=== PATIENT | male | born 1970 | race Caucasian/White ===

== ENCOUNTER 2017-07-14 21:17 | Emergency (ER) | payer MEDICAID, OTHER ==
[~2017-07-14] VITALS: Ht 180.3 cm; Wt 81.6 kg
[~2017-07-14 21:17] MED LIST: HYDR-3326 PO; ONDA4TAB5 PO
--- NOTE | 2017-07-14 22:02 | NUR ---
Dr. Rangel at bedside for MSE.
--- NOTE | 2017-07-14 22:10 | NUR ---
Soaked patient's feet in normal saline, betadine, and peroxide.
[2017-07-14] MEDS ORDERED: IBUPROFEN 800 MG TABLET ONE (22:27)
[2017-07-14] MEDS: IBUPROFEN 800 MG TABLET PO ONE (22:28)
[2017-07-14] MEDS ORDERED: diphenhydrAMINE 50 MG CAPSULE ONE (22:32)
[2017-07-14] MEDS: diphenhydrAMINE 50 MG CAPSULE PO ONE (22:33)
--- NOTE | 2017-07-14 22:56 | NUR ---
Patient given written and verbal discharge instructions. Patient verbalizes understanding of instructions. Patient is ambulatory with steady gait. Refuses offer of [facility] placement. Patient given list of available shelters in surrounding area. VSS, no acute signs of distress.
[2017-07-14 22:57] VITALS: BP 123/108
== END 2017-07-14 22:57 | disposition home or self-care (01) ==
LOC: ER 21:20
DX: S90.822A Blister (nonthermal), left foot, initial encounter (principal); S90.821A Blister (nonthermal), right foot, initial encounter; J45.909 Unspecified asthma, uncomplicated; F17.210 Nicotine dependence, cigarettes, uncomplicated; Z88.2 Allergy status to sulfonamides; Z88.1 Allergy status to other antibiotic agents; Z88.8 Allergy status to other drugs, medicaments and biological substances; Z79.891 Long term (current) use of opiate analgesic; Z79.899 Other long term (current) drug therapy; X58.XXXA Exposure to other specified factors, initial encounter; Y93.89 Activity, other specified; Y92.89 Other specified places as the place of occurrence of the external cause; Y99.8 Other external cause status
CPT/HCPCS: A4217; A4663; Q0163

== ENCOUNTER 2017-08-14 05:36 | Emergency (ER) | payer MEDICAID ==
[~2017-08-14] VITALS: Ht 180.3 cm; Wt 81.6 kg
[2017-08-14] MEDS ORDERED: PENICILLIN (06:07)
--- NOTE | 2017-08-14 06:13 | NUR ---
Patient ambulated to ER with steady gait, c/o of wounds and pain on knuckles of bilat upper ext, reports to have run into a [facility] a week ago.
--- NOTE | 2017-08-14 06:34 | NUR ---
Dr. Mcgraw at bedside for MSE.
--- NOTE | 2017-08-14 06:47 | NUR ---
Patient given written and verbal discharge instructions. Patient verbalizes understanding of instructions. Patient is ambulatory with steady gait. Refuses offer of residential placement. Patient given list of available shelters in surrounding area. VSS, no acute signs of distress, all belongings taken.
[2017-08-14 06:49] VITALS: BP 169/101
== END 2017-08-14 06:49 | disposition home or self-care (01) ==
LOC: ER 05:39
DX: B95.5 Unspecified streptococcus as the cause of diseases classified elsewhere (principal); J45.909 Unspecified asthma, uncomplicated; Z88.2 Allergy status to sulfonamides; Z88.1 Allergy status to other antibiotic agents; Z88.8 Allergy status to other drugs, medicaments and biological substances; F17.210 Nicotine dependence, cigarettes, uncomplicated; Z79.2 Long term (current) use of antibiotics; Z79.891 Long term (current) use of opiate analgesic; Z79.899 Other long term (current) drug therapy
CPT/HCPCS: A4663

== ENCOUNTER 2017-08-17 00:49 | Emergency (ER) | payer MEDICAID ==
[~2017-08-17] VITALS: Ht 180.3 cm; Wt 79.2 kg
[~2017-08-17 00:49] MED LIST changes: +PENICILLIN
--- NOTE | 2017-08-17 03:30 | NUR ---
Patient discharged to home in stable conditon. Written and verbal after care instructions given. Patient verbalizes understanding of instructions. Pt left ER and walks in steady gait.
[2017-08-17 03:32] VITALS: BP 151/88
== END 2017-08-17 03:33 | disposition home or self-care (01) ==
LOC: ER 00:52
DX: L30.9 Dermatitis, unspecified (principal); G89.29 Other chronic pain; J45.909 Unspecified asthma, uncomplicated; F17.210 Nicotine dependence, cigarettes, uncomplicated; Z88.2 Allergy status to sulfonamides; Z88.8 Allergy status to other drugs, medicaments and biological substances; Z79.891 Long term (current) use of opiate analgesic; Z79.2 Long term (current) use of antibiotics; Z79.899 Other long term (current) drug therapy
CPT/HCPCS: 99283; A4663

== ENCOUNTER 2017-08-21 02:54 | Emergency (ER) | payer MEDICAID ==
[~2017-08-21] VITALS: Ht 180.3 cm; Wt 79.8 kg
--- NOTE | 2017-08-21 03:20 | NUR ---
DR LEONIE CHAPMAN MD AT BEDSIDE FOR MSE.
--- NOTE | 2017-08-21 03:22 | NUR ---
PT C/O SKIN RASH ON BOTH HANDS, AND REQUESTS CREAM TO HELP WITH THE ITCHING. NO OTHER COMPLAINTS AT THIS TIME.
--- NOTE | 2017-08-21 03:29 | NUR ---
Patient discharged to home in stable conditon. Written and verbal after care instructions given. Patient verbalizes understanding of instructions. Pt provided snack, and ambulated from ER w/ steady gait. No distress noted.
[2017-08-21 03:30] VITALS: BP 148/87
== END 2017-08-21 03:31 | disposition home or self-care (01) ==
LOC: ER 02:59
DX: L30.9 Dermatitis, unspecified (principal); J45.909 Unspecified asthma, uncomplicated; F17.210 Nicotine dependence, cigarettes, uncomplicated; Z88.2 Allergy status to sulfonamides; Z88.1 Allergy status to other antibiotic agents; Z88.8 Allergy status to other drugs, medicaments and biological substances; Z79.2 Long term (current) use of antibiotics; Z79.891 Long term (current) use of opiate analgesic; Z79.899 Other long term (current) drug therapy
CPT/HCPCS: A4663

== ENCOUNTER 2017-08-23 01:00 | Emergency (ER) | payer MEDICAID ==
[~2017-08-23] VITALS: Ht 180.3 cm; Wt 79.8 kg
--- NOTE | 2017-08-23 01:40 | NUR ---
PT IN BED. MD HAMILTON AT BEDSIDE CONDUCTING MED EVAL.
[2017-08-23] MEDS ORDERED: NAPROXEN 500 MG TABLET ONE (01:55)
[2017-08-23] MEDS ORDERED: CODEINE/BUTA/APAP/CAFF 1 CAP CAPSULE ONE (01:56)
[2017-08-23] MEDS ORDERED: BUTALB/ACETAMINOPHEN/CAFFEINE TABLET PO PRN (02:00)
[2017-08-23] MEDS ORDERED: NAPROXEN 500 MG TABLET PO ONE (02:00)
--- NOTE | 2017-08-23 02:00 | NUR ---
Patient discharged to home in stable conditon. Written and verbal after care instructions given. Patient verbalizes understanding of instructions. Patient reported reduced headache upon discharge from ED. Patient able to ambulate unassisted with a steady gait. Patient left with all personal belongings.
[2017-08-23 02:07] VITALS: BP 148/98
== END 2017-08-23 02:00 | disposition home or self-care (01) ==
LOC: ER 01:05
DX: R51 Headache (principal); G89.29 Other chronic pain; L30.9 Dermatitis, unspecified; F15.10 Other stimulant abuse, uncomplicated; J45.909 Unspecified asthma, uncomplicated; F17.210 Nicotine dependence, cigarettes, uncomplicated; Z88.2 Allergy status to sulfonamides; Z88.1 Allergy status to other antibiotic agents; Z88.8 Allergy status to other drugs, medicaments and biological substances; Z79.891 Long term (current) use of opiate analgesic; Z79.899 Other long term (current) drug therapy; Z76.5 Malingerer [conscious simulation]; Z71.6 Tobacco abuse counseling
CPT/HCPCS: A4663

== ENCOUNTER 2017-08-28 17:08 | Emergency (ER) | payer MEDICAID ==
[~2017-08-28] VITALS: Ht 180.3 cm; Wt 81.6 kg
--- NOTE | 2017-08-28 18:25 | NUR ---
Patient discharged to home in stable conditon. Written and verbal after care instructions given. Patient verbalizes understanding of instructions.
== END 2017-08-28 18:31 | disposition home or self-care (01) ==
LOC: ER 17:08
DX: F41.9 Anxiety disorder, unspecified (principal); G89.29 Other chronic pain; L30.9 Dermatitis, unspecified; L98.499 Non-pressure chronic ulcer of skin of other sites with unspecified severity; J45.909 Unspecified asthma, uncomplicated; F12.10 Cannabis abuse, uncomplicated; Z71.6 Tobacco abuse counseling; Z88.2 Allergy status to sulfonamides; Z88.1 Allergy status to other antibiotic agents; Z88.8 Allergy status to other drugs, medicaments and biological substances; Z79.2 Long term (current) use of antibiotics; Z79.891 Long term (current) use of opiate analgesic; Z79.899 Other long term (current) drug therapy
CPT/HCPCS: A4663

== ENCOUNTER 2017-09-01 03:42 | Emergency (ER) | payer MEDICAID ==
[~2017-09-01] VITALS: Ht 180.3 cm; Wt 81.6 kg
[2017-09-01] MEDS: LIDOCAINE HCL 1% 20 ML VIAL IJ ONE (04:16)
[2017-09-01] MEDS ORDERED: NEOMY/BACITRA/POLYMYXIN B OINT UD PACKET TP ONE (04:18)
[2017-09-01] MEDS: NEOMY/BACITRA/POLYMYXIN B OINT UD PACKET TP ONE (04:30)
--- NOTE | 2017-09-01 04:30 | NUR ---
Patient discharged to home in stable conditon. Written and verbal after care instructions given. Patient verbalizes understanding of instructions. Patient able to ambulate unassisted with steady gait. Patient left with all personal belongings.
[2017-09-01 04:32] VITALS: BP 155/97
== END 2017-09-01 04:30 | disposition home or self-care (01) ==
LOC: ER 03:47
DX: S90.851A Superficial foreign body, right foot, initial encounter (principal); L98.499 Non-pressure chronic ulcer of skin of other sites with unspecified severity; J45.909 Unspecified asthma, uncomplicated; F17.210 Nicotine dependence, cigarettes, uncomplicated; F12.10 Cannabis abuse, uncomplicated; Z88.2 Allergy status to sulfonamides; Z88.1 Allergy status to other antibiotic agents; Z88.8 Allergy status to other drugs, medicaments and biological substances; Z79.891 Long term (current) use of opiate analgesic; Z79.2 Long term (current) use of antibiotics; Z79.899 Other long term (current) drug therapy; X58.XXXA Exposure to other specified factors, initial encounter; Y93.89 Activity, other specified; Y92.89 Other specified places as the place of occurrence of the external cause; Y99.8 Other external cause status
CPT/HCPCS: A4663; J3490

== ENCOUNTER 2017-09-14 01:26 | Emergency (ER) | payer MEDICAID ==
[~2017-09-14] VITALS: Ht 172.7 cm; Wt 77.1 kg
--- NOTE | 2017-09-14 02:20 | NUR ---
Patient discharged to home in stable conditon. Written and verbal after care instructions given. Patient verbalizes understanding of instructions. Patient ambulated out of ER in steady gait. All belongings with pt. VSS. No acute distress noted.
[2017-09-14 02:22] VITALS: BP 149/91
== END 2017-09-14 02:22 | disposition home or self-care (01) ==
LOC: ER 01:26
DX: B07.0 Plantar wart (principal); G43.909 Migraine, unspecified, not intractable, without status migrainosus; J45.909 Unspecified asthma, uncomplicated; F17.200 Nicotine dependence, unspecified, uncomplicated; Z88.1 Allergy status to other antibiotic agents
CPT/HCPCS: 99283; A4663

== ENCOUNTER 2017-10-13 05:01 | Emergency (ER) | payer MEDICAID ==
[~2017-10-13] VITALS: Ht 180.3 cm; Wt 69.9 kg
--- NOTE | 2017-10-13 07:09 | NUR ---
Patient discharged to home in stable conditon. Written and verbal after care instructions given. Patient verbalizes understanding of instructions.
[2017-10-13 07:10] VITALS: BP 158/89
== END 2017-10-13 07:11 | disposition home or self-care (01) ==
LOC: ER 05:05
DX: R10.13 Epigastric pain (principal); J45.909 Unspecified asthma, uncomplicated; F12.10 Cannabis abuse, uncomplicated; Z88.2 Allergy status to sulfonamides; Z88.1 Allergy status to other antibiotic agents; Z88.8 Allergy status to other drugs, medicaments and biological substances
CPT/HCPCS: 93005; 99283; A4663

== ENCOUNTER 2017-11-06 00:25 | Emergency (ER) | payer MEDICAID ==
[~2017-11-06] VITALS: Ht 180.3 cm; Wt 65.3 kg
--- NOTE | 2017-11-06 00:55 | NUR ---
Patient discharged to home in stable conditon. Written and verbal after care instructions given. Patient verbalizes understanding of instructions. Patient able to ambulate unassisted with a steady gait. Patient left with all personal belongings.
[2017-11-06 01:02] VITALS: BP 148/98
== END 2017-11-06 00:55 | disposition home or self-care (01) ==
LOC: ER 00:28
DX: K29.70 Gastritis, unspecified, without bleeding (principal); H52.4 Presbyopia; J45.909 Unspecified asthma, uncomplicated; F12.10 Cannabis abuse, uncomplicated; F17.210 Nicotine dependence, cigarettes, uncomplicated; Z88.2 Allergy status to sulfonamides; Z88.1 Allergy status to other antibiotic agents; Z88.8 Allergy status to other drugs, medicaments and biological substances
CPT/HCPCS: A4663

== ENCOUNTER 2017-12-10 15:30 | Emergency (ER) | payer MEDICAID ==
[~2017-12-10] VITALS: Ht 180.3 cm; Wt 65.3 kg
--- NOTE | 2017-12-10 16:19 | NUR ---
pt is in room #2b. dr pablo evaluated the pt.
--- NOTE | 2017-12-10 16:25 | NUR ---
PT WAS D/C TO HOME. D/C INSTRUCTIONS GIVEN TO THE PT.
[2017-12-10 16:27] VITALS: BP 139/84
== END 2017-12-10 17:05 | disposition home or self-care (01) ==
LOC: ER 15:42
DX: K29.70 Gastritis, unspecified, without bleeding (principal); Z76.0 Encounter for issue of repeat prescription; J45.909 Unspecified asthma, uncomplicated; F17.210 Nicotine dependence, cigarettes, uncomplicated; F12.10 Cannabis abuse, uncomplicated; Z88.2 Allergy status to sulfonamides; Z88.8 Allergy status to other drugs, medicaments and biological substances
CPT/HCPCS: 99283; A4663

== ENCOUNTER 2018-01-09 21:03 | Emergency (ER) | payer MEDICAID ==
[~2018-01-09] VITALS: Ht 180.3 cm; Wt 65.3 kg
--- NOTE | 2018-01-09 21:22 | NUR ---
Dr. Lyons at bedside for MSE.
[2018-01-09] MEDS ORDERED: diphenhydrAMINE 25 MG CAP PO ONE ×2 (21:29→21:30)
[2018-01-09] MEDS ORDERED: LORAZEPAM 1 MG TABLET ONE (21:29)
[2018-01-09] MEDS ORDERED: HYDROCODONE/APAP 10-325 MG TABLET PO ONE (21:30)
[2018-01-09] MEDS ORDERED: LORAZEPAM 0.5 MG TABLET PO ONE (21:30)
[2018-01-09] MEDS ORDERED: HYDROCODONE/APAP 10-325 MG TABLET ONE (21:30)
--- NOTE | 2018-01-09 21:35 | NUR ---
Patient discharged to home in stable conditon. Written and verbal after care instructions given. Patient verbalizes understanding of instructions. Patient ambulated out of ER with steady gait, no acute signs of distress, VSS, all belongings taken.
[2018-01-09 21:37] VITALS: BP 149/94
== END 2018-01-09 21:38 | disposition home or self-care (01) ==
LOC: ER 21:05
DX: G89.29 Other chronic pain (principal); R51 Headache; Z76.5 Malingerer [conscious simulation]; Z71.6 Tobacco abuse counseling; J45.909 Unspecified asthma, uncomplicated; F17.210 Nicotine dependence, cigarettes, uncomplicated; F12.10 Cannabis abuse, uncomplicated; Z88.2 Allergy status to sulfonamides; Z88.1 Allergy status to other antibiotic agents; Z88.8 Allergy status to other drugs, medicaments and biological substances
CPT/HCPCS: A4663; Q0163

== ENCOUNTER 2018-01-18 03:57 | Emergency (ER) | payer MEDICAID ==
[~2018-01-18] VITALS: Ht 180.3 cm; Wt 66.7 kg
[2018-01-18 05:21] LABS: *BILIRUBIN,URIN NEGATIVE (NEGATIVE); *BLOOD, URINE NEGATIVE (NEGATIVE); *CLARITY,URINE CLEAR (CLEAR); *COLOR,URINE YELLOW (YELLOW); *KETONES,URINE NEGATIVE (NEGATIVE); *PROTEIN,URINE NEGATIVE (NEGATIVE); *UROBILINOGEN,URINE 0.2 E.U./dl (NORMAL); LEUKOCYTE ESTERASE ,URINE NEGATIVE (NEGATIVE); NITRITE, URINE NEGATIVE (NEGATIVE); PH,URINE 5.5 (5.0-8.0); UGLUCOSE NEGATIVE (NEGATIVE)
[2018-01-18 05:28] LABS: BACTERIA,URINE NONE SEEN /HPF (NONE SEEN); RBC,URINE 0-3 /HPF (0-3); SQUAMOUS EPITHELIAL CELL,UR FEW /HPF (NONE SEEN); WBC,URINE 0-3 /HPF (0-3)
--- NOTE | 2018-01-18 06:04 | NUR ---
Patient discharged to home in stable conditon. Written and verbal after care instructions given. Patient verbalizes understanding of instructions.
[2018-01-18 06:20] VITALS: BP 148/94
== END 2018-01-18 06:21 | disposition home or self-care (01) ==
LOC: ER 04:01
DX: J02.8 Acute pharyngitis due to other specified organisms (principal); B97.89 Other viral agents as the cause of diseases classified elsewhere; J45.909 Unspecified asthma, uncomplicated; F17.210 Nicotine dependence, cigarettes, uncomplicated; F12.10 Cannabis abuse, uncomplicated; Z88.2 Allergy status to sulfonamides; Z88.1 Allergy status to other antibiotic agents; Z88.8 Allergy status to other drugs, medicaments and biological substances
CPT/HCPCS: 36415; 86403; 87070; A4663

== ENCOUNTER 2018-01-25 21:12 | Emergency (ER) | payer MEDICAID ==
[~2018-01-25] VITALS: Ht 180.3 cm; Wt 65.8 kg
--- NOTE | 2018-01-25 22:08 | NUR ---
Patient discharged to home in stable conditon. Written and verbal after care instructions given. Patient verbalizes understanding of instructions.
[2018-01-25 22:09] VITALS: BP 144/91
== END 2018-01-25 22:19 | disposition home or self-care (01) ==
LOC: ER 21:14
DX: M25.532 Pain in left wrist (principal); J45.909 Unspecified asthma, uncomplicated; F12.10 Cannabis abuse, uncomplicated; F17.210 Nicotine dependence, cigarettes, uncomplicated; Z88.2 Allergy status to sulfonamides; Z88.8 Allergy status to other drugs, medicaments and biological substances; Z88.1 Allergy status to other antibiotic agents
CPT/HCPCS: 73110; A4663

== ENCOUNTER 2018-01-31 22:03 | Inpatient (IN) | payer MEDICAID ==
[~2018-01-31] VITALS: Ht 180.3 cm; Wt 65.8 kg
[2018-01-31] MEDS ORDERED: IBUPROFEN 800 MG TABLET PO ONE (22:30)
[2018-01-31] MEDS ORDERED: HYDROCODONE/APAP 5-325MG TABLET PO ONE (22:30)
[2018-01-31] MEDS ORDERED: HYDROCODONE/APAP 5-325MG TABLET ONE (22:40)
[2018-01-31] MEDS ORDERED: IBUPROFEN 800 MG TABLET ONE (22:40)
[2018-01-31] MEDS ORDERED: CEFTRIAXONE 1 G VIAL ONE (23:45)
[2018-01-31] MEDS ORDERED: LEVOFLOXACIN 750 MG TABLET PO ONE (23:45)
[2018-01-31] MEDS ORDERED: LIDOCAINE HCL 1% 20 ML VIAL ONE (23:45)
[2018-01-31] MEDS ORDERED: LEVOFLOXACIN 750 MG TABLET ONE (23:45)
[2018-01-31] MEDS ORDERED: PSEUDOEPHEDRINE HCL 30 MG TABLET PO ONE (23:45)
[2018-01-31] MEDS ORDERED: CEFTRIAXONE 1 G VIAL IM ONE (23:45)
[2018-01-31] MEDS ORDERED: PSEUDOEPHEDRINE HCL 30 MG TABLET ONE (23:46)
[2018-02-01 00:08] LABS: BASOPHILS # (AUTO) 0.1 K/uL (0.0-8.0); BASOPHILS % (AUTO) 0.3 % (0.0-2.0); EOSINOPHILS # (AUTO) 0.1 K/uL (0.0-0.7); EOSINOPHILS % (AUTO) 0.5 % (0.0-7.0); HEMATOCRIT 35.4 % (36.7-47.1); LYMPHOCYTES # (AUTO) 1.6 K/uL (20.0-40.0); MEAN CORPUSCULAR HEMOGLOBIN 29.3 uug (23.8-33.4); MEAN CORPUSCULAR HGB CONC 34 g/dL (32.5-36.3); MEAN CORPUSCULAR VOLUME 86.7 fL (73.0-96.2); MONOCYTES # (AUTO) 1.6 K/uL (2.0-10.0); NEUTROPHILS # (AUTO) 14.3 K/uL (1.8-8.9); NEUTROPHILS % (AUTO) 81.2 % (38.5-71.5); PLATELET COUNT (AUTO) 408 K/uL (152-348); RED BLOOD CELL COUNT(AUTO) 4.08 MIL/uL (4.06-5.63); WHITE BLOOD COUNT (AUTO) 17.6 K/uL (3.6-10.2)
[2018-02-01 00:19] LABS: POTASSIUM 3.3 mmol/L (3.5-5.1)
[2018-02-01 00:24] LABS: BILIRUBIN,TOTAL 0.4 mg/dL (0.2-1.0); TOTAL PROTEIN, SERUM 7.3 g/dL (6.4-8.2)
[2018-02-01 01:45] VITALS: BP 136/90
[2018-02-01] MEDS ORDERED: ACETAMINOPHEN 325 MG TABLET PO PRN (01:45)
[2018-02-01] MEDS ORDERED: Z GUARD REMEDY PASTE 57 GM TUBE TOP PRN (01:45)
[2018-02-01] MEDS ORDERED: ONDANSETRON 4 MG/2 ML VIAL IV PRN (01:45)
[2018-02-01] MEDS ORDERED: ZOLPIDEM 5 MG TABLET PO PRN (01:45)
[2018-02-01] MEDS ORDERED: HYDROCODONE/APAP 5-325MG TABLET PO PRN (01:45)
[2018-02-01] MEDS ORDERED: MAGNESIUM HYDROXIDE 30 ML LIQUID UDC PO PRN (01:45)
[2018-02-01] MEDS: MORPHINE SULFATE 4 MG/1 ML DISP.SYRIN IV PRN ×4 (02:30→21:24)
[2018-02-01 04:34] VITALS: BP 150/89
[2018-02-01 07:45] VITALS: BP 136/92
[2018-02-01] MEDS ORDERED: LORAZEPAM 1 MG TABLET PO ONE (09:00)
[2018-02-01] MEDS: NICOTINE 21 MG/24HR PATCH TD SCH (09:29)
[2018-02-01] MEDS: LEVOFLOXACIN 750 MG TABLET PO SCH (11:28)
[2018-02-01 11:40] VITALS: BP 150/92
[2018-02-01] MEDS ORDERED: POTASSIUM CHLORIDE 20 MEQ TAB.PRT.SR PO ONE (15:30)
[2018-02-01 16:11] VITALS: BP 142/90
[2018-02-01] MEDS: KETOROLAC TROMETHAMINE 15 MG INJ IVP PRN (16:27)
[2018-02-01 20:14] VITALS: BP 171/98
[2018-02-01] MEDS: LORAZEPAM 2 MG/1 ML VIAL IV PRN (21:23)
[2018-02-02 04:00] VITALS: BP 174/95
[2018-02-02 05:30] VITALS: BP 147/93
[2018-02-02] MEDS: KETOROLAC TROMETHAMINE 15 MG INJ IVP PRN (06:04)
[2018-02-02] MEDS: LORAZEPAM 2 MG/1 ML VIAL IV PRN (06:12)
[2018-02-02 06:28] LABS: BASOPHILS % (AUTO) 0.3 % (0.0-2.0); EOSINOPHILS # (AUTO) 0.3 K/uL (0.0-0.7); EOSINOPHILS % (AUTO) 2.4 % (0.0-7.0); HEMATOCRIT 33.6 % (36.7-47.1); HEMOGLOBIN 11.5 g/dL (12.5-16.3); LYMPHOCYTES # (AUTO) 1.7 K/uL (20.0-40.0); LYMPHOCYTES % (AUTO) 12.3 % (20.5-51.5); MEAN CORPUSCULAR HEMOGLOBIN 29.4 uug (23.8-33.4); MEAN CORPUSCULAR HGB CONC 34 g/dL (32.5-36.3); MEAN CORPUSCULAR VOLUME 86.1 fL (73.0-96.2); MONOCYTES # (AUTO) 1.2 K/uL (2.0-10.0); NEUTROPHILS # (AUTO) 10.6 K/uL (1.8-8.9); PLATELET COUNT (AUTO) 441 K/uL (152-348); WHITE BLOOD COUNT (AUTO) 13.9 K/uL (3.6-10.2)
[2018-02-02 06:43] LABS: CREATININE 0.7 mg/dL (0.6-1.3); MAGNESIUM 1.6 mg/dL (1.8-2.4); PHOSPHOROUS 2.8 mg/dL (2.5-4.9); POTASSIUM 3.4 mmol/L (3.5-5.1)
[2018-02-02] MEDS: NICOTINE 21 MG/24HR PATCH TD SCH (09:48)
[2018-02-02] MEDS: LEVOFLOXACIN 750 MG TABLET PO SCH (11:07)
[2018-02-02] MEDS: MORPHINE SULFATE 4 MG/1 ML DISP.SYRIN IV PRN ×2 (11:08→15:09)
[2018-02-02 11:22] VITALS: BP 146/91
[2018-02-02] MEDS ORDERED: MAGNESIUM OXIDE 400 MG TABLET PO ONE (14:15)
[2018-02-02] MEDS ORDERED: POTASSIUM CHLORIDE 20 MEQ TAB.PRT.SR PO ONE (14:15)
[2018-02-02 15:18] VITALS: BP 160/93
[2018-02-02 15:30] VITALS: BP 130/80
== END 2018-02-02 15:40 | disposition left against medical advice (07) | DRG 135 ==
LOC: EDBD → ER 22:07 → TELE 02-01 00:30 → MERGE 02-01 00:30 → MED 02-01 16:53
PROVIDERS: ADMIT Internal Medicine; ATTEND Nurse Practitioner Acute Care
DX: S27.321A Contusion of lung, unilateral, initial encounter (principal); J18.9 Pneumonia, unspecified organism; E83.42 Hypomagnesemia; F15.10 Other stimulant abuse, uncomplicated; Y09 Assault by unspecified means; Y92.89 Other specified places as the place of occurrence of the external cause; E87.6 Hypokalemia; J45.909 Unspecified asthma, uncomplicated; D72.829 Elevated white blood cell count, unspecified; F17.210 Nicotine dependence, cigarettes, uncomplicated; D64.9 Anemia, unspecified
CPT/HCPCS: 36415; 70030-TC; 71045; 71101; 71250; 83735; 84100; 85025; 85730; 87040; 93005; 93307; A4663; J0696; J1885; J2060; J2270; J3490

== ENCOUNTER 2018-02-05 00:13 | Emergency (ER) | payer MEDICAID ==
[~2018-02-05] VITALS: Ht 180.3 cm; Wt 77.1 kg
--- NOTE | 2018-02-05 00:50 | NUR ---
Pt ambulating around room, rumaging through the cabinets and nutrition shelf and eating snacks. Pt awake, alert, oriented x3. No sob noted. no s/sx of distress noted. Resp even and unlabored. Will cont to monitor. Addendum: 02/05/18 at 0051 by RENETTA Blanchable redness to buttocks noted.
[2018-02-05] MEDS ORDERED: LEVOFLOXACIN 750 MG TABLET PO ONE (01:00)
[2018-02-05] MEDS ORDERED: LEVOFLOXACIN 750 MG TABLET ONE (01:02)
--- NOTE | 2018-02-05 01:16 | NUR ---
Patient discharged to home in stable conditon. Written and verbal after care instructions given. Patient verbalizes understanding of instructions. Resouces, prescription discussed and provided to patient.
--- NOTE | 2018-02-05 01:21 | NUR ---
Pt stated that he is currently staying with a friend at this time.
== END 2018-02-05 01:22 | disposition home or self-care (01) ==
LOC: ER 00:16
DX: J18.9 Pneumonia, unspecified organism (principal); R91.1 Solitary pulmonary nodule; J45.909 Unspecified asthma, uncomplicated; Z88.2 Allergy status to sulfonamides; Z88.1 Allergy status to other antibiotic agents; Z88.8 Allergy status to other drugs, medicaments and biological substances
CPT/HCPCS: 99283; A4663

== ENCOUNTER 2018-02-15 01:20 | Emergency (ER) | payer MEDICAID ==
[~2018-02-15] VITALS: Ht 180.3 cm; Wt 66.7 kg
[2018-02-15] MEDS ORDERED: LEVOFLOXACIN 750 MG TABLET PO ONE (02:15)
[2018-02-15] MEDS ORDERED: diphenhydrAMINE 25 MG CAP PO ONE ×2 (02:15→02:22)
[2018-02-15] MEDS ORDERED: LEVOFLOXACIN 750 MG TABLET ONE (02:23)
--- NOTE | 2018-02-15 02:59 | NUR ---
Patient discharged to home in stable conditon. Written and verbal after care instructions given. Patient verbalizes understanding of instructions. PATIENT LEFT WITH STABLE GAIT.
[2018-02-15 03:05] VITALS: BP 151/87
== END 2018-02-15 03:06 | disposition home or self-care (01) ==
LOC: ER 01:22
DX: J18.9 Pneumonia, unspecified organism (principal); R09.81 Nasal congestion; R51 Headache; I10 Essential (primary) hypertension; Z76.5 Malingerer [conscious simulation]; F17.210 Nicotine dependence, cigarettes, uncomplicated; F12.10 Cannabis abuse, uncomplicated; Z88.2 Allergy status to sulfonamides; Z88.1 Allergy status to other antibiotic agents; Z88.8 Allergy status to other drugs, medicaments and biological substances
CPT/HCPCS: 99283; Q0163; A4663

== ENCOUNTER 2018-02-24 03:50 | Emergency (ER) | payer MEDICAID ==
[~2018-02-24] VITALS: Ht 180.3 cm; Wt 68.0 kg
[2018-02-24] MEDS ORDERED: diphenhydrAMINE 25 MG CAP PO ONE ×2 (04:29→04:30)
[2018-02-24] MEDS ORDERED: IBUPROFEN 600 MG TABLET ONE (04:29)
[2018-02-24] MEDS ORDERED: IBUPROFEN 600 MG TABLET PO ONE (04:30)
--- NOTE | 2018-02-24 04:55 | NUR ---
Gave pt RX and d/c instructions, pt verbalized understanding.
== END 2018-02-24 05:10 | disposition home or self-care (01) ==
LOC: ER 03:54
DX: G89.29 Other chronic pain (principal); R51 Headache; F15.10 Other stimulant abuse, uncomplicated; F17.200 Nicotine dependence, unspecified, uncomplicated; Z76.5 Malingerer [conscious simulation]; Z59.0 Homelessness; Z88.2 Allergy status to sulfonamides; Z88.1 Allergy status to other antibiotic agents; Z88.8 Allergy status to other drugs, medicaments and biological substances
CPT/HCPCS: 99283; Q0163; A4663

== ENCOUNTER 2018-03-13 19:03 | Emergency (ER) | payer MEDICAID ==
[~2018-03-13] VITALS: Ht 180.3 cm; Wt 68.0 kg
[2018-03-13] MEDS ORDERED: HYDROCODONE/APAP 10-325 MG TABLET PO ONE (19:30)
[2018-03-13] MEDS ORDERED: ONDANSETRON ODT 4 MG TAB.RAPDIS SL ONE (19:30)
[2018-03-13] MEDS ORDERED: DIPHENOXYLATE HCL/ATROP SULF TABLET PO ONE (19:30)
[2018-03-13] MEDS ORDERED: PSEUDOEPHEDRINE HCL 30 MG TABLET PO ONE (19:30)
[2018-03-13] MEDS ORDERED: HYDROCODONE/APAP 10-325 MG TABLET ONE (19:40)
[2018-03-13] MEDS ORDERED: ONDANSETRON ODT 4 MG TAB.RAPDIS ONE (19:41)
[2018-03-13] MEDS ORDERED: DIPHENOXYLATE HCL/ATROP SULF TABLET ONE (19:43)
[2018-03-13] MEDS ORDERED: PSEUDOEPHEDRINE HCL 30 MG TABLET ONE (19:43)
--- NOTE | 2018-03-13 20:15 | NUR ---
Dr Lyons has spoke with patient will be DC.
--- NOTE | 2018-03-13 20:22 | NUR ---
Patient discharged to home in stable conditon. Written and verbal after care instructions given. Patient verbalizes understanding of instructions.
[2018-03-13 20:23] VITALS: BP 138/77
== END 2018-03-13 20:29 | disposition home or self-care (01) ==
LOC: ER 19:06
DX: R19.7 Diarrhea, unspecified (principal); R51 Headache; G89.4 Chronic pain syndrome; Z71.6 Tobacco abuse counseling; J45.909 Unspecified asthma, uncomplicated; F17.290 Nicotine dependence, other tobacco product, uncomplicated; Z88.2 Allergy status to sulfonamides; Z88.1 Allergy status to other antibiotic agents; Z88.8 Allergy status to other drugs, medicaments and biological substances; Z59.0 Homelessness
CPT/HCPCS: A4663; Q0162

== ENCOUNTER 2018-03-19 18:08 | Emergency (ER) | payer MEDICAID ==
[~2018-03-19] VITALS: Ht 180.3 cm; Wt 63.5 kg
[2018-03-19] MEDS ORDERED: DIPH25CA83 PO (18:28)
--- NOTE | 2018-03-19 18:52 | NUR ---
PATIENT IS A/A/O X3 IN NO DISTRESS.
--- NOTE | 2018-03-19 19:25 | NUR ---
Patient discharged to home in stable conditon. Written and verbal after care instructions given. Patient verbalizes understanding of instructions.
== END 2018-03-19 19:28 | disposition home or self-care (01) ==
LOC: ER 18:10
DX: S09.90XA Unspecified injury of head, initial encounter (principal); H53.8 Other visual disturbances; J06.9 Acute upper respiratory infection, unspecified; Z71.6 Tobacco abuse counseling; F17.290 Nicotine dependence, other tobacco product, uncomplicated; J45.909 Unspecified asthma, uncomplicated; Z59.0 Homelessness; Z88.2 Allergy status to sulfonamides; Z88.1 Allergy status to other antibiotic agents; Z88.8 Allergy status to other drugs, medicaments and biological substances; W01.198A Fall on same level from slipping, tripping and stumbling with subsequent striking against other object, initial encounter; Y93.89 Activity, other specified; Y92.89 Other specified places as the place of occurrence of the external cause; Y99.8 Other external cause status
CPT/HCPCS: A4663

== ENCOUNTER 2018-03-20 21:49 | Emergency (ER) | payer MEDICAID ==
[~2018-03-20] VITALS: Ht 180.3 cm; Wt 63.5 kg
[~2018-03-20 21:49] MED LIST changes: +DIPH25CA83 PO; -HYDR-3326 PO; -ONDA4TAB5 PO; -PENICILLIN
--- NOTE | 2018-03-20 22:10 | NUR ---
Patient given written and verbal discharge instructions. Patient verbalizes understanding of instructions. Patient is ambulatory with steady gait. Refuses offer of [facility] placement. Patient given list of available shelters in surrounding area.
--- NOTE | 2018-03-20 22:10 | NUR ---
Coleman zepeda in EDM - 03/20/18 at 2210 by ALESHIA Patient discharged to home in stable conditon. Written and verbal after care instructions given. Patient verbalizes understanding of instructions.
== END 2018-03-20 22:11 | disposition home or self-care (01) ==
LOC: ER 21:51
DX: Z00.00 Encounter for general adult medical examination without abnormal findings (principal); J45.909 Unspecified asthma, uncomplicated; F17.200 Nicotine dependence, unspecified, uncomplicated; Z59.0 Homelessness; Z88.2 Allergy status to sulfonamides; Z88.1 Allergy status to other antibiotic agents; Z88.8 Allergy status to other drugs, medicaments and biological substances
CPT/HCPCS: A4663

== ENCOUNTER 2018-04-20 00:57 | Emergency (ER) | END 2018-04-20 02:04 | disposition home or self-care (01) | DX: G89.29 Other chronic pain (principal); R51 Headache; I10 Essential (primary) hypertension; F15.10 Other stimulant abuse, uncomplicated; J45.909 Unspecified asthma, uncomplicated; F17.210 Nicotine dependence, cigarettes, uncomplicated; Z76.5 Malingerer [conscious simulation]; Z88.1 Allergy status to other antibiotic agents; Z59.0 Homelessness; Z91.14 Patient's other noncompliance with medication regimen; Z88.2 Allergy status to sulfonamides; Z79.899 Other long term (current) drug therapy ==

== ENCOUNTER 2018-04-25 22:20 | Emergency (ER) | payer MEDICAID ==
--- NOTE | 2018-04-25 22:38 | NUR ---
Pt was called in waiting room, not seen.
--- NOTE | 2018-04-25 22:49 | NUR ---
Pt called again in waiting room, not seen.
== END 2018-04-25 22:54 | disposition left against medical advice (07) ==
LOC: ER 22:24
DX: Z53.21 Procedure and treatment not carried out due to patient leaving prior to being seen by health care provider (principal)

== ENCOUNTER 2018-05-07 15:28 | Emergency (ER) | payer MEDICAID ==
[~2018-05-07] VITALS: Ht 180.3 cm; Wt 68.0 kg
[2018-05-07] MEDS ORDERED: KETOROLAC TROMETHAMINE 30 MG INJ IM ONE (15:45)
[2018-05-07] MEDS ORDERED: KETOROLAC TROMETHAMINE 30 MG INJ ONE (16:09)
--- NOTE | 2018-05-07 16:29 | NUR ---
Received patient for discharge- Patient is AOx4. Patient denies being homeless. Patient discharged to home in stable conditon & brisk steady gait. Written and verbal after care instructions given to patient. Patient verbalizes understanding of instructions.
== END 2018-05-07 16:29 | disposition home or self-care (01) ==
LOC: ER 15:30
DX: R51 Headache (principal); J45.909 Unspecified asthma, uncomplicated; F17.290 Nicotine dependence, other tobacco product, uncomplicated; Z88.8 Allergy status to other drugs, medicaments and biological substances; Z88.2 Allergy status to sulfonamides; Z88.1 Allergy status to other antibiotic agents; Z79.899 Other long term (current) drug therapy
CPT/HCPCS: 96372; 99283; 99406; J1885; A4663

== ENCOUNTER 2018-05-22 03:38 | Emergency (ER) | payer MEDICAID ==
[~2018-05-22] VITALS: Ht 180.3 cm; Wt 68.0 kg
--- NOTE | 2018-05-22 03:50 | NUR ---
Dr. Lyons at bedside for MSE
[2018-05-22] MEDS ORDERED: LORAZEPAM 0.5 MG TABLET PO ONE (04:00)
[2018-05-22] MEDS ORDERED: OXYCODONE/APAP 5-325 MG TABLET PO ONE (04:00)
[2018-05-22] MEDS ORDERED: LORAZEPAM 0.5 MG TABLET ONE (04:04)
[2018-05-22] MEDS ORDERED: OXYCODONE/APAP 5-325 MG TABLET ONE (04:05)
--- NOTE | 2018-05-22 04:05 | NUR ---
Pt c/o neck pain radiating to his head and giving him migraines since 1200. PS 08/03.
[2018-05-22] MEDS ORDERED: PROCHLORPERAZINE EDISYLATE 10 MG/2 ML VIAL ONE (04:07)
--- NOTE | 2018-05-22 04:16 | NUR ---
Patient discharged to home in stable conditon. Written and verbal after care instructions given. Patient verbalizes understanding of instructions. Pt ambulated out of dept with steady gait.
[2018-05-22 04:17] VITALS: BP 158/85
== END 2018-05-22 04:19 | disposition home or self-care (01) ==
LOC: ER 03:41
DX: R51 Headache (principal); F41.9 Anxiety disorder, unspecified; Z76.0 Encounter for issue of repeat prescription; I10 Essential (primary) hypertension; Z71.6 Tobacco abuse counseling; J45.909 Unspecified asthma, uncomplicated; F17.290 Nicotine dependence, other tobacco product, uncomplicated; Z88.2 Allergy status to sulfonamides; Z88.1 Allergy status to other antibiotic agents; Z88.8 Allergy status to other drugs, medicaments and biological substances; Z59.0 Homelessness; Z79.899 Other long term (current) drug therapy
CPT/HCPCS: A4663; J0780

== ENCOUNTER 2018-05-25 00:35 | Emergency (ER) | payer MEDICAID ==
[~2018-05-25] VITALS: Ht 180.3 cm; Wt 68.0 kg
--- NOTE | 2018-05-25 00:50 | NUR ---
PATIENT WALKED INTO ER A/OX3 WITH STEADY GAIT C/O MIGRAINE PEPE X12HRS. PATIENT DENIES N/V. WAS SEEN HERE 3 DAYS AGO FOR SIMILAR COMPLAINT.
[2018-05-25] MEDS ORDERED: diphenhydrAMINE 50 MG CAPSULE ONE (01:07)
[2018-05-25] MEDS ORDERED: OXYCODONE/APAP 5-325 MG TABLET ONE (01:07)
[2018-05-25] MEDS ORDERED: diphenhydrAMINE 50 MG CAPSULE PO ONE (01:15)
[2018-05-25] MEDS ORDERED: OXYCODONE/APAP 5-325 MG TABLET PO ONE (01:15)
--- NOTE | 2018-05-25 01:20 | NUR ---
Patient given written and verbal discharge instructions. Patient verbalizes understanding of instructions. Patient is ambulatory with steady gait. Refuses offer of [facility] placement. Patient given list of available shelters in surrounding area.
[2018-05-25 01:21] VITALS: BP 158/88
== END 2018-05-25 01:24 | disposition home or self-care (01) ==
LOC: ER 00:36
DX: G43.909 Migraine, unspecified, not intractable, without status migrainosus (principal); I10 Essential (primary) hypertension; J45.909 Unspecified asthma, uncomplicated; F17.200 Nicotine dependence, unspecified, uncomplicated; Z88.2 Allergy status to sulfonamides; Z88.8 Allergy status to other drugs, medicaments and biological substances; Z79.899 Other long term (current) drug therapy
CPT/HCPCS: 99283; Q0163; A4663

== ENCOUNTER 2018-06-01 02:05 | Emergency (ER) | payer MEDICAID ==
[~2018-06-01] VITALS: Ht 175.3 cm; Wt 68.0 kg
--- NOTE | 2018-06-01 02:59 | NUR ---
Pt ambulated in ER for the c/o right middle finger swelling and requestion for rx of clonidine and allergy medication. Safe environment implemented.
--- NOTE | 2018-06-01 03:32 | NUR ---
Dr. Rangel at bedside for MSE
--- NOTE | 2018-06-01 03:48 | NUR ---
Patient discharged to home in stable conditon. Written and verbal after care instructions given. Patient verbalizes understanding of instructions. Patient ambulated out of dept with steady gait.
[2018-06-01 03:50] VITALS: BP 160/95
== END 2018-06-01 03:51 | disposition home or self-care (01) ==
LOC: ER 02:07
DX: F41.9 Anxiety disorder, unspecified (principal); R09.81 Nasal congestion; I10 Essential (primary) hypertension; Z76.0 Encounter for issue of repeat prescription; J45.909 Unspecified asthma, uncomplicated; F17.200 Nicotine dependence, unspecified, uncomplicated; Z79.899 Other long term (current) drug therapy; Z88.2 Allergy status to sulfonamides; Z88.1 Allergy status to other antibiotic agents; Z88.8 Allergy status to other drugs, medicaments and biological substances
CPT/HCPCS: A4663

== ENCOUNTER 2018-06-07 02:41 | Emergency (ER) | payer MEDICAID ==
[~2018-06-07] VITALS: Ht 180.3 cm; Wt 68.0 kg
--- NOTE | 2018-06-07 03:13 | NUR ---
Patient given written and verbal discharge instructions. Patient verbalizes understanding of instructions. Patient is ambulatory with steady gait. Refuses offer of longterm placement. Patient given list of available shelters in surrounding area. Pt given food.
[2018-06-07 03:15] VITALS: BP 158/94
== END 2018-06-07 03:16 | disposition home or self-care (01) ==
LOC: ER 02:51
DX: R51 Headache (principal); I10 Essential (primary) hypertension; J45.909 Unspecified asthma, uncomplicated; F17.200 Nicotine dependence, unspecified, uncomplicated; Z88.2 Allergy status to sulfonamides; Z88.1 Allergy status to other antibiotic agents; Z88.8 Allergy status to other drugs, medicaments and biological substances; Z79.899 Other long term (current) drug therapy
CPT/HCPCS: A4663

== ENCOUNTER 2018-06-11 18:58 | Emergency (ER) | payer MEDICAID ==
[~2018-06-11] VITALS: Ht 172.7 cm; Wt 68.0 kg
--- NOTE | 2018-06-11 19:12 | NUR ---
HAND OFF REPORT GIVEN TO BEBETO URENA
[2018-06-11] MEDS ORDERED: KETOROLAC TROMETHAMINE 30 MG INJ ONE (19:36)
[2018-06-11] MEDS ORDERED: KETOROLAC TROMETHAMINE 30 MG INJ IM ONE (19:45)
--- NOTE | 2018-06-11 19:47 | NUR ---
Patient discharged to home in stable conditon. Written and verbal after care instructions given. Patient verbalizes understanding of instructions. Pt able to ambulate out of department with steady gait.
[2018-06-11 19:49] VITALS: BP 125/70
== END 2018-06-11 19:50 | disposition home or self-care (01) ==
LOC: ER 19:00
DX: S90.821A Blister (nonthermal), right foot, initial encounter (principal); S20.212A Contusion of left front wall of thorax, initial encounter; I10 Essential (primary) hypertension; J45.909 Unspecified asthma, uncomplicated; F17.290 Nicotine dependence, other tobacco product, uncomplicated; Z88.8 Allergy status to other drugs, medicaments and biological substances; Z79.899 Other long term (current) drug therapy; W01.0XXA Fall on same level from slipping, tripping and stumbling without subsequent striking against object, initial encounter; Y93.89 Activity, other specified; Y92.89 Other specified places as the place of occurrence of the external cause; Y99.8 Other external cause status
CPT/HCPCS: 71101; 96372; 99283; 99406; J1885; A4663

== ENCOUNTER 2018-06-20 19:37 | Emergency (ER) | payer MEDICAID ==
[~2018-06-20] VITALS: Ht 180.3 cm; Wt 68.0 kg
--- NOTE | 2018-06-20 20:11 | NUR ---
Patient given written and verbal discharge instructions. Patient verbalizes understanding of instructions. Patient is ambulatory with steady gait. Refuses offer of senior care placement. Patient given list of available shelters in surrounding area. Pt provided turkey sandwich.
[2018-06-20 20:12] VITALS: BP 139/84
== END 2018-06-20 20:14 | disposition home or self-care (01) ==
LOC: ER 19:37
DX: S20.211A Contusion of right front wall of thorax, initial encounter (principal); I10 Essential (primary) hypertension; J45.909 Unspecified asthma, uncomplicated; F17.200 Nicotine dependence, unspecified, uncomplicated; Z79.899 Other long term (current) drug therapy; Z88.2 Allergy status to sulfonamides; Z88.8 Allergy status to other drugs, medicaments and biological substances; W22.8XXA Striking against or struck by other objects, initial encounter; Y93.89 Activity, other specified; Y92.89 Other specified places as the place of occurrence of the external cause; Y99.8 Other external cause status
CPT/HCPCS: A4663

== ENCOUNTER 2018-06-25 19:39 | Emergency (ER) | payer MEDICAID ==
[~2018-06-25] VITALS: Ht 180.3 cm; Wt 70.3 kg
--- NOTE | 2018-06-25 20:00 | NUR ---
Dr. Mcgraw at bedside for MSE.
[2018-06-25] MEDS ORDERED: OXYCODONE/APAP 5-325 MG TABLET ONE (20:09)
[2018-06-25] MEDS ORDERED: OXYCODONE/APAP 5-325 MG TABLET PO ONE (20:15)
--- NOTE | 2018-06-25 20:15 | NUR ---
Patient given written and verbal discharge instructions. Patient verbalizes understanding of instructions. Patient is ambulatory with steady gait. Refuses offer of detention placement, refused list of available shelters, states he already has one. Patient provided with cranberry juice per request, states doesn't need anything else, pt will be arranging his own transportation.
== END 2018-06-25 20:21 | disposition home or self-care (01) ==
LOC: ER 19:42
DX: G43.909 Migraine, unspecified, not intractable, without status migrainosus (principal); M79.644 Pain in right finger(s); I10 Essential (primary) hypertension; J45.909 Unspecified asthma, uncomplicated; F17.200 Nicotine dependence, unspecified, uncomplicated; Z88.2 Allergy status to sulfonamides; Z88.1 Allergy status to other antibiotic agents; Z88.8 Allergy status to other drugs, medicaments and biological substances; Z79.899 Other long term (current) drug therapy
CPT/HCPCS: A4663

== ENCOUNTER 2018-07-02 00:54 | Emergency (ER) | payer MEDICAID ==
[~2018-07-02] VITALS: Ht 180.3 cm; Wt 70.3 kg
[2018-07-02] MEDS ORDERED: CLON0.1T14 PO (01:26)
[2018-07-02] MEDS ORDERED: ALBU8HFA4 IH (01:26)
[2018-07-02] MEDS ORDERED: CLONIDINE HCL 0.1 MG TABLET ONE (02:29)
[2018-07-02] MEDS ORDERED: CLONIDINE HCL 0.1 MG TABLET PO ONE (02:30)
[2018-07-02] MEDS ORDERED: LORAZEPAM 0.5 MG TABLET ONE (02:30)
[2018-07-02] MEDS ORDERED: LORAZEPAM 0.5 MG TABLET PO ONE (02:30)
--- NOTE | 2018-07-02 02:33 | NUR ---
Patient given written and verbal discharge instructions. Patient verbalizes understanding of instructions. Patient is ambulatory with stable gait. Refuses offer of detention placement. Patient given list of available shelters in surrounding area.
== END 2018-07-02 02:35 | disposition home or self-care (01) ==
LOC: MERGE 00:54 → ER 00:54
DX: F41.9 Anxiety disorder, unspecified (principal); G89.29 Other chronic pain; I10 Essential (primary) hypertension; J45.909 Unspecified asthma, uncomplicated; F17.290 Nicotine dependence, other tobacco product, uncomplicated; Z76.0 Encounter for issue of repeat prescription; Z71.6 Tobacco abuse counseling; Z88.2 Allergy status to sulfonamides; Z88.1 Allergy status to other antibiotic agents; Z79.899 Other long term (current) drug therapy
CPT/HCPCS: A4663

== ENCOUNTER 2018-07-08 00:29 | Emergency (ER) | payer MEDICAID ==
[~2018-07-08] VITALS: Ht 180.3 cm; Wt 72.6 kg
[~2018-07-08 00:29] MED LIST changes: +ALBU8HFA4 IH; +CLON0.1T14 PO
[2018-07-08] MEDS ORDERED: IBUP-1955 PO (00:51)
[2018-07-08] MEDS ORDERED: OXYC-133 PO (00:51)
--- NOTE | 2018-07-08 00:52 | NUR ---
Pt ambulates to ER wtih c/o left rib pain x 2 weeks & migraine headache today. No chest pain/sob. No GI/ distress. No N/V/D. No cough/fever/chills. Speech clear. Able to speak in complete sentences. Responsive to verbal + tactile stimuli.
[2018-07-08] MEDS ORDERED: OXYCODONE/APAP 5-325 MG TABLET PO ONE (02:30)
[2018-07-08] MEDS ORDERED: OXYCODONE/APAP 5-325 MG TABLET ONE (02:35)
--- NOTE | 2018-07-08 02:39 | NUR ---
Patient given written and verbal discharge instructions. Patient verbalizes understanding of instructions. Patient is ambulatory with steady gait. Refuses offer of [facility] placement. Patient given list of available shelters in surrounding area.
[2018-07-08 02:44] VITALS: BP 156/92
== END 2018-07-08 02:46 | disposition home or self-care (01) ==
LOC: ER 00:32
DX: S22.42XA Multiple fractures of ribs, left side, initial encounter for closed fracture (principal); I10 Essential (primary) hypertension; J45.909 Unspecified asthma, uncomplicated; F17.210 Nicotine dependence, cigarettes, uncomplicated; Z88.2 Allergy status to sulfonamides; Z88.8 Allergy status to other drugs, medicaments and biological substances; Z79.1 Long term (current) use of non-steroidal anti-inflammatories (NSAID); Z79.899 Other long term (current) drug therapy; X58.XXXA Exposure to other specified factors, initial encounter; Y93.89 Activity, other specified; Y92.89 Other specified places as the place of occurrence of the external cause; Y99.8 Other external cause status
CPT/HCPCS: 71101; A4663

== ENCOUNTER 2018-07-11 03:33 | Emergency (ER) | payer MEDICAID ==
[~2018-07-11] VITALS: Ht 180.3 cm; Wt 72.6 kg
[~2018-07-11 03:33] MED LIST changes: +IBUP-1955 PO; +OXYC-133 PO
--- NOTE | 2018-07-11 03:51 | NUR ---
Pt. ambulated into ED w/ c/o R knee pain 10/03 x1 day- states he was "climbing a wall and landed on it approx. 3pm yesterday",
[2018-07-11] MEDS ORDERED: IBUPROFEN 800 MG TABLET PO ONE (04:15)
[2018-07-11] MEDS ORDERED: NEOMY/BACITRA/POLYMYXIN B OINT UD PACKET TP ONE ×2 (04:15→04:44)
[2018-07-11] MEDS ORDERED: IBUPROFEN 800 MG TABLET ONE ×2 (04:44→04:46)
--- NOTE | 2018-07-11 06:10 | NUR ---
Patient given written and verbal discharge instructions. Patient verbalizes understanding of instructions. Patient is ambulatory with steady gait. Refuses offer of long term placement. Patient given list of available shelters in surrounding area. Pt. d/c w/ prescription per MD order, d/c papers signed, all belongings w/ pt., ID band removed, ambulated off unit w/ steady gait, homeless packet given and signed - placed in chart, NAD,
== END 2018-07-11 06:19 | disposition home or self-care (01) ==
LOC: ER 03:35
DX: S80.01XA Contusion of right knee, initial encounter (principal); J45.909 Unspecified asthma, uncomplicated; F17.210 Nicotine dependence, cigarettes, uncomplicated; Z59.0 Homelessness; Z88.2 Allergy status to sulfonamides; Z88.1 Allergy status to other antibiotic agents; Z88.8 Allergy status to other drugs, medicaments and biological substances; Z79.1 Long term (current) use of non-steroidal anti-inflammatories (NSAID); Z79.891 Long term (current) use of opiate analgesic; Z79.899 Other long term (current) drug therapy; W18.39XA Other fall on same level, initial encounter; Y93.89 Activity, other specified; Y92.89 Other specified places as the place of occurrence of the external cause; Y99.8 Other external cause status
CPT/HCPCS: A4663

== ENCOUNTER 2018-07-11 23:09 | Emergency (ER) | payer MEDICAID ==
--- NOTE | 2018-07-11 23:15 | NUR ---
Patient left without being seen by ER physician or being triaged.
== END 2018-07-11 23:16 | disposition left against medical advice (07) ==
LOC: ER 23:11
DX: Z53.21 Procedure and treatment not carried out due to patient leaving prior to being seen by health care provider (principal)

== ENCOUNTER 2018-07-13 17:28 | Emergency (ER) | payer MEDICAID ==
[~2018-07-13] VITALS: Ht 180.3 cm; Wt 72.6 kg
[2018-07-13] MEDS: KETOROLAC TROMETHAMINE 30 MG INJ IM ONE (17:55)
[2018-07-13] MEDS ORDERED: KETOROLAC TROMETHAMINE 30 MG INJ ONE (17:57)
--- NOTE | 2018-07-13 17:59 | NUR ---
PATIENT WAS SEEN BY MD. HE IS A/A/O X3 IN NO DISTRESS. MEDICATION GIVEN ORDERED.
--- NOTE | 2018-07-13 18:03 | NUR ---
DC, RX AND FOLLOW UP INSTRUCTIONS GIVEN AND EXPLAINED TO PATIENT WHO STATES HE UNDERSTANDS ALL INSTRUCTIONS.
== END 2018-07-13 18:05 | disposition home or self-care (01) ==
LOC: ER 17:28
DX: S80.01XA Contusion of right knee, initial encounter (principal); R51 Headache; R11.0 Nausea; J45.909 Unspecified asthma, uncomplicated; F17.210 Nicotine dependence, cigarettes, uncomplicated; Z59.0 Homelessness; Z88.2 Allergy status to sulfonamides; Z88.8 Allergy status to other drugs, medicaments and biological substances; Z79.899 Other long term (current) drug therapy; Z79.1 Long term (current) use of non-steroidal anti-inflammatories (NSAID); W18.30XA Fall on same level, unspecified, initial encounter; Y93.89 Activity, other specified; Y92.89 Other specified places as the place of occurrence of the external cause; Y99.8 Other external cause status
CPT/HCPCS: 96372; 99283; 99406; J1885; A4663

== ENCOUNTER 2018-07-22 02:02 | Emergency (ER) | payer MEDICAID ==
[~2018-07-22] VITALS: Ht 180.3 cm; Wt 72.6 kg
--- NOTE | 2018-07-22 02:50 | NUR ---
Dr. Rangel at bedside for MSE.
[2018-07-22] MEDS ORDERED: predniSONE 50 MG TABLET ONE (03:00)
[2018-07-22] MEDS ORDERED: predniSONE 50 MG TABLET PO ONE (03:00)
[2018-07-22] MEDS ORDERED: OXYCODONE/APAP 5-325 MG TABLET PO ONE (03:00)
[2018-07-22] MEDS ORDERED: OXYCODONE/APAP 5-325 MG TABLET ONE (03:01)
--- NOTE | 2018-07-22 03:09 | NUR ---
Patient given written and verbal discharge instructions. Patient verbalizes understanding of instructions. Patient is ambulatory with steady gait. Refuses offer of penitentiary placement. Patient given list of available shelters in surrounding area. Pt states will be providing his own transportation. Pt provided with a hospital sandwich and juice, and socks per request. VSS, no acute signs of distress, all belongings taken.
== END 2018-07-22 03:14 | disposition home or self-care (01) ==
LOC: ER 02:04
DX: J20.9 Acute bronchitis, unspecified (principal); J45.909 Unspecified asthma, uncomplicated; F17.210 Nicotine dependence, cigarettes, uncomplicated; Z88.2 Allergy status to sulfonamides; Z88.8 Allergy status to other drugs, medicaments and biological substances; Z79.1 Long term (current) use of non-steroidal anti-inflammatories (NSAID); Z79.899 Other long term (current) drug therapy
CPT/HCPCS: 99283; J7512; A4663

== ENCOUNTER 2018-07-26 21:27 | Emergency (ER) | payer MEDICAID ==
[~2018-07-26] VITALS: Ht 180.3 cm; Wt 72.6 kg
--- NOTE | 2018-07-26 22:02 | NUR ---
Patient ambulated with stable gait. AAOx4. Speech is clear, speaks in complete sentences. No neuro deficits. Patient came in c/o "breaking 3 ribs" s/p slipping by the pool x3 weeks. Respiratory even and unlabored, no sob, no cough. No cardiovascular distress noted, all pulses palpable. No GI/ distress. Patient in bed at lowest position, side rails upx2, call light within reach. Fall precautions implemented per protocol.
[2018-07-26] MEDS ORDERED: HYDROCODONE/APAP 5-325MG TABLET ONE (22:21)
--- NOTE | 2018-07-26 22:27 | NUR ---
Patient given written and verbal discharge instructions. Patient verbalizes understanding of instructions. Patient is ambulatory with stable gait. Refuses offer of assisted placement. Patient given list of available shelters in surrounding area.
[2018-07-26 22:29] VITALS: BP 150/93
[2018-07-26] MEDS ORDERED: HYDROCODONE/APAP 5-325MG TABLET PO ONE (22:30)
== END 2018-07-26 22:30 | disposition home or self-care (01) ==
LOC: ER 21:27
DX: G89.29 Other chronic pain (principal); R07.81 Pleurodynia; J45.909 Unspecified asthma, uncomplicated; F17.210 Nicotine dependence, cigarettes, uncomplicated; Z88.2 Allergy status to sulfonamides; Z88.8 Allergy status to other drugs, medicaments and biological substances; Z79.1 Long term (current) use of non-steroidal anti-inflammatories (NSAID); Z79.899 Other long term (current) drug therapy
CPT/HCPCS: A4663

== ENCOUNTER 2018-07-29 00:59 | Emergency (ER) | payer MEDICAID ==
[~2018-07-29] VITALS: Ht 180.3 cm; Wt 72.6 kg
--- NOTE | 2018-07-29 01:12 | NUR ---
Patient ambulated with stable gait. AAOX4. Patient came in for c/o migraines and left rib pain. Pain 8/10. Respiratory even and unlabored. No GI/ distress.
[2018-07-29] MEDS ORDERED: LORAZEPAM 0.5 MG TABLET PO ONE (01:15)
[2018-07-29] MEDS ORDERED: OXYCODONE/APAP 5-325 MG TABLET PO ONE (01:15)
[2018-07-29] MEDS ORDERED: LORAZEPAM 1 MG TABLET ONE (01:20)
[2018-07-29] MEDS ORDERED: OXYCODONE/APAP 5-325 MG TABLET ONE (01:21)
[2018-07-29] MEDS ORDERED: diphenhydrAMINE 50 MG CAPSULE ONE (01:56)
[2018-07-29] MEDS ORDERED: diphenhydrAMINE 50 MG CAPSULE PO ONE (02:00)
--- NOTE | 2018-07-29 02:06 | NUR ---
Patient discharged to home in stable conditon. Written and verbal after care instructions given. Patient verbalizes understanding of instructions. Patient ambulated with stable gait. Denies any homelessness.
[2018-07-29 02:16] VITALS: BP 135/72
== END 2018-07-29 02:16 | disposition home or self-care (01) ==
LOC: ER 01:00
DX: S22.42XA Multiple fractures of ribs, left side, initial encounter for closed fracture (principal); J45.909 Unspecified asthma, uncomplicated; F17.210 Nicotine dependence, cigarettes, uncomplicated; Z88.2 Allergy status to sulfonamides; Z88.8 Allergy status to other drugs, medicaments and biological substances; Z79.1 Long term (current) use of non-steroidal anti-inflammatories (NSAID); Z79.899 Other long term (current) drug therapy; X58.XXXA Exposure to other specified factors, initial encounter; Y93.89 Activity, other specified; Y92.89 Other specified places as the place of occurrence of the external cause; Y99.8 Other external cause status
CPT/HCPCS: 71101; 99284; Q0163; A4663

== ENCOUNTER 2018-08-09 23:44 | Emergency (ER) | payer MEDICAID ==
[~2018-08-09] VITALS: Ht 172.7 cm; Wt 66.7 kg
--- NOTE | 2018-08-10 01:53 | NUR ---
Patient discharged to home in stable conditon. Written and verbal after care instructions given. Patient verbalizes understanding of instructions. Denies any homelessness. Patient ambulated with stable gait.
[2018-08-10 01:56] VITALS: BP 130/70
== END 2018-08-10 01:56 | disposition home or self-care (01) ==
LOC: ER 23:49
DX: S20.219A Contusion of unspecified front wall of thorax, initial encounter (principal); R09.81 Nasal congestion; J45.909 Unspecified asthma, uncomplicated; F17.200 Nicotine dependence, unspecified, uncomplicated; Z88.8 Allergy status to other drugs, medicaments and biological substances; Z88.2 Allergy status to sulfonamides; Z79.1 Long term (current) use of non-steroidal anti-inflammatories (NSAID); Z79.899 Other long term (current) drug therapy; X58.XXXA Exposure to other specified factors, initial encounter; Y93.89 Activity, other specified; Y92.89 Other specified places as the place of occurrence of the external cause; Y99.8 Other external cause status

== ENCOUNTER → 2018-08-30 | Emergency (ER) | payer MEDICAID ==
[~2018-08-30] VITALS: Ht 172.7 cm; Wt 81.6 kg
[~2018-08-30] MED LIST changes: +ACETAMINOPHEN 325 MG TABLET ONE
--- NOTE | 2018-08-30 07:00 | NUR ---
Dr. Medrano at bedside for MSE.
--- NOTE | 2018-08-30 07:06 | NUR ---
Coleman zepeda in ED - 08/30/18 at 0707 by MARIUM Patient discharged to home in stable conditon. Written and verbal after care instructions given. Patient verbalizes understanding of instructions.
--- NOTE | 2018-08-30 07:07 | NUR ---
Patient given written and verbal discharge instructions. Patient verbalizes understanding of instructions. Patient is ambulatory with steady gait. Refuses offer of care home placement. Patient given list of available shelters in surrounding area. Pt provided sandwich and juice, and socks per patient request. Patient out of ER with steady gait, no acute signs of distress, VSS, all belongings taken.
[2018-08-30 07:08] VITALS: BP 152/75
== END | disposition home or self-care (01) ==
LOC: ER 06:43
DX: T16.1XXA Foreign body in right ear, initial encounter (principal); J45.909 Unspecified asthma, uncomplicated; F17.210 Nicotine dependence, cigarettes, uncomplicated; Z88.8 Allergy status to other drugs, medicaments and biological substances; Z88.2 Allergy status to sulfonamides; Z79.1 Long term (current) use of non-steroidal anti-inflammatories (NSAID); Z79.899 Other long term (current) drug therapy; X58.XXXA Exposure to other specified factors, initial encounter; Y93.89 Activity, other specified; Y92.89 Other specified places as the place of occurrence of the external cause; Y99.8 Other external cause status
CPT/HCPCS: A4663

== ENCOUNTER 2018-09-02 01:12 | Emergency (ER) | payer MEDICAID ==
[~2018-09-02] VITALS: Ht 180.3 cm; Wt 63.5 kg
[~2018-09-02 01:12] MED LIST changes: -ACETAMINOPHEN 325 MG TABLET ONE
--- NOTE | 2018-09-02 01:20 | NUR ---
Pt. ambulated into ED w/ c/o R foot 1st toe injury, pt. is disheveled and mumbles frequently is difficult to understand, RR even and unlabored, pt. ambulated around room w/ steady gait,
[2018-09-02] MEDS ORDERED: ACETAMINOPHEN 325 MG TABLET PO ONE (01:30)
--- NOTE | 2018-09-02 01:34 | NUR ---
Rad. tech. at bedside for foot xray,
[2018-09-02] MEDS ORDERED: LORAZEPAM 0.5 MG TABLET PO ONE (01:45)
[2018-09-02] MEDS ORDERED: LORAZEPAM 1 MG TABLET ONE (01:47)
--- NOTE | 2018-09-02 01:55 | NUR ---
Patient discharged to home in stable conditon. Written and verbal after care instructions given. Patient verbalizes understanding of instructions. Pt. d/c per MD order, d/c papers signed, homeless packet signed and given, pt. refuses assistance w/ alf at this time, sandwich given, all belongings w/ pt., ambulated off unit w/ steady gait, ID band removed, NAD
== END 2018-09-02 01:58 | disposition home or self-care (01) ==
LOC: ER 01:18
DX: S90.111A Contusion of right great toe without damage to nail, initial encounter (principal); F41.9 Anxiety disorder, unspecified; J45.909 Unspecified asthma, uncomplicated; F17.210 Nicotine dependence, cigarettes, uncomplicated; Z88.2 Allergy status to sulfonamides; Z88.8 Allergy status to other drugs, medicaments and biological substances; Z79.1 Long term (current) use of non-steroidal anti-inflammatories (NSAID); Z79.899 Other long term (current) drug therapy; W22.8XXA Striking against or struck by other objects, initial encounter; Y93.89 Activity, other specified; Y92.89 Other specified places as the place of occurrence of the external cause; Y99.8 Other external cause status
CPT/HCPCS: 73630; A4663

== ENCOUNTER 2018-09-09 01:19 | Emergency (ER) | payer MEDICAID ==
[~2018-09-09] VITALS: Ht 180.3 cm; Wt 70.3 kg
--- NOTE | 2018-09-09 01:25 | NUR ---
Pt here for c/o chronic rib pain and states he is out of his Rx. Waiting to see .
--- NOTE | 2018-09-09 01:40 | NUR ---
Pt D/c'd at this time w/ Rx
[2018-09-09 02:03] VITALS: BP 164/88
== END 2018-09-09 01:45 | disposition home or self-care (01) ==
LOC: ER 01:23
DX: J45.909 Unspecified asthma, uncomplicated (principal); F17.210 Nicotine dependence, cigarettes, uncomplicated; Z76.0 Encounter for issue of repeat prescription; Z88.2 Allergy status to sulfonamides; Z88.8 Allergy status to other drugs, medicaments and biological substances; Z79.1 Long term (current) use of non-steroidal anti-inflammatories (NSAID); Z79.899 Other long term (current) drug therapy
CPT/HCPCS: A4663

== ENCOUNTER 2018-09-11 21:10 | Emergency (ER) | payer MEDICAID ==
[~2018-09-11] VITALS: Ht 180.3 cm; Wt 66.7 kg
[2018-09-11] MEDS ORDERED: OXYCODONE/APAP 5-325 MG TABLET ONE (21:44)
[2018-09-11] MEDS ORDERED: OXYCODONE/APAP 5-325 MG TABLET PO ONE (21:45)
[2018-09-11 21:50] VITALS: BP 142/86
== END 2018-09-11 21:55 | disposition home or self-care (01) ==
LOC: ER 21:12
DX: R07.81 Pleurodynia (principal); J45.909 Unspecified asthma, uncomplicated; F17.210 Nicotine dependence, cigarettes, uncomplicated; Z88.2 Allergy status to sulfonamides; Z88.8 Allergy status to other drugs, medicaments and biological substances; Z79.1 Long term (current) use of non-steroidal anti-inflammatories (NSAID); Z79.899 Other long term (current) drug therapy
CPT/HCPCS: A4663

== ENCOUNTER 2018-09-13 21:30 | Emergency (ER) | payer MEDICAID ==
[~2018-09-13] VITALS: Ht 180.3 cm; Wt 66.7 kg
[2018-09-13] MEDS ORDERED: HYDROCODONE/APAP 10-325 MG TABLET PO ONE (22:15)
[2018-09-13] MEDS ORDERED: LORAZEPAM 0.5 MG TABLET PO ONE (22:15)
[2018-09-13] MEDS ORDERED: LORAZEPAM 1 MG TABLET ONE (22:21)
[2018-09-13] MEDS ORDERED: HYDROCODONE/APAP 10-325 MG TABLET ONE (22:21)
--- NOTE | 2018-09-13 22:29 | NUR ---
Patient discharged to home in stable conditon. Written and verbal after care instructions given. Patient verbalizes understanding of instructions.
[2018-09-13 22:30] VITALS: BP 135/87
== END 2018-09-13 22:30 | disposition home or self-care (01) ==
LOC: ER 21:30
DX: G89.4 Chronic pain syndrome (principal); M79.671 Pain in right foot; M79.672 Pain in left foot; B35.3 Tinea pedis; F17.210 Nicotine dependence, cigarettes, uncomplicated; J45.909 Unspecified asthma, uncomplicated; Z71.6 Tobacco abuse counseling; Z76.5 Malingerer [conscious simulation]; Z59.0 Homelessness; Z88.2 Allergy status to sulfonamides; Z88.8 Allergy status to other drugs, medicaments and biological substances; Z79.1 Long term (current) use of non-steroidal anti-inflammatories (NSAID); Z79.899 Other long term (current) drug therapy
CPT/HCPCS: A4663

== ENCOUNTER 2018-09-17 04:10 | Emergency (ER) | payer MEDICAID ==
[~2018-09-17] VITALS: Ht 180.3 cm; Wt 66.2 kg
[2018-09-17] MEDS ORDERED: diphenhydrAMINE 25 MG CAP PO ONE ×2 (04:45→04:46)
[2018-09-17] MEDS ORDERED: IBUPROFEN 600 MG TABLET PO ONE (04:45)
[2018-09-17] MEDS ORDERED: IBUPROFEN 600 MG TABLET ONE (04:46)
--- NOTE | 2018-09-17 04:58 | NUR ---
Patient discharged to home in stable conditon. Written and verbal after care instructions given. Patient verbalizes understanding of instructions. WALKED OUT OF ER WITH NO DISTRESS NOTED
[2018-09-17 04:59] VITALS: BP 145/90
== END 2018-09-17 04:59 | disposition home or self-care (01) ==
LOC: ER 04:27
DX: G89.4 Chronic pain syndrome (principal); M79.673 Pain in unspecified foot; J45.909 Unspecified asthma, uncomplicated; F17.210 Nicotine dependence, cigarettes, uncomplicated; G43.909 Migraine, unspecified, not intractable, without status migrainosus; Z76.0 Encounter for issue of repeat prescription; Z71.6 Tobacco abuse counseling; Z76.5 Malingerer [conscious simulation]; Z88.2 Allergy status to sulfonamides; Z88.8 Allergy status to other drugs, medicaments and biological substances; Z79.1 Long term (current) use of non-steroidal anti-inflammatories (NSAID); Z79.899 Other long term (current) drug therapy
CPT/HCPCS: 99283; 99406; Q0163; A4663

== ENCOUNTER 2018-09-22 04:33 | Emergency (ER) | payer MEDICAID ==
[~2018-09-22] VITALS: Ht 180.3 cm; Wt 73.5 kg
--- NOTE | 2018-09-22 05:10 | NUR ---
provided meal for patient
[2018-09-22] MEDS ORDERED: LORAZEPAM 1 MG TABLET ONE (05:11)
[2018-09-22] MEDS ORDERED: LORAZEPAM 0.5 MG TABLET PO ONE (05:15)
[2018-09-22 05:18] VITALS: BP 165/99
--- NOTE | 2018-09-22 05:18 | NUR ---
Patient discharged to home in stable conditon. Written and verbal after care instructions given. Patient verbalizes understanding of instructions.
== END 2018-09-22 05:19 | disposition home or self-care (01) ==
LOC: ER 04:38
DX: J45.909 Unspecified asthma, uncomplicated (principal); F17.210 Nicotine dependence, cigarettes, uncomplicated; Z88.2 Allergy status to sulfonamides; Z88.8 Allergy status to other drugs, medicaments and biological substances; Z79.1 Long term (current) use of non-steroidal anti-inflammatories (NSAID); Z79.891 Long term (current) use of opiate analgesic; Z79.899 Other long term (current) drug therapy
CPT/HCPCS: A4663

== ENCOUNTER 2018-10-02 05:50 | Emergency (ER) | payer MEDICAID ==
[~2018-10-02] VITALS: Ht 180.3 cm; Wt 70.8 kg
[2018-10-02] MEDS ORDERED: NAPROXEN 500 MG TABLET ONE (06:15)
[2018-10-02] MEDS ORDERED: NAPROXEN 500 MG TABLET PO ONE (06:15)
--- NOTE | 2018-10-02 06:15 | NUR ---
Patient ambulated with stable gait. Speech clear, speaks complete sentences. No neuro deficits. Patient came for c/o flu-like symptoms. No cardiovascular distress noted. No GI/ distress.
--- NOTE | 2018-10-02 06:23 | NUR ---
Patient discharged to home in stable conditon. Written and verbal after care instructions given. Patient verbalizes understanding of instructions. Denies homelessness. Patient ambulated with stable gait.
[2018-10-02 06:26] VITALS: BP 140/80
== END 2018-10-02 06:28 | disposition home or self-care (01) ==
LOC: ER 05:52
DX: S61.202A Unspecified open wound of right middle finger without damage to nail, initial encounter (principal); J06.9 Acute upper respiratory infection, unspecified; J45.909 Unspecified asthma, uncomplicated; F17.210 Nicotine dependence, cigarettes, uncomplicated; Z88.2 Allergy status to sulfonamides; Z79.899 Other long term (current) drug therapy; Z79.1 Long term (current) use of non-steroidal anti-inflammatories (NSAID); X58.XXXA Exposure to other specified factors, initial encounter; Y93.89 Activity, other specified; Y92.89 Other specified places as the place of occurrence of the external cause; Y99.8 Other external cause status
CPT/HCPCS: A4663

== ENCOUNTER 2018-10-04 02:15 | Emergency (ER) | payer MEDICAID ==
[~2018-10-04] VITALS: Ht 180.3 cm; Wt 70.8 kg
--- NOTE | 2018-10-04 02:32 | NUR ---
Patient arrived at the ER with chief complaint of back pain. Patient AAOx4. Very anxious/agitated. Screaming and yelling. NAD. No cardiovascular concern. No /Gi concern.
--- NOTE | 2018-10-04 02:44 | NUR ---
ADELA SANTANA at bedside for MSE.
[2018-10-04] MEDS ORDERED: LORAZEPAM 0.5 MG TABLET PO ONE (02:45)
[2018-10-04] MEDS ORDERED: KETOROLAC TROMETHAMINE 30 MG INJ IM ONE (02:45)
[2018-10-04] MEDS ORDERED: KETOROLAC TROMETHAMINE 30 MG INJ ONE (02:51)
[2018-10-04] MEDS ORDERED: LORAZEPAM 1 MG TABLET ONE (02:52)
--- NOTE | 2018-10-04 02:53 | NUR ---
Patient discharged to home in stable conditon. Written and verbal after care instructions given. Patient verbalizes understanding of instructions. Patient ambulated out of the ER with steady gait. All belongings with patient.
[2018-10-04 03:02] VITALS: BP 160/80
== END 2018-10-04 03:03 | disposition home or self-care (01) ==
LOC: ER 02:19
DX: F41.9 Anxiety disorder, unspecified (principal); G89.4 Chronic pain syndrome; G43.909 Migraine, unspecified, not intractable, without status migrainosus; I10 Essential (primary) hypertension; J45.909 Unspecified asthma, uncomplicated; F17.210 Nicotine dependence, cigarettes, uncomplicated; F11.10 Opioid abuse, uncomplicated; Z59.0 Homelessness; Z88.2 Allergy status to sulfonamides; Z88.8 Allergy status to other drugs, medicaments and biological substances; Z79.1 Long term (current) use of non-steroidal anti-inflammatories (NSAID); Z79.899 Other long term (current) drug therapy
CPT/HCPCS: 96372; 99284; J1885; A4663

== ENCOUNTER 2018-10-09 06:27 | Emergency (ER) | payer MEDICAID | END 2018-10-09 07:06 | disposition left against medical advice (07) | LOC: ER 06:34 | DX: Z53.21 Procedure and treatment not carried out due to patient leaving prior to being seen by health care provider (principal) ==

== ENCOUNTER 2018-10-10 01:18 | Emergency (ER) | payer MEDICAID ==
[~2018-10-10] VITALS: Ht 180.3 cm; Wt 77.1 kg
[2018-10-10] MEDS ORDERED: diphenhydrAMINE 50 MG CAPSULE PO ONE (01:45)
[2018-10-10] MEDS ORDERED: HYDROCODONE/APAP 10-325 MG TABLET PO ONE (01:45)
[2018-10-10] MEDS ORDERED: LORAZEPAM 0.5 MG TABLET PO ONE (01:45)
[2018-10-10] MEDS ORDERED: HYDROCODONE/APAP 10-325 MG TABLET ONE (01:50)
[2018-10-10] MEDS ORDERED: LORAZEPAM 1 MG TABLET ONE (01:51)
[2018-10-10] MEDS ORDERED: diphenhydrAMINE 50 MG CAPSULE ONE (01:51)
--- NOTE | 2018-10-10 02:00 | NUR ---
Patient given written and verbal discharge instructions. Patient verbalizes understanding of instructions. Patient is ambulatory with steady gait. Refuses offer of [facility] placement. Patient given list of available shelters in surrounding area.
[2018-10-10 02:03] VITALS: BP 144/77
== END 2018-10-10 02:05 | disposition home or self-care (01) ==
LOC: ER 01:19
DX: G89.4 Chronic pain syndrome (principal); G43.909 Migraine, unspecified, not intractable, without status migrainosus; J45.909 Unspecified asthma, uncomplicated; M79.644 Pain in right finger(s); F17.210 Nicotine dependence, cigarettes, uncomplicated; Z76.0 Encounter for issue of repeat prescription; Z59.0 Homelessness; Z71.6 Tobacco abuse counseling; Z88.2 Allergy status to sulfonamides; Z88.8 Allergy status to other drugs, medicaments and biological substances; Z79.1 Long term (current) use of non-steroidal anti-inflammatories (NSAID); Z79.899 Other long term (current) drug therapy
CPT/HCPCS: 99284; 99406; Q0163; A4663

== ENCOUNTER 2018-10-18 03:33 | Emergency (ER) | payer SELFPAY ==
--- NOTE | 2018-10-18 03:58 | NUR ---
Patient states " I don't want to be seen anymore. I okay." Patient left without being seen by ERMD or triaged.
== END 2018-10-18 04:00 | disposition left against medical advice (07) ==
LOC: ER 03:38
DX: Z53.21 Procedure and treatment not carried out due to patient leaving prior to being seen by health care provider (principal)

== ENCOUNTER 2018-10-19 02:09 | Emergency (ER) | payer MEDICAID ==
[~2018-10-19] VITALS: Ht 180.3 cm; Wt 70.8 kg
--- NOTE | 2018-10-19 02:33 | NUR ---
Patient discharged to home in stable conditon. Written and verbal after care instructions given. Patient verbalizes understanding of instructions. Ambulated from Er with stable gait. All belongings with patient. VSS
[2018-10-19] MEDS ORDERED: IBUPROFEN 400 MG TABLET ONE (02:34)
[2018-10-19 02:35] VITALS: BP 141/78
[2018-10-19] MEDS ORDERED: IBUPROFEN 400 MG TABLET PO ONE (02:45)
== END 2018-10-19 02:43 | disposition home or self-care (01) ==
LOC: ER 02:13
DX: G89.4 Chronic pain syndrome (principal); M79.644 Pain in right finger(s); G43.909 Migraine, unspecified, not intractable, without status migrainosus; J45.909 Unspecified asthma, uncomplicated; F17.210 Nicotine dependence, cigarettes, uncomplicated; F14.10 Cocaine abuse, uncomplicated; F15.10 Other stimulant abuse, uncomplicated; Z79.1 Long term (current) use of non-steroidal anti-inflammatories (NSAID); Z76.0 Encounter for issue of repeat prescription; Z71.6 Tobacco abuse counseling; Z79.899 Other long term (current) drug therapy; Z88.2 Allergy status to sulfonamides; Z88.8 Allergy status to other drugs, medicaments and biological substances
CPT/HCPCS: A4663

== ENCOUNTER 2018-10-24 02:45 | Emergency (ER) | payer MEDICAID ==
[~2018-10-24] VITALS: Ht 180.3 cm; Wt 70.8 kg
--- NOTE | 2018-10-24 03:37 | NUR ---
at bedside for MSE
[2018-10-24] MEDS ORDERED: LORAZEPAM 0.5 MG TABLET PO ONE (03:45)
[2018-10-24] MEDS ORDERED: HYDROCODONE/APAP 5-325MG TABLET PO ONE (03:45)
--- NOTE | 2018-10-24 03:49 | NUR ---
Patient discharged to home in stable conditon. Written and verbal after care instructions given. Patient verbalizes understanding of instructions. Pt. d/c w/ prescription per MD order, d/c papers signed, all belongings w/ pt., ID band removed, ambulated off unit w/ steady gait, NAD
[2018-10-24] MEDS ORDERED: LORAZEPAM 0.5 MG TABLET ONE (03:50)
[2018-10-24] MEDS ORDERED: HYDROCODONE/APAP 5-325MG TABLET ONE (03:50)
== END 2018-10-24 03:54 | disposition home or self-care (01) ==
LOC: ER 02:47
DX: G89.29 Other chronic pain (principal); R51 Headache; J45.909 Unspecified asthma, uncomplicated; F14.10 Cocaine abuse, uncomplicated; F15.10 Other stimulant abuse, uncomplicated; F17.210 Nicotine dependence, cigarettes, uncomplicated; Z88.2 Allergy status to sulfonamides; Z88.8 Allergy status to other drugs, medicaments and biological substances
CPT/HCPCS: A4663

== ENCOUNTER 2018-11-01 04:47 | Emergency (ER) | payer MEDICAID ==
[~2018-11-01] VITALS: Ht 180.3 cm; Wt 72.6 kg
--- NOTE | 2018-11-01 05:30 | NUR ---
Pt. ambulated into ED w/ c/o migraine headache, x1 hr. 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
--- NOTE | 2018-11-01 06:33 | NUR ---
Patient given written and verbal discharge instructions. Patient verbalizes understanding of instructions. Patient is ambulatory with steady gait. Refuses offer of assisted placement. Patient given list of available shelters in surrounding area. Pt. d/c w/ prescription per MD order, d/c papers signed, homeless resource packet signed and given, ID band removed, all belongings w/ pt., ambulated off unit w/ steady gait, NAD
== END 2018-11-01 06:36 | disposition home or self-care (01) ==
LOC: ER 04:47
DX: F32.9 Major depressive disorder, single episode, unspecified (principal); F41.9 Anxiety disorder, unspecified; J45.909 Unspecified asthma, uncomplicated; F17.210 Nicotine dependence, cigarettes, uncomplicated; F14.10 Cocaine abuse, uncomplicated; F15.10 Other stimulant abuse, uncomplicated; Z76.0 Encounter for issue of repeat prescription; Z88.2 Allergy status to sulfonamides; Z88.8 Allergy status to other drugs, medicaments and biological substances; Z79.1 Long term (current) use of non-steroidal anti-inflammatories (NSAID); Z79.899 Other long term (current) drug therapy
CPT/HCPCS: A4663

== ENCOUNTER 2018-11-05 01:21 | Emergency (ER) | payer MEDICAID ==
[~2018-11-05] VITALS: Ht 180.3 cm; Wt 63.5 kg
--- NOTE | 2018-11-05 01:41 | NUR ---
Dr. Lyons at bedside for MSE.
[2018-11-05] MEDS ORDERED: diphenhydrAMINE 25 MG CAP PO ONE ×2 (01:45→01:48)
[2018-11-05] MEDS ORDERED: ALBUTEROL SULFATE 2.5 MG/3 ML NEBU NEB ONE (01:45)
[2018-11-05] MEDS ORDERED: HYDROCODONE/APAP 10-325 MG TABLET PO ONE (01:45)
[2018-11-05] MEDS ORDERED: HYDROCODONE/APAP 10-325 MG TABLET ONE (01:48)
[2018-11-05] MEDS ORDERED: ALBUTEROL SULFATE 2.5 MG/3 ML NEBU ONE (01:49)
--- NOTE | 2018-11-05 02:09 | NUR ---
Patient given written and verbal discharge instructions. Patient verbalizes understanding of instructions. Patient is ambulatory with steady gait. Refuses offer of [facility] placement. Patient given list of available shelters in surrounding area. Pt provided with a food and juice per pt request, refused all other services, pt states will arrange own transportation. VSS, no acute signs of distress, all belongings taken.
== END 2018-11-05 02:14 | disposition home or self-care (01) ==
LOC: ER 01:21
DX: G89.4 Chronic pain syndrome (principal); R51 Headache; J44.9 Chronic obstructive pulmonary disease, unspecified; F17.210 Nicotine dependence, cigarettes, uncomplicated; F15.10 Other stimulant abuse, uncomplicated; F14.10 Cocaine abuse, uncomplicated; Z79.1 Long term (current) use of non-steroidal anti-inflammatories (NSAID); Z71.6 Tobacco abuse counseling; Z88.2 Allergy status to sulfonamides; Z88.8 Allergy status to other drugs, medicaments and biological substances; Z79.899 Other long term (current) drug therapy
CPT/HCPCS: 94640; 99283; 99406; Q0163; A4663

== ENCOUNTER 2018-11-09 21:28 | Inpatient (IN) | payer MEDICAID ==
[~2018-11-09] VITALS: Ht 180.3 cm; Wt 61.8 kg
[2018-11-09 22:12] LABS: BASOPHILS # (AUTO) 0.1 K/uL (0.0-8.0); BASOPHILS % (AUTO) 0.3 % (0.0-2.0); HEMATOCRIT 32.9 % (36.7-47.1); HEMOGLOBIN 10.6 g/dL (12.5-16.3); LYMPHOCYTES # (AUTO) 0.7 K/uL (20.0-40.0); LYMPHOCYTES % (AUTO) 3.3 % (20.5-51.5); MEAN CORPUSCULAR HEMOGLOBIN 24.5 uug (23.8-33.4); MEAN CORPUSCULAR HGB CONC 32 g/dL (32.5-36.3); MEAN CORPUSCULAR VOLUME 75.6 fL (73.0-96.2); MONOCYTES # (AUTO) 1.9 K/uL (2.0-10.0); MONOCYTES % (AUTO) 8.7 % (0.0-11.0); NEUTROPHILS # (AUTO) 18.7 K/uL (1.8-8.9); NEUTROPHILS % (AUTO) 87.7 % (38.5-71.5); PLATELET COUNT (AUTO) 285 K/uL (152-348); RED BLOOD CELL COUNT(AUTO) 4.35 MIL/uL (4.06-5.63); WHITE BLOOD COUNT (AUTO) 21.3 K/uL (3.6-10.2)
[2018-11-09 22:20] LABS: CREATININE 1.6 mg/dL (0.6-1.3)
[2018-11-09 22:28] LABS: BAND % (MANUAL) 8 % (0-10); LYMPHOCYTES % (MANUAL) 4 % (20-40); MONOCYTES % (MANUAL) 7 % (2-10); NEUTROPHILS % (MANUAL) 81 % (42-75)
[2018-11-09 22:31] LABS: BILIRUBIN,DIRECT 0.2 mg/dL (0.0-0.2); BILIRUBIN,TOTAL 0.8 mg/dL (0.2-1.0); TOTAL PROTEIN, SERUM 7.6 g/dL (6.4-8.2)
[2018-11-09 23:12] LABS: *BILIRUBIN,URIN NEGATIVE (NEGATIVE); *BLOOD, URINE 1+ (NEGATIVE); *CLARITY,URINE CLEAR (CLEAR); *COLOR,URINE YELLOW (YELLOW); *KETONES,URINE TRACE (NEGATIVE); *UROBILINOGEN,URINE 0.2 E.U./dl (NORMAL); LEUKOCYTE ESTERASE ,URINE NEGATIVE (NEGATIVE); NITRITE, URINE NEGATIVE (NEGATIVE); PH,URINE 5.5 (5.0-8.0); UGLUCOSE NEGATIVE (NEGATIVE)
[2018-11-09 23:20] LABS: BACTERIA,URINE NONE SEEN /HPF (NONE SEEN); SQUAMOUS EPITHELIAL CELL,UR FEW /HPF (NONE SEEN); WBC,URINE 0-3 /HPF (0-3)
[2018-11-09] MEDS ORDERED: MEROPENEM 1 G in IV NORMAL SALINE 100 ML IV ONE (23:45)
[2018-11-09] MEDS ORDERED: VANCOMYCIN IV 200 ML IV ONE (23:45)
[2018-11-10] MEDS ORDERED: MEROPENEM 1 G VIAL IV ONE (00:02)
--- NOTE | 2018-11-10 00:25 | NUR ---
Pt in radiology dept for CT scan.
[2018-11-10] MEDS ORDERED: VANCOMYCIN IV 200 ML ONE (00:52)
[2018-11-10] MEDS ORDERED: KETOROLAC TROMETHAMINE 30 MG INJ IVP ONE (01:00)
[2018-11-10] MEDS ORDERED: LORAZEPAM 2 MG/1 ML VIAL IV ONE ×2 (01:00→01:45)
[2018-11-10] MEDS ORDERED: KETOROLAC TROMETHAMINE 30 MG INJ ONE (01:03)
[2018-11-10] MEDS ORDERED: LORAZEPAM 2 MG/1 ML VIAL ONE ×2 (01:04→01:23)
--- NOTE | 2018-11-10 01:24 | NUR ---
Received call from Radiology, Dr Means, regarding results of CT abdomen. Notified Dr. Peña.
--- NOTE | 2018-11-10 01:42 | NUR ---
Pt down to radiology dept for CT cervical spine.
[2018-11-10 01:45] LABS: CSF PROTEIN 37 mg/dL (15-45)
[2018-11-10] MEDS ORDERED: IV NORMAL SALINE 1000 ML BAG IV ONE (01:45)
[2018-11-10 02:00] LABS: CSF GLUCOSE 76 mg/dL (40-70)
--- NOTE | 2018-11-10 02:31 | NUR ---
Pt resting in bed with eyes closed. Respirations even + unlabored. Pending results.
--- NOTE | 2018-11-10 02:51 | NUR ---
Paged [facility] for panel call. Pending call back from Dr. Bang.
--- NOTE | 2018-11-10 02:53 | NUR ---
Dr. Peña speaking to Dr. Bang via telephone.
--- NOTE | 2018-11-10 03:02 | NUR ---
Pt. admitted to Med/Surg , under care of Dr. Bang. Diagnosis: Pneumonia/Altered Mental Status. Belongs List completed
--- NOTE | 2018-11-10 03:20 | NUR ---
Received patient from ER, asleep, easily arousable. Not in distress at this time. Transferred to bed safely. Body check done. IVF started, IV site on right forearm gauge #20 intact and patent. Kept bed locked in low position, bed alarm on w/ side rails up x 2. Call light in reach. Will continue to monitor
[2018-11-10] MEDS ORDERED: ACETAMINOPHEN 325 MG TABLET PO PRN (03:30)
[2018-11-10] MEDS ORDERED: CEFTRIAXONE 1 G in IV DEXTROSE 5% 50 ML IV SCH (03:30)
[2018-11-10] MEDS ORDERED: ZOLPIDEM 5 MG TABLET PO PRN (03:30)
[2018-11-10] MEDS ORDERED: MAGNESIUM HYDROXIDE 30 ML LIQUID UDC PO PRN (03:30)
[2018-11-10] MEDS ORDERED: ALBUTEROL SULFATE 8 GM HFA.AER.AD IH PRN (03:30)
[2018-11-10] MEDS ORDERED: AZITHROMYCIN IV 500 MG in IV DEXTROSE 5% 250 ML IV SCH (03:30)
[2018-11-10] MEDS ORDERED: IBUPROFEN 600 MG TABLET PO SCH (03:30)
[2018-11-10] MEDS ORDERED: Z GUARD REMEDY PASTE 57 GM TUBE TOP PRN (03:30)
[2018-11-10] MEDS ORDERED: Medication Not On Formulary EA (Diphenhydramine Hcl (Benadryl) 25 MG) PO SCH (03:30)
[2018-11-10] MEDS ORDERED: ONDANSETRON 4 MG/2 ML VIAL IV PRN (03:30)
[2018-11-10] MEDS: IV NS 1000 ML 1,000 ML IV PRN ×2 (03:54→18:07)
[2018-11-10] MEDS ORDERED: ALBUTEROL SULFATE 2.5 MG/ 0.5 ML NEBU NEB PRN ×2 (04:15→07:15)
[2018-11-10 04:17] VITALS: BP 132/87
[2018-11-10] MEDS ORDERED: AZITHROMYCIN 500 MG VIAL IV ONE (04:31)
[2018-11-10] MEDS ORDERED: LEVOFLOXACIN 500 MG/D5W 100 ML ONE (04:31)
[2018-11-10] MEDS: LEVOFLOXACIN 500 MG/D5W 500 MG in PREMIXED 1 EACH IV SCH (04:34)
--- NOTE | 2018-11-10 06:16 | NUR ---
Patient still noted sleeping but easily arousable. IV ATB Levaquin 500mg infused.
[2018-11-10] MEDS ORDERED: IBUPROFEN 600 MG TABLET PO PRN (06:45)
--- NOTE | 2018-11-10 07:15 | NUR ---
Received patient in bed sleeping, no apparent distress noted. Addendum: 11/10/18 at 0805 by DAVON LAURA RN Bed in low position side rails up x 2. Bed alarm on and call light in reach
[2018-11-10 08:57] LABS: BASOPHILS # (AUTO) 0.1 K/uL (0.0-8.0); BASOPHILS % (AUTO) 0.4 % (0.0-2.0); EOSINOPHILS # (AUTO) 0.1 K/uL (0.0-0.7); EOSINOPHILS % (AUTO) 0.3 % (0.0-7.0); HEMATOCRIT 34.2 % (36.7-47.1); HEMOGLOBIN 10.9 g/dL (12.5-16.3); LYMPHOCYTES # (AUTO) 1.1 K/uL (20.0-40.0); LYMPHOCYTES % (AUTO) 6.2 % (20.5-51.5); MEAN CORPUSCULAR HEMOGLOBIN 24.4 uug (23.8-33.4); MEAN CORPUSCULAR HGB CONC 32 g/dL (32.5-36.3); MEAN CORPUSCULAR VOLUME 76.4 fL (73.0-96.2); MONOCYTES # (AUTO) 1.6 K/uL (2.0-10.0); MONOCYTES % (AUTO) 9.1 % (0.0-11.0); NEUTROPHILS # (AUTO) 14.5 K/uL (1.8-8.9); PLATELET COUNT (AUTO) 249 K/uL (152-348); RED BLOOD CELL COUNT(AUTO) 4.48 MIL/uL (4.06-5.63); WHITE BLOOD COUNT (AUTO) 17.3 K/uL (3.6-10.2)
[2018-11-10] MEDS: CLONIDINE HCL 0.1 MG TABLET PO SCH ×3 (09:00→20:28)
[2018-11-10 09:05] LABS: PHOSPHOROUS 2.3 mg/dL (2.5-4.9)
[2018-11-10 09:21] VITALS: BP 129/92
[2018-11-10 09:39] LABS: CARBON DIOXIDE 24 mmol/L (21-32); CHLORIDE 103 mmol/L (98-107); CREATININE 1.1 mg/dL (0.6-1.3); GLUCOSE 91 mg/dL (74-106); POTASSIUM 3.5 mmol/L (3.5-5.1); UREA NITROGEN, BLOOD 26 mg/dL (7-18)
[2018-11-10 11:04] VITALS: BP 136/86
[2018-11-10 15:07] VITALS: BP 137/82
[2018-11-10] MEDS ORDERED: NEUTRA PHOS PACKET PO ONE (15:15)
[2018-11-10] MEDS: OXYCODONE/APAP 5-325 MG TABLET PO PRN (15:40)
[2018-11-10] MEDS: ALBUTEROL SULFATE 2.5 MG/3 ML NEBU NEB SCH ×2 (15:59→19:42)
[2018-11-10] MEDS ORDERED: diphenhydrAMINE 50 MG CAPSULE PO PRN (17:00)
--- NOTE | 2018-11-10 18:42 | NUR ---
Patient has been cooperative with care throughout the day. Patient has a good appetite and requests double portions of food. Patient has occasional outbursts where he screams for coke or other requests. Currently patient in bed, no distress noted at this time, bed in low position side rails up x2. call light in reach.
[2018-11-10 20:00] VITALS: BP 145/85
[2018-11-10] MEDS ORDERED: LORAZEPAM 2 MG/1 ML VIAL IV PRN (21:00)
[2018-11-11] MEDS: OXYCODONE/APAP 5-325 MG TABLET PO PRN ×2 (01:37→08:59)
[2018-11-11] MEDS: ALBUTEROL SULFATE 2.5 MG/3 ML NEBU NEB SCH ×2 (01:38→07:18)
[2018-11-11 04:00] VITALS: BP 136/75
[2018-11-11] MEDS: LEVOFLOXACIN 500 MG/D5W 500 MG in PREMIXED 1 EACH IV SCH (04:56)
--- NOTE | 2018-11-11 06:08 | NUR ---
PATIENT AWAKE IN BED. DENIES PAIN AT THIS TIME. NO RESP. DISTRESS NOTED. ON TELE SR. IVF INFUSING WELL. CALL LIGHT IN REACH. ALL NEEDS ATTENDED. WILL CONTINUE TO MONITOR AND ASSESS.
[2018-11-11 06:41] LABS: CREATININE 0.9 mg/dL (0.6-1.3); MAGNESIUM 1.7 mg/dL (1.8-2.4); PHOSPHOROUS 2.4 mg/dL (2.5-4.9); POTASSIUM 3.5 mmol/L (3.5-5.1)
[2018-11-11 06:58] LABS: BASOPHILS % (AUTO) 0.2 % (0.0-2.0); EOSINOPHILS # (AUTO) 0.1 K/uL (0.0-0.7); MEAN CORPUSCULAR HGB CONC 33 g/dL (32.5-36.3); MONOCYTES # (AUTO) 1.1 K/uL (2.0-10.0); PLATELET COUNT (AUTO) 228 K/uL (152-348)
[2018-11-11 07:09] LABS: EOSINOPHILS % (AUTO) 0.9 % (0.0-7.0); HEMATOCRIT 32.9 % (36.7-47.1); HEMOGLOBIN 10.7 g/dL (12.5-16.3); LYMPHOCYTES # (AUTO) 1.3 K/uL (20.0-40.0); LYMPHOCYTES % (AUTO) 12.2 % (20.5-51.5); MEAN CORPUSCULAR VOLUME 76.5 fL (73.0-96.2); MONOCYTES % (AUTO) 9.8 % (0.0-11.0); NEUTROPHILS # (AUTO) 8.4 K/uL (1.8-8.9); NEUTROPHILS % (AUTO) 76.9 % (38.5-71.5)
--- NOTE | 2018-11-11 07:15 | NUR ---
received report from account general manager nurse, patient in bed asleep, no distress noted at this time, bed in low position, side rails up x2. Bed alarm on.
[2018-11-11] MEDS: CLONIDINE HCL 0.1 MG TABLET PO SCH (08:59)
[2018-11-11 11:16] VITALS: BP 123/81
--- NOTE | 2018-11-11 11:50 | NUR ---
patient was very agitated and said he needed to leave right now. belongings were accounted for and IV removed, Dr. Payton notified of patients status. Patient got dressed, ID tag removed. and patient walked out on his own after signing ama paperwork.
== END 2018-11-11 12:00 | disposition left against medical advice (07) | DRG 139 ==
LOC: ER 21:28 → MEDSURG3 11-10 03:11 → TELE3 11-10 03:53 → MEDSURG3 11-11 07:23
PROVIDERS: ADMIT Internal Medicine; ATTEND Nurse Practitioner Acute Care
PROC: 009U3ZX Drainage of Spinal Canal, Percutaneous Approach, Diagnostic (ICD-10-PCS; principal; 2018-11-10)
DX: J15.9 Unspecified bacterial pneumonia (principal); N17.0 Acute kidney failure with tubular necrosis; G93.41 Metabolic encephalopathy; S32.029A Unspecified fracture of second lumbar vertebra, initial encounter for closed fracture; E83.39 Other disorders of phosphorus metabolism; E83.51 Hypocalcemia; J44.0 Chronic obstructive pulmonary disease with (acute) lower respiratory infection; S32.039A Unspecified fracture of third lumbar vertebra, initial encounter for closed fracture; J45.909 Unspecified asthma, uncomplicated; F17.210 Nicotine dependence, cigarettes, uncomplicated; X58.XXXA Exposure to other specified factors, initial encounter; Y92.89 Other specified places as the place of occurrence of the external cause; G89.4 Chronic pain syndrome; D63.8 Anemia in other chronic diseases classified elsewhere; S00.83XA Contusion of other part of head, initial encounter; S00.33XA Contusion of nose, initial encounter; F15.90 Other stimulant use, unspecified, uncomplicated; Z80.3 Family history of malignant neoplasm of breast; Z79.899 Other long term (current) drug therapy
CPT/HCPCS: 36415; 70450; 71045; 72125; 83605; 83735; 84100; 84157; 85025; 87040; 87086; 89051; 93005; 94640; A4663; G0378; J0456; J1885; J1956; J2060; J2185; J3370; J3490; J7030

== ENCOUNTER 2018-11-12 03:44 | Emergency (ER) | payer MEDICAID ==
[~2018-11-12] VITALS: Ht 180.3 cm; Wt 63.5 kg
--- NOTE | 2018-11-12 04:15 | NUR ---
PATIENT WALKED INTO ER REQUESTING RX FOR ANTIOBITOC AND PAIN MEDS. PATIENT STATES HE WENT [facility] ON 11/11/18 FROM [facility] FLOOR AND DID NOT GET RX.
--- NOTE | 2018-11-12 04:35 | NUR ---
Patient discharged to home in stable conditon. Written and verbal after care instructions given. Patient verbalizes understanding of instructions. WALKED OUT OF ER WITH NO DISTRESS NOTED. PATIENT DENIES BEING HOMELESS STATING "I LIVE WITH A FRIEND."
== END 2018-11-12 04:38 | disposition home or self-care (01) ==
LOC: ER 03:48
DX: M54.9 Dorsalgia, unspecified (principal); J18.9 Pneumonia, unspecified organism; J45.909 Unspecified asthma, uncomplicated; F41.9 Anxiety disorder, unspecified; F32.9 Major depressive disorder, single episode, unspecified; F17.210 Nicotine dependence, cigarettes, uncomplicated; F14.10 Cocaine abuse, uncomplicated; F15.10 Other stimulant abuse, uncomplicated; Z88.2 Allergy status to sulfonamides; Z88.8 Allergy status to other drugs, medicaments and biological substances; Z79.1 Long term (current) use of non-steroidal anti-inflammatories (NSAID); Z79.899 Other long term (current) drug therapy
CPT/HCPCS: A4663

== ENCOUNTER 2018-11-14 20:22 | Emergency (ER) | payer MEDICAID ==
[~2018-11-14] VITALS: Ht 180.3 cm; Wt 68.0 kg
--- NOTE | 2018-11-14 20:57 | NUR ---
Pt is sleeping in bed with eyes closed. Easy to wake. Respirations even + unlabored. Waiting for MD for MSE. No acute distress noted
--- NOTE | 2018-11-14 21:20 | NUR ---
Dr. Rangel at bedside to evaluate patient.
--- NOTE | 2018-11-14 21:32 | NUR ---
Lab and xray at bedside.
[2018-11-14 21:46] LABS: BASOPHILS % (AUTO) 0.4 % (0.0-2.0); EOSINOPHILS # (AUTO) 0.2 K/uL (0.0-0.7); EOSINOPHILS % (AUTO) 2.6 % (0.0-7.0); HEMATOCRIT 34.5 % (36.7-47.1); HEMOGLOBIN 11.2 g/dL (12.5-16.3); LYMPHOCYTES # (AUTO) 1.6 K/uL (20.0-40.0); MEAN CORPUSCULAR HEMOGLOBIN 24.8 uug (23.8-33.4); MEAN CORPUSCULAR HGB CONC 32 g/dL (32.5-36.3); MEAN CORPUSCULAR VOLUME 76.8 fL (73.0-96.2); MONOCYTES # (AUTO) 0.7 K/uL (2.0-10.0); MONOCYTES % (AUTO) 9.4 % (0.0-11.0); NEUTROPHILS # (AUTO) 4.9 K/uL (1.8-8.9); NEUTROPHILS % (AUTO) 65.6 % (38.5-71.5); PLATELET COUNT (AUTO) 357 K/uL (152-348); WHITE BLOOD COUNT (AUTO) 7.4 K/uL (3.6-10.2)
[2018-11-14 21:56] LABS: CREATININE 1.1 mg/dL (0.6-1.3); POTASSIUM 3.1 mmol/L (3.5-5.1)
[2018-11-14 22:01] LABS: BILIRUBIN,DIRECT 0.1 mg/dL (0.0-0.2); BILIRUBIN,TOTAL 0.2 mg/dL (0.2-1.0); TOTAL PROTEIN, SERUM 6.7 g/dL (6.4-8.2)
--- NOTE | 2018-11-14 23:05 | NUR ---
Pt claims he's not homeless, lives in a motel.
== END 2018-11-14 23:07 | disposition home or self-care (01) ==
LOC: ER 20:24
DX: T67.5XXA Heat exhaustion, unspecified, initial encounter (principal); J45.909 Unspecified asthma, uncomplicated; F41.9 Anxiety disorder, unspecified; F32.9 Major depressive disorder, single episode, unspecified; F17.210 Nicotine dependence, cigarettes, uncomplicated; F15.10 Other stimulant abuse, uncomplicated; F14.10 Cocaine abuse, uncomplicated; Z76.0 Encounter for issue of repeat prescription; Z88.2 Allergy status to sulfonamides; Z88.8 Allergy status to other drugs, medicaments and biological substances; Z79.1 Long term (current) use of non-steroidal anti-inflammatories (NSAID); Z79.899 Other long term (current) drug therapy; X58.XXXA Exposure to other specified factors, initial encounter; Y93.89 Activity, other specified; Y92.89 Other specified places as the place of occurrence of the external cause; Y99.8 Other external cause status
CPT/HCPCS: 36415; 70030-TC; 71045; 83605; 85025; 85730; 87040; A4663

== ENCOUNTER 2018-11-21 22:25 | Emergency (ER) | payer MEDICAID ==
--- NOTE | 2018-11-21 23:17 | NUR ---
PATIENT LEFT WITHOUT BEING TRAIGED OR SEEN BY ERMD
== END 2018-11-21 23:19 | disposition left against medical advice (07) ==
LOC: ER 22:25
DX: Z53.21 Procedure and treatment not carried out due to patient leaving prior to being seen by health care provider (principal)

== ENCOUNTER 2018-11-23 06:36 | Emergency (ER) | payer MEDICAID ==
[~2018-11-23] VITALS: Ht 177.8 cm; Wt 72.6 kg
--- NOTE | 2018-11-23 07:16 | NUR ---
at bedside to examine patient.
[2018-11-23] MEDS ORDERED: diphenhydrAMINE 50 MG/1 ML VIAL ONE (07:29)
[2018-11-23] MEDS ORDERED: METOCLOPRAMIDE HCL 10 MG/2 ML VIAL ONE (07:29)
[2018-11-23] MEDS: METOCLOPRAMIDE HCL 10 MG/2 ML VIAL IM ONE (07:31)
[2018-11-23] MEDS: diphenhydrAMINE 50 MG/1 ML VIAL IM ONE (07:31)
--- NOTE | 2018-11-23 09:44 | NUR ---
patient denies been homeless and verbal dcd done by .
== END 2018-11-23 09:45 | disposition left against medical advice (07) ==
LOC: ER 06:40
DX: S60.861A Insect bite (nonvenomous) of right wrist, initial encounter (principal); L02.413 Cutaneous abscess of right upper limb; R51 Headache; J45.909 Unspecified asthma, uncomplicated; F41.9 Anxiety disorder, unspecified; F32.9 Major depressive disorder, single episode, unspecified; F17.210 Nicotine dependence, cigarettes, uncomplicated; F15.10 Other stimulant abuse, uncomplicated; F14.10 Cocaine abuse, uncomplicated; Z88.2 Allergy status to sulfonamides; Z88.8 Allergy status to other drugs, medicaments and biological substances; Z79.1 Long term (current) use of non-steroidal anti-inflammatories (NSAID); Z79.899 Other long term (current) drug therapy; W57.XXXA Bitten or stung by nonvenomous insect and other nonvenomous arthropods, initial encounter; Y93.89 Activity, other specified; Y92.89 Other specified places as the place of occurrence of the external cause; Y99.8 Other external cause status
CPT/HCPCS: A4663; J1200; J2765

== ENCOUNTER 2018-12-09 01:27 | Emergency (ER) | payer MEDICAID ==
[~2018-12-09] VITALS: Ht 180.3 cm; Wt 63.5 kg
[2018-12-09] MEDS ORDERED: LIDOCAINE HCL 1% 20 ML VIAL ONE (01:51)
[2018-12-09] MEDS ORDERED: LIDOCAINE HCL 1% 20 ML VIAL TP ONE (02:00)
[2018-12-09] MEDS ORDERED: TDAP DIPH,PERTUSS,TET VAC/PF 0.5 ML DISP.SYRIN IM ONE (02:00)
--- NOTE | 2018-12-09 02:06 | NUR ---
Patient refused tetanus injection, ER MD aware.
--- NOTE | 2018-12-09 02:10 | NUR ---
Patient refusing all treatment at this time, despite redirection and education. Patient yelling at staff and walked out of ER with stable gait with no s/s of acute distress. Patient refused to have vital signs taken prior to discharge.
== END 2018-12-09 02:19 | disposition home or self-care (01) ==
LOC: ER 01:30
DX: L03.113 Cellulitis of right upper limb (principal); J45.909 Unspecified asthma, uncomplicated; F41.9 Anxiety disorder, unspecified; F32.9 Major depressive disorder, single episode, unspecified; F17.210 Nicotine dependence, cigarettes, uncomplicated; F14.10 Cocaine abuse, uncomplicated; F15.10 Other stimulant abuse, uncomplicated; Z88.2 Allergy status to sulfonamides; Z88.8 Allergy status to other drugs, medicaments and biological substances; Z79.1 Long term (current) use of non-steroidal anti-inflammatories (NSAID); Z79.899 Other long term (current) drug therapy
CPT/HCPCS: 99283; J3490; A4663

== ENCOUNTER 2018-12-16 00:23 | Emergency (ER) | payer MEDICAID ==
[~2018-12-16] VITALS: Ht 180.3 cm; Wt 63.5 kg
--- NOTE | 2018-12-16 00:45 | NUR ---
Dr. donato in patient room at bedside
[2018-12-16] MEDS ORDERED: LORAZEPAM 0.5 MG TABLET PO ONE (01:00)
[2018-12-16] MEDS ORDERED: OXYCODONE/APAP 5-325 MG TABLET PO ONE (01:00)
[2018-12-16] MEDS ORDERED: LORAZEPAM 0.5 MG TABLET ONE (01:08)
[2018-12-16] MEDS ORDERED: HYDROCODONE/APAP 5-325MG TABLET ONE (01:09)
--- NOTE | 2018-12-16 01:13 | NUR ---
Patient discharged to home in stable conditon. Written and verbal after care instructions given. Patient verbalizes understanding of instructions. patient is alert and oriented x3. Patient self ambulatory with steady gait. Patient refused to stay to be reasses after medication adminsitration. patient signed homeless waiver form prior to discharge. Patient personal belongings and exit care package was taken with the patient.
== END 2018-12-16 01:15 | disposition home or self-care (01) ==
LOC: ER 00:29
DX: S60.911A Unspecified superficial injury of right wrist, initial encounter (principal); L08.9 Local infection of the skin and subcutaneous tissue, unspecified; J45.909 Unspecified asthma, uncomplicated; F32.9 Major depressive disorder, single episode, unspecified; F11.10 Opioid abuse, uncomplicated; Z88.8 Allergy status to other drugs, medicaments and biological substances; Z59.0 Homelessness; Z79.1 Long term (current) use of non-steroidal anti-inflammatories (NSAID); Z79.899 Other long term (current) drug therapy; X58.XXXA Exposure to other specified factors, initial encounter; Y93.89 Activity, other specified; Y92.89 Other specified places as the place of occurrence of the external cause; Y99.8 Other external cause status
CPT/HCPCS: A4663

== ENCOUNTER 2018-12-19 22:38 | Emergency (ER) | payer MEDICAID ==
--- NOTE | 2018-12-19 23:41 | NUR ---
PATIENT WAS CALLED SEVERAL TIMES TO BE TRAIGED BUT PATIENT WAS NOT PRESENT. PATIENT WAS NOT TRAIGED OR SEEN BY ERMD.
== END 2018-12-19 23:43 | disposition left against medical advice (07) ==
LOC: ER 22:38
DX: Z53.21 Procedure and treatment not carried out due to patient leaving prior to being seen by health care provider (principal)

== ENCOUNTER 2018-12-20 03:02 | Emergency (ER) | payer MEDICAID ==
[~2018-12-20] VITALS: Ht 180.3 cm; Wt 65.8 kg
--- NOTE | 2018-12-20 03:53 | NUR ---
Dr. Cuellar at bedside for MSE.
[2018-12-20] MEDS ORDERED: diphenhydrAMINE 25 MG CAP PO ONE ×2 (04:00→04:05)
--- NOTE | 2018-12-20 04:07 | NUR ---
Patient given written and verbal discharge instructions. Patient verbalizes understanding of instructions. Patient is ambulatory with steady gait. Refuses offer of assisted placement. Patient given list of available shelters in surrounding area. Pt provided food per pt request. Patient refused all other hospital services available and will arrange his own transportation.
== END 2018-12-20 04:15 | disposition home or self-care (01) ==
LOC: ER 03:09
DX: L03.113 Cellulitis of right upper limb (principal); J45.909 Unspecified asthma, uncomplicated; G43.909 Migraine, unspecified, not intractable, without status migrainosus; F32.9 Major depressive disorder, single episode, unspecified; F11.10 Opioid abuse, uncomplicated; Z88.2 Allergy status to sulfonamides; Z88.8 Allergy status to other drugs, medicaments and biological substances; Z59.0 Homelessness; Z79.1 Long term (current) use of non-steroidal anti-inflammatories (NSAID); Z79.899 Other long term (current) drug therapy
CPT/HCPCS: 99283; Q0163; A4663

== ENCOUNTER 2018-12-25 21:00 | Emergency (ER) | payer MEDICAID ==
[~2018-12-25] VITALS: Ht 180.3 cm; Wt 66.2 kg
--- NOTE | 2018-12-25 21:10 | NUR ---
Patient ambulated with stable gait. A/Ox4. No neuro deficits noted. Patient came for c/o left index finger pain that resulted into an abscess after a "bug bite" a few days ago. Respiratory even and unlabored, no cough or sob. Patient afebrile.
[2018-12-25] MEDS ORDERED: NEOMY/BACITRA/POLYMYXIN B OINT UD PACKET TP ONE ×2 (21:22→21:30)
[2018-12-25] MEDS ORDERED: CLINDAMYCIN HCL 150 MG CAPSULE ONE (21:26)
[2018-12-25] MEDS ORDERED: HYDROCODONE/APAP 10-325 MG TABLET ONE (21:26)
[2018-12-25] MEDS ORDERED: CLINDAMYCIN HCL 150 MG CAPSULE PO ONE (21:30)
[2018-12-25] MEDS ORDERED: HYDROCODONE/APAP 10-325 MG TABLET PO ONE (21:30)
--- NOTE | 2018-12-25 21:30 | NUR ---
Patient discharged to home in stable conditon. Written and verbal after care instructions given. Patient verbalizes understanding of instructions. Patient ambulated with stable gait. Denies any homelessness at this time.
[2018-12-25 21:31] VITALS: BP 132/80
== END 2018-12-25 21:32 | disposition home or self-care (01) ==
LOC: ER 21:00
DX: L03.012 Cellulitis of left finger (principal); J45.909 Unspecified asthma, uncomplicated; F32.9 Major depressive disorder, single episode, unspecified; F11.10 Opioid abuse, uncomplicated; Z88.2 Allergy status to sulfonamides; Z88.8 Allergy status to other drugs, medicaments and biological substances; Z79.1 Long term (current) use of non-steroidal anti-inflammatories (NSAID); Z79.899 Other long term (current) drug therapy
CPT/HCPCS: A4663

== ENCOUNTER 2018-12-28 02:00 | Emergency (ER) | payer SELFPAY ==
--- NOTE | 2018-12-28 02:22 | NUR ---
Patient left without being seen by ERMD or triaged.
== END 2018-12-28 02:23 | disposition left against medical advice (07) ==
LOC: ER 02:06
DX: Z53.21 Procedure and treatment not carried out due to patient leaving prior to being seen by health care provider (principal)

== ENCOUNTER 2019-01-01 05:10 | Emergency (ER) | payer MEDICAID ==
[~2019-01-01] VITALS: Ht 180.3 cm; Wt 61.7 kg
--- NOTE | 2019-01-01 05:50 | NUR ---
PATIENT WALKED INTO ER A/OX3 SPEAKING WITH CLEAR SPEECH,AMBULATING WITH STEADY GAIT C/O PEPE. PATIENT INTERMITTENLY SPEAKING IN A HIGH PITCH VOICE, JOKING WITH STAFF MEMBER. NO DISTRESS NOTED./
[2019-01-01] MEDS ORDERED: diphenhydrAMINE 50 MG CAPSULE PO ONE (06:00)
[2019-01-01] MEDS ORDERED: HYDROCODONE/APAP 10-325 MG TABLET PO ONE (06:00)
[2019-01-01] MEDS ORDERED: HYDROCODONE/APAP 10-325 MG TABLET ONE (06:04)
[2019-01-01] MEDS ORDERED: diphenhydrAMINE 50 MG CAPSULE ONE (06:04)
--- NOTE | 2019-01-01 06:17 | NUR ---
Patient discharged to home in stable conditon. Written and verbal after care instructions given. Patient verbalizes understanding of instructions. WALKED OUT OF ER WITH NO DISTRESS NOTED.
[2019-01-01 06:18] VITALS: BP 155/92
== END 2019-01-01 06:19 | disposition home or self-care (01) ==
LOC: ER 05:13
DX: G89.4 Chronic pain syndrome (principal); G43.909 Migraine, unspecified, not intractable, without status migrainosus; F11.10 Opioid abuse, uncomplicated; F41.9 Anxiety disorder, unspecified; F17.290 Nicotine dependence, other tobacco product, uncomplicated; Z79.1 Long term (current) use of non-steroidal anti-inflammatories (NSAID); Z71.6 Tobacco abuse counseling; Z79.899 Other long term (current) drug therapy; Z88.2 Allergy status to sulfonamides; Z88.8 Allergy status to other drugs, medicaments and biological substances
CPT/HCPCS: 99283; 99406; Q0163; A4663

== ENCOUNTER 2019-01-01 21:58 | Emergency (ER) | payer MEDICAID ==
[~2019-01-01] VITALS: Ht 180.3 cm; Wt 74.8 kg
[2019-01-01] MEDS ORDERED: diphenhydrAMINE 25 MG CAP PO ONE ×2 (22:45→22:46)
--- NOTE | 2019-01-01 22:48 | NUR ---
Patient given written and verbal discharge instructions. Patient verbalizes understanding of instructions. Patient is ambulatory with steady gait. Refuses offer of penitentiary placement. Patient given list of available shelters in surrounding area.
[2019-01-01 22:50] VITALS: BP 155/92
== END 2019-01-01 22:52 | disposition home or self-care (01) ==
LOC: ER 21:58
DX: F41.9 Anxiety disorder, unspecified (principal); J45.909 Unspecified asthma, uncomplicated; F17.200 Nicotine dependence, unspecified, uncomplicated; Z88.2 Allergy status to sulfonamides; Z88.8 Allergy status to other drugs, medicaments and biological substances; Z79.1 Long term (current) use of non-steroidal anti-inflammatories (NSAID); Z79.899 Other long term (current) drug therapy
CPT/HCPCS: 93005; 99284; Q0163; A4663

== ENCOUNTER 2019-02-09 01:54 | Emergency (ER) | payer MEDICAID ==
[~2019-02-09] VITALS: Ht 180.3 cm; Wt 67.1 kg
--- NOTE | 2019-02-09 02:10 | NUR ---
Dr. Lyons at bedside for MSE.
[2019-02-09] MEDS ORDERED: LORAZEPAM 0.5 MG TABLET PO ONE (02:15)
[2019-02-09] MEDS ORDERED: HYDROCODONE/APAP 10-325 MG TABLET PO ONE (02:15)
[2019-02-09] MEDS ORDERED: LORAZEPAM 1 MG TABLET ONE (02:22)
[2019-02-09] MEDS ORDERED: HYDROCODONE/APAP 10-325 MG TABLET ONE (02:23)
[2019-02-09] MEDS ORDERED: IBUPROFEN 400 MG TABLET ONE (02:26)
--- NOTE | 2019-02-09 02:29 | NUR ---
Patient discharged to home in stable conditon. Written and verbal after care instructions given. Patient verbalizes understanding of instructions. Patient self ambulatory with steady gait. Exit care package and personal belongings taken home with the patient at discharge. patient refused shlter resources and custodial placement. Refused all hospital services at this time. Patient refuse transporation. Patient was given a meal prior to discharge. patient in stable condition and VSS
[2019-02-09] MEDS ORDERED: IBUPROFEN 400 MG TABLET PO ONE (02:30)
[2019-02-09 02:45] VITALS: BP 145/98
== END 2019-02-09 02:35 | disposition home or self-care (01) ==
LOC: ER 01:57
DX: G89.4 Chronic pain syndrome (principal); M54.5 Low back pain; F41.9 Anxiety disorder, unspecified; F32.9 Major depressive disorder, single episode, unspecified; F17.210 Nicotine dependence, cigarettes, uncomplicated; F11.10 Opioid abuse, uncomplicated; Z76.0 Encounter for issue of repeat prescription; Z59.0 Homelessness; Z71.6 Tobacco abuse counseling; Z88.2 Allergy status to sulfonamides; Z88.8 Allergy status to other drugs, medicaments and biological substances; Z79.1 Long term (current) use of non-steroidal anti-inflammatories (NSAID); Z79.899 Other long term (current) drug therapy
CPT/HCPCS: A4663

== ENCOUNTER 2019-02-12 05:30 | Emergency (ER) | payer MEDICAID ==
[~2019-02-12] VITALS: Ht 180.3 cm; Wt 65.8 kg
--- NOTE | 2019-02-12 06:49 | NUR ---
alert responsive ambulatory with c/o pain to left foot. no noted injury present.
--- NOTE | 2019-02-12 06:55 | NUR ---
patient walking around ER instructed to stay in the assigned room so when Doctor comes to see him, verbalizes understanding.
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
[2019-02-12] MEDS ORDERED: IBUPROFEN 800 MG TABLET ONE (07:56)
[2019-02-12] MEDS ORDERED: IBUPROFEN 800 MG TABLET PO ONE (08:00)
--- NOTE | 2019-02-12 08:32 | NUR ---
Patient given written and verbal discharge instructions. Patient verbalizes understanding of instructions. Patient is ambulatory with steady gait. Refuses offer of [facility]dc placement. Patient given list of available shelters in surrounding area.pt provided with sandwich, new pair of pants and shoes.pt ststes that he has a place [facility] to go thatthe pt calls home. d/c instruction with px provided. pt says that has the means to obtain the med from [facility].
[2019-02-12 08:38] VITALS: BP 121/69
== END 2019-02-12 08:43 | disposition home or self-care (01) ==
LOC: ER 05:30
DX: L84 Corns and callosities (principal); F32.9 Major depressive disorder, single episode, unspecified; F41.9 Anxiety disorder, unspecified; J45.909 Unspecified asthma, uncomplicated; F17.200 Nicotine dependence, unspecified, uncomplicated; F15.10 Other stimulant abuse, uncomplicated; F11.10 Opioid abuse, uncomplicated; Z59.0 Homelessness; Z88.2 Allergy status to sulfonamides; Z88.8 Allergy status to other drugs, medicaments and biological substances; Z79.1 Long term (current) use of non-steroidal anti-inflammatories (NSAID); Z79.899 Other long term (current) drug therapy
CPT/HCPCS: A4663

== ENCOUNTER 2019-02-19 18:11 | Emergency (ER) | payer MEDICAID ==
[~2019-02-19] VITALS: Ht 177.8 cm; Wt 67.1 kg
--- NOTE | 2019-02-19 18:48 | NUR ---
PT IS IN ROOM #5A. PT IS AGITATED AND YELLING AT THE NURSING STATION. PT WAS ASKED TO WAIT IN HIS ROOM FOR ER MD TO EVALUATE HIM. DR ANDERSON WAS NOTIFIED. PT WENT TO HIS ROOM.
--- NOTE | 2019-02-19 19:00 | NUR ---
ASSUMED CARE OF PT FROM ROMEL LEY.
--- NOTE | 2019-02-19 19:02 | NUR ---
PATIENT ARRIVED AT THE ER WIT COMPLAIN OF SEVERE GUILLERMO FOOT PAIN/ PLANTAR AREA WITH THICK SKIN/CALLUS LIKE FORMATION. SKIN HARD AND YELLOWISH IN COLOR. Pt not in cardiopulmonary distress. Respiration even and unlabored with symmetrical rise. No /GI concern.
--- NOTE | 2019-02-19 19:05 | NUR ---
Dr. Cuellar on bedside for MSE.
[2019-02-19] MEDS ORDERED: GABAPENTIN 300 MG CAPSULE ONE (19:06)
[2019-02-19] MEDS ORDERED: diphenhydrAMINE 25 MG CAP PO ONE (19:06)
[2019-02-19] MEDS: diphenhydrAMINE 25 MG CAP PO ONE (19:10)
[2019-02-19] MEDS: GABAPENTIN 300 MG CAPSULE PO ONE (19:10)
--- NOTE | 2019-02-19 19:11 | NUR ---
PT REFUSED GABAPENTIN 300MG CAPSULE. DR ANDERSON AWARE.
[2019-02-19] MEDS ORDERED: NEOMY/BACITRA/POLYMYXIN B OINT UD PACKET TP ONE (19:17)
[2019-02-19] MEDS: NEOMY/BACITRA/POLYMYXIN B OINT UD PACKET TP ONE (19:30)
--- NOTE | 2019-02-19 19:30 | NUR ---
APPLIED TRIPLE ABX OINT TO GUILLERMO PLANTAR AREA, COVER WITH GAUZE AND WRAP WITH KERLIX.
--- NOTE | 2019-02-19 19:39 | NUR ---
Patient discharged to home in stable conditon. Written and verbal after care instructions given. Patient verbalizes understanding of instructions. Pt ambulated out of the ER with steady gait. All belongings with patient.
[2019-02-19 19:41] VITALS: BP 137/77
== END 2019-02-19 19:39 | disposition home or self-care (01) ==
LOC: ER 18:20
DX: S90.822A Blister (nonthermal), left foot, initial encounter (principal); S90.821A Blister (nonthermal), right foot, initial encounter; L84 Corns and callosities; F41.9 Anxiety disorder, unspecified; F32.9 Major depressive disorder, single episode, unspecified; J45.909 Unspecified asthma, uncomplicated; F17.200 Nicotine dependence, unspecified, uncomplicated; F15.10 Other stimulant abuse, uncomplicated; F11.10 Opioid abuse, uncomplicated; Z79.1 Long term (current) use of non-steroidal anti-inflammatories (NSAID); Z88.2 Allergy status to sulfonamides; Z88.8 Allergy status to other drugs, medicaments and biological substances; Z79.899 Other long term (current) drug therapy; X58.XXXA Exposure to other specified factors, initial encounter; Y93.89 Activity, other specified; Y92.89 Other specified places as the place of occurrence of the external cause; Y99.8 Other external cause status
CPT/HCPCS: 99283; Q0163; A4663

== ENCOUNTER 2019-02-24 21:49 | Emergency (ER) | payer MEDICAID ==
[~2019-02-24] VITALS: Ht 180.3 cm; Wt 68.9 kg
--- NOTE | 2019-02-24 21:59 | NUR ---
Patient arrive at the Er with chief complaint of left foot pain. Also complain of SOB. Patient AAOX4. No cardiovascular concern. No /GI concern.
--- NOTE | 2019-02-24 22:00 | NUR ---
Dr. Cuellar on bedside for MSE.
[2019-02-24 22:12] VITALS: BP 134/90
== END 2019-02-24 22:12 | disposition home or self-care (01) ==
LOC: ER 21:52
DX: J45.909 Unspecified asthma, uncomplicated (principal); F32.9 Major depressive disorder, single episode, unspecified; F41.9 Anxiety disorder, unspecified; F17.210 Nicotine dependence, cigarettes, uncomplicated; Z76.0 Encounter for issue of repeat prescription; Z88.2 Allergy status to sulfonamides; Z88.8 Allergy status to other drugs, medicaments and biological substances; Z79.1 Long term (current) use of non-steroidal anti-inflammatories (NSAID); Z79.899 Other long term (current) drug therapy
CPT/HCPCS: A4663

== ENCOUNTER 2019-03-06 07:25 | Emergency (ER) | payer MEDICAID ==
[~2019-03-06] VITALS: Ht 180.3 cm; Wt 68.0 kg
[2019-03-06] MEDS ORDERED: KETOROLAC TROMETHAMINE 30 MG INJ ONE (07:58)
[2019-03-06] MEDS ORDERED: KETOROLAC TROMETHAMINE 30 MG INJ IM ONE (08:00)
--- NOTE | 2019-03-06 08:08 | NUR ---
Patient given written and verbal discharge instructions. Patient verbalizes understanding of instructions. Patient is ambulatory with steady gait. Refuses offer of jail placement. Patient given list of available shelters in surrounding area.hospital sandwich provided. pt refuses clothing. pt camwe with season apropriate clean clothings.
== END 2019-03-06 08:10 | disposition home or self-care (01) ==
LOC: ER 07:27
DX: G43.909 Migraine, unspecified, not intractable, without status migrainosus (principal); J45.909 Unspecified asthma, uncomplicated; F41.9 Anxiety disorder, unspecified; F32.9 Major depressive disorder, single episode, unspecified; F17.210 Nicotine dependence, cigarettes, uncomplicated; Z88.2 Allergy status to sulfonamides; Z88.8 Allergy status to other drugs, medicaments and biological substances; Z79.1 Long term (current) use of non-steroidal anti-inflammatories (NSAID); Z79.899 Other long term (current) drug therapy
CPT/HCPCS: 96372; 99283; J1885; A4663

== ENCOUNTER 2019-03-07 07:37 | Emergency (ER) | payer MEDICAID ==
[~2019-03-07] VITALS: Ht 180.3 cm; Wt 68.9 kg
--- NOTE | 2019-03-07 08:00 | NUR ---
Patient given written and verbal discharge instructions. Patient verbalizes understanding of instructions. Patient is ambulatory with steady gait. Refuses offer of prison placement. Patient given list of available shelters in surrounding area.
== END 2019-03-07 08:06 | disposition home or self-care (01) ==
LOC: ER 07:37
DX: G89.29 Other chronic pain (principal); R51 Headache; J45.909 Unspecified asthma, uncomplicated; F32.9 Major depressive disorder, single episode, unspecified; F41.9 Anxiety disorder, unspecified; F17.210 Nicotine dependence, cigarettes, uncomplicated; Z88.2 Allergy status to sulfonamides; Z88.8 Allergy status to other drugs, medicaments and biological substances; Z76.0 Encounter for issue of repeat prescription; Z79.1 Long term (current) use of non-steroidal anti-inflammatories (NSAID); Z79.899 Other long term (current) drug therapy
CPT/HCPCS: A4663

== ENCOUNTER 2019-03-12 23:02 | Emergency (ER) | payer MEDICAID ==
--- NOTE | 2019-03-12 23:18 | NUR ---
Pt not in waiting room. Patient left without being seen by ER physician or triaged.
== END 2019-03-12 23:19 | disposition left against medical advice (07) ==
LOC: ER 23:03
DX: Z53.21 Procedure and treatment not carried out due to patient leaving prior to being seen by health care provider (principal)

== ENCOUNTER 2019-03-17 16:38 | Emergency (ER) | payer MEDICAID ==
[~2019-03-17] VITALS: Ht 180.3 cm; Wt 68.0 kg
[2019-03-17] MEDS ORDERED: diphenhydrAMINE 50 MG/1 ML VIAL ONE (16:59)
[2019-03-17] MEDS ORDERED: METOCLOPRAMIDE HCL 10 MG/2 ML VIAL ONE (16:59)
[2019-03-17] MEDS ORDERED: diphenhydrAMINE 50 MG/1 ML VIAL IM ONE (17:00)
[2019-03-17] MEDS ORDERED: METOCLOPRAMIDE HCL 10 MG/2 ML VIAL IM ONE (17:00)
--- NOTE | 2019-03-17 17:18 | NUR ---
PATIENT WAS SEEN BY MD. MEDICATION GIVEN ORDERED. DC AND FOLLOW UP INSTRUCTIONS GIVEN AND EXPLAINED TO PATIENT WHO STATES HE UNDERSTANDS ALL INSTRUCTIONS.
== END 2019-03-17 17:25 | disposition home or self-care (01) ==
LOC: ER 16:39
DX: G89.4 Chronic pain syndrome (principal); R51 Headache; J45.909 Unspecified asthma, uncomplicated; F32.9 Major depressive disorder, single episode, unspecified; F41.9 Anxiety disorder, unspecified; F17.210 Nicotine dependence, cigarettes, uncomplicated; Z88.2 Allergy status to sulfonamides; Z88.8 Allergy status to other drugs, medicaments and biological substances; Z79.1 Long term (current) use of non-steroidal anti-inflammatories (NSAID); Z79.899 Other long term (current) drug therapy
CPT/HCPCS: 96372 ×2; 99283; J1200; J2765; A4663

== ENCOUNTER 2019-03-18 19:03 | Emergency (ER) | payer MEDICAID ==
--- NOTE | 2019-03-18 20:30 | NUR ---
Patient was called several times to be triaged. Patient was not present.
== END 2019-03-18 21:28 | disposition left against medical advice (07) ==
LOC: ER 19:03
DX: Z53.21 Procedure and treatment not carried out due to patient leaving prior to being seen by health care provider (principal)

== ENCOUNTER 2019-03-19 03:17 | Emergency (ER) | payer MEDICAID ==
[~2019-03-19] VITALS: Ht 177.8 cm; Wt 68.0 kg
[2019-03-19] MEDS ORDERED: diphenhydrAMINE 50 MG/1 ML VIAL ONE (03:37)
[2019-03-19] MEDS ORDERED: METOCLOPRAMIDE HCL 10 MG/2 ML VIAL ONE (03:38)
[2019-03-19] MEDS: diphenhydrAMINE 50 MG/1 ML VIAL IM ONE (03:43)
[2019-03-19] MEDS: METOCLOPRAMIDE HCL 10 MG/2 ML VIAL IM ONE (03:44)
--- NOTE | 2019-03-19 03:54 | NUR ---
Patient discharged to home in stable conditon. Written and verbal after care instructions given. Patient verbalizes understanding of instructions. ambulatory w/ stable gait all belongings w/ pt
[2019-03-19 03:56] VITALS: BP 165/78
== END 2019-03-19 03:56 | disposition home or self-care (01) ==
LOC: ER 03:17
DX: G89.4 Chronic pain syndrome (principal); G43.909 Migraine, unspecified, not intractable, without status migrainosus; J45.909 Unspecified asthma, uncomplicated; F32.9 Major depressive disorder, single episode, unspecified; F41.9 Anxiety disorder, unspecified; F17.210 Nicotine dependence, cigarettes, uncomplicated; Z88.2 Allergy status to sulfonamides; Z88.8 Allergy status to other drugs, medicaments and biological substances; Z79.1 Long term (current) use of non-steroidal anti-inflammatories (NSAID); Z79.899 Other long term (current) drug therapy; Z71.6 Tobacco abuse counseling; Z59.0 Homelessness
CPT/HCPCS: 96372 ×2; 99283; 99406; J1200; J2765; A4663

== ENCOUNTER 2019-04-10 00:10 | Emergency (ER) | payer MEDICAID ==
[~2019-04-10] VITALS: Ht 182.9 cm; Wt 72.6 kg
--- NOTE | 2019-04-10 01:31 | NUR ---
Patient left without being seen by ER physician. Patient A&O x4. Patient ambulating with steady gait
== END 2019-04-10 01:30 | disposition left against medical advice (07) ==
LOC: ER 00:13
DX: Z53.21 Procedure and treatment not carried out due to patient leaving prior to being seen by health care provider (principal)
CPT/HCPCS: A4663

== ENCOUNTER 2019-04-10 23:59 | Emergency (ER) | payer MEDICAID ==
--- NOTE | 2019-04-11 00:20 | NUR ---
Called patient several times to be triaged,patient was not present. Patient was not seen by PRUDENCE or neena
== END 2019-04-11 00:40 | disposition left against medical advice (07) ==
LOC: ER 04-11 00:01
DX: Z53.21 Procedure and treatment not carried out due to patient leaving prior to being seen by health care provider (principal)

== ENCOUNTER 2019-05-02 01:04 | Emergency (ER) | payer MEDICAID ==
[~2019-05-02] VITALS: Ht 172.7 cm; Wt 78.0 kg
[2019-05-02] MEDS ORDERED: diphenhydrAMINE 25 MG CAP PO ONE ×2 (01:45→01:48)
[2019-05-02] MEDS ORDERED: GABAPENTIN 300 MG CAPSULE PO ONE (01:45)
[2019-05-02] MEDS ORDERED: GABAPENTIN 300 MG CAPSULE ONE (01:48)
[2019-05-02 01:52] VITALS: BP 144/80
--- NOTE | 2019-05-02 01:52 | NUR ---
Patient discharged to home in stable conditon. Written and verbal after care instructions given. Patient verbalizes understanding of instructions. Ambulated from ER with stable gait. All belongings qwith patient.
== END 2019-05-02 01:53 | disposition home or self-care (01) ==
LOC: ER 01:08
DX: G89.4 Chronic pain syndrome (principal); R51 Headache; F41.9 Anxiety disorder, unspecified; F32.9 Major depressive disorder, single episode, unspecified; F20.9 Schizophrenia, unspecified; J45.909 Unspecified asthma, uncomplicated; F17.210 Nicotine dependence, cigarettes, uncomplicated; Z88.8 Allergy status to other drugs, medicaments and biological substances; Z79.1 Long term (current) use of non-steroidal anti-inflammatories (NSAID); Z79.899 Other long term (current) drug therapy
CPT/HCPCS: 99283; Q0163; A4663

== ENCOUNTER 2019-05-06 07:51 | Emergency (ER) | payer MEDICAID ==
[~2019-05-06] VITALS: Ht 180.3 cm; Wt 72.6 kg
[2019-05-06] MEDS ORDERED: NEOMY/BACITRA/POLYMYXIN B OINT UD PACKET TP ONE ×2 (08:15)
--- NOTE | 2019-05-06 08:20 | NUR ---
Patient discharged to home in stable conditon. Written and verbal after care instructions given. Patient verbalizes understanding of instructions. walked out of ER with no distress noted.
== END 2019-05-06 08:29 | disposition home or self-care (01) ==
LOC: ER 07:51
DX: L02.423 Furuncle of right upper limb (principal); F41.9 Anxiety disorder, unspecified; F32.9 Major depressive disorder, single episode, unspecified; J45.909 Unspecified asthma, uncomplicated; Z88.2 Allergy status to sulfonamides; Z88.8 Allergy status to other drugs, medicaments and biological substances; F17.210 Nicotine dependence, cigarettes, uncomplicated; Z79.1 Long term (current) use of non-steroidal anti-inflammatories (NSAID); Z79.899 Other long term (current) drug therapy
CPT/HCPCS: A4663

== ENCOUNTER 2019-05-16 21:38 | Emergency (ER) | payer MEDICAID ==
[~2019-05-16] VITALS: Ht 177.8 cm; Wt 74.8 kg
[2019-05-16] MEDS ORDERED: ALBUTEROL SULFATE 2.5 MG/3 ML NEBU NEB ONE (23:00)
[2019-05-16] MEDS ORDERED: IPRATROPIUM BROMIDE 0.5 MG/2.5 ML NEBU NEB ONE (23:00)
[2019-05-16] MEDS ORDERED: predniSONE 20 MG TABLET PO ONE (23:00)
[2019-05-16] MEDS ORDERED: predniSONE 20 MG TABLET ONE (23:02)
[2019-05-16] MEDS ORDERED: ALBUTEROL SULFATE 2.5 MG/3 ML NEBU ONE (23:03)
[2019-05-16] MEDS ORDERED: IPRATROPIUM BROMIDE 0.5 MG/2.5 ML NEBU ONE (23:04)
--- NOTE | 2019-05-16 23:49 | NUR ---
Patient discharged to home in stable conditon. Written and verbal after care instructions given. Patient verbalizes understanding of instructions. Ambulated from ER with stable gait. All belongings with patient.
[2019-05-16 23:50] VITALS: BP 141/77
== END 2019-05-16 23:51 | disposition home or self-care (01) ==
LOC: ER 21:40
DX: J45.901 Unspecified asthma with (acute) exacerbation (principal); R91.1 Solitary pulmonary nodule; F41.9 Anxiety disorder, unspecified; F32.9 Major depressive disorder, single episode, unspecified; F17.210 Nicotine dependence, cigarettes, uncomplicated; Z88.2 Allergy status to sulfonamides; Z88.8 Allergy status to other drugs, medicaments and biological substances; Z79.1 Long term (current) use of non-steroidal anti-inflammatories (NSAID); Z79.899 Other long term (current) drug therapy
CPT/HCPCS: 71046; 94640; 99283; 99406; J7512; A4663; J3590

== ENCOUNTER 2019-05-17 04:30 | Emergency (ER) | payer MEDICAID ==
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
== END 2019-05-17 04:47 | disposition left against medical advice (07) ==
LOC: ER 04:37
DX: Z53.21 Procedure and treatment not carried out due to patient leaving prior to being seen by health care provider (principal)

== ENCOUNTER 2019-05-21 01:51 | Emergency (ER) | payer MEDICAID ==
[~2019-05-21] VITALS: Ht 180.3 cm; Wt 72.6 kg
[2019-05-21] MEDS ORDERED: HYDROMORPHONE 2 MG/1 ML DISP.SYRIN ONE (02:12)
[2019-05-21] MEDS ORDERED: diphenhydrAMINE 50 MG/1 ML VIAL ONE (02:12)
[2019-05-21] MEDS ORDERED: HYDROMORPHONE 1 MG/1 ML DISP.SYRIN IM ONE (02:15)
[2019-05-21] MEDS ORDERED: diphenhydrAMINE 50 MG/1 ML VIAL IM ONE (02:15)
[2019-05-21 02:24] VITALS: BP 162/89
--- NOTE | 2019-05-21 02:24 | NUR ---
Patient discharged to home in stable conditon. Written and verbal after care instructions given. Patient verbalizes understanding of instructions. AMBULATORY W/ STABLE GAIT ALL BELONGINGS W/ PT
== END 2019-05-21 02:25 | disposition home or self-care (01) ==
LOC: ER 01:54
DX: G43.909 Migraine, unspecified, not intractable, without status migrainosus (principal); F41.9 Anxiety disorder, unspecified; F32.9 Major depressive disorder, single episode, unspecified; J45.909 Unspecified asthma, uncomplicated; F17.210 Nicotine dependence, cigarettes, uncomplicated; Z88.5 Allergy status to narcotic agent; Z88.8 Allergy status to other drugs, medicaments and biological substances; Z79.899 Other long term (current) drug therapy; Z79.1 Long term (current) use of non-steroidal anti-inflammatories (NSAID)
CPT/HCPCS: 96372 ×2; 99283; J1170; J1200; A4663

== ENCOUNTER 2019-06-04 04:42 | Emergency (ER) | payer MEDICAID ==
[~2019-06-04] VITALS: Ht 180.3 cm; Wt 72.6 kg
[2019-06-04] MEDS ORDERED: LORAZEPAM 0.5 MG TABLET PO ONE (05:00)
[2019-06-04] MEDS ORDERED: HYDROCODONE/APAP 10-325 MG TABLET PO ONE (05:00)
--- NOTE | 2019-06-04 05:00 | NUR ---
PATIENT WAS MSE BY DR HAMILTON IN ROOM 02A.
[2019-06-04] MEDS ORDERED: HYDROCODONE/APAP 10-325 MG TABLET ONE (05:05)
[2019-06-04] MEDS ORDERED: LORAZEPAM 1 MG TABLET ONE (05:06)
[2019-06-04] MEDS ORDERED: diphenhydrAMINE 50 MG CAPSULE ONE (05:09)
[2019-06-04] MEDS ORDERED: OXYCODONE/APAP 5-325 MG TABLET ONE (05:09)
[2019-06-04] MEDS ORDERED: OXYCODONE/APAP 5-325 MG TABLET PO ONE (05:15)
[2019-06-04] MEDS ORDERED: diphenhydrAMINE 50 MG CAPSULE PO ONE (05:15)
--- NOTE | 2019-06-04 05:18 | NUR ---
Patient discharged to home in stable condition. Written and verbal after care instructions given. Patient verbalizes understanding of instructions.
[2019-06-04 05:30] VITALS: BP 146/87
== END 2019-06-04 05:31 | disposition home or self-care (01) ==
LOC: ER 04:42
DX: G89.4 Chronic pain syndrome (principal); R51 Headache; F41.9 Anxiety disorder, unspecified; F32.9 Major depressive disorder, single episode, unspecified; F10.10 Alcohol abuse, uncomplicated; F17.290 Nicotine dependence, other tobacco product, uncomplicated; Z88.2 Allergy status to sulfonamides; Z88.1 Allergy status to other antibiotic agents; Z79.899 Other long term (current) drug therapy; Z71.6 Tobacco abuse counseling; Z60.2 Problems related to living alone
CPT/HCPCS: 99283; 99406; Q0163; A4663

== ENCOUNTER 2019-06-08 04:45 | Emergency (ER) | payer MEDICAID ==
[~2019-06-08] VITALS: Ht 172.7 cm; Wt 74.8 kg
[2019-06-08] MEDS ORDERED: HYDROMORPHONE 1 MG/1 ML DISP.SYRIN IV ONE ×2 (05:00→07:45)
[2019-06-08] MEDS ORDERED: VANCOMYCIN IV 1,000 MG in IV DEXTROSE 5% 250 ML IV ONE (05:00)
[2019-06-08] MEDS ORDERED: ONDANSETRON 4 MG/2 ML VIAL IV ONE (05:00)
[2019-06-08] MEDS ORDERED: VANCOMYCIN IV 200 ML ONE (05:10)
[2019-06-08] MEDS ORDERED: HYDROMORPHONE 2 MG/1 ML DISP.SYRIN ONE ×2 (05:10→07:42)
[2019-06-08] MEDS ORDERED: ONDANSETRON 4 MG/2 ML VIAL ONE (05:10)
[2019-06-08 05:15] LABS: BASOPHILS % (AUTO) 0.3 % (0.0-2.0); EOSINOPHILS # (AUTO) 0.2 K/uL (0.0-0.7); HEMATOCRIT 37.5 % (36.7-47.1); HEMOGLOBIN 12.8 g/dL (12.5-16.3); LYMPHOCYTES # (AUTO) 1.8 K/uL (20.0-40.0); LYMPHOCYTES % (AUTO) 11.2 % (20.5-51.5); MEAN CORPUSCULAR HGB CONC 34 g/dL (32.5-36.3); MEAN CORPUSCULAR VOLUME 79.2 fL (73.0-96.2); MONOCYTES # (AUTO) 1.4 K/uL (2.0-10.0); MONOCYTES % (AUTO) 8.8 % (0.0-11.0); NEUTROPHILS # (AUTO) 12.8 K/uL (1.8-8.9); NEUTROPHILS % (AUTO) 78.7 % (38.5-71.5); PLATELET COUNT (AUTO) 370 K/uL (152-348); RED BLOOD CELL COUNT(AUTO) 4.73 MIL/uL (4.06-5.63); WHITE BLOOD COUNT (AUTO) 16.3 K/uL (3.6-10.2)
--- NOTE | 2019-06-08 05:50 | NUR ---
Called [facility], requesting admission for pt to be transferred due to higher level of care. Pt needs hand surgeon due to flexor tenosynovitis of left long finger. States they are at their capacity, no beds available at this time.
--- NOTE | 2019-06-08 05:56 | NUR ---
Called [facility], requesting admission for pt to be transferred due to higher level of care. Pt needs hand surgeon due to flexor tenosynovitis of left long finger. States they are at their capacity, no beds available at this time. They requested face sheet & clinicals to be faxed over to [phone].
[2019-06-08 06:00] LABS: ALANINE AMINOTRANSFERASE 28 U/L (16-63); ALKALINE PHOSPHATASE 131 U/L (50-136); ASPARTATE AMINOTRANSFERASE 27 U/L (15-37); BILIRUBIN,DIRECT < 0.1 mg/dL (0.0-0.2); BILIRUBIN,TOTAL 0.3 mg/dL (0.2-1.0); CARBON DIOXIDE 29 mmol/L (21-32); CHLORIDE 100 mmol/L (98-107); CREATININE 1.4 mg/dL (0.6-1.3); GLUCOSE 107 mg/dL (74-106); POTASSIUM 3.5 mmol/L (3.5-5.1); TOTAL PROTEIN, SERUM 8.3 g/dL (6.4-8.2); UREA NITROGEN, BLOOD 27 mg/dL (7-18)
--- NOTE | 2019-06-08 06:03 | NUR ---
Called [facility] Transfer [facility]. No beds available at this time.
--- NOTE | 2019-06-08 06:03 | NUR ---
Called [facility], states they are at their max. no beds right now.
--- NOTE | 2019-06-08 06:19 | NUR ---
Called [facility], no hand surgeon at their facility.
[2019-06-08] MEDS ORDERED: IV D5W-0.45% NS +20 KCL 1,000 ML IV ONE (06:20)
[2019-06-08] MEDS ORDERED: KETOROLAC TROMETHAMINE 30 MG INJ ONE (07:42)
[2019-06-08] MEDS ORDERED: PIPERACILLIN/TAZOBACTAM/D5W 50 ML IV ONE (07:43)
[2019-06-08] MEDS ORDERED: PIPERACILLIN SODIUM/TAZOBACTAM 3.375 G in IV DEXTROSE 5% 50 ML IV ONE (07:45)
[2019-06-08] MEDS ORDERED: KETOROLAC TROMETHAMINE 30 MG INJ IVP ONE (07:45)
--- NOTE | 2019-06-08 07:59 | NUR ---
Placed a call to Pt's insurance through [employer], bed placement states we can't give authorization and Pt needs to go Through [facility] since this is [facility].
--- NOTE | 2019-06-08 08:24 | NUR ---
Placed a call to [facility] for possible tx, and spoke to sabrina newton. [facility] stated they are at capacity.
--- NOTE | 2019-06-08 08:30 | NUR ---
Pt a second call to [facility], no bed is avaliable.
--- NOTE | 2019-06-08 08:44 | NUR ---
placed a call to [facility] , No hand surgeon available.
--- NOTE | 2019-06-08 09:00 | NUR ---
Placed a call to [facility]. Info and clinical faxed to bed managment.
--- NOTE | 2019-06-08 09:08 | NUR ---
IV infusion completed at this time, per Pt request. IV removed. Catheter intact and site benign. Pressure and 4x4 gauze applied to site. No bleeding noted.
--- NOTE | 2019-06-08 09:15 | NUR ---
Patient does not wish to proceed with medical care recommended by Dr. Dumas). Patient given information related to possible complications, up to and including , which could occur as a result of leaving the hospital at this time. Patient verbalizes understanding of risks involved due to leaving against medical advice. Patient has signed AMA form. Patient given written and verbal discharge instructions. Patient is ambulatory with steady gait. Refuses offer of longterm placement. Patient given list of available shelters in surrounding area.
--- NOTE | 2019-06-14 09:30 | NUR ---
LATE ENTRY: 06/08/19 0908 IV infusion of D5 / NS 1000ml + Kcl 20 Meq at 250ml/hr was stopped at 0908 per patient request.
== END 2019-06-08 09:24 | disposition left against medical advice (07) ==
LOC: ER 04:48
DX: M65.842 Other synovitis and tenosynovitis, left hand (principal); G89.4 Chronic pain syndrome; F15.10 Other stimulant abuse, uncomplicated; F41.9 Anxiety disorder, unspecified; F32.9 Major depressive disorder, single episode, unspecified; J45.909 Unspecified asthma, uncomplicated; F17.210 Nicotine dependence, cigarettes, uncomplicated; Z88.2 Allergy status to sulfonamides; Z71.6 Tobacco abuse counseling; Z59.0 Homelessness; Z88.8 Allergy status to other drugs, medicaments and biological substances; Z79.1 Long term (current) use of non-steroidal anti-inflammatories (NSAID); Z79.899 Other long term (current) drug therapy
CPT/HCPCS: 36415; 73130; 80048; 80076; 85025; 85730; 87040 ×2; 96365; 96366; 96367; 96368; 96375; 99284; 99406; J1170 ×2; J1885; J2405; J2543; J3370; A4663

== ENCOUNTER 2019-06-17 00:09 | Emergency (ER) | payer MEDICAID ==
[~2019-06-17] VITALS: Ht 180.3 cm; Wt 86.2 kg
--- NOTE | 2019-06-17 00:45 | NUR ---
Dr Lyons at bedside for MSE.
[2019-06-17] MEDS ORDERED: HYDROCODONE/APAP 10-325 MG TABLET PO ONE (01:00)
[2019-06-17] MEDS ORDERED: CLINDAMYCIN HCL 150 MG CAPSULE PO ONE (01:00)
[2019-06-17] MEDS ORDERED: LORAZEPAM 0.5 MG TABLET PO ONE (01:00)
[2019-06-17] MEDS ORDERED: LORAZEPAM 1 MG TABLET ONE (01:06)
[2019-06-17] MEDS ORDERED: CLINDAMYCIN HCL 300 MG CAPSULE ONE ×2 (01:06→01:11)
[2019-06-17] MEDS ORDERED: HYDROCODONE/APAP 10-325 MG TABLET ONE ×2 (01:06→01:11)
--- NOTE | 2019-06-17 02:00 | NUR ---
Patient discharged to home in stable conditon. Written and verbal after care instructions given. Patient verbalizes understanding of instructions. All belongings with pt. Pt walked out of ER with stable gait.
[2019-06-17 02:07] VITALS: BP 107/65
== END 2019-06-17 02:11 | disposition home or self-care (01) ==
LOC: ER 00:14
DX: G89.4 Chronic pain syndrome (principal); R51 Headache; F41.9 Anxiety disorder, unspecified; F32.9 Major depressive disorder, single episode, unspecified; F10.10 Alcohol abuse, uncomplicated; F17.219 Nicotine dependence, cigarettes, with unspecified nicotine-induced disorders; Z48.00 Encounter for change or removal of nonsurgical wound dressing; Z71.6 Tobacco abuse counseling; Z76.5 Malingerer [conscious simulation]; Z88.1 Allergy status to other antibiotic agents
CPT/HCPCS: A4217; A4663

== ENCOUNTER 2019-06-18 04:39 | Emergency (ER) | payer MEDICAID ==
[~2019-06-18] VITALS: Ht 182.9 cm; Wt 86.2 kg
--- NOTE | 2019-06-18 06:18 | NUR ---
Patient in bed, awaiting ER MD evaluation.
--- NOTE | 2019-06-18 06:30 | NUR ---
Patient discharged to home in stable conditon. Written and verbal after care instructions given. Patient verbalizes understanding of instructions. Ambulated from Er with stable gait. Verbal ACI. All belongings with patient.
[2019-06-18 06:32] VITALS: BP 158/87
== END 2019-06-18 06:32 | disposition home or self-care (01) ==
LOC: ER 04:41
DX: M65.142 Other infective (teno)synovitis, left hand (principal); F41.9 Anxiety disorder, unspecified; F32.9 Major depressive disorder, single episode, unspecified; J45.909 Unspecified asthma, uncomplicated; F17.210 Nicotine dependence, cigarettes, uncomplicated; Z88.2 Allergy status to sulfonamides; Z88.8 Allergy status to other drugs, medicaments and biological substances
CPT/HCPCS: A4663

== ENCOUNTER 2019-06-19 06:08 | Emergency (ER) | payer MEDICAID ==
[~2019-06-19] VITALS: Ht 180.3 cm; Wt 72.6 kg
--- NOTE | 2019-06-19 06:51 | NUR ---
Changed dressing on left middle finger as ordered.
--- NOTE | 2019-06-19 07:02 | NUR ---
Patient discharged to home in stable conditon. Written and verbal after care instructions given. Patient verbalizes understanding of instructions.
== END 2019-06-19 07:02 | disposition home or self-care (01) ==
LOC: ER 06:12
DX: Z48.00 Encounter for change or removal of nonsurgical wound dressing (principal); M65.842 Other synovitis and tenosynovitis, left hand; F41.9 Anxiety disorder, unspecified; F32.9 Major depressive disorder, single episode, unspecified; R51 Headache; J45.909 Unspecified asthma, uncomplicated; G89.29 Other chronic pain; F17.200 Nicotine dependence, unspecified, uncomplicated; Z88.1 Allergy status to other antibiotic agents; Z88.2 Allergy status to sulfonamides; Z60.2 Problems related to living alone
CPT/HCPCS: A4663

== ENCOUNTER 2019-06-24 03:39 | Emergency (ER) | payer MEDICAID ==
[~2019-06-24] VITALS: Ht 182.9 cm; Wt 86.6 kg
--- NOTE | 2019-06-24 03:56 | NUR ---
Patient presents to ER with non-specific complaints, stating he has difficulty breathing. Patient noted to grab down tv and begin watching tv. Patient in no acute distress, placed on pulse 0x noted at 98% on room air. Seen and examined by Dr. Mcgraw
--- NOTE | 2019-06-24 04:10 | NUR ---
Patient given written and verbal discharge instructions. Patient verbalizes understanding of instructions. Patient is ambulatory with steady gait. Refuses offer of jail placement. Patient given list of available shelters in surrounding area. Patient provided apple juice as requested. Left ER in stable condition.
== END 2019-06-24 04:10 | disposition home or self-care (01) ==
LOC: ER 03:45
DX: R51 Headache (principal); R06.02 Shortness of breath; F41.9 Anxiety disorder, unspecified; F32.9 Major depressive disorder, single episode, unspecified; F17.210 Nicotine dependence, cigarettes, uncomplicated; Z76.0 Encounter for issue of repeat prescription; Z88.2 Allergy status to sulfonamides; Z88.8 Allergy status to other drugs, medicaments and biological substances
CPT/HCPCS: A4663

== ENCOUNTER 2019-06-25 17:31 | Emergency (ER) | payer MEDICAID ==
[~2019-06-25] VITALS: Ht 180.3 cm; Wt 72.6 kg
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
--- NOTE | 2019-06-25 17:58 | NUR ---
Patient taken down to CT in stable condition.
--- NOTE | 2019-06-25 19:07 | NUR ---
ROMEL Ayon Addendum: 06/25/19 at 1908 by MELI Report given to ROMEL Ayon
--- NOTE | 2019-06-25 19:24 | NUR ---
JUST CONFIRMED WITH [facility] THAT THEY ARE FOLLOWING UP WITH [facility] ABOUT THE DELAY OF CT NECK RESULTS PT IS ON SUPINE NAD RA DENIES PAIN ASLEEP BUT EASILY ROUSABLE RECEIVED HAND OFF AND SBAR FR OUTGOING DAY SHIFT RN (ADARSH)
--- NOTE | 2019-06-25 19:35 | NUR ---
PRUDENCE ON THE PHONE WITH [facility], PENDING CALL BACK FROM [facility]IOLOG[facility] ONCE THEY ARE ABLE TO TRANSMIT CT NECK TO [facility]
--- NOTE | 2019-06-25 19:56 | NUR ---
CT CALLED BACK FOR UPDATE: CT NECK STILL NOT SENT
--- NOTE | 2019-06-25 19:59 | NUR ---
UPDATE FROM CT: CT SPINE WAS SENT TO [facility] AWAITING CT SPINE RESULTS
--- NOTE | 2019-06-25 20:22 | NUR ---
PT RECEIVED ALL COPIES OF IMAGING RESULTS Patient discharged to home in stable conditon. Written and verbal after care instructions given. Patient verbalizes understanding of instructions. ALL BELONGINGS W/ PT AMBULATORY W. STABLE GAIT
[2019-06-25 20:23] VITALS: BP 148/86
== END 2019-06-25 20:26 | disposition home or self-care (01) ==
LOC: ER 17:33
DX: S16.1XXA Strain of muscle, fascia and tendon at neck level, initial encounter (principal); S09.90XA Unspecified injury of head, initial encounter; S80.02XA Contusion of left knee, initial encounter; S80.01XA Contusion of right knee, initial encounter; F17.200 Nicotine dependence, unspecified, uncomplicated; Z88.8 Allergy status to other drugs, medicaments and biological substances; Z88.2 Allergy status to sulfonamides; Z88.1 Allergy status to other antibiotic agents; Z60.2 Problems related to living alone; V09.9XXA Pedestrian injured in unspecified transport accident, initial encounter; Y93.01 Activity, walking, marching and hiking; Y92.410 Unspecified street and highway as the place of occurrence of the external cause; Y99.8 Other external cause status
CPT/HCPCS: 70450; 72125; A4663

== ENCOUNTER 2019-07-06 17:54 | Emergency (ER) | payer MEDICAID ==
[~2019-07-06] VITALS: Ht 180.3 cm; Wt 77.1 kg
[2019-07-06] MEDS ORDERED: METOCLOPRAMIDE HCL 10 MG/2 ML VIAL IM ONE (19:00)
[2019-07-06] MEDS ORDERED: ALBUTEROL SULFATE 2.5 MG/3 ML NEBU NEB ONE (19:00)
[2019-07-06] MEDS ORDERED: IPRATROPIUM BROMIDE 0.5 MG/2.5 ML NEBU NEB ONE (19:00)
--- NOTE | 2019-07-06 19:00 | NUR ---
ASSUMED CARE OF PATIENT. NO ACUTE DISTRESS NOTED. VSS
[2019-07-06] MEDS ORDERED: METOCLOPRAMIDE HCL 10 MG/2 ML VIAL ONE (19:06)
[2019-07-06] MEDS ORDERED: IPRATROPIUM BROMIDE 0.5 MG/2.5 ML NEBU ONE (19:07)
[2019-07-06] MEDS ORDERED: ALBUTEROL SULFATE 2.5 MG/3 ML NEBU ONE (19:07)
--- NOTE | 2019-07-06 20:45 | NUR ---
Patient discharged to home in stable conditon. Written and verbal after care instructions given. Patient verbalizes understanding of instructions.Ambulated from ER with stable gait. All belongings with patient.
[2019-07-06 20:46] VITALS: BP 131/80
== END 2019-07-06 20:46 | disposition home or self-care (01) ==
LOC: ER 17:54
DX: R51 Headache (principal); R09.81 Nasal congestion; R05 Cough; R06.2 Wheezing; R06.02 Shortness of breath; F17.210 Nicotine dependence, cigarettes, uncomplicated; Z88.2 Allergy status to sulfonamides; Z88.1 Allergy status to other antibiotic agents; Z88.8 Allergy status to other drugs, medicaments and biological substances
CPT/HCPCS: 71046; 87400; 93005; 94640; 96372; 99285; J2765; A4663; J3590

== ENCOUNTER 2019-07-09 17:40 | Emergency (ER) | payer MEDICAID ==
[~2019-07-09] VITALS: Ht 180.3 cm; Wt 77.1 kg
[2019-07-09] MEDS ORDERED: ONDANSETRON 4 MG/2 ML VIAL ONE (18:10)
[2019-07-09] MEDS ORDERED: HYDROMORPHONE 2 MG/1 ML DISP.SYRIN ONE (18:10)
[2019-07-09] MEDS ORDERED: ONDANSETRON 4 MG/2 ML VIAL IM ONE (18:15)
[2019-07-09] MEDS ORDERED: HYDROMORPHONE 1 MG/1 ML DISP.SYRIN IM ONE (18:15)
--- NOTE | 2019-07-09 18:35 | NUR ---
Patient given written and verbal discharge instructions. Patient verbalizes understanding of instructions. Patient is ambulatory with steady gait. Refuses offer of alf placement. Patient given list of available shelters in surrounding area.
== END 2019-07-09 18:36 | disposition home or self-care (01) ==
LOC: ER 17:44
DX: G43.909 Migraine, unspecified, not intractable, without status migrainosus (principal); F17.210 Nicotine dependence, cigarettes, uncomplicated; Z88.2 Allergy status to sulfonamides; Z88.8 Allergy status to other drugs, medicaments and biological substances
CPT/HCPCS: 96372 ×2; 99284; J1170; J2405; A4663

== ENCOUNTER 2019-07-11 04:05 | Emergency (ER) | payer MEDICAID ==
[~2019-07-11] VITALS: Ht 180.3 cm; Wt 72.6 kg
--- NOTE | 2019-07-11 04:25 | NUR ---
Dr. Cuellar at bedside for MSE
[2019-07-11] MEDS ORDERED: METOCLOPRAMIDE HCL 10 MG/2 ML VIAL IM ONE (04:30)
[2019-07-11] MEDS ORDERED: diphenhydrAMINE 50 MG/1 ML VIAL IM ONE (04:30)
[2019-07-11] MEDS ORDERED: NEOMY/BACITRA/POLYMYXIN B OINT UD PACKET TP ONE ×2 (04:30→04:33)
[2019-07-11] MEDS ORDERED: AMLODIPINE 5 MG TABLET PO ONE (04:30)
[2019-07-11 04:33] VITALS: BP 161/105
[2019-07-11] MEDS ORDERED: diphenhydrAMINE 50 MG/1 ML VIAL ONE (04:33)
[2019-07-11] MEDS ORDERED: METOCLOPRAMIDE HCL 10 MG/2 ML VIAL ONE (04:33)
[2019-07-11] MEDS ORDERED: AMLODIPINE 5 MG TABLET ONE (04:33)
--- NOTE | 2019-07-11 04:48 | NUR ---
Patient refused to have BP retaken. Patient states "I am leaving."
--- NOTE | 2019-07-11 04:49 | NUR ---
Patient discharged to home in stable conditon. Written and verbal after care instructions given. Patient verbalizes understanding of instructions. Walked out of ER with no distress noted.
== END 2019-07-11 04:50 | disposition home or self-care (01) ==
LOC: ER 04:08
DX: G43.909 Migraine, unspecified, not intractable, without status migrainosus (principal); Z80.3 Family history of malignant neoplasm of breast; Z88.2 Allergy status to sulfonamides
CPT/HCPCS: 96372 ×2; 99284; J1200; J2765; A4663

== ENCOUNTER 2019-07-11 18:31 | Emergency (ER) | payer MEDICAID ==
[~2019-07-11] VITALS: Ht 180.3 cm; Wt 77.1 kg
[2019-07-11] MEDS ORDERED: IBUPROFEN 800 MG TABLET ONE (19:13)
--- NOTE | 2019-07-11 19:13 | NUR ---
pt provided w/ meal tray.
[2019-07-11] MEDS ORDERED: IBUPROFEN 800 MG TABLET PO ONE (19:15)
[2019-07-11 20:17] VITALS: BP 155/85
--- NOTE | 2019-07-11 20:17 | NUR ---
Patient discharged to home in stable conditon. Written and verbal after care instructions given. Patient verbalizes understanding of instructions. All belongings w/ pt. pt self-ambulated w/o difficulty. Crutch training provided, pt able to ambulate using crutches.
== END 2019-07-11 20:18 | disposition home or self-care (01) ==
LOC: ER 18:32
DX: S92.351A Displaced fracture of fifth metatarsal bone, right foot, initial encounter for closed fracture (principal); S92.341A Displaced fracture of fourth metatarsal bone, right foot, initial encounter for closed fracture; S93.491A Sprain of other ligament of right ankle, initial encounter; F41.9 Anxiety disorder, unspecified; F32.9 Major depressive disorder, single episode, unspecified; J45.909 Unspecified asthma, uncomplicated; F17.200 Nicotine dependence, unspecified, uncomplicated; Z60.2 Problems related to living alone; Z88.8 Allergy status to other drugs, medicaments and biological substances; Z88.1 Allergy status to other antibiotic agents; V09.9XXA Pedestrian injured in unspecified transport accident, initial encounter; Y93.89 Activity, other specified; Y92.89 Other specified places as the place of occurrence of the external cause; Y99.8 Other external cause status
CPT/HCPCS: 73590; 73610; 73630; A4663

== ENCOUNTER 2019-07-12 07:28 | Emergency (ER) | payer MEDICAID ==
[~2019-07-12] VITALS: Ht 180.3 cm; Wt 77.1 kg
--- NOTE | 2019-07-12 07:44 | NUR ---
ERMD at bedside for Hx and Physical
[2019-07-12] MEDS ORDERED: IBUPROFEN 600 MG TABLET PO ONE (07:45)
[2019-07-12] MEDS ORDERED: IBUPROFEN 600 MG TABLET ONE (07:49)
--- NOTE | 2019-07-12 08:29 | NUR ---
Patient discharged to home in stable conditon. Written and verbal after care instructions given. Patient verbalizes understanding of instructions. AMBULATORY W/ ASSIST OF CRUTCHES ALL BELONGINGS W/ PT
[2019-07-12 08:36] VITALS: BP 148/81
== END 2019-07-12 08:48 | disposition home or self-care (01) ==
LOC: ER 07:28
DX: S92.341D Displaced fracture of fourth metatarsal bone, right foot, subsequent encounter for fracture with routine healing (principal); S92.351D Displaced fracture of fifth metatarsal bone, right foot, subsequent encounter for fracture with routine healing; X58.XXXD Exposure to other specified factors, subsequent encounter; Z76.5 Malingerer [conscious simulation]; G89.29 Other chronic pain; F17.210 Nicotine dependence, cigarettes, uncomplicated
CPT/HCPCS: A4663

== ENCOUNTER 2019-07-18 00:14 | Emergency (ER) | payer MEDICAID ==
[~2019-07-18] VITALS: Ht 172.7 cm; Wt 77.1 kg
--- NOTE | 2019-07-18 00:50 | NUR ---
Dr. Darnell at bedside for MSE
[2019-07-18] MEDS ORDERED: KETOROLAC TROMETHAMINE 60 MG INJ IM ONE ×2 (01:06→01:15)
--- NOTE | 2019-07-18 01:16 | NUR ---
Patient given written and verbal discharge instructions. Patient verbalizes understanding of instructions. Patient is ambulatory with steady gait. Refuses offer of [facility] placement. Patient given list of available shelters in surrounding area.
[2019-07-18 01:20] VITALS: BP 174/98
== END 2019-07-18 01:16 | disposition home or self-care (01) ==
LOC: ER 00:17
DX: Z60.2 Problems related to living alone (principal); F17.200 Nicotine dependence, unspecified, uncomplicated; F41.9 Anxiety disorder, unspecified; F33.9 Major depressive disorder, recurrent, unspecified; G43.909 Migraine, unspecified, not intractable, without status migrainosus; Z88.1 Allergy status to other antibiotic agents
CPT/HCPCS: 99283; J1885; A4663

== ENCOUNTER 2019-07-31 10:14 | Emergency (ER) | payer MEDICAID ==
[~2019-07-31] VITALS: Ht 172.7 cm; Wt 77.1 kg
--- NOTE | 2019-07-31 10:22 | NUR ---
Pt observed walking in ER lobby w/ steady gait and no difficulty.
--- NOTE | 2019-07-31 10:38 | NUR ---
ADELA SANTANA at the bedside for MSE.
[2019-07-31] MEDS ORDERED: METOCLOPRAMIDE HCL 10 MG/2 ML VIAL IM ONE (10:45)
[2019-07-31] MEDS ORDERED: diphenhydrAMINE 50 MG/1 ML VIAL IM ONE (10:45)
[2019-07-31] MEDS ORDERED: diphenhydrAMINE 50 MG/1 ML VIAL ONE (10:51)
[2019-07-31] MEDS ORDERED: METOCLOPRAMIDE HCL 10 MG/2 ML VIAL ONE (10:52)
[2019-07-31 11:00] VITALS: BP 159/99
--- NOTE | 2019-07-31 11:08 | NUR ---
Patient discharged to home in stable conditon. Written and verbal after care instructions given. Patient verbalizes understanding of instructions.
== END 2019-07-31 11:08 | disposition home or self-care (01) ==
LOC: ER 10:14
DX: G43.909 Migraine, unspecified, not intractable, without status migrainosus (principal); G89.29 Other chronic pain; I10 Essential (primary) hypertension; J45.909 Unspecified asthma, uncomplicated; Z88.2 Allergy status to sulfonamides; Z87.898 Personal history of other specified conditions; Z80.3 Family history of malignant neoplasm of breast; F17.210 Nicotine dependence, cigarettes, uncomplicated
CPT/HCPCS: 99284; 96372 ×2; J1200; J2765; A4663

== ENCOUNTER 2019-08-06 00:13 | Emergency (ER) | payer MEDICAID ==
[~2019-08-06] VITALS: Ht 180.3 cm; Wt 72.6 kg
--- NOTE | 2019-08-06 00:30 | NUR ---
Patient ambulated to ER in steady gait. AO x 4. Able to verbalize needs. Per patient, he is not homeless. Patient's main complaint is bilateral lower extremity pain, more pronounced on feet area 6-7/10 pain. No other issues noted. Pt with multiple skin discoloration and minor skin tears, but no active bleeding noted. No signs of infection noted as well. In stable condition, not in any distress. Safety precautions maintained.
--- NOTE | 2019-08-06 00:32 | NUR ---
Dr. Darnell at bedside for MSE.
[2019-08-06] MEDS ORDERED: KETOROLAC TROMETHAMINE 60 MG INJ IM ONE ×2 (01:00→01:01)
--- NOTE | 2019-08-06 01:23 | NUR ---
Short splint applied on R lowerleg/foot. Crutches also provided, as ordered by MD. Instructed patient to keep splint on for 4 weeks and no weight bearing on R leg. Education provided, verbalized understanding.
--- NOTE | 2019-08-06 01:38 | NUR ---
Patient discharged to home in stable condition. Written and verbal after care instructions given. Stressed follow up with ortho as written on DC instructions. Patient verbalizes understanding of instructions. Crutches dispensed. Pt instructed on proper use of crutches. Patient able to demonstrate correct use of crutches. Ambulated out of ER on crutches, stable condition.
[2019-08-06 01:40] VITALS: BP 120/75
== END 2019-08-06 01:40 | disposition home or self-care (01) ==
LOC: ER 00:16
PROC: 2W3QX1Z Immobilization of Right Lower Leg using Splint (ICD-10-PCS; principal; 2019-08-06)
DX: S92.341G Displaced fracture of fourth metatarsal bone, right foot, subsequent encounter for fracture with delayed healing (principal); S92.351G Displaced fracture of fifth metatarsal bone, right foot, subsequent encounter for fracture with delayed healing; V03.90XD Pedestrian on foot injured in collision with car, pick-up truck or van, unspecified whether traffic or nontraffic accident, subsequent encounter; M25.774 Osteophyte, right foot; M19.071 Primary osteoarthritis, right ankle and foot; F17.210 Nicotine dependence, cigarettes, uncomplicated; M79.672 Pain in left foot; G89.29 Other chronic pain; F11.10 Opioid abuse, uncomplicated
CPT/HCPCS: 29515; 73630 ×2; 96372; 99284; J1885; A4663

== ENCOUNTER 2019-08-06 16:12 | Emergency (ER) | payer MEDICAID ==
[~2019-08-06] VITALS: Ht 180.3 cm; Wt 72.6 kg
[2019-08-06] MEDS ORDERED: METOCLOPRAMIDE HCL 10 MG/2 ML VIAL IM ONE (17:00)
[2019-08-06] MEDS ORDERED: diphenhydrAMINE 50 MG/1 ML VIAL IM ONE (17:00)
[2019-08-06] MEDS ORDERED: OXYCODONE/APAP 5-325 MG TABLET PO ONE (17:00)
[2019-08-06] MEDS ORDERED: OXYCODONE/APAP 5-325 MG TABLET ONE (17:02)
[2019-08-06] MEDS ORDERED: METOCLOPRAMIDE HCL 10 MG/2 ML VIAL ONE (17:02)
[2019-08-06] MEDS ORDERED: diphenhydrAMINE 50 MG/1 ML VIAL ONE (17:02)
--- NOTE | 2019-08-06 17:08 | NUR ---
Patient discharged to home in stable condition. Written and verbal after care instructions given. Patient verbalizes understanding of instructions. Stressed follow up or return to ER for worsening s/s.
== END 2019-08-06 17:09 | disposition home or self-care (01) ==
LOC: ER 16:17
DX: S92.341D Displaced fracture of fourth metatarsal bone, right foot, subsequent encounter for fracture with routine healing (principal); S92.351D Displaced fracture of fifth metatarsal bone, right foot, subsequent encounter for fracture with routine healing; X58.XXXD Exposure to other specified factors, subsequent encounter; F17.210 Nicotine dependence, cigarettes, uncomplicated; G89.29 Other chronic pain; Z76.0 Encounter for issue of repeat prescription; R51 Headache; J45.909 Unspecified asthma, uncomplicated; Z88.2 Allergy status to sulfonamides; Z80.3 Family history of malignant neoplasm of breast
CPT/HCPCS: 96372 ×2; 99284; J1200; J2765; A4663

== ENCOUNTER 2019-08-09 23:38 | Emergency (ER) | payer MEDICAID ==
[~2019-08-09] VITALS: Ht 180.3 cm; Wt 72.6 kg
[2019-08-09] MEDS ORDERED: OXYCODONE/APAP 5-325 MG TABLET ONE (23:59)
[2019-08-10] MEDS ORDERED: OXYCODONE/APAP 5-325 MG TABLET PO ONE
--- NOTE | 2019-08-10 00:14 | NUR ---
Patient discharged to home in stable condition. Written and verbal after care instructions given. Patient verbalizes understanding of instructions. Stressed follow up or return to ER for worsening s/s. Denies homelessness at this time.
[2019-08-10 00:15] VITALS: BP 152/75
== END 2019-08-10 00:15 | disposition home or self-care (01) ==
LOC: ER 23:42
DX: S92.901D Unspecified fracture of right foot, subsequent encounter for fracture with routine healing (principal); X58.XXXD Exposure to other specified factors, subsequent encounter; G43.909 Migraine, unspecified, not intractable, without status migrainosus
CPT/HCPCS: A4663

== ENCOUNTER 2019-08-12 13:14 | Emergency (ER) | payer MEDICAID ==
[~2019-08-12] VITALS: Ht 172.7 cm; Wt 63.5 kg
[2019-08-12] MEDS ORDERED: HYDROMORPHONE 1 MG/1 ML DISP.SYRIN IM ONE (13:30)
[2019-08-12] MEDS ORDERED: diphenhydrAMINE 50 MG/1 ML VIAL IM ONE (13:30)
[2019-08-12] MEDS ORDERED: diphenhydrAMINE 50 MG/1 ML VIAL ONE (13:36)
[2019-08-12] MEDS ORDERED: HYDROMORPHONE 2 MG/1 ML DISP.SYRIN ONE (13:36)
--- NOTE | 2019-08-12 13:49 | NUR ---
Patient discharged to home in stable condition. Written and verbal after care instructions given. Patient verbalizes understanding of instructions. Stressed follow up or return to ER for worsening s/s. ambulatory w/ stable gait all belongings w/ pt
[2019-08-12 13:56] VITALS: BP 158/97
== END 2019-08-12 13:20 | disposition home or self-care (01) ==
LOC: ER 13:16
DX: G89.29 Other chronic pain (principal); M79.671 Pain in right foot; J45.909 Unspecified asthma, uncomplicated; Z88.2 Allergy status to sulfonamides; Z80.3 Family history of malignant neoplasm of breast; F17.210 Nicotine dependence, cigarettes, uncomplicated
CPT/HCPCS: 96372 ×2; 99284; J1170; J1200; A4663

== ENCOUNTER 2019-08-17 01:53 | Emergency (ER) | payer MEDICAID ==
[~2019-08-17] VITALS: Ht 180.3 cm; Wt 72.6 kg
--- NOTE | 2019-08-17 02:00 | NUR ---
Dr. Darnell at bedside for MSE
[2019-08-17 02:04] VITALS: BP 145/83
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
[2019-08-17] MEDS ORDERED: METOCLOPRAMIDE HCL 10 MG/2 ML VIAL ONE (02:13)
[2019-08-17] MEDS ORDERED: METOCLOPRAMIDE HCL 10 MG/2 ML VIAL IM ONE (02:15)
--- NOTE | 2019-08-17 02:24 | NUR ---
Patient discharged to home in stable condition. Written and verbal after care instructions given. Patient verbalizes understanding of instructions. Stressed follow up or return to ER for worsening s/s. Patient ambulating with steady gait
== END 2019-08-17 02:24 | disposition home or self-care (01) ==
LOC: ER 01:56
DX: S92.901D Unspecified fracture of right foot, subsequent encounter for fracture with routine healing (principal); X58.XXXD Exposure to other specified factors, subsequent encounter; M79.671 Pain in right foot; Z91.19 Patient's noncompliance with other medical treatment and regimen; L29.9 Pruritus, unspecified
CPT/HCPCS: 96372; 99283; J2765; A4663

== ENCOUNTER 2019-08-19 22:13 | Emergency (ER) | payer MEDICAID ==
[~2019-08-19] VITALS: Ht 180.3 cm; Wt 72.6 kg
--- NOTE | 2019-08-19 22:40 | NUR ---
Dr. Singh at bedside for MSE.
[2019-08-19] MEDS ORDERED: diphenhydrAMINE 50 MG/1 ML VIAL IV STA (22:44)
[2019-08-19] MEDS ORDERED: IV NORMAL SALINE 1000 ML BAG IV ONE (22:45)
[2019-08-19] MEDS ORDERED: METOCLOPRAMIDE HCL 10 MG/2 ML VIAL IV ONE (22:45)
[2019-08-19] MEDS ORDERED: ACETAMINOPHEN ES 500 MG TABLET PO ONE (22:45)
[2019-08-19] MEDS ORDERED: diphenhydrAMINE 50 MG/1 ML VIAL ONE (22:51)
[2019-08-19] MEDS ORDERED: ACETAMINOPHEN ES 500 MG TABLET ONE (22:52)
[2019-08-19] MEDS ORDERED: METOCLOPRAMIDE HCL 10 MG/2 ML VIAL ONE (22:52)
[2019-08-19 23:12] LABS: BASOPHILS # (AUTO) 0.1 K/uL (0.0-8.0); BASOPHILS % (AUTO) 0.6 % (0.0-2.0); EOSINOPHILS % (AUTO) 0.1 % (0.0-7.0); HEMATOCRIT 29.3 % (36.7-47.1); HEMOGLOBIN 9.4 g/dL (12.5-16.3); LYMPHOCYTES # (AUTO) 1.2 K/uL (20.0-40.0); LYMPHOCYTES % (AUTO) 7.5 % (20.5-51.5); MEAN CORPUSCULAR HEMOGLOBIN 24.9 uug (23.8-33.4); MEAN CORPUSCULAR HGB CONC 32 g/dL (32.5-36.3); MEAN CORPUSCULAR VOLUME 77.8 fL (73.0-96.2); MONOCYTES # (AUTO) 0.8 K/uL (2.0-10.0); MONOCYTES % (AUTO) 4.7 % (0.0-11.0); NEUTROPHILS # (AUTO) 14.2 K/uL (1.8-8.9); NEUTROPHILS % (AUTO) 87.1 % (38.5-71.5); PLATELET COUNT (AUTO) 456 K/uL (152-348); RED BLOOD CELL COUNT(AUTO) 3.77 MIL/uL (4.06-5.63); WHITE BLOOD COUNT (AUTO) 16.3 K/uL (3.6-10.2)
[2019-08-19 23:24] LABS: CREATININE 2.7 mg/dL (0.6-1.3); POTASSIUM 4.5 mmol/L (3.5-5.1)
[2019-08-19 23:28] LABS: BILIRUBIN,DIRECT 0.2 mg/dL (0.0-0.2); BILIRUBIN,TOTAL 0.6 mg/dL (0.2-1.0); TOTAL PROTEIN, SERUM 7.7 g/dL (6.4-8.2)
[2019-08-20] MEDS ORDERED: IV NORMAL SALINE 1000 ML BAG IV ONE
--- NOTE | 2019-08-20 00:52 | NUR ---
Patient given written and verbal discharge instructions. Patient verbalizes understanding of instructions. Patient is ambulatory with steady gait. Refuses offer of alf placement. Patient given list of available shelters in surrounding area. Pt out of ER with steady gait, no acute signs of distress, VSS, all belongings taken, IV site discontinued.
[2019-08-20 00:56] VITALS: BP 145/85
== END 2019-08-20 00:57 | disposition home or self-care (01) ==
LOC: ER 22:14
DX: R51 Headache (principal); F15.10 Other stimulant abuse, uncomplicated; S92.901D Unspecified fracture of right foot, subsequent encounter for fracture with routine healing; X58.XXXD Exposure to other specified factors, subsequent encounter; Z91.19 Patient's noncompliance with other medical treatment and regimen; Z59.0 Homelessness; J45.909 Unspecified asthma, uncomplicated; G89.29 Other chronic pain; F17.210 Nicotine dependence, cigarettes, uncomplicated; D64.9 Anemia, unspecified; N17.9 Acute kidney failure, unspecified; D72.829 Elevated white blood cell count, unspecified
CPT/HCPCS: 36415; 80048; 80076; 85025; 96361 ×2; 96374; 96375; 99284; J1200; J2765; A4663; A9150; J7030

== ENCOUNTER 2019-08-21 20:46 | Emergency (ER) | payer MEDICAID ==
[~2019-08-21] VITALS: Ht 180.3 cm; Wt 72.6 kg
--- NOTE | 2019-08-21 20:50 | NUR ---
PATIENT WALKED INTO ER A/OX3 WITH STEADY GAIT C/O PEPE FOR 2HRS. PATIENT SPEAKING WITH CLEAR SPEECH.
[2019-08-21] MEDS ORDERED: diphenhydrAMINE 50 MG/1 ML VIAL ONE (20:54)
[2019-08-21] MEDS ORDERED: HYDROMORPHONE 2 MG/1 ML DISP.SYRIN ONE (20:54)
[2019-08-21] MEDS ORDERED: diphenhydrAMINE 50 MG/1 ML VIAL IM ONE (21:00)
[2019-08-21] MEDS ORDERED: HYDROMORPHONE 1 MG/1 ML DISP.SYRIN IM ONE (21:00)
[2019-08-21 21:32] VITALS: BP 155/95
== END 2019-08-21 21:34 | disposition home or self-care (01) ==
LOC: ER 20:46
DX: G43.909 Migraine, unspecified, not intractable, without status migrainosus (principal); F17.210 Nicotine dependence, cigarettes, uncomplicated; J45.909 Unspecified asthma, uncomplicated; F11.10 Opioid abuse, uncomplicated; Z80.3 Family history of malignant neoplasm of breast
CPT/HCPCS: 96372 ×2; 99284; J1170; J1200; A4663

== ENCOUNTER 2019-08-24 03:54 | Emergency (ER) | payer MEDICAID ==
[~2019-08-24] VITALS: Ht 177.8 cm; Wt 68.0 kg
--- NOTE | 2019-08-24 04:32 | NUR ---
Dr. Singh at bedside for MSE.
[2019-08-24] MEDS ORDERED: diphenhydrAMINE 50 MG/1 ML VIAL IM ONE (04:45)
[2019-08-24] MEDS ORDERED: diphenhydrAMINE 50 MG/1 ML VIAL IV ONE (04:45)
[2019-08-24] MEDS ORDERED: IV NORMAL SALINE 1000 ML BAG IV ONE (04:45)
[2019-08-24] MEDS ORDERED: ACETAMINOPHEN ES 500 MG TABLET PO ONE (04:45)
[2019-08-24] MEDS ORDERED: METOCLOPRAMIDE HCL 10 MG/2 ML VIAL IM ONE (04:45)
[2019-08-24] MEDS ORDERED: METOCLOPRAMIDE HCL 10 MG/2 ML VIAL IV ONE (04:45)
[2019-08-24] MEDS ORDERED: diphenhydrAMINE 50 MG/1 ML VIAL ONE (04:47)
[2019-08-24] MEDS ORDERED: METOCLOPRAMIDE HCL 10 MG/2 ML VIAL ONE (04:50)
--- NOTE | 2019-08-24 05:30 | NUR ---
Patient refused to wait for test results and eloped.
[2019-08-24 05:56] LABS: BILIRUBIN,DIRECT 0.1 mg/dL (0.0-0.2); BILIRUBIN,TOTAL 0.2 mg/dL (0.2-1.0); TOTAL PROTEIN, SERUM 6.8 g/dL (6.4-8.2)
== END 2019-08-24 05:44 | disposition left against medical advice (07) ==
LOC: ER 04:00
DX: R51 Headache (principal); G89.29 Other chronic pain; F11.10 Opioid abuse, uncomplicated; F15.10 Other stimulant abuse, uncomplicated; J45.909 Unspecified asthma, uncomplicated; Z88.2 Allergy status to sulfonamides; Z87.448 Personal history of other diseases of urinary system
CPT/HCPCS: 36415; 80076; 96372 ×2; 99284; J1200; J2765; A4663

== ENCOUNTER 2019-08-26 17:05 | Emergency (ER) | payer MEDICAID ==
[~2019-08-26] VITALS: Ht 180.3 cm; Wt 72.6 kg
--- NOTE | 2019-08-26 17:15 | NUR ---
Pt presented to ER in stable condition w/steady gait c/o migraine PEPE. Pt has a Hx of chronic migrain, Hypertension and asthma.Patient is AOx2, speaking in complete sentences, speech is clear. Patient is able to follow /comprehend directions. Gait is stable. No cardiovascular distress noted. Rate and rhythm are regular. No CP. No respiratory distress noted. Respirations even & unlabored with symmetrical chest rise. No adventitious sounds noted. Patient is on bed. Bed is in lowest position. Siderails are up x 2. Call light within reach. I will continue to monitor accordingly.
[2019-08-26] MEDS ORDERED: diphenhydrAMINE 50 MG/1 ML VIAL IM ONE (17:30)
[2019-08-26] MEDS ORDERED: HYDROMORPHONE 1 MG/1 ML DISP.SYRIN IM ONE (17:30)
[2019-08-26] MEDS ORDERED: diphenhydrAMINE 50 MG/1 ML VIAL ONE (17:34)
[2019-08-26] MEDS ORDERED: HYDROMORPHONE 2 MG/1 ML DISP.SYRIN ONE (17:34)
--- NOTE | 2019-08-26 17:50 | NUR ---
Patient discharged to home in stable condition w/ steady gait. Written and verbal after care instructions given.Pt informed not to drive. Patient verbalizes understanding of instructions. Stressed follow up or return to ER for worsening s/s.
[2019-08-26 18:49] VITALS: BP 140/83
== END 2019-08-26 17:55 | disposition home or self-care (01) ==
LOC: ER 17:10
DX: G43.909 Migraine, unspecified, not intractable, without status migrainosus (principal); J45.909 Unspecified asthma, uncomplicated; G89.29 Other chronic pain; Z80.3 Family history of malignant neoplasm of breast; F17.210 Nicotine dependence, cigarettes, uncomplicated
CPT/HCPCS: 96372 ×2; 99284; J1170; J1200; A4663

== ENCOUNTER 2019-08-27 20:32 | Emergency (ER) | payer MEDICAID ==
[~2019-08-27] VITALS: Ht 180.3 cm; Wt 79.4 kg
--- NOTE | 2019-08-27 20:50 | NUR ---
PATIENT CAME INTO THE ER WITH C/O PEPE FOR 5HRS AND LEFT ANKLE PAIN.
--- NOTE | 2019-08-27 20:51 | NUR ---
Dr. Stokes on bedside for MSE.
[2019-08-27] MEDS ORDERED: diphenhydrAMINE 50 MG/1 ML VIAL ONE (20:59)
[2019-08-27] MEDS ORDERED: HYDROMORPHONE 1 MG/1 ML DISP.SYRIN ONE (20:59)
[2019-08-27] MEDS ORDERED: HYDROMORPHONE 1 MG/1 ML DISP.SYRIN IM ONE (21:00)
[2019-08-27] MEDS ORDERED: diphenhydrAMINE 50 MG/1 ML VIAL IM ONE (21:00)
--- NOTE | 2019-08-27 21:10 | NUR ---
Dr. Stokes on bedside.
--- NOTE | 2019-08-27 21:17 | NUR ---
PATIENT REPORTED PAIN SCALE 3/10 AND TOLERABLE AT THIS TIME.
--- NOTE | 2019-08-27 21:18 | NUR ---
Patient discharged to home in stable condition. Written and verbal after care instructions given. Patient verbalizes understanding of instructions. Stressed follow up or return to ER for worsening s/s. Pt ambulated out of the ER with steady gait. All belongings with pt.
[2019-08-27 21:19] VITALS: BP 150/90
== END 2019-08-27 21:18 | disposition home or self-care (01) ==
LOC: ER 20:34
DX: G43.909 Migraine, unspecified, not intractable, without status migrainosus (principal); S93.402A Sprain of unspecified ligament of left ankle, initial encounter; V03.99XA Pedestrian with other conveyance injured in collision with car, pick-up truck or van, unspecified whether traffic or nontraffic accident, initial encounter; Y92.410 Unspecified street and highway as the place of occurrence of the external cause; J45.909 Unspecified asthma, uncomplicated; G89.29 Other chronic pain; Z88.2 Allergy status to sulfonamides; F17.210 Nicotine dependence, cigarettes, uncomplicated
CPT/HCPCS: 73610; 96372 ×2; 99284; J1170; J1200; A4663

== ENCOUNTER 2019-08-29 09:54 | Emergency (ER) | payer MEDICAID ==
[~2019-08-29] VITALS: Ht 177.8 cm; Wt 68.9 kg
--- NOTE | 2019-08-29 10:15 | NUR ---
Pt walked in w/ steady gait in stable condition c/o PEPE . Pt has a drug seeking behavior due to the tracking log for pt visits to ER. PT asking for drugs to relieve his pain and a refferal for pain in his legs.
--- NOTE | 2019-08-29 10:34 | NUR ---
PT WAS EVALUATED BY DR THOMPSON. PT WAS D/C'd TO HOME, D/C INSTRUCTIONS GIVEN TO THE PT.
[2019-08-29 10:35] VITALS: BP 129/81
== END 2019-08-29 10:35 | disposition home or self-care (01) ==
LOC: ER 09:54
DX: G89.29 Other chronic pain (principal); F17.210 Nicotine dependence, cigarettes, uncomplicated; Z80.3 Family history of malignant neoplasm of breast; J45.909 Unspecified asthma, uncomplicated; G43.909 Migraine, unspecified, not intractable, without status migrainosus
CPT/HCPCS: A4663

== ENCOUNTER 2019-08-31 06:31 | Emergency (ER) | payer MEDICAID ==
[~2019-08-31] VITALS: Ht 175.3 cm; Wt 68.0 kg
[2019-08-31] MEDS ORDERED: diphenhydrAMINE 50 MG/1 ML VIAL IM ONE (07:00)
[2019-08-31] MEDS ORDERED: METOCLOPRAMIDE HCL 10 MG/2 ML VIAL IM ONE (07:00)
[2019-08-31] MEDS ORDERED: HYDROCODONE/APAP 5-325MG TABLET PO ONE (07:00)
[2019-08-31] MEDS ORDERED: METOCLOPRAMIDE HCL 10 MG/2 ML VIAL ONE (07:09)
[2019-08-31] MEDS ORDERED: diphenhydrAMINE 50 MG/1 ML VIAL ONE (07:09)
[2019-08-31] MEDS ORDERED: HYDROCODONE/APAP 5-325MG TABLET ONE (07:10)
[2019-08-31 07:32] VITALS: BP 145/70
== END 2019-08-31 07:33 | disposition home or self-care (01) ==
LOC: ER 06:34
DX: G43.909 Migraine, unspecified, not intractable, without status migrainosus (principal); J45.909 Unspecified asthma, uncomplicated; Z76.5 Malingerer [conscious simulation]; F11.20 Opioid dependence, uncomplicated; G89.29 Other chronic pain; I10 Essential (primary) hypertension; F19.10 Other psychoactive substance abuse, uncomplicated
CPT/HCPCS: 82962; 96372 ×2; 99284; J1200; J2765; A4663

== ENCOUNTER 2019-09-02 03:43 | Emergency (ER) | payer MEDICAID ==
[~2019-09-02] VITALS: Ht 180.3 cm; Wt 72.6 kg
--- NOTE | 2019-09-02 03:50 | NUR ---
Dr. Lyons at bedside for MSE
[2019-09-02] MEDS ORDERED: HYDROCODONE/APAP 10-325 MG TABLET PO ONE (04:00)
[2019-09-02] MEDS ORDERED: HYDROCODONE/APAP 10-325 MG TABLET ONE (04:02)
--- NOTE | 2019-09-02 04:05 | NUR ---
Patient discharged to home in stable condition. Written and verbal after care instructions given. Patient verbalizes understanding of instructions. Stressed follow up or return to ER for worsening s/s. Patient ambulating with steady gait. A&O x4. NAD noted
[2019-09-02 04:17] VITALS: BP 152/93
== END 2019-09-02 04:05 | disposition home or self-care (01) ==
LOC: ER 03:46
DX: G89.4 Chronic pain syndrome (principal); M79.672 Pain in left foot; M79.671 Pain in right foot; Z76.5 Malingerer [conscious simulation]; F17.210 Nicotine dependence, cigarettes, uncomplicated; J45.909 Unspecified asthma, uncomplicated; G43.909 Migraine, unspecified, not intractable, without status migrainosus
CPT/HCPCS: A4663

== ENCOUNTER 2019-09-06 19:41 | Emergency (ER) | payer SELFPAY ==
--- NOTE | 2019-09-06 19:47 | NUR ---
Patient left without being triaged. In stable condition.
== END 2019-09-06 19:48 | disposition left against medical advice (07) ==
LOC: ER 19:43
DX: Z75.3 Unavailability and inaccessibility of health-care facilities (principal)

== ENCOUNTER 2019-09-22 22:34 | Emergency (ER) | payer MEDICAID ==
[~2019-09-22] VITALS: Ht 182.9 cm; Wt 72.6 kg
[2019-09-22] MEDS ORDERED: LORAZEPAM 0.5 MG TABLET PO ONE (22:45)
[2019-09-22] MEDS ORDERED: HYDROCODONE/APAP 10-325 MG TABLET PO ONE (22:45)
--- NOTE | 2019-09-22 22:45 | NUR ---
Pt ambulated to ER with steady gait. AO x 4. According to patient, he is homeless. Brought self to ER for complaints of headache. No other complaints at this time. No GI/ discomfort. Side rails up x 2. Will continue to monitor.
[2019-09-22] MEDS ORDERED: LORAZEPAM 0.5 MG TABLET ONE (22:56)
[2019-09-22] MEDS ORDERED: HYDROCODONE/APAP 10-325 MG TABLET ONE (22:57)
--- NOTE | 2019-09-22 23:15 | NUR ---
Pt verbalized that his pain is a lot better, now 0/10. Meal provided.Patient given written and verbal discharge instructions. Patient verbalizes understanding of instructions. Patient is ambulatory with steady gait. Refuses offer of [facility] placement. Patient given list of available shelters in surrounding area. 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 Left in steady gait and stable condition.
[2019-09-22 23:16] VITALS: BP 145/90
== END 2019-09-22 23:18 | disposition home or self-care (01) ==
LOC: ER 22:40
DX: G43.909 Migraine, unspecified, not intractable, without status migrainosus (principal); G89.4 Chronic pain syndrome; F17.210 Nicotine dependence, cigarettes, uncomplicated; F15.10 Other stimulant abuse, uncomplicated; Z59.0 Homelessness; Z76.5 Malingerer [conscious simulation]; J45.909 Unspecified asthma, uncomplicated
CPT/HCPCS: A4663

== ENCOUNTER 2019-09-29 16:02 | Emergency (ER) | payer MEDICAID ==
[~2019-09-29] VITALS: Ht 180.3 cm; Wt 72.6 kg
--- NOTE | 2019-09-29 16:25 | NUR ---
PATIENT WAS MSE BY FABIO IN ROOM 05A.
[2019-09-29] MEDS ORDERED: HYDROCODONE/APAP 5-325MG TABLET PO ONE (16:30)
[2019-09-29] MEDS ORDERED: diphenhydrAMINE 50 MG CAPSULE PO ONE (16:30)
--- NOTE | 2019-09-29 16:46 | NUR ---
Patient given written and verbal discharge instructions. Patient verbalizes understanding of instructions. Patient is ambulatory with steady gait. Refuses offer of nursing home placement. Patient given list of available shelters in surrounding area. Patient A/Ox4. Patient cognition intact.
[2019-09-29] MEDS ORDERED: HYDROCODONE/APAP 5-325MG TABLET ONE (16:47)
[2019-09-29] MEDS ORDERED: diphenhydrAMINE 50 MG CAPSULE ONE (16:48)
[2019-09-29 16:49] VITALS: BP 135/79
== END 2019-09-29 16:52 | disposition home or self-care (01) ==
LOC: ER 16:08
DX: R51 Headache (principal); Z76.0 Encounter for issue of repeat prescription; G89.29 Other chronic pain; F15.10 Other stimulant abuse, uncomplicated; F17.210 Nicotine dependence, cigarettes, uncomplicated; J45.909 Unspecified asthma, uncomplicated; Z79.899 Other long term (current) drug therapy; Z88.2 Allergy status to sulfonamides
CPT/HCPCS: 99283; Q0163; A4663

== ENCOUNTER 2019-09-30 02:16 | Emergency (ER) | payer MEDICAID ==
[~2019-09-30] VITALS: Ht 180.3 cm; Wt 72.6 kg
--- NOTE | 2019-09-30 02:27 | NUR ---
Dr. Lyons at bedside for MSE.
[2019-09-30] MEDS ORDERED: LORAZEPAM 0.5 MG TABLET PO ONE (02:30)
[2019-09-30] MEDS ORDERED: HYDROCODONE/APAP 10-325 MG TABLET PO ONE (02:30)
[2019-09-30] MEDS ORDERED: ONDANSETRON ODT 4 MG TAB.RAPDIS SL ONE (02:30)
[2019-09-30] MEDS ORDERED: LORAZEPAM 1 MG TABLET ONE (02:34)
[2019-09-30] MEDS ORDERED: HYDROCODONE/APAP 10-325 MG TABLET ONE (02:35)
[2019-09-30] MEDS ORDERED: ONDANSETRON ODT 4 MG TAB.RAPDIS ONE (02:35)
--- NOTE | 2019-09-30 02:48 | NUR ---
Patient given written and verbal discharge instructions. Patient verbalizes understanding of instructions. Patient is ambulatory with steady gait. Refuses offer of detention placement. Patient given list of available shelters in surrounding area. Patient to arrange own transportation, refuses all other services at this time, VSS, no acute signs of distress, all belongings taken.
[2019-09-30 03:17] VITALS: BP 150/80
== END 2019-09-30 03:17 | disposition home or self-care (01) ==
LOC: ER 02:18
DX: G89.4 Chronic pain syndrome (principal); R51 Headache; Z59.0 Homelessness; F15.10 Other stimulant abuse, uncomplicated; J45.909 Unspecified asthma, uncomplicated; Z91.19 Patient's noncompliance with other medical treatment and regimen; F17.210 Nicotine dependence, cigarettes, uncomplicated; R03.0 Elevated blood-pressure reading, without diagnosis of hypertension
CPT/HCPCS: A4663; Q0162

== ENCOUNTER 2019-10-15 00:55 | Emergency (ER) | payer MEDICAID ==
[~2019-10-15] VITALS: Ht 180.3 cm; Wt 72.6 kg
--- NOTE | 2019-10-15 01:09 | NUR ---
Dr. Peña at bedside for MSE.
[2019-10-15] MEDS ORDERED: PROCHLORPERAZINE EDISYLATE 10 MG/2 ML VIAL IM ONE (01:15)
[2019-10-15] MEDS ORDERED: diphenhydrAMINE 50 MG/1 ML VIAL IM ONE (01:15)
[2019-10-15] MEDS ORDERED: diphenhydrAMINE 50 MG/1 ML VIAL ONE (01:16)
[2019-10-15] MEDS ORDERED: PROCHLORPERAZINE EDISYLATE 10 MG/2 ML VIAL ONE (01:16)
--- NOTE | 2019-10-15 01:29 | NUR ---
Patient discharged to home in stable condition. Written and verbal after care instructions given. Patient verbalizes understanding of instructions. Stressed follow up or return to ER for worsening s/s. Patient ambulated out of ER with steady gait, no acute signs of distress, VSS, all belongings taken.
[2019-10-15 01:32] VITALS: BP 165/94
== END 2019-10-15 01:32 | disposition home or self-care (01) ==
LOC: ER 00:59
DX: R51 Headache (principal); F17.210 Nicotine dependence, cigarettes, uncomplicated; G89.29 Other chronic pain; Z86.69 Personal history of other diseases of the nervous system and sense organs; J45.909 Unspecified asthma, uncomplicated
CPT/HCPCS: 96372 ×2; 99284; 99406; J0780; J1200; A4663

== ENCOUNTER 2019-10-24 02:20 | Emergency (ER) | payer MEDICAID ==
[~2019-10-24] VITALS: Ht 180.3 cm; Wt 68.0 kg
--- NOTE | 2019-10-24 02:40 | NUR ---
Dr. Darnell at bedside for MSE.
[2019-10-24] MEDS ORDERED: METOCLOPRAMIDE HCL 10 MG/2 ML VIAL IM ONE (02:45)
[2019-10-24] MEDS ORDERED: METOCLOPRAMIDE HCL 10 MG/2 ML VIAL ONE (02:47)
--- NOTE | 2019-10-24 02:47 | NUR ---
Xray at bedside.
--- NOTE | 2019-10-24 03:59 | NUR ---
Patient given written and verbal discharge instructions. Patient verbalizes understanding of instructions. Patient is ambulatory with steady gait. Refuses offer of long term placement. Patient given list of available shelters in surrounding area. Patient provided sandwich and juice per patient request, refused all other services at this time. VSS, no acute signs of distress, all belongings taken.
[2019-10-24 04:01] VITALS: BP 150/95
== END 2019-10-24 04:02 | disposition home or self-care (01) ==
LOC: ER 02:26
DX: S93.602A Unspecified sprain of left foot, initial encounter (principal); X50.3XXA Overexertion from repetitive movements, initial encounter; Y93.01 Activity, walking, marching and hiking; Y92.89 Other specified places as the place of occurrence of the external cause; F17.210 Nicotine dependence, cigarettes, uncomplicated; J45.909 Unspecified asthma, uncomplicated; G89.29 Other chronic pain; Z88.2 Allergy status to sulfonamides; Z88.8 Allergy status to other drugs, medicaments and biological substances; R51 Headache; Z59.0 Homelessness
CPT/HCPCS: 73630; 96372; 99283; 99406; J2765; A4663

== ENCOUNTER 2019-10-28 05:08 | Emergency (ER) | payer MEDICAID ==
[~2019-10-28] VITALS: Ht 182.9 cm; Wt 79.4 kg
--- NOTE | 2019-10-28 05:15 | NUR ---
Dr Lyons at bedside for MSE.
[2019-10-28] MEDS ORDERED: HYDROCODONE/APAP 10-325 MG TABLET PO ONE (05:30)
[2019-10-28] MEDS ORDERED: LORAZEPAM 0.5 MG TABLET PO ONE (05:30)
[2019-10-28] MEDS ORDERED: LORAZEPAM 0.5 MG TABLET ONE (05:35)
[2019-10-28] MEDS ORDERED: HYDROCODONE/APAP 10-325 MG TABLET ONE (05:36)
--- NOTE | 2019-10-28 05:45 | NUR ---
Patient given written and verbal discharge instructions. Patient verbalizes understanding of instructions. Patient is ambulatory with steady gait. Refuses offer of prison placement. Patient given list of available shelters in surrounding area. Meal and clothing provided. Ambulated out of ER in steady gait.
[2019-10-28 06:09] VITALS: BP 140/80
== END 2019-10-28 05:45 | disposition home or self-care (01) ==
LOC: ER 05:11
DX: G89.4 Chronic pain syndrome (principal); R51 Headache; Z59.0 Homelessness; F15.10 Other stimulant abuse, uncomplicated; F17.210 Nicotine dependence, cigarettes, uncomplicated; Z80.3 Family history of malignant neoplasm of breast; J45.909 Unspecified asthma, uncomplicated; Z91.19 Patient's noncompliance with other medical treatment and regimen; Z86.69 Personal history of other diseases of the nervous system and sense organs
CPT/HCPCS: A4663

== ENCOUNTER 2019-10-28 12:07 | Emergency (ER) | payer MEDICAID ==
[~2019-10-28] VITALS: Ht 182.9 cm; Wt 79.4 kg
[2019-10-28] MEDS ORDERED: METOCLOPRAMIDE HCL 10 MG/2 ML VIAL IM ONE (12:15)
[2019-10-28] MEDS ORDERED: diphenhydrAMINE 50 MG/1 ML VIAL IM ONE (12:15)
[2019-10-28] MEDS ORDERED: METOCLOPRAMIDE HCL 10 MG/2 ML VIAL ONE (12:18)
[2019-10-28] MEDS ORDERED: diphenhydrAMINE 50 MG/1 ML VIAL ONE (12:18)
--- NOTE | 2019-10-28 12:31 | NUR ---
PT WAS EVALUATED BY DR ANDERSON. PT WAS D/C'd TO HOME. D/C INSTRUCTIONS GIVEN TO THE PT BY DR ANDERSON.
[2019-10-28 12:33] VITALS: BP 141/74
== END 2019-10-28 12:34 | disposition home or self-care (01) ==
LOC: ER 12:14
DX: R51 Headache (principal); J45.909 Unspecified asthma, uncomplicated; F17.210 Nicotine dependence, cigarettes, uncomplicated; G89.29 Other chronic pain; Z86.69 Personal history of other diseases of the nervous system and sense organs; Z80.3 Family history of malignant neoplasm of breast
CPT/HCPCS: 96372; 99283; J1200; J2765; A4663

== ENCOUNTER 2019-10-30 00:41 | Emergency (ER) | payer MEDICAID ==
[~2019-10-30] VITALS: Ht 180.3 cm; Wt 72.6 kg
--- NOTE | 2019-10-30 00:53 | NUR ---
Dr. Lyons at bedside for MSE.
[2019-10-30] MEDS ORDERED: HYDROCODONE/APAP 10-325 MG TABLET ONE (00:59)
[2019-10-30] MEDS ORDERED: CYCLOBENZAPRINE HCL 10 MG TABLET PO ONE (01:00)
[2019-10-30] MEDS ORDERED: CYCLOBENZAPRINE HCL 10 MG TABLET ONE (01:00)
[2019-10-30] MEDS ORDERED: LORAZEPAM 1 MG TABLET ONE (01:00)
[2019-10-30] MEDS ORDERED: LORAZEPAM 0.5 MG TABLET PO ONE (01:00)
[2019-10-30] MEDS ORDERED: HYDROCODONE/APAP 10-325 MG TABLET PO ONE (01:00)
--- NOTE | 2019-10-30 01:05 | NUR ---
Patient given written and verbal discharge instructions. Patient verbalizes understanding of instructions. Patient is ambulatory with steady gait. Refuses offer of long term placement. Patient given list of available shelters in surrounding area. Pt provided sandwich and juice per patient request, refused all other services at this time, VSS, all belongings taken.
[2019-10-30 01:07] VITALS: BP 147/94
== END 2019-10-30 01:07 | disposition home or self-care (01) ==
LOC: ER 00:44
DX: R51 Headache (principal); G89.4 Chronic pain syndrome; Z76.5 Malingerer [conscious simulation]; Z59.0 Homelessness; F15.10 Other stimulant abuse, uncomplicated; F17.210 Nicotine dependence, cigarettes, uncomplicated; J45.909 Unspecified asthma, uncomplicated
CPT/HCPCS: A4663

== ENCOUNTER 2019-11-07 23:14 | Emergency (ER) | payer MEDICAID ==
[~2019-11-07] VITALS: Ht 172.7 cm; Wt 74.8 kg
[2019-11-07] MEDS ORDERED: HYDROCODONE/APAP 10-325 MG TABLET PO ONE (23:45)
--- NOTE | 2019-11-07 23:46 | NUR ---
DR. HAMILTON AT BEDSIDE FOR MSE.
[2019-11-07] MEDS ORDERED: HYDROCODONE/APAP 10-325 MG TABLET ONE (23:49)
--- NOTE | 2019-11-07 23:53 | NUR ---
Patient discharged to home in stable condition. Written and verbal after care instructions given. Patient verbalizes understanding of instructions. Stressed follow up or return to ER for worsening s/s. PATIENT LEFT WITH STABLE GAIT.
[2019-11-07 23:54] VITALS: BP 160/99
== END 2019-11-07 23:54 | disposition home or self-care (01) ==
LOC: ER 23:16
DX: G89.4 Chronic pain syndrome (principal); M79.673 Pain in unspecified foot; Z59.0 Homelessness; F15.10 Other stimulant abuse, uncomplicated; Z91.19 Patient's noncompliance with other medical treatment and regimen; F17.210 Nicotine dependence, cigarettes, uncomplicated; J45.909 Unspecified asthma, uncomplicated; Z86.69 Personal history of other diseases of the nervous system and sense organs
CPT/HCPCS: A4663

== ENCOUNTER 2019-11-09 22:47 | Emergency (ER) | payer MEDICAID ==
[~2019-11-09] VITALS: Ht 180.3 cm; Wt 72.6 kg
--- NOTE | 2019-11-09 23:02 | NUR ---
Dr. Lyons at bedside for MSE.
[2019-11-09] MEDS ORDERED: LORAZEPAM 1 MG TABLET ONE (23:07)
[2019-11-09] MEDS ORDERED: HYDROCODONE/APAP 10-325 MG TABLET ONE (23:08)
[2019-11-09] MEDS ORDERED: diphenhydrAMINE 25 MG CAP PO ONE ×2 (23:12→23:15)
[2019-11-09] MEDS ORDERED: HYDROCODONE/APAP 10-325 MG TABLET PO ONE (23:15)
[2019-11-09] MEDS ORDERED: LORAZEPAM 0.5 MG TABLET PO ONE (23:15)
--- NOTE | 2019-11-09 23:18 | NUR ---
Patient given written and verbal discharge instructions. Patient verbalizes understanding of instructions. Patient is ambulatory with steady gait. Refuses offer of [facility] placement. Patient given list of available shelters in surrounding area. Patient provided with sandwich and juice per patient request. VSS, no acute signs of distress, all belongings taken, refuses all other services available at this time.
[2019-11-09 23:20] VITALS: BP 174/101
== END 2019-11-09 23:20 | disposition home or self-care (01) ==
LOC: ER 22:48
DX: G89.4 Chronic pain syndrome (principal); Z76.5 Malingerer [conscious simulation]; F15.10 Other stimulant abuse, uncomplicated; F17.210 Nicotine dependence, cigarettes, uncomplicated; J45.909 Unspecified asthma, uncomplicated; Z59.0 Homelessness; M79.673 Pain in unspecified foot; Z86.69 Personal history of other diseases of the nervous system and sense organs
CPT/HCPCS: 99284; 99406; Q0163; A4663

== ENCOUNTER 2019-11-29 18:20 | Emergency (ER) | payer MEDICAID ==
[~2019-11-29] VITALS: Ht 180.3 cm; Wt 67.1 kg
--- NOTE | 2019-11-29 18:34 | NUR ---
Called pt for triage, sleeping in the waiting room. Mumble let me sleep while awaken.
--- NOTE | 2019-11-29 19:20 | NUR ---
CALLED PATIENT TO BE TRIAGE. PATIENT SLEEPING REFUSING TO WAKE UP.
--- NOTE | 2019-11-29 19:45 | NUR ---
PATIENT TRIAGE BUT NO ROOM AVAILBLE TO PL[facility] ON [facility]. SENT TO WAITING ROOM.
--- NOTE | 2019-11-29 20:10 | NUR ---
Dr. Lyons at bedside for MSE
[2019-11-29] MEDS ORDERED: HYDROCODONE/APAP 10-325 MG TABLET PO ONE (20:15)
[2019-11-29] MEDS ORDERED: LORAZEPAM 0.5 MG TABLET PO ONE (20:15)
[2019-11-29] MEDS ORDERED: HYDROCODONE/APAP 10-325 MG TABLET ONE (20:26)
[2019-11-29] MEDS ORDERED: LORAZEPAM 0.5 MG TABLET ONE (20:26)
[2019-11-29] MEDS ORDERED: FLUCONAZOLE 100 MG TABLET ONE (20:26)
[2019-11-29] MEDS ORDERED: FLUCONAZOLE 100 MG TABLET PO ONE (20:30)
--- NOTE | 2019-11-29 20:38 | NUR ---
Pt is discharged as homeless patient. Patient given written and verbal discharge instructions. Patient verbalizes understanding of instructions. Patient is ambulatory with steady gait. Refuses offer of assisted placement. Patient given list of available shelters in surrounding area. Pt verbalized feeling better after medications, and wanted to go home. Meal provided and socks also provided after assisting patient to clean his feet. Ambulated out of Er in steady gait.
[2019-11-29 20:41] VITALS: BP 150/100
== END 2019-11-29 20:42 | disposition home or self-care (01) ==
LOC: ER 18:22
DX: G89.4 Chronic pain syndrome (principal); M79.672 Pain in left foot; M79.671 Pain in right foot; Z59.0 Homelessness; F17.210 Nicotine dependence, cigarettes, uncomplicated; Z76.5 Malingerer [conscious simulation]; F15.10 Other stimulant abuse, uncomplicated; J45.909 Unspecified asthma, uncomplicated; Z91.19 Patient's noncompliance with other medical treatment and regimen
CPT/HCPCS: A4663

== ENCOUNTER 2019-12-03 17:05 | Emergency (ER) | payer MEDICAID ==
[~2019-12-03] VITALS: Ht 180.3 cm; Wt 72.6 kg
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
[2019-12-03] MEDS ORDERED: HYDROCODONE/APAP 10-325 MG TABLET ONE (19:30)
[2019-12-03] MEDS ORDERED: HYDROCODONE/APAP 10-325 MG TABLET PO ONE (19:30)
--- NOTE | 2019-12-03 19:32 | NUR ---
Patient given written and verbal discharge instructions. Patient verbalizes understanding of instructions. Patient is ambulatory with steady gait. Refuses offer of skilled nursing placement. Patient given list of available shelters in surrounding area. Patient provided with cranberry juice per patient request, refused all other services at this time. VSS, no acute signs of distress, all belongings taken.
[2019-12-03 19:35] VITALS: BP 135/82
== END 2019-12-03 19:36 | disposition home or self-care (01) ==
LOC: ER 17:08
DX: S52.572A Other intraarticular fracture of lower end of left radius, initial encounter for closed fracture (principal); V81.5XXA Occupant of railway train or railway vehicle injured by fall in railway train or railway vehicle, initial encounter; J45.909 Unspecified asthma, uncomplicated; G89.29 Other chronic pain; Z86.69 Personal history of other diseases of the nervous system and sense organs; Z86.59 Personal history of other mental and behavioral disorders; F17.210 Nicotine dependence, cigarettes, uncomplicated; Z88.1 Allergy status to other antibiotic agents; Z88.2 Allergy status to sulfonamides; R03.0 Elevated blood-pressure reading, without diagnosis of hypertension; Z59.0 Homelessness
CPT/HCPCS: 73130; A4663

== ENCOUNTER 2019-12-07 21:56 | Emergency (ER) | payer MEDICAID ==
[~2019-12-07] VITALS: Ht 180.3 cm; Wt 72.6 kg
--- NOTE | 2019-12-07 22:00 | NUR ---
PATIENT ARRIVED AT THE ER WITH C/O LEFT WRIST PAIN X 2 DAYS.
[2019-12-07] MEDS ORDERED: diphenhydrAMINE 50 MG/1 ML VIAL IM ONE (22:45)
[2019-12-07] MEDS ORDERED: METOCLOPRAMIDE HCL 10 MG/2 ML VIAL IM ONE (22:45)
[2019-12-07] MEDS ORDERED: METOCLOPRAMIDE HCL 10 MG/2 ML VIAL ONE (22:48)
[2019-12-07] MEDS ORDERED: diphenhydrAMINE 50 MG/1 ML VIAL ONE (22:48)
[2019-12-07 23:03] VITALS: BP 150/90
[2019-12-08] MEDS ORDERED: OXYC-133 PO (15:52)
== END 2019-12-07 22:50 | disposition home or self-care (01) ==
LOC: ER 21:58
DX: S62.102D Fracture of unspecified carpal bone, left wrist, subsequent encounter for fracture with routine healing (principal); X58.XXXD Exposure to other specified factors, subsequent encounter; R51 Headache; Z76.0 Encounter for issue of repeat prescription; J45.909 Unspecified asthma, uncomplicated; G89.29 Other chronic pain; Z86.69 Personal history of other diseases of the nervous system and sense organs; F17.210 Nicotine dependence, cigarettes, uncomplicated; Z88.1 Allergy status to other antibiotic agents; Z88.2 Allergy status to sulfonamides; Z88.8 Allergy status to other drugs, medicaments and biological substances
CPT/HCPCS: 96372; 99283; J1200; J2765; A4663

== ENCOUNTER 2019-12-08 15:44 | Emergency (ER) | payer MEDICAID ==
[~2019-12-08] VITALS: Ht 180.3 cm; Wt 72.6 kg
[2019-12-08] MEDS ORDERED: OXYC-133 PO (15:52)
--- NOTE | 2019-12-08 15:56 | NUR ---
Patient was given written and verbal discharge instructions. Patient verbalized understanding & compliance of instructions. Patient is ambulatory with steady gait. Patient refuses offer of jail placement. Patient was given a list of available shelters in surrounding area.
== END 2019-12-08 15:56 | disposition home or self-care (01) ==
LOC: ER 15:44
DX: Z76.0 Encounter for issue of repeat prescription (principal); Z76.5 Malingerer [conscious simulation]; S62.102D Fracture of unspecified carpal bone, left wrist, subsequent encounter for fracture with routine healing; X58.XXXD Exposure to other specified factors, subsequent encounter; J45.909 Unspecified asthma, uncomplicated; G89.29 Other chronic pain; Z59.0 Homelessness; F17.210 Nicotine dependence, cigarettes, uncomplicated; Z88.1 Allergy status to other antibiotic agents; Z88.2 Allergy status to sulfonamides
CPT/HCPCS: A4663

== ENCOUNTER 2019-12-10 21:58 | Emergency (ER) | payer MEDICAID ==
[~2019-12-10] VITALS: Ht 180.3 cm; Wt 72.6 kg
[~2019-12-10 21:58] MED LIST changes: -ALBU8HFA4 IH; -CLON0.1T14 PO; -DIPH25CA83 PO; -IBUP-1955 PO
--- NOTE | 2019-12-10 22:33 | NUR ---
Dr. Lyons at bedside for MSE
[2019-12-10] MEDS ORDERED: CLONIDINE HCL 0.1 MG TABLET ONE (22:41)
[2019-12-10] MEDS ORDERED: LORAZEPAM 1 MG TABLET ONE (22:42)
[2019-12-10] MEDS ORDERED: HYDROCODONE/APAP 10-325 MG TABLET ONE (22:42)
[2019-12-10] MEDS ORDERED: CLONIDINE HCL 0.1 MG TABLET PO ONE (22:45)
[2019-12-10] MEDS ORDERED: LORAZEPAM 0.5 MG TABLET PO ONE (22:45)
[2019-12-10] MEDS ORDERED: HYDROCODONE/APAP 10-325 MG TABLET PO ONE (22:45)
--- NOTE | 2019-12-10 23:07 | NUR ---
Patient given written and verbal discharge instructions. Patient verbalizes understanding of instructions. Patient is ambulatory with steady gait. Refuses offer of long-term placement. Patient given list of available shelters in surrounding area. AA/Ox4. able to speak in complete sentences in stable condition no s/s of distress all belongings with pt
[2019-12-10 23:10] VITALS: BP 152/89
== END 2019-12-10 23:10 | disposition home or self-care (01) ==
LOC: ER 21:58
DX: R51 Headache (principal); Z76.0 Encounter for issue of repeat prescription; G89.29 Other chronic pain; I10 Essential (primary) hypertension; F17.210 Nicotine dependence, cigarettes, uncomplicated; Z80.3 Family history of malignant neoplasm of breast; Z88.1 Allergy status to other antibiotic agents; Z88.8 Allergy status to other drugs, medicaments and biological substances; J45.909 Unspecified asthma, uncomplicated; Z86.69 Personal history of other diseases of the nervous system and sense organs; Z59.0 Homelessness; F19.10 Other psychoactive substance abuse, uncomplicated
CPT/HCPCS: A4663

== ENCOUNTER 2019-12-12 20:23 | Emergency (ER) | payer MEDICAID ==
[~2019-12-12] VITALS: Ht 177.8 cm; Wt 68.0 kg
--- NOTE | 2019-12-12 20:58 | NUR ---
Dr. Darnell at bedside for MSE
--- NOTE | 2019-12-12 21:10 | NUR ---
xray at bedside
--- NOTE | 2019-12-12 22:17 | NUR ---
Patient given written and verbal discharge instructions. Patient verbalizes understanding of instructions. Patient is ambulatory with steady gait. Refuses offer of longterm placement. Patient given list of available shelters in surrounding area. aa/ox4. able to speak in complete sentences ambulatory with steady gait all belongings with pt
[2019-12-12 22:28] VITALS: BP 145/88
== END 2019-12-12 22:18 | disposition home or self-care (01) ==
LOC: ER 20:25
DX: S52.572G Other intraarticular fracture of lower end of left radius, subsequent encounter for closed fracture with delayed healing (principal); W18.39XD Other fall on same level, subsequent encounter; F17.210 Nicotine dependence, cigarettes, uncomplicated; Z80.3 Family history of malignant neoplasm of breast; Z88.2 Allergy status to sulfonamides; G89.29 Other chronic pain; J45.909 Unspecified asthma, uncomplicated; Z59.0 Homelessness
CPT/HCPCS: 73110; 73130; A4663

== ENCOUNTER 2019-12-15 00:04 | Emergency (ER) | payer MEDICAID ==
[~2019-12-15] VITALS: Ht 180.3 cm; Wt 72.6 kg
[2019-12-15] MEDS ORDERED: ACETAMINOPHEN ES 500 MG TABLET PO ONE (01:00)
[2019-12-15] MEDS ORDERED: ACETAMINOPHEN ES 500 MG TABLET ONE (01:59)
[2019-12-15 03:18] VITALS: BP 188/92
== END 2019-12-15 03:19 | disposition home or self-care (01) ==
LOC: ER 00:06
DX: S52.502D Unspecified fracture of the lower end of left radius, subsequent encounter for closed fracture with routine healing (principal); V81 Occupant of railway train or railway vehicle injured in transport accident; J45.909 Unspecified asthma, uncomplicated; G89.29 Other chronic pain; Z88.1 Allergy status to other antibiotic agents; Z88.2 Allergy status to sulfonamides; F17.210 Nicotine dependence, cigarettes, uncomplicated; Z59.0 Homelessness
CPT/HCPCS: 73110; A4663; A9150

== ENCOUNTER 2019-12-17 02:46 | Emergency (ER) | payer MEDICAID ==
[~2019-12-17] VITALS: Ht 180.3 cm; Wt 68.0 kg
--- NOTE | 2019-12-17 03:10 | NUR ---
at bedside for MSE
[2019-12-17] MEDS ORDERED: HYDROCODONE/APAP 5-325MG TABLET ONE (03:15)
[2019-12-17] MEDS ORDERED: HYDROCODONE/APAP 5-325MG TABLET PO ONE (03:15)
[2019-12-17] MEDS ORDERED: CLONIDINE HCL 0.1 MG TABLET PO ONE (03:15)
[2019-12-17] MEDS ORDERED: CLONIDINE HCL 0.1 MG TABLET ONE (03:18)
--- NOTE | 2019-12-17 03:25 | NUR ---
Patient discharged to home in stable condition. Patient noted ambulating with steady gait. Written and verbal after care instructions given. Took all belongings, no signs of distress noted. Patient verbalizes understanding of instructions. Stressed follow up or return to ER for worsening s/s.
[2019-12-17 03:33] VITALS: BP 177/105
== END 2019-12-17 03:25 | disposition home or self-care (01) ==
LOC: ER 02:48
DX: S62.102D Fracture of unspecified carpal bone, left wrist, subsequent encounter for fracture with routine healing (principal); X58.XXXD Exposure to other specified factors, subsequent encounter; Z76.0 Encounter for issue of repeat prescription; Z88.1 Allergy status to other antibiotic agents; Z88.2 Allergy status to sulfonamides; Z88.8 Allergy status to other drugs, medicaments and biological substances; F17.210 Nicotine dependence, cigarettes, uncomplicated; J45.909 Unspecified asthma, uncomplicated; G89.29 Other chronic pain; F11.10 Opioid abuse, uncomplicated
CPT/HCPCS: A4663

== ENCOUNTER 2019-12-21 00:27 | Emergency (ER) | payer MEDICAID ==
[~2019-12-21] VITALS: Ht 172.7 cm; Wt 68.0 kg
--- NOTE | 2019-12-21 00:40 | NUR ---
Dr. Newman at bedside for MSE.
[2019-12-21] MEDS ORDERED: IBUPROFEN 600 MG TABLET PO ONE (00:45)
[2019-12-21] MEDS ORDERED: IBUPROFEN 600 MG TABLET ONE (00:50)
[2019-12-21 01:01] VITALS: BP 150/95
--- NOTE | 2019-12-21 01:03 | NUR ---
Patient given written and verbal discharge instructions. Stressed follow up with primary doctor or orthopedist for L wrist fracture, list of [facility] also provided. Patient verbalizes understanding of instructions. Patient given list of available shelters in surrounding area and resources. Refuses offer of long-term placement and other resources. Patient is ambulatory with steady gait. Patient discharged to home in stable condition.
== END 2019-12-21 01:06 | disposition home or self-care (01) ==
LOC: ER 00:30
DX: Z76.0 Encounter for issue of repeat prescription (principal); S62.102D Fracture of unspecified carpal bone, left wrist, subsequent encounter for fracture with routine healing; X58.XXXD Exposure to other specified factors, subsequent encounter; Z76.5 Malingerer [conscious simulation]; Z59.0 Homelessness; I10 Essential (primary) hypertension; G43.909 Migraine, unspecified, not intractable, without status migrainosus; F17.210 Nicotine dependence, cigarettes, uncomplicated; Z88.1 Allergy status to other antibiotic agents; Z88.2 Allergy status to sulfonamides; G89.29 Other chronic pain; J45.909 Unspecified asthma, uncomplicated
CPT/HCPCS: A4663

== ENCOUNTER 2019-12-23 23:09 | Emergency (ER) | payer MEDICAID ==
[~2019-12-23] VITALS: Ht 180.3 cm; Wt 70.3 kg
--- NOTE | 2019-12-23 23:27 | NUR ---
at bedside for MSE
[2019-12-23] MEDS ORDERED: METOCLOPRAMIDE HCL 10 MG/2 ML VIAL ONE (23:29)
[2019-12-23] MEDS ORDERED: diphenhydrAMINE 50 MG/1 ML VIAL ONE (23:29)
[2019-12-23] MEDS ORDERED: METOCLOPRAMIDE HCL 10 MG/2 ML VIAL IM ONE (23:30)
[2019-12-23] MEDS ORDERED: diphenhydrAMINE 50 MG/1 ML VIAL IM ONE (23:30)
--- NOTE | 2019-12-23 23:42 | NUR ---
Patient given written and verbal discharge instructions. Patient noted ambulating in a steady manner. took all belongings with him. Two sandwiches and two juice provided, Patient verbalizes understanding of instructions. Patient is ambulatory with steady gait. Refuses offer of retirement placement. Patient given list of available shelters in surrounding area.
[2019-12-23 23:44] VITALS: BP 125/76
== END 2019-12-23 23:45 | disposition home or self-care (01) ==
LOC: ER 23:11
DX: G89.29 Other chronic pain (principal); R51 Headache; F17.210 Nicotine dependence, cigarettes, uncomplicated; Z88.1 Allergy status to other antibiotic agents; J45.909 Unspecified asthma, uncomplicated; Z59.0 Homelessness; Z86.69 Personal history of other diseases of the nervous system and sense organs; R03.0 Elevated blood-pressure reading, without diagnosis of hypertension
CPT/HCPCS: 96372; 99283; J1200; J2765; A4663

== ENCOUNTER 2019-12-26 02:47 | Emergency (ER) | payer MEDICAID ==
[~2019-12-26] VITALS: Ht 180.3 cm; Wt 68.0 kg
--- NOTE | 2019-12-26 03:15 | NUR ---
Patient arrived at the ER with c/o left foot pain.
--- NOTE | 2019-12-26 03:17 | NUR ---
Dr. Cuellar at bedside for MSE.
[2019-12-26 04:45] VITALS: BP 158/98
== END 2019-12-26 04:43 | disposition home or self-care (01) ==
LOC: ER 02:51
DX: M79.672 Pain in left foot (principal); Z59.0 Homelessness; F17.210 Nicotine dependence, cigarettes, uncomplicated; G89.29 Other chronic pain; J45.909 Unspecified asthma, uncomplicated; Z87.81 Personal history of (healed) traumatic fracture; F11.10 Opioid abuse, uncomplicated
CPT/HCPCS: 73630; A4663

== ENCOUNTER 2019-12-30 21:08 | Emergency (ER) | payer MEDICAID ==
[~2019-12-30] VITALS: Ht 180.3 cm; Wt 2.6 kg
[2019-12-30] MEDS ORDERED: NEOMY/BACITRA/POLYMYXIN B OINT UD PACKET TP ONE ×2 (21:41→21:45)
[2019-12-30] MEDS ORDERED: HYDROCODONE/APAP 5-325MG TABLET ONE (21:43)
[2019-12-30] MEDS ORDERED: HYDROCODONE/APAP 5-325MG TABLET PO ONE (21:45)
[2019-12-30] MEDS ORDERED: LIDOCAINE HCL 1% 20 ML VIAL TP ONE (21:45)
--- NOTE | 2019-12-30 22:00 | NUR ---
Patient given written and verbal discharge instructions. Patient verbalizes understanding of instructions. Patient is ambulatory with steady gait. Refuses offer of care home placement. Patient given list of available shelters in surrounding area. aa/ox4. no s/s of distress in stable condition no bleeding noted on wound. stitches intact ambulatory with steady gait all belongings with pt
[2019-12-30 22:21] VITALS: BP 150/95
== END 2019-12-30 22:00 | disposition home or self-care (01) ==
LOC: ER 21:11
DX: S31.813A Puncture wound without foreign body of right buttock, initial encounter (principal); W26.8XXA Contact with other sharp object(s), not elsewhere classified, initial encounter; Y92.89 Other specified places as the place of occurrence of the external cause; Z76.0 Encounter for issue of repeat prescription; J45.909 Unspecified asthma, uncomplicated; G89.29 Other chronic pain; Z59.0 Homelessness; F17.210 Nicotine dependence, cigarettes, uncomplicated; Z80.3 Family history of malignant neoplasm of breast; Z88.1 Allergy status to other antibiotic agents; Z88.2 Allergy status to sulfonamides
CPT/HCPCS: 12001; 99283; J3490; A4663

== ENCOUNTER 2020-01-02 11:16 | Emergency (ER) | payer MEDICAID ==
[~2020-01-02] VITALS: Ht 177.8 cm; Wt 68.0 kg
[2020-01-02] MEDS ORDERED: KETOROLAC TROMETHAMINE 30 MG INJ ONE (11:43)
[2020-01-02] MEDS ORDERED: METOCLOPRAMIDE HCL 10 MG/2 ML VIAL ONE (11:43)
[2020-01-02] MEDS ORDERED: KETOROLAC TROMETHAMINE 30 MG INJ IM ONE (11:45)
[2020-01-02] MEDS ORDERED: METOCLOPRAMIDE HCL 10 MG/2 ML VIAL IM ONE (11:45)
--- NOTE | 2020-01-02 11:54 | NUR ---
Patient given written and verbal discharge instructions. Patient verbalizes understanding of instructions. Patient is ambulatory with steady gait. Refuses offer of [facility] placement. Patient given list of available shelters in surrounding area.pt walks in steady gait. no sign of distress.
== END 2020-01-02 11:56 | disposition home or self-care (01) ==
LOC: ER 11:18
DX: G43.909 Migraine, unspecified, not intractable, without status migrainosus (principal); J45.909 Unspecified asthma, uncomplicated; R03.0 Elevated blood-pressure reading, without diagnosis of hypertension; G89.29 Other chronic pain; Z88.1 Allergy status to other antibiotic agents; Z88.2 Allergy status to sulfonamides; F17.210 Nicotine dependence, cigarettes, uncomplicated; Z80.3 Family history of malignant neoplasm of breast; F31.9 Bipolar disorder, unspecified; Z59.0 Homelessness
CPT/HCPCS: 96372 ×2; 99284; J1885; J2765; A4663

== ENCOUNTER 2020-01-03 20:00 | Emergency (ER) | payer MEDICAID ==
[~2020-01-03] VITALS: Ht 172.7 cm; Wt 79.4 kg
[2020-01-03] MEDS ORDERED: CLONIDINE HCL 0.1 MG TABLET PO ONE (21:30)
[2020-01-03] MEDS ORDERED: IBUPROFEN 600 MG TABLET PO ONE (21:30)
[2020-01-03] MEDS ORDERED: HYDROCODONE/APAP 10-325 MG TABLET PO ONE (21:30)
[2020-01-03 21:31] VITALS: BP 204/124
[2020-01-03] MEDS ORDERED: IBUPROFEN 600 MG TABLET ONE (21:32)
[2020-01-03] MEDS ORDERED: CLONIDINE HCL 0.1 MG TABLET ONE (21:32)
--- NOTE | 2020-01-03 22:10 | NUR ---
Patient eloped from facility. ER physician notified.
== END 2020-01-03 22:23 | disposition left against medical advice (07) ==
LOC: ER 20:00
DX: G89.4 Chronic pain syndrome (principal); R51 Headache; I10 Essential (primary) hypertension; S52.532D Colles' fracture of left radius, subsequent encounter for closed fracture with routine healing; S92.322G Displaced fracture of second metatarsal bone, left foot, subsequent encounter for fracture with delayed healing; X58.XXXD Exposure to other specified factors, subsequent encounter; J45.909 Unspecified asthma, uncomplicated; Z88.1 Allergy status to other antibiotic agents; Z88.2 Allergy status to sulfonamides; Z88.8 Allergy status to other drugs, medicaments and biological substances; Z59.0 Homelessness; F17.210 Nicotine dependence, cigarettes, uncomplicated
CPT/HCPCS: 73130; 73630; A4663

== ENCOUNTER 2020-01-04 06:27 | Emergency (ER) | payer MEDICAID ==
[~2020-01-04] VITALS: Ht 177.8 cm; Wt 63.5 kg
--- NOTE | 2020-01-04 07:25 | NUR ---
Dr Prieto seen and examined the pt.
[2020-01-04] MEDS ORDERED: ACETAMINOPHEN 325 MG TABLET PO ONE (07:30)
[2020-01-04] MEDS ORDERED: METOCLOPRAMIDE HCL 10 MG TABLET PO ONE (07:30)
[2020-01-04] MEDS ORDERED: diphenhydrAMINE 25 MG CAP PO ONE ×2 (07:30→07:41)
[2020-01-04] MEDS ORDERED: ACETAMINOPHEN 325 MG TABLET ONE (07:41)
[2020-01-04] MEDS ORDERED: METOCLOPRAMIDE HCL 10 MG TABLET ONE (07:42)
--- NOTE | 2020-01-04 08:13 | NUR ---
Patient is resting comfortably in bed with eyes closed, NAD noted.
[2020-01-04] MEDS ORDERED: SUMATRIPTAN SUCCINATE 50 MG TABLET PO ONE (08:30)
[2020-01-04] MEDS ORDERED: SUMATRIPTAN SUCCINATE 50 MG TABLET ONE (08:31)
[2020-01-04 08:41] VITALS: BP 150/83
--- NOTE | 2020-01-04 08:42 | NUR ---
Patient given written and verbal discharge instructions. Patient verbalizes understanding of instructions. Patient is ambulatory with steady gait. Refuses offer of long-term placement. Patient given list of available shelters in surrounding area.
== END 2020-01-04 08:42 | disposition home or self-care (01) ==
LOC: ER 06:31
DX: R51 Headache (principal); S52.502G Unspecified fracture of the lower end of left radius, subsequent encounter for closed fracture with delayed healing; X58.XXXD Exposure to other specified factors, subsequent encounter; Z59.0 Homelessness; G89.29 Other chronic pain; Z88.1 Allergy status to other antibiotic agents; Z88.2 Allergy status to sulfonamides; Z86.69 Personal history of other diseases of the nervous system and sense organs; F17.210 Nicotine dependence, cigarettes, uncomplicated; J45.909 Unspecified asthma, uncomplicated; F31.9 Bipolar disorder, unspecified
CPT/HCPCS: 99284; Q0163; A4663; J8597

== ENCOUNTER 2020-01-11 21:46 | Emergency (ER) | payer MEDICAID ==
[~2020-01-11] VITALS: Ht 180.3 cm; Wt 72.6 kg
[2020-01-11] MEDS ORDERED: CLINDAMYCIN HCL 150 MG CAPSULE PO ONE (22:00)
[2020-01-11] MEDS ORDERED: LORAZEPAM 0.5 MG TABLET PO ONE (22:00)
--- NOTE | 2020-01-11 22:02 | NUR ---
DR Lyons into remove suture on right buttock area. Site is red and swollen with no drainage.
[2020-01-11] MEDS ORDERED: CLINDAMYCIN HCL 300 MG CAPSULE ONE (22:08)
[2020-01-11] MEDS ORDERED: LORAZEPAM 1 MG TABLET ONE (22:08)
--- NOTE | 2020-01-11 22:10 | NUR ---
Patient refused to have BP to be treated. Stating "I have prescrition already. I will fill it and take them. I don't want any BP med now."
--- NOTE | 2020-01-11 22:16 | NUR ---
Patient given written and verbal discharge instructions. Patient verbalizes understanding of instructions. Patient is ambulatory with steady gait. Refuses offer of long term placement. Patient given list of available shelters in surrounding area.
[2020-01-11 22:17] VITALS: BP 190/100
== END 2020-01-11 22:22 | disposition home or self-care (01) ==
LOC: ER 21:49
DX: S31.813D Puncture wound without foreign body of right buttock, subsequent encounter (principal); L03.317 Cellulitis of buttock; W26.9XXD Contact with unspecified sharp object(s), subsequent encounter; Z91.19 Patient's noncompliance with other medical treatment and regimen; J45.909 Unspecified asthma, uncomplicated; F17.210 Nicotine dependence, cigarettes, uncomplicated; Z88.1 Allergy status to other antibiotic agents; Z88.2 Allergy status to sulfonamides; F31.9 Bipolar disorder, unspecified; G89.4 Chronic pain syndrome; Z76.5 Malingerer [conscious simulation]; Z59.0 Homelessness; F15.20 Other stimulant dependence, uncomplicated
CPT/HCPCS: A4663

== ENCOUNTER 2020-01-13 03:58 | Emergency (ER) | payer MEDICAID ==
[~2020-01-13] VITALS: Ht 180.3 cm; Wt 72.6 kg
[2020-01-13] MEDS ORDERED: KETOROLAC TROMETHAMINE 30 MG INJ ONE (04:26)
--- NOTE | 2020-01-13 04:27 | NUR ---
Patient discharged to home in stable condition. Written and verbal after care instructions given. Patient verbalizes understanding of instructions. Stressed follow up or return to ER for worsening s/s. Patient is able to ambulate with stable gait.
[2020-01-13 04:28] VITALS: BP 172/98
[2020-01-13] MEDS ORDERED: KETOROLAC TROMETHAMINE 30 MG INJ IM ONE (04:30)
== END 2020-01-13 04:29 | disposition home or self-care (01) ==
LOC: ER 04:00
DX: M25.532 Pain in left wrist (principal); S62.102G Fracture of unspecified carpal bone, left wrist, subsequent encounter for fracture with delayed healing; X58.XXXD Exposure to other specified factors, subsequent encounter; S31.000D Unspecified open wound of lower back and pelvis without penetration into retroperitoneum, subsequent encounter; L08.9 Local infection of the skin and subcutaneous tissue, unspecified; F17.210 Nicotine dependence, cigarettes, uncomplicated; Z88.1 Allergy status to other antibiotic agents; Z88.2 Allergy status to sulfonamides; G89.29 Other chronic pain; F31.9 Bipolar disorder, unspecified; J45.909 Unspecified asthma, uncomplicated; Z59.0 Homelessness
CPT/HCPCS: 96372; 99283; 99406; J1885; A4663

== ENCOUNTER → 2020-01-26 | Emergency (ER) | payer SELFPAY | END | disposition left against medical advice (07) | LOC: ER 01:43 | DX: Z75.3 Unavailability and inaccessibility of health-care facilities (principal) ==

== ENCOUNTER 2020-02-11 05:19 | Emergency (ER) | payer MEDICAID, OTHER ==
[~2020-02-11] VITALS: Ht 182.9 cm; Wt 86.2 kg
--- NOTE | 2020-02-11 05:50 | NUR ---
Dr. Darnell at bedside for MSE.
[2020-02-11] MEDS ORDERED: CLONIDINE HCL 0.1 MG TABLET PO ONE (06:00)
[2020-02-11] MEDS ORDERED: CLONIDINE HCL 0.1 MG TABLET ONE (06:02)
--- NOTE | 2020-02-11 06:37 | NUR ---
Patient given written and verbal discharge instructions. Patient verbalizes understanding of instructions. Patient is ambulatory with steady gait. Refuses offer of retirement placement. Patient given list of available shelters in surrounding area. Patient provided food and juice per patient request, VSS, no acute signs of distress, all belongings taken.
[2020-02-11] MEDS ORDERED: LORAZEPAM 1 MG TABLET ONE (06:38)
[2020-02-11 06:40] VITALS: BP 150/100
[2020-02-11] MEDS ORDERED: LORAZEPAM 0.5 MG TABLET PO ONE (06:45)
== END 2020-02-11 06:40 | disposition home or self-care (01) ==
LOC: ER 05:20
DX: S52.502G Unspecified fracture of the lower end of left radius, subsequent encounter for closed fracture with delayed healing (principal); X58.XXXD Exposure to other specified factors, subsequent encounter; Z59.0 Homelessness; J45.909 Unspecified asthma, uncomplicated; Z88.1 Allergy status to other antibiotic agents; Z88.2 Allergy status to sulfonamides; Z88.8 Allergy status to other drugs, medicaments and biological substances; I16.0 Hypertensive urgency; F31.9 Bipolar disorder, unspecified; G89.29 Other chronic pain; F17.210 Nicotine dependence, cigarettes, uncomplicated
CPT/HCPCS: A4663

== ENCOUNTER 2020-02-14 22:37 | Emergency (ER) | payer MEDICAID ==
[~2020-02-14] VITALS: Ht 180.3 cm; Wt 74.8 kg
[2020-02-14 23:04] VITALS: BP 162/102
== END 2020-02-14 23:04 | disposition home or self-care (01) ==
LOC: ER 22:40
DX: S52.572G Other intraarticular fracture of lower end of left radius, subsequent encounter for closed fracture with delayed healing (principal); X58.XXXD Exposure to other specified factors, subsequent encounter; Z59.0 Homelessness; J45.909 Unspecified asthma, uncomplicated; G89.29 Other chronic pain; Z88.1 Allergy status to other antibiotic agents; Z88.2 Allergy status to sulfonamides; F17.210 Nicotine dependence, cigarettes, uncomplicated
CPT/HCPCS: A4663

== ENCOUNTER 2020-02-15 21:59 | Emergency (ER) | payer MEDICAID | END 2020-02-15 22:12 | disposition left against medical advice (07) | LOC: ER 22:00 | DX: Z75.3 Unavailability and inaccessibility of health-care facilities (principal) ==

== ENCOUNTER 2020-02-18 18:05 | Emergency (ER) | payer MEDICAID ==
[~2020-02-18] VITALS: Ht 180.3 cm; Wt 72.6 kg
--- NOTE | 2020-02-18 18:37 | NUR ---
PT IS IN ROOM 1B, WAITING FOR ER MD EVALUATION.
[2020-02-18] MEDS ORDERED: ONDANSETRON 4 MG/2 ML VIAL IM ONE (19:00)
[2020-02-18] MEDS ORDERED: HYDROMORPHONE 1 MG/1 ML DISP.SYRIN IM ONE (19:00)
[2020-02-18] MEDS ORDERED: HYDROMORPHONE 2 MG/1 ML DISP.SYRIN ONE (19:07)
[2020-02-18] MEDS ORDERED: ONDANSETRON 4 MG/2 ML VIAL ONE (19:07)
--- NOTE | 2020-02-18 19:22 | NUR ---
Patient given written and verbal discharge instructions. Patient verbalizes understanding of instructions. Patient is ambulatory with steady gait. Refuses offer of penitentiary placement. Patient given list of available shelters in surrounding area. homeless waiver signed, meal provided, no signs of acute distress noted.
[2020-02-18 19:24] VITALS: BP 148/91
== END 2020-02-18 19:28 | disposition home or self-care (01) ==
LOC: ER 18:05
DX: G89.29 Other chronic pain (principal); M25.532 Pain in left wrist; F17.210 Nicotine dependence, cigarettes, uncomplicated; Z59.0 Homelessness; J45.909 Unspecified asthma, uncomplicated; F31.9 Bipolar disorder, unspecified; Z88.1 Allergy status to other antibiotic agents; Z88.2 Allergy status to sulfonamides
CPT/HCPCS: 96372 ×2; 99284; J1170; J2405; A4663

== ENCOUNTER 2020-02-23 02:37 | Emergency (ER) | payer MEDICAID ==
[~2020-02-23] VITALS: Ht 180.3 cm; Wt 77.1 kg
== END 2020-02-23 03:12 | disposition home or self-care (01) ==
LOC: ER 02:43
DX: Z76.0 Encounter for issue of repeat prescription (principal); F41.9 Anxiety disorder, unspecified; Z59.0 Homelessness; F17.210 Nicotine dependence, cigarettes, uncomplicated; Z88.1 Allergy status to other antibiotic agents; Z88.2 Allergy status to sulfonamides; F31.9 Bipolar disorder, unspecified; G89.29 Other chronic pain; J45.909 Unspecified asthma, uncomplicated
CPT/HCPCS: A4663

== ENCOUNTER 2020-02-26 21:46 | Emergency (ER) | payer MEDICAID ==
[~2020-02-26] VITALS: Ht 175.3 cm; Wt 74.8 kg
--- NOTE | 2020-02-26 22:46 | NUR ---
Patient discharged to home in stable condition. Written and verbal after care instructions given. Patient verbalizes understanding of instructions. Stressed follow up or return to ER for worsening s/s. Denies homelessness states he has an address at this time.
[2020-02-26 22:56] VITALS: BP 156/98
== END 2020-02-26 22:59 | disposition home or self-care (01) ==
LOC: ER 21:48
DX: R51.9 Headache, unspecified (principal); F31.9 Bipolar disorder, unspecified; Z59.0 Homelessness; I10 Essential (primary) hypertension; Z88.2 Allergy status to sulfonamides; Z88.8 Allergy status to other drugs, medicaments and biological substances; J45.909 Unspecified asthma, uncomplicated; S52.92XP Unspecified fracture of left forearm, subsequent encounter for closed fracture with malunion; X58.XXXD Exposure to other specified factors, subsequent encounter
CPT/HCPCS: A4663

== ENCOUNTER 2020-03-05 02:55 | Emergency (ER) | payer MEDICAID ==
[~2020-03-05] VITALS: Ht 180.3 cm; Wt 63.5 kg
[2020-03-05 03:26] VITALS: BP 165/98
--- NOTE | 2020-03-05 03:26 | NUR ---
Patient given written and verbal discharge instructions. Patient verbalizes understanding of instructions. Patient is ambulatory with steady gait. Refuses offer of longterm placement. Patient given list of available shelters in surrounding area.
[2020-03-05] MEDS ORDERED: IBUPROFEN 600 MG TABLET ONE (03:28)
[2020-03-05] MEDS ORDERED: IBUPROFEN 600 MG TABLET PO ONE (03:30)
== END 2020-03-05 03:28 | disposition home or self-care (01) ==
LOC: ER 03:06
DX: G89.29 Other chronic pain (principal); M25.532 Pain in left wrist; F17.210 Nicotine dependence, cigarettes, uncomplicated; Z59.0 Homelessness; F31.9 Bipolar disorder, unspecified; J45.909 Unspecified asthma, uncomplicated; M79.673 Pain in unspecified foot
CPT/HCPCS: A4663

== ENCOUNTER 2020-03-06 22:13 | Emergency (ER) | payer MEDICAID ==
[~2020-03-06] VITALS: Ht 154.9 cm; Wt 63.5 kg
[2020-03-06] MEDS ORDERED: IBUPROFEN 600 MG TABLET PO ONE (22:45)
[2020-03-06] MEDS ORDERED: diphenhydrAMINE 50 MG CAPSULE ONE (22:45)
[2020-03-06] MEDS ORDERED: diphenhydrAMINE 50 MG CAPSULE PO ONE (22:45)
[2020-03-06] MEDS ORDERED: IBUPROFEN 600 MG TABLET ONE (22:45)
--- NOTE | 2020-03-06 22:47 | NUR ---
Coleman zepeda in EDM - 03/06/20 at 2316 by MELI Patient discharged to home in stable condition. Written and verbal after care instructions given. Patient verbalizes understanding of instructions. Stressed follow up or return to ER for worsening s/s.
--- NOTE | 2020-03-06 22:47 | NUR ---
Patient given written and verbal discharge instructions. Patient verbalizes understanding of instructions. Patient is ambulatory with steady gait. Refuses offer of intermediate placement. Patient given list of available shelters in surrounding area.
[2020-03-06 22:48] VITALS: BP 167/95
== END 2020-03-06 22:49 | disposition home or self-care (01) ==
LOC: ER 22:15
DX: R51.9 Headache, unspecified (principal); S62.102G Fracture of unspecified carpal bone, left wrist, subsequent encounter for fracture with delayed healing; X58.XXXD Exposure to other specified factors, subsequent encounter; Z59.0 Homelessness; J45.909 Unspecified asthma, uncomplicated; Z88.1 Allergy status to other antibiotic agents; Z88.2 Allergy status to sulfonamides; F15.20 Other stimulant dependence, uncomplicated; F17.210 Nicotine dependence, cigarettes, uncomplicated; Z76.5 Malingerer [conscious simulation]; R03.0 Elevated blood-pressure reading, without diagnosis of hypertension
CPT/HCPCS: 99283; 99406; Q0163; A4663

== ENCOUNTER 2020-03-08 19:01 | Emergency (ER) | payer MEDICAID ==
[~2020-03-08] VITALS: Ht 172.7 cm; Wt 63.5 kg
--- NOTE | 2020-03-08 19:06 | NUR ---
Dr. Lyons at bedside for MSE
[2020-03-08] MEDS ORDERED: TRAMADOL HCL 50 MG TABLET PO ONE (19:45)
[2020-03-08] MEDS ORDERED: diphenhydrAMINE 25 MG CAP PO ONE ×2 (19:45→19:53)
[2020-03-08] MEDS ORDERED: TRAMADOL HCL 50 MG TABLET ONE (19:53)
--- NOTE | 2020-03-08 20:02 | NUR ---
Patient discharged to home in stable condition. Written and verbal after care instructions given. Patient verbalizes understanding of instructions. Stressed follow up or return to ER for worsening s/s. Patient ambulating with steady gait. NAD noted
[2020-03-08 20:09] VITALS: BP 149/72
== END 2020-03-08 20:02 | disposition home or self-care (01) ==
LOC: ER 19:01
DX: S92.322A Displaced fracture of second metatarsal bone, left foot, initial encounter for closed fracture (principal); S52.532D Colles' fracture of left radius, subsequent encounter for closed fracture with routine healing; X58.XXXA Exposure to other specified factors, initial encounter; Y93.9 Activity, unspecified; Z59.0 Homelessness; F15.20 Other stimulant dependence, uncomplicated; F31.9 Bipolar disorder, unspecified; J45.909 Unspecified asthma, uncomplicated; Z88.1 Allergy status to other antibiotic agents; F17.210 Nicotine dependence, cigarettes, uncomplicated; G89.4 Chronic pain syndrome
CPT/HCPCS: 73110; 73630; 99284; 99406; Q0163; A4663

== ENCOUNTER 2020-03-25 01:29 | Emergency (ER) | payer MEDICAID ==
[~2020-03-25] VITALS: Ht 180.3 cm; Wt 63.5 kg
--- NOTE | 2020-03-25 01:35 | NUR ---
Patient requesting ativan and pain meds Rx and splint for left arm.
[2020-03-25] MEDS ORDERED: IBUPROFEN 600 MG TABLET PO ONE (01:45)
[2020-03-25] MEDS ORDERED: IBUPROFEN 600 MG TABLET ONE (01:57)
== END 2020-03-25 02:04 | disposition home or self-care (01) ==
LOC: ER 01:34
DX: S52.532G Colles' fracture of left radius, subsequent encounter for closed fracture with delayed healing (principal); W18.30XD Fall on same level, unspecified, subsequent encounter; G89.29 Other chronic pain; R29.6 Repeated falls; Z59.0 Homelessness; Z91.19 Patient's noncompliance with other medical treatment and regimen; F15.20 Other stimulant dependence, uncomplicated; J45.909 Unspecified asthma, uncomplicated; F31.9 Bipolar disorder, unspecified; F17.210 Nicotine dependence, cigarettes, uncomplicated; Z76.5 Malingerer [conscious simulation]
CPT/HCPCS: 73110; A4663

== ENCOUNTER 2020-04-01 03:18 | Emergency (ER) | payer MEDICAID ==
[~2020-04-01] VITALS: Ht 177.8 cm; Wt 77.1 kg
--- NOTE | 2020-04-01 03:41 | NUR ---
at bedside for assessment
[2020-04-01] MEDS ORDERED: LORAZEPAM 0.5 MG TABLET PO ONE (04:00)
[2020-04-01] MEDS ORDERED: OXYCODONE/APAP 5-325 MG TABLET PO ONE (04:00)
[2020-04-01] MEDS ORDERED: OXYCODONE/APAP 5-325 MG TABLET ONE (04:02)
[2020-04-01] MEDS ORDERED: LORAZEPAM 1 MG TABLET ONE (04:02)
--- NOTE | 2020-04-01 04:06 | NUR ---
Patient given written and verbal discharge instructions. Patient noted ambulating with steady gait. took all belongings, Rx given. Patient verbalizes understanding of instructions. Patient is ambulatory with steady gait. Refuses offer of skilled nursing placement. Patient given list of available shelters in surrounding area.
[2020-04-01 04:19] VITALS: BP 152/89
== END 2020-04-01 04:06 | disposition home or self-care (01) ==
LOC: ER 03:25
DX: G89.29 Other chronic pain (principal); M25.532 Pain in left wrist; Z59.0 Homelessness; F17.210 Nicotine dependence, cigarettes, uncomplicated; J45.909 Unspecified asthma, uncomplicated; F31.9 Bipolar disorder, unspecified; Z88.1 Allergy status to other antibiotic agents; Z88.2 Allergy status to sulfonamides
CPT/HCPCS: A4663

== ENCOUNTER 2020-04-04 10:48 | Emergency (ER) | payer MEDICAID | END 2020-04-04 10:54 | disposition left against medical advice (07) | LOC: ER 10:50 | DX: Z75.3 Unavailability and inaccessibility of health-care facilities (principal) ==

== ENCOUNTER 2020-04-19 19:30 | Emergency (ER) | payer MEDICAID ==
[~2020-04-19] VITALS: Ht 180.3 cm; Wt 68.0 kg
[2020-04-19] MEDS ORDERED: IBUPROFEN 600 MG TABLET PO ONE (20:15)
[2020-04-19] MEDS ORDERED: diphenhydrAMINE 25 MG CAP PO ONE ×2 (20:15→20:17)
[2020-04-19] MEDS ORDERED: IBUPROFEN 600 MG TABLET ONE (20:18)
--- NOTE | 2020-04-19 20:29 | NUR ---
MSE COMPLETED, PT D/C'D HOME, ACI /RX X1 GIVEN, PT TOOK all belongings.
[2020-04-19 20:30] VITALS: BP 134/72
== END 2020-04-19 20:31 | disposition home or self-care (01) ==
LOC: ER 19:30
DX: G89.29 Other chronic pain (principal); L29.9 Pruritus, unspecified; Z59.0 Homelessness; F17.210 Nicotine dependence, cigarettes, uncomplicated; Z88.1 Allergy status to other antibiotic agents; Z88.2 Allergy status to sulfonamides; F31.9 Bipolar disorder, unspecified; J45.909 Unspecified asthma, uncomplicated
CPT/HCPCS: A4663; Q0163

== ENCOUNTER 2020-04-25 23:19 | Emergency (ER) | payer SELFPAY | END 2020-04-26 00:19 | disposition home or self-care (01) | LOC: ER 23:30 | DX: Z75.3 Unavailability and inaccessibility of health-care facilities (principal) ==

== ENCOUNTER 2020-04-26 02:59 | Emergency (ER) | payer SELFPAY | END 2020-04-26 03:59 | disposition left against medical advice (07) | LOC: ER 03:02 | DX: Z75.3 Unavailability and inaccessibility of health-care facilities (principal) ==

== ENCOUNTER 2020-04-26 18:51 | Emergency (ER) | payer MEDICAID ==
[~2020-04-26] VITALS: Ht 180.3 cm; Wt 63.5 kg
[2020-04-26] MEDS ORDERED: diphenhydrAMINE 50 MG CAPSULE PO ONE (19:15)
[2020-04-26] MEDS ORDERED: LORAZEPAM 0.5 MG TABLET PO ONE (19:15)
[2020-04-26] MEDS ORDERED: OXYCODONE/APAP 5-325 MG TABLET PO ONE (19:15)
[2020-04-26] MEDS ORDERED: LORAZEPAM 1 MG TABLET ONE (19:18)
[2020-04-26] MEDS ORDERED: OXYCODONE/APAP 5-325 MG TABLET ONE (19:19)
[2020-04-26] MEDS ORDERED: diphenhydrAMINE 50 MG CAPSULE ONE (19:19)
[2020-04-26 19:53] VITALS: BP 158/98
== END 2020-04-26 19:53 | disposition home or self-care (01) ==
LOC: ER 18:51
DX: Z76.0 Encounter for issue of repeat prescription (principal); G89.29 Other chronic pain; M79.672 Pain in left foot; M79.671 Pain in right foot; F17.210 Nicotine dependence, cigarettes, uncomplicated; Z88.1 Allergy status to other antibiotic agents; Z88.2 Allergy status to sulfonamides; F31.9 Bipolar disorder, unspecified; J45.909 Unspecified asthma, uncomplicated; Z59.0 Homelessness
CPT/HCPCS: 99284; Q0163; A4663

== ENCOUNTER 2020-05-11 02:27 | Emergency (ER) | payer SELFPAY ==
--- NOTE | 2020-05-11 02:39 | NUR ---
CALLED 3 TIMES, NO ANSWER. PT LEFT W/O BEING TRIAGED.
== END 2020-05-11 02:40 | disposition left against medical advice (07) ==
LOC: ER 02:27
DX: Z75.3 Unavailability and inaccessibility of health-care facilities (principal)

== ENCOUNTER 2020-05-19 16:31 | Emergency (ER) | payer MEDICAID ==
[~2020-05-19] VITALS: Ht 180.3 cm; Wt 63.5 kg
--- NOTE | 2020-05-19 16:41 | NUR ---
Dr Marrero seen and examine the pt.
[2020-05-19] MEDS ORDERED: IBUPROFEN 600 MG TABLET PO ONE (16:45)
[2020-05-19] MEDS ORDERED: IBUPROFEN 600 MG TABLET ONE (16:53)
[2020-05-19 17:15] VITALS: BP 140/82
--- NOTE | 2020-05-19 17:15 | NUR ---
Patient given written and verbal discharge instructions. Patient verbalizes understanding of instructions. Patient is ambulatory with steady gait. Refuses offer of fdc placement. Patient given list of available shelters in surrounding area.
== END 2020-05-19 17:16 | disposition home or self-care (01) ==
LOC: ER 16:31
DX: R51.9 Headache, unspecified (principal); G89.4 Chronic pain syndrome; Z59.0 Homelessness; F19.10 Other psychoactive substance abuse, uncomplicated; F17.210 Nicotine dependence, cigarettes, uncomplicated; Z88.1 Allergy status to other antibiotic agents; Z88.2 Allergy status to sulfonamides; Z88.8 Allergy status to other drugs, medicaments and biological substances; F31.9 Bipolar disorder, unspecified
CPT/HCPCS: A4663

== ENCOUNTER 2020-05-21 13:32 | Emergency (ER) | payer MEDICAID ==
[~2020-05-21] VITALS: Ht 180.3 cm; Wt 63.5 kg
--- NOTE | 2020-05-21 13:53 | NUR ---
PT SEEN BY DR MANCILLA. PRESCRIPTION PER MD DISCRETION. DISCHARGED IN STABLE CONDITION.
[2020-05-21 13:55] VITALS: BP 144/78
== END 2020-05-21 13:56 | disposition home or self-care (01) ==
LOC: ER 13:32
DX: Z76.0 Encounter for issue of repeat prescription (principal); G89.4 Chronic pain syndrome; J45.909 Unspecified asthma, uncomplicated; F31.9 Bipolar disorder, unspecified; G43.909 Migraine, unspecified, not intractable, without status migrainosus; F17.210 Nicotine dependence, cigarettes, uncomplicated; Z88.1 Allergy status to other antibiotic agents; Z88.2 Allergy status to sulfonamides
CPT/HCPCS: A4663

== ENCOUNTER 2020-05-25 23:45 | Emergency (ER) | payer MEDICAID ==
[~2020-05-25] VITALS: Ht 180.3 cm; Wt 72.6 kg
[~2020-05-25 23:45] MED LIST changes: -AMOXICILLIN-CLAVUL 875-125MG TABLET ONE; -AZIT500T PO; -CEFTRIAXONE /D5W 50ML IVPB **ER PYXIS IV ONE; -CEFTRIAXONE 1 G VIAL ONE; -CLINDAMYCIN HCL 150 MG CAPSULE ONE; -CLINDAMYCIN HCL 150 MG CAPSULE PO ONE; -CLINDAMYCIN HCL 300 MG CAPSULE ONE; -CLON0.2T PO; -IBUPROFEN 800 MG TABLET ONE; -KETOROLAC TROMETHAMINE 30 MG INJ ONE; -LIDOCAINE HCL 1% 20 ML VIAL ONE; -LORAZEPAM 1 MG TABLET ONE; -MAGNESIUM SULFATE/D5W 200 ML ONE; -METO-295 PO; -NAPR-1009 PO; -NAPR-1192 PO; -OXYCODONE/APAP 5-325 MG TABLET ONE; -OXYCODONE/APAP 5-325 MG TABLET PO ONE; -diphenhydrAMINE 50 MG CAPSULE ONE; -diphenhydrAMINE 50 MG CAPSULE PO ONE; -methylPREDNISolone SOD SUCC 125 MG/2 ML VIAL ONE
--- NOTE | 2020-05-26 00:02 | NUR ---
Dr. Mcgraw at bedside for MSE.
[2020-05-26 00:12] VITALS: BP 155/89
--- NOTE | 2020-05-26 00:12 | NUR ---
Patient discharged to home in stable condition. Written and verbal after care instructions given. Patient verbalizes understanding of instructions. Stressed follow up or return to ER for worsening s/s. Denies homelessness
[2020-05-26] MEDS ORDERED: LORAZEPAM 0.5 MG TABLET PO ONE (00:15)
== END 2020-05-26 00:16 | disposition home or self-care (01) ==
LOC: ER 23:45
DX: Z76.0 Encounter for issue of repeat prescription (principal); G89.29 Other chronic pain; Z59.0 Homelessness; Z88.1 Allergy status to other antibiotic agents; Z88.2 Allergy status to sulfonamides; J45.909 Unspecified asthma, uncomplicated
CPT/HCPCS: A4663

== ENCOUNTER → 2020-05-25 | Emergency (ER) | payer MEDICAID ==
[~2020-05-25] VITALS: Ht 180.3 cm; Wt 68.0 kg
[~2020-05-25] MED LIST changes: +AMOXICILLIN-CLAVUL 875-125MG TABLET ONE; +AZIT500T PO; +CEFTRIAXONE /D5W 50ML IVPB **ER PYXIS IV ONE; +CEFTRIAXONE 1 G VIAL ONE; +CLIN300C12 PO; +CLINDAMYCIN HCL 150 MG CAPSULE ONE; +CLINDAMYCIN HCL 150 MG CAPSULE PO ONE; +CLINDAMYCIN HCL 300 MG CAPSULE ONE; +CLON0.2T PO; +DIPH50CA37 GT; +IBUPROFEN 800 MG TABLET ONE; +KETOROLAC TROMETHAMINE 30 MG INJ ONE; +LIDOCAINE HCL 1% 20 ML VIAL ONE; +LORAZEPAM 1 MG TABLET ONE; +MAGNESIUM SULFATE/D5W 200 ML ONE; +METO-295 PO; +NAPR-1009 PO; +NAPR-1192 PO; +OXYCODONE/APAP 5-325 MG TABLET ONE; +OXYCODONE/APAP 5-325 MG TABLET PO ONE; +diphenhydrAMINE 50 MG CAPSULE ONE; +diphenhydrAMINE 50 MG CAPSULE PO ONE; +methylPREDNISolone SOD SUCC 125 MG/2 ML VIAL ONE
[2020-05-25 00:51] VITALS: BP 155/91
--- NOTE | 2020-05-25 00:51 | NUR ---
Patient discharged to home in stable condition. Written and verbal after care instructions given. Patient verbalizes understanding of instructions. Stressed follow up or return to ER for worsening s/s. Patient ambulated with steady gait. Denies homelessness at this time.
== END | disposition home or self-care (01) ==
LOC: ER 00:10
DX: L03.012 Cellulitis of left finger (principal); G89.4 Chronic pain syndrome; Z76.0 Encounter for issue of repeat prescription; J45.909 Unspecified asthma, uncomplicated; F31.9 Bipolar disorder, unspecified; Z59.0 Homelessness; Z88.1 Allergy status to other antibiotic agents; Z88.2 Allergy status to sulfonamides; F17.210 Nicotine dependence, cigarettes, uncomplicated
CPT/HCPCS: 99284; Q0163; A4663

== ENCOUNTER 2020-06-02 08:29 | Emergency (ER) | payer MEDICAID ==
[~2020-06-02] VITALS: Ht 180.3 cm; Wt 68.0 kg
[2020-06-02] MEDS ORDERED: diphenhydrAMINE 25 MG CAP PO ONE ×2 (09:00→09:09)
[2020-06-02] MEDS ORDERED: IBUPROFEN 600 MG TABLET PO ONE (09:00)
[2020-06-02] MEDS ORDERED: METOCLOPRAMIDE HCL 10 MG TABLET PO ONE (09:00)
[2020-06-02] MEDS ORDERED: METO-295 PO (09:06)
[2020-06-02] MEDS ORDERED: METOCLOPRAMIDE HCL 10 MG TABLET ONE (09:09)
[2020-06-02] MEDS ORDERED: IBUPROFEN 600 MG TABLET ONE (09:09)
[2020-06-02 09:20] VITALS: BP 155/90
== END 2020-06-02 09:21 | disposition home or self-care (01) ==
LOC: ER 08:29
DX: G89.29 Other chronic pain (principal); R51.9 Headache, unspecified; M25.532 Pain in left wrist; Z88.1 Allergy status to other antibiotic agents; Z88.2 Allergy status to sulfonamides; Z88.8 Allergy status to other drugs, medicaments and biological substances; Z76.5 Malingerer [conscious simulation]; F11.10 Opioid abuse, uncomplicated; J45.909 Unspecified asthma, uncomplicated; Z86.59 Personal history of other mental and behavioral disorders
CPT/HCPCS: 99284; Q0163; A4663; J8597

== ENCOUNTER 2020-06-04 01:45 | Emergency (ER) | payer MEDICAID ==
[~2020-06-04] VITALS: Ht 175.3 cm; Wt 70.3 kg
[~2020-06-04 01:45] MED LIST changes: +METO-295 PO
--- NOTE | 2020-06-04 02:55 | NUR ---
Patient arrived at the ER with left wrist pain and foot pain. Patient AAOX4. In no acute distress.
--- NOTE | 2020-06-04 03:02 | NUR ---
Dr. Singh at bedside for MSE.
[2020-06-04] MEDS ORDERED: IBUPROFEN 800 MG TABLET PO ONE (03:15)
[2020-06-04 03:32] VITALS: BP 148/96
== END 2020-06-04 03:15 | disposition home or self-care (01) ==
LOC: ER 01:56
DX: M25.532 Pain in left wrist (principal); R51.9 Headache, unspecified; Z76.5 Malingerer [conscious simulation]; G89.29 Other chronic pain; J45.909 Unspecified asthma, uncomplicated; Z88.1 Allergy status to other antibiotic agents; Z88.2 Allergy status to sulfonamides; Z86.59 Personal history of other mental and behavioral disorders; F17.200 Nicotine dependence, unspecified, uncomplicated
CPT/HCPCS: A4663

== ENCOUNTER 2020-06-09 20:59 | Emergency (ER) | payer MEDICAID ==
[~2020-06-09] VITALS: Ht 177.8 cm; Wt 65.8 kg
--- NOTE | 2020-06-09 21:11 | NUR ---
Dr. Peña at bedside for MSE.
[2020-06-09] MEDS ORDERED: KETOROLAC TROMETHAMINE 30 MG INJ IM ONE (21:15)
[2020-06-09] MEDS ORDERED: KETOROLAC TROMETHAMINE 30 MG INJ ONE (21:22)
--- NOTE | 2020-06-09 21:22 | NUR ---
Patient given written and verbal discharge instructions. Patient verbalizes understanding of instructions. Patient is ambulatory with steady gait. Refuses offer of fpc placement. Patient given list of available shelters in surrounding area.
[2020-06-09 21:23] VITALS: BP 159/92
== END 2020-06-09 21:23 | disposition home or self-care (01) ==
LOC: ER 21:00
DX: R51.9 Headache, unspecified (principal); F17.210 Nicotine dependence, cigarettes, uncomplicated; Z88.1 Allergy status to other antibiotic agents; Z88.2 Allergy status to sulfonamides; Z88.8 Allergy status to other drugs, medicaments and biological substances; G89.29 Other chronic pain; J45.909 Unspecified asthma, uncomplicated; Z86.59 Personal history of other mental and behavioral disorders; F11.10 Opioid abuse, uncomplicated; Z59.0 Homelessness
CPT/HCPCS: 96372; 99283; 99406; J1885; A4663

== ENCOUNTER 2020-06-10 16:51 | Emergency (ER) | payer MEDICAID ==
[~2020-06-10] VITALS: Ht 177.8 cm; Wt 65.8 kg
--- NOTE | 2020-06-10 17:13 | NUR ---
Dr Mcgraw at the bedside for MSE.
[2020-06-10] MEDS ORDERED: OXYCODONE/APAP 5-325 MG TABLET PO ONE (17:15)
[2020-06-10] MEDS ORDERED: CLINDAMYCIN HCL 150 MG CAPSULE PO ONE (17:15)
--- NOTE | 2020-06-10 17:16 | NUR ---
Pt left wrist is deformed and per pt, he had a fracture about 60 days ago. Applied pieter wrap to Lt wrist per pt's request.
[2020-06-10 17:32] VITALS: BP 154/77
== END 2020-06-10 17:33 | disposition home or self-care (01) ==
LOC: ER 16:53
DX: S61.402A Unspecified open wound of left hand, initial encounter (principal); L08.9 Local infection of the skin and subcutaneous tissue, unspecified; X58.XXXA Exposure to other specified factors, initial encounter; Y92.89 Other specified places as the place of occurrence of the external cause; Z88.1 Allergy status to other antibiotic agents; Z88.2 Allergy status to sulfonamides; F17.200 Nicotine dependence, unspecified, uncomplicated; J45.909 Unspecified asthma, uncomplicated; G89.29 Other chronic pain; F11.10 Opioid abuse, uncomplicated
CPT/HCPCS: A4663

== ENCOUNTER 2020-06-13 20:01 | Emergency (ER) | payer MEDICAID ==
[~2020-06-13] VITALS: Ht 172.7 cm; Wt 74.8 kg
--- NOTE | 2020-06-13 20:25 | NUR ---
Patient resting in bed, no acute distress noted at this time.
[2020-06-13] MEDS ORDERED: ACETAMINOPHEN ES 500 MG TABLET ONE (20:27)
[2020-06-13] MEDS ORDERED: NAPR-1009 PO (20:29)
[2020-06-13 20:30] VITALS: BP 150/80
[2020-06-13] MEDS ORDERED: ACETAMINOPHEN ES 500 MG TABLET PO ONE (20:30)
--- NOTE | 2020-06-13 20:30 | NUR ---
Patient discharged to home in stable condition. Written and verbal after care instructions given. Patient verbalizes understanding of instructions. Stressed follow up or return to ER for worsening s/s. Patient ambulates with steady gait, given Rx, and left with all belongings.
== END 2020-06-13 20:30 | disposition home or self-care (01) ==
LOC: ER 20:02
DX: G89.21 Chronic pain due to trauma (principal); M89.8X8 Other specified disorders of bone, other site; F17.200 Nicotine dependence, unspecified, uncomplicated; J45.909 Unspecified asthma, uncomplicated; S62.102S Fracture of unspecified carpal bone, left wrist, sequela; X58.XXXS Exposure to other specified factors, sequela; F32.9 Major depressive disorder, single episode, unspecified; F11.10 Opioid abuse, uncomplicated; Z88.1 Allergy status to other antibiotic agents; Z88.2 Allergy status to sulfonamides; R03.0 Elevated blood-pressure reading, without diagnosis of hypertension
CPT/HCPCS: A4663; A9150

== ENCOUNTER 2020-06-17 21:34 | Emergency (ER) | payer MEDICAID ==
[~2020-06-17] VITALS: Ht 180.3 cm; Wt 68.0 kg
[~2020-06-17 21:34] MED LIST changes: +NAPR-1009 PO
--- NOTE | 2020-06-17 21:45 | NUR ---
Patient arrive at the ER with c/o of right shoulder pain.
--- NOTE | 2020-06-17 21:46 | NUR ---
Dr. Bloom at bedside for MSE.
[2020-06-17] MEDS ORDERED: NAPR-1192 PO (21:49)
[2020-06-17 21:59] VITALS: BP 150/90
[2020-06-17] MEDS ORDERED: KETOROLAC TROMETHAMINE 30 MG INJ IM ONE (22:00)
== END 2020-06-17 22:00 | disposition home or self-care (01) ==
LOC: ER 21:35
DX: M25.511 Pain in right shoulder (principal); J45.909 Unspecified asthma, uncomplicated; G89.29 Other chronic pain; Z88.1 Allergy status to other antibiotic agents; Z88.2 Allergy status to sulfonamides; Z88.8 Allergy status to other drugs, medicaments and biological substances; F17.200 Nicotine dependence, unspecified, uncomplicated
CPT/HCPCS: 99282; J1885; A4663

== ENCOUNTER 2020-06-22 01:09 | Emergency (ER) | payer MEDICAID ==
[~2020-06-22] VITALS: Ht 180.3 cm; Wt 68.0 kg
[~2020-06-22 01:09] MED LIST changes: +NAPR-1192 PO
--- NOTE | 2020-06-22 01:15 | NUR ---
Dr. Darnell at bedside for MSE
--- NOTE | 2020-06-22 02:36 | NUR ---
Patient given written and verbal discharge instructions. Patient verbalizes understanding of instructions. Patient is ambulatory with steady gait. Refuses offer of fci placement. Patient given list of available shelters in surrounding area. NAD noted
[2020-06-22 02:41] VITALS: BP 159/92
== END 2020-06-22 02:36 | disposition home or self-care (01) ==
LOC: ER 01:10
DX: J20.9 Acute bronchitis, unspecified (principal); F17.210 Nicotine dependence, cigarettes, uncomplicated; Z20.822 Contact with and (suspected) exposure to COVID-19; J45.909 Unspecified asthma, uncomplicated; G89.29 Other chronic pain; Z88.1 Allergy status to other antibiotic agents; Z88.2 Allergy status to sulfonamides; I51.7 Cardiomegaly
CPT/HCPCS: 71045; 87400; A4663

== ENCOUNTER 2020-06-23 19:57 | Emergency (ER) | payer MEDICAID ==
[~2020-06-23] VITALS: Ht 180.3 cm; Wt 68.0 kg
[2020-06-23] MEDS ORDERED: OXYCODONE/APAP 5-325 MG TABLET PO ONE (20:30)
[2020-06-23] MEDS ORDERED: LORAZEPAM 0.5 MG TABLET PO ONE (20:30)
[2020-06-23] MEDS ORDERED: LORAZEPAM 0.5 MG TABLET ONE (20:54)
[2020-06-23] MEDS ORDERED: OXYCODONE/APAP 5-325 MG TABLET ONE (20:55)
[2020-06-23 21:08] VITALS: BP 140/94
== END 2020-06-23 21:08 | disposition home or self-care (01) ==
LOC: ER 20:01
DX: R51.9 Headache, unspecified (principal); F17.210 Nicotine dependence, cigarettes, uncomplicated; Z59.0 Homelessness; G89.29 Other chronic pain; J45.909 Unspecified asthma, uncomplicated; Z86.69 Personal history of other diseases of the nervous system and sense organs; Z88.1 Allergy status to other antibiotic agents; Z88.2 Allergy status to sulfonamides
CPT/HCPCS: A4663

== ENCOUNTER 2020-06-25 11:47 | Emergency (ER) | payer MEDICAID ==
[~2020-06-25] VITALS: Ht 180.3 cm; Wt 68.0 kg
[2020-06-25] MEDS ORDERED: AZIT500T PO (12:26)
[2020-06-25] MEDS ORDERED: CLON0.2T PO (12:29)
--- NOTE | 2020-06-25 13:24 | NUR ---
PT WAS EVALUATED BY DR CESAR. PT WAS D/C'd TO HOME. D/C INSTRUCTIONS GIVEN TO THE PT BY DR CESAR.
[2020-06-25 13:26] VITALS: BP 132/72
== END 2020-06-25 13:27 | disposition home or self-care (01) ==
LOC: ER 11:47
DX: J18.9 Pneumonia, unspecified organism (principal); J44.0 Chronic obstructive pulmonary disease with (acute) lower respiratory infection; I10 Essential (primary) hypertension; F17.210 Nicotine dependence, cigarettes, uncomplicated; Z59.0 Homelessness; F15.10 Other stimulant abuse, uncomplicated; G89.4 Chronic pain syndrome; F11.90 Opioid use, unspecified, uncomplicated; F90.9 Attention-deficit hyperactivity disorder, unspecified type; F41.9 Anxiety disorder, unspecified
CPT/HCPCS: A4663

== ENCOUNTER 2020-07-06 01:46 | Emergency (ER) | payer MEDICAID ==
[~2020-07-06] VITALS: Ht 180.3 cm; Wt 67.1 kg
[~2020-07-06 01:46] MED LIST changes: +AZIT500T PO; +CLON0.2T PO
[2020-07-06] MEDS ORDERED: diphenhydrAMINE 50 MG CAPSULE PO ONE (02:00)
[2020-07-06] MEDS ORDERED: ACETAMINOPHEN ES 500 MG TABLET PO ONE (02:00)
--- NOTE | 2020-07-06 02:00 | NUR ---
[facility] .
[2020-07-06] MEDS ORDERED: DIPH25CA83 PO (02:06)
[2020-07-06] MEDS ORDERED: ACET-73 PO (02:06)
[2020-07-06] MEDS ORDERED: ACETAMINOPHEN ES 500 MG TABLET ONE (02:12)
[2020-07-06] MEDS ORDERED: diphenhydrAMINE 50 MG CAPSULE ONE (02:12)
[2020-07-06 02:17] VITALS: BP 160/82
--- NOTE | 2020-07-06 02:17 | NUR ---
Patient discharged to home in stable condition. Written and verbal after care instructions given. Patient verbalizes understanding of instructions.PATIENT AMBULATORY WITH STEADY GAIT .V/S WNL ., RX GIVEN WENT WITH ALL BELONGINGS . Stressed follow up or return to ER for worsening s/s.
== END 2020-07-06 02:17 | disposition home or self-care (01) ==
LOC: ER 01:47
DX: M25.532 Pain in left wrist (principal); S62.102S Fracture of unspecified carpal bone, left wrist, sequela; X58.XXXS Exposure to other specified factors, sequela; J34.89 Other specified disorders of nose and nasal sinuses; G89.29 Other chronic pain; Z91.19 Patient's noncompliance with other medical treatment and regimen; J45.909 Unspecified asthma, uncomplicated; Z88.1 Allergy status to other antibiotic agents; Z88.2 Allergy status to sulfonamides; Z59.0 Homelessness; F15.10 Other stimulant abuse, uncomplicated; F17.210 Nicotine dependence, cigarettes, uncomplicated
CPT/HCPCS: A4663; A9150; Q0163

== ENCOUNTER 2020-07-10 21:22 | Emergency (ER) | payer MEDICAID ==
[~2020-07-10] VITALS: Ht 180.3 cm; Wt 68.0 kg
[~2020-07-10 21:22] MED LIST changes: +ACET-73 PO; +DIPH25CA83 PO
--- NOTE | 2020-07-10 22:36 | NUR ---
Patient left without being seen by ER physician. Patient states that he will just come back another time.
== END 2020-07-10 22:38 | disposition left against medical advice (07) ==
LOC: ER 21:22
DX: Z53.21 Procedure and treatment not carried out due to patient leaving prior to being seen by health care provider (principal)

== ENCOUNTER 2020-07-16 06:20 | Emergency (ER) | payer MEDICAID ==
[~2020-07-16] VITALS: Ht 175.3 cm; Wt 65.8 kg
--- NOTE | 2020-07-16 06:35 | NUR ---
MD Medrano in room to do MSE.
--- NOTE | 2020-07-16 07:00 | NUR ---
Hand off report given to ROMEL Gabriel
--- NOTE | 2020-07-16 07:38 | NUR ---
PT WAS D/C'd TO HOME. D/C INSTRUCTIONS GIVEN TO THE PT BY DR THOMPSON.
[2020-07-16 07:44] VITALS: BP 142/88
== END 2020-07-16 07:44 | disposition home or self-care (01) ==
LOC: ER 06:22
DX: R53.1 Weakness (principal); R50.9 Fever, unspecified; Z59.0 Homelessness; G89.29 Other chronic pain; Z88.1 Allergy status to other antibiotic agents; Z88.2 Allergy status to sulfonamides; J45.909 Unspecified asthma, uncomplicated; F11.10 Opioid abuse, uncomplicated; F17.200 Nicotine dependence, unspecified, uncomplicated
CPT/HCPCS: A4663

== ENCOUNTER 2020-07-16 13:01 | Emergency (ER) | payer MEDICAID ==
[~2020-07-16] VITALS: Ht 175.3 cm; Wt 65.8 kg
--- NOTE | 2020-07-16 13:15 | NUR ---
Dr Singh at bedside for MSE.
[2020-07-16] MEDS ORDERED: ACETAMINOPHEN ES 500 MG TABLET PO ONE (13:30)
[2020-07-16 13:33] VITALS: BP 160/95
--- NOTE | 2020-07-16 13:50 | NUR ---
Pt has been cleared for discharge, homeless discharge protocol followed. Refused resources at this time, continued to provide patient with resourced, but he continues to refuse assistance or let us know his destination of choice. Meal provided. VS recorded and stable. Written and verbal after care instructions given. Patient verbalizes understanding of instructions. Stressed follow up with PCP, or return to ER for only worsening s/s. Ambulated out of ED in steady gait.
== END 2020-07-16 13:56 | disposition home or self-care (01) ==
LOC: ER 13:02
DX: I16.0 Hypertensive urgency (principal); R51.9 Headache, unspecified; Z76.5 Malingerer [conscious simulation]; F15.20 Other stimulant dependence, uncomplicated; F11.20 Opioid dependence, uncomplicated; Z59.0 Homelessness; G89.29 Other chronic pain; Z88.1 Allergy status to other antibiotic agents; Z88.2 Allergy status to sulfonamides; F17.200 Nicotine dependence, unspecified, uncomplicated
CPT/HCPCS: A4663; A9150

== ENCOUNTER 2020-07-27 07:00 | Emergency (ER) | payer MEDICAID ==
[~2020-07-27] VITALS: Ht 177.8 cm; Wt 63.5 kg
--- NOTE | 2020-07-27 07:19 | NUR ---
MD@bedside, medical screening exam in progress
[2020-07-27] MEDS ORDERED: KETOROLAC TROMETHAMINE 60 MG INJ IM ONE ×2 (07:30→07:32)
[2020-07-27] MEDS ORDERED: diphenhydrAMINE 50 MG/1 ML VIAL IM ONE (07:30)
[2020-07-27] MEDS ORDERED: METOCLOPRAMIDE HCL 10 MG/2 ML VIAL IM ONE (07:30)
[2020-07-27] MEDS ORDERED: METOCLOPRAMIDE HCL 10 MG/2 ML VIAL ONE (07:32)
[2020-07-27] MEDS ORDERED: diphenhydrAMINE 50 MG/1 ML VIAL ONE (07:32)
--- NOTE | 2020-07-27 08:00 | NUR ---
Patient is resting comfortably on gurney with eyes closed, NAD, denies pains@the moment.
--- NOTE | 2020-07-27 08:34 | NUR ---
[place] & packed snacks were given to patient. Patient discharged to home in stable condition with brisk steady gait. Written and verbal after care instructions given. Patient verbalizes understanding of instructions. Stressed follow up or return to ER for worsening s/s.
== END 2020-07-27 08:36 | disposition home or self-care (01) ==
LOC: ER 07:01
DX: R51.9 Headache, unspecified (principal); F17.210 Nicotine dependence, cigarettes, uncomplicated; Z59.0 Homelessness; Z88.1 Allergy status to other antibiotic agents; Z88.2 Allergy status to sulfonamides; G89.29 Other chronic pain; J45.909 Unspecified asthma, uncomplicated; Z86.69 Personal history of other diseases of the nervous system and sense organs
CPT/HCPCS: 96372 ×2; 99284; 99406; J1200; J1885; J2765; A4663

== ENCOUNTER 2020-08-01 22:19 | Inpatient (IN) | payer MEDICAID ==
[~2020-08-01] VITALS: Ht 180.3 cm; Wt 68.0 kg
--- NOTE | 2020-08-01 23:18 | NUR ---
treatment technician in room to draw labs from patient.
[2020-08-01 23:30] LABS: BASOPHILS # (AUTO) 0.1 K/uL (0.0-8.0); BASOPHILS % (AUTO) 0.9 % (0.0-2.0); EOSINOPHILS # (AUTO) 0.2 K/uL (0.0-0.7); HEMATOCRIT 22.2 % (36.7-47.1); LYMPHOCYTES # (AUTO) 1.7 K/uL (20.0-40.0); LYMPHOCYTES % (AUTO) 19.7 % (20.5-51.5); MEAN CORPUSCULAR HGB CONC 32 g/dL (32.5-36.3); MEAN CORPUSCULAR VOLUME 75.1 fL (73.0-96.2); MONOCYTES # (AUTO) 1.1 K/uL (2.0-10.0); MONOCYTES % (AUTO) 11.9 % (0.0-11.0); NEUTROPHILS # (AUTO) 5.8 K/uL (1.8-8.9); NEUTROPHILS % (AUTO) 65.5 % (38.5-71.5); PLATELET COUNT (AUTO) 332 K/uL (152-348); RED BLOOD CELL COUNT(AUTO) 2.95 MIL/uL (4.06-5.63); WHITE BLOOD COUNT (AUTO) 8.9 K/uL (3.6-10.2)
[2020-08-01 23:35] LABS: CREATININE 1.8 mg/dL (0.6-1.3); POTASSIUM 4.1 mmol/L (3.5-5.1)
[2020-08-01 23:41] LABS: BILIRUBIN,DIRECT 0.1 mg/dL (0.0-0.2); BILIRUBIN,TOTAL 0.2 mg/dL (0.2-1.0); TOTAL PROTEIN, SERUM 6.5 g/dL (6.4-8.2)
[2020-08-01 23:42] LABS: HEMOGLOBIN 7.1 g/dL (12.5-16.3)
[2020-08-01 23:44] LABS: *BILIRUBIN,URIN NEGATIVE (NEGATIVE); *BLOOD, URINE NEGATIVE (NEGATIVE); *CLARITY,URINE CLEAR (CLEAR); *COLOR,URINE YELLOW (YELLOW); *KETONES,URINE NEGATIVE (NEGATIVE); *UROBILINOGEN,URINE 0.2 E.U./dl (NORMAL); LEUKOCYTE ESTERASE ,URINE NEGATIVE (NEGATIVE); NITRITE, URINE NEGATIVE (NEGATIVE); PH,URINE 6.5 (5.0-8.0); UGLUCOSE NEGATIVE (NEGATIVE)
[2020-08-02] VITALS (8 sets, daily range): BP systolic 146–168; BP diastolic 82–109
--- NOTE | 2020-08-02 | NUR ---
Patient is resting in room, eyes closed. No acute distress is noted at this time.
--- NOTE | 2020-08-02 01:30 | NUR ---
Patient refused to get MRSA swab.
[2020-08-02 01:46] LABS: *OCCULT BLOOD STOOL NEGATIVE (NEGATIVE)
[2020-08-02] MEDS ORDERED: MORPHINE SULFATE 2 MG/1 ML DISP.SYRIN IV ONE (02:00)
--- NOTE | 2020-08-02 02:20 | NUR ---
Patient is sleeping, eyes closed, no acute distress noted.
--- NOTE | 2020-08-02 02:40 | NUR ---
MD Siddiqui called back; call transferred to MD Darnell
--- NOTE | 2020-08-02 02:45 | NUR ---
Lab called for repeat H/H per MD Darnell.
--- NOTE | 2020-08-02 02:55 | NUR ---
chief technician called with repeat H/H results back. Hgb is 6.9. MD Darnell notified.
[2020-08-02 03:04] LABS: HEMATOCRIT 21.4 % (36.7-47.1)
[2020-08-02 03:06] LABS: HEMOGLOBIN 6.9 g/dL (12.5-16.3)
--- NOTE | 2020-08-02 03:19 | NUR ---
Note duane in ED - 08/02/20 at 0423 by THONG Pt. admitted to med/surg 312, under care of Dr. Siddiqui. Belongs List completed.
--- NOTE | 2020-08-02 03:40 | NUR ---
MD Siddiqui called back. Call transferred to MD Darnell. Patient will be admitted per MD Siddiqui.
[2020-08-02] MEDS ORDERED: MAGNESIUM HYDROXIDE 30 ML LIQUID UDC PO PRN (04:00)
[2020-08-02] MEDS ORDERED: HYDROCODONE/APAP 5-325MG TABLET PO PRN (04:00)
[2020-08-02] MEDS ORDERED: ACETAMINOPHEN 325 MG TABLET PO PRN (04:00)
[2020-08-02] MEDS ORDERED: ONDANSETRON 4 MG/2 ML VIAL IV PRN (04:00)
[2020-08-02] MEDS ORDERED: Z GUARD REMEDY PASTE 57 GM TUBE TOP PRN (04:00)
--- NOTE | 2020-08-02 04:01 | NUR ---
Report given to ROMEL Waggoner
[2020-08-02] MEDS ORDERED: OXYCODONE/APAP 5-325 MG TABLET PO PRN (04:18)
--- NOTE | 2020-08-02 04:20 | NUR ---
Admitted a 50 years old male with Dx of Acute Anemia. Patient AAOx4. In no acute distress. Denies any SOB. Complain of generalized pain /10. Will provide pain medication per order. Patient signed consent for blood transfusion. ER MD Dr. Darnell signed consent as well. Patient IV site on left FA intact and patent. Routine admission care done. Plan of care initiated. Safety measure initiated and call cramer within reached. Continue to monitor.
--- NOTE | 2020-08-02 04:20 | NUR ---
Pt. admitted to med/surg 307, under care of Dr. Siddiqui. Belongs List completed.
[2020-08-02] MEDS ORDERED: OXYCODONE HCL 5 MG TABLET PO PRN (04:30)
--- NOTE | 2020-08-02 05:22 | NUR ---
Blood transfusion of 1 UNIT PRBC started. Verified with another ROMEL Rey. Monitor for any adverse reaction.
[2020-08-02 06:36] LABS: BASOPHILS # (AUTO) 0.1 K/uL (0.0-8.0); BASOPHILS % (AUTO) 0.9 % (0.0-2.0); EOSINOPHILS # (AUTO) 0.3 K/uL (0.0-0.7); EOSINOPHILS % (AUTO) 3.6 % (0.0-7.0); HEMATOCRIT 23.6 % (36.7-47.1); HEMOGLOBIN 7.5 g/dL (12.5-16.3); LYMPHOCYTES # (AUTO) 1.6 K/uL (20.0-40.0); LYMPHOCYTES % (AUTO) 20.3 % (20.5-51.5); MEAN CORPUSCULAR HEMOGLOBIN 24.1 uug (23.8-33.4); MEAN CORPUSCULAR HGB CONC 32 g/dL (32.5-36.3); MEAN CORPUSCULAR VOLUME 75.9 fL (73.0-96.2); MONOCYTES # (AUTO) 0.9 K/uL (2.0-10.0); MONOCYTES % (AUTO) 11.9 % (0.0-11.0); NEUTROPHILS % (AUTO) 63.3 % (38.5-71.5); PLATELET COUNT (AUTO) 339 K/uL (152-348); RED BLOOD CELL COUNT(AUTO) 3.11 MIL/uL (4.06-5.63); WHITE BLOOD COUNT (AUTO) 7.9 K/uL (3.6-10.2)
--- NOTE | 2020-08-02 06:45 | NUR ---
Patient asleep at this time. Easily arouse to verbal stimuli. In no apparent distress. No signs or symptoms of SOB. No signs of pain at this time. Blood transfusion on going. No adverse effect noted from blood transfusion noted at this time. Needs attended to and met. Safety measure maintained.
[2020-08-02 06:46] LABS: CREATININE 1.6 mg/dL (0.6-1.3); PHOSPHOROUS 3.1 mg/dL (2.5-4.9); POTASSIUM 3.5 mmol/L (3.5-5.1)
[2020-08-02 12:00] LABS: IRON, SERUM 9 ug/dL (50-175)
[2020-08-02] MEDS ORDERED: IV LACTATED RINGERS SOLUTION 1,000 ML IV PRN (12:00)
[2020-08-02 12:13] LABS: FERRITIN 11 ng/mL (26-388)
[2020-08-02] MEDS ORDERED: SOD FERRIC GLUC COMPLX/SUCROSE 125 MG in IV NORMAL SALINE 100 ML IV SCH (14:00)
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
--- NOTE | 2020-08-02 15:06 | NUR ---
SW received an SS consultation at 1:00pm. Reason for consultation is substance abuse. SW arrived to the med-surg unit at 2:10pm in order to meet with the patient. Patient's nurse Edna informed this SW that patient had just eloped from the hospital. SW unable to meet with the patient. No further SS interventions needed at this time.
[2020-08-03 06:06] LABS: HEPATITIS A AB, IgM Negative (Negative); HEPATITIS B SURFACE AB Non Reactive (.); HEPATITIS B SURFACE AG Negative (Negative)
[2020-08-03] MEDS ORDERED: PANTOPRAZOLE SODIUM 40 MG TABLET.DR PO SCH (07:00)
== END 2020-08-02 14:15 | disposition left against medical advice (07) | DRG 663 ==
LOC: ER 22:22 → MEDSURG3 08-02 04:06
PROVIDERS: ADMIT Nurse Practitioner Family; ATTEND Nurse Practitioner Family
PROC: 30233N1 Transfusion of Nonautologous Red Blood Cells into Peripheral Vein, Percutaneous Approach (ICD-10-PCS; principal; 2020-08-02)
DX: D50.9 Iron deficiency anemia, unspecified (principal); N17.0 Acute kidney failure with tubular necrosis; E44.1 Mild protein-calorie malnutrition; E88.09 Other disorders of plasma-protein metabolism, not elsewhere classified; F11.10 Opioid abuse, uncomplicated; F17.210 Nicotine dependence, cigarettes, uncomplicated; Z20.822 Contact with and (suspected) exposure to COVID-19; G89.4 Chronic pain syndrome; I10 Essential (primary) hypertension; J45.909 Unspecified asthma, uncomplicated; Z59.0 Homelessness; R74.01 Elevation of levels of liver transaminase levels; Z79.1 Long term (current) use of non-steroidal anti-inflammatories (NSAID); Z68.20 Body mass index [BMI] 20.0-20.9, adult
CPT/HCPCS: 36415; 83550; 83735; 84100; 85018; 85025; 86705; 86706; 86709; 86803; 86850; 86900; 86901; 86920; 87340; 93005; A4663; G0378; J2916; J3490; P9016-BL; P9021

== ENCOUNTER 2020-08-03 23:41 | Inpatient (IN) | payer MEDICAID ==
[~2020-08-03] VITALS: Ht 180.3 cm; Wt 69.1 kg
[~2020-08-03 23:41] MED LIST changes: -ACET-73 PO; -AZIT500T PO; -CLIN300C12 PO; -CLON0.2T PO; -DIPH25CA83 PO; -DIPH50CA37 GT; -METO-295 PO; -NAPR-1009 PO; -NAPR-1192 PO
[2020-08-04 00:46] LABS: BASOPHILS # (AUTO) 0.1 K/uL (0.0-8.0); BASOPHILS % (AUTO) 0.8 % (0.0-2.0); EOSINOPHILS # (AUTO) 0.4 K/uL (0.0-0.7); EOSINOPHILS % (AUTO) 3.4 % (0.0-7.0); HEMATOCRIT 25.5 % (36.7-47.1); LYMPHOCYTES # (AUTO) 1.6 K/uL (20.0-40.0); LYMPHOCYTES % (AUTO) 14.1 % (20.5-51.5); MEAN CORPUSCULAR HEMOGLOBIN 23.1 uug (23.8-33.4); MEAN CORPUSCULAR HGB CONC 31 g/dL (32.5-36.3); MEAN CORPUSCULAR VOLUME 73.9 fL (73.0-96.2); MONOCYTES # (AUTO) 1.1 K/uL (2.0-10.0); MONOCYTES % (AUTO) 10.4 % (0.0-11.0); NEUTROPHILS # (AUTO) 7.9 K/uL (1.8-8.9); NEUTROPHILS % (AUTO) 71.3 % (38.5-71.5); PLATELET COUNT (AUTO) 351 K/uL (152-348); RED BLOOD CELL COUNT(AUTO) 3.46 MIL/uL (4.06-5.63)
[2020-08-04 01:00] LABS: CREATININE 1.6 mg/dL (0.6-1.3); POTASSIUM 4.3 mmol/L (3.5-5.1)
--- NOTE | 2020-08-04 01:12 | NUR ---
Called [facility] to page Dr. Siddiqui.
[2020-08-04 01:17] LABS: BILIRUBIN,DIRECT 0.2 mg/dL (0.0-0.2); BILIRUBIN,TOTAL 0.2 mg/dL (0.2-1.0); TOTAL PROTEIN, SERUM 6.1 g/dL (6.4-8.2)
--- NOTE | 2020-08-04 01:22 | NUR ---
Dr. Lewis on panel call with Dr. Siddiqui.
[2020-08-04] MEDS ORDERED: Z GUARD REMEDY PASTE 57 GM TUBE TOP PRN (01:30)
[2020-08-04] MEDS ORDERED: MAGNESIUM HYDROXIDE 30 ML LIQUID UDC PO PRN (01:30)
[2020-08-04] MEDS ORDERED: ACETAMINOPHEN 325 MG TABLET PO PRN (01:30)
[2020-08-04] MEDS ORDERED: HYDROCODONE/APAP 5-325MG TABLET PO PRN (01:30)
[2020-08-04] MEDS ORDERED: ONDANSETRON 4 MG/2 ML VIAL IV PRN (01:30)
[2020-08-04] MEDS ORDERED: IV NS 1000 ML 1,000 ML IV ONE (01:30)
--- NOTE | 2020-08-04 02:13 | NUR ---
Received report from Marylu URENA. #20angio LFA SL dressing dry intack.bank secrecy act officer bedside completed Belongings list. Copy to patient.
--- NOTE | 2020-08-04 02:25 | NUR ---
Received room 316 call [phone] RN not avaible ,try at 02:30.
--- NOTE | 2020-08-04 02:41 | NUR ---
Report to Pallavi URENA admit rm 316 NSTEMI. Patient able to make needs known.All belongings with patient. #20 angio LFA dry,intact.
--- NOTE | 2020-08-04 02:55 | NUR ---
Admitted a 50 years old male patient with Dx of NSTEMI. Patient AAOX4. In no apparent distress. Denies any SOB. With chronic generalized pain although patient stating his pain is 6/10, he appears comfortable. IV site on left FA intact and patent. Will start IVF per order. NSR on tele at 96/min. Routine admission care done. Plan of care initiated. Safety measure initiated and call cramer within reached.
[2020-08-04 03:06] VITALS: BP 154/100
[2020-08-04 05:44] VITALS: BP 160/115
--- NOTE | 2020-08-04 05:46 | NUR ---
Patient asleep in bed at this time. Did not complain of any pain or SOB. IV on left FA intact and IVF infusing. NSR on tele at 75/min. Denies any chest pain. Needs attended to and met. Safety measure maintained and call cramer within reached.
--- NOTE | 2020-08-04 07:45 | NUR ---
PATIENT COMPLAINS OF PAIN DURING MORNING ROUNDS. GIVEN PRN NORCO ORDERED. WILL CONTINUE TO MONITOR.
--- NOTE | 2020-08-04 08:16 | NUR ---
PATIENT COMPLAINS OF NEW ONSET RIGHT EYE PAIN. NO REDNESS IN OR AROUND EYE NOTED. NO DISCHARGE OR SWELLING NOTED. WILL NOTIFY MD.
--- NOTE | 2020-08-04 08:50 | NUR ---
ECHOCARDIOGRAM LINEN ROOM HOUSEPERSON AT BEDSIDE.
--- NOTE | 2020-08-04 09:30 | NUR ---
CRITICAL LAB REPORTED - TROPONIN TRENDING UP 0.699. STRAINER MILL OPERATOR MOREL NOTIFIED.
[2020-08-04] MEDS: OXYCODONE/APAP 5-325 MG TABLET PO PRN ×3 (11:43→23:00)
[2020-08-04 12:00] VITALS: BP 161/97
[2020-08-04] MEDS ORDERED: SOD FERRIC GLUC COMPLX/SUCROSE 125 MG in IV NORMAL SALINE 100 ML IV SCH (14:00)
[2020-08-04 15:36] LABS: *AMPHETAMINE, URINE POSITIVE (NEGATIVE); *CANNABINOID, URINE POSITIVE (NEGATIVE); *COCCAINE, URINE POSITIVE (NEGATIVE); *OPIATE, URINE POSITIVE (NEGATIVE); *PHENCYCLIDINE SCREEN,URINE NEGATIVE (NEGATIVE)
[2020-08-04 16:00] VITALS: BP 170/116
--- NOTE | 2020-08-04 16:22 | NUR ---
PATIENT REQUESTED TO HAVE A SHOWER. PATIENT ON CONTINUOUS TELEMETRY MONITORING. PATIENT INSISTED ON TAKING THE TELEMETRY OFF TO "WASH HIMSELF GOOD." WILL MONITOR CLOSELY WHILE IN THE SHOWER. NO S/S OF DISTRESS NOTED. DENIES CP OR SOB.
--- NOTE | 2020-08-04 16:35 | NUR ---
NOTIFIED DR. BOWER - RUBY ON RAILS DEVELOPER, ABOUT THE TROPONIN LEVELS AND ELEVATED BP. AWAITING DOCTOR RESPONSE FOR NEW ORDERS. PATIENT REMAINS ASYMPTOMATIC. DENIES CHEST PAIN OR SOB AT THIS TIME. Addendum: 08/04/20 at 1700 by FADI OSULLIVAN RN DR. BOWER RESPONDED AND WILL TRY TO COME TO SEE PATIENT TODAY. IF NOT, MANAGE PATIENT OVER THE PHONE UNTIL DR. HOLLINGSWORTH COMES TOMORROW. NO NEW ORDER RECEIVED AT THIS TIME. PATIENT REMAINS ASYMPTOMATIC. NO S/S OF DISTRESS OR SOB. DENIES CHEST PAIN. WILL CONTINUE TO MONITOR.
[2020-08-04] MEDS ORDERED: hydrALAZINE HCL 20 MG/1 ML VIAL IV PRN (17:00)
--- NOTE | 2020-08-04 17:13 | NUR ---
MEDIA RELATIONS MANAGER NOTIFIED RN OF ELEVATED BP - 170/116. MEDTRONICS TECHNICIAN MOREL NOTIFIED AND RECEIVED NEW ORDER OF HYDRALAZINE PRN. GAVE PATIENT HYDRALAZINE ORDERED. WILL REASSESS BLOOD PRESSURE IN 30 MINS.
--- NOTE | 2020-08-04 17:55 | NUR ---
BLOOD PRESSURE REASSESSED AFTER PRN HYDRALAZINE ADMINISTRATION - 144/90. PATIENT REMAINS ASYMPTOMATIC. DENIES CHEST PAIN OR SOB. NO S/S OF DISTRESS NOTED. SAFETY PRECAUTIONS IN PLACE. WILL CONTINUE TO MONITOR.
[2020-08-04] MEDS ORDERED: IV NS 1000 ML 1,000 ML IV PRN (19:15)
--- NOTE | 2020-08-04 19:18 | NUR ---
RECEIVED A CALL FROM DR. BOWER, CARDIOLOGY. DOCTOR AWARE OF TROPONIN LEVELS AND STATES DR. WICK WILL FOLLOW UP TOMORROW. WILL ENDORSE TO NEXT SHIFT.
--- NOTE | 2020-08-04 19:30 | NUR ---
RECEIVED PT AWAKE,ALERT AND ORIENTEDX4. PT IN NO ACUTE DISTRESS. IV INTACT. SAFETY AND COMFORT PROVIDED. WILL CONTINUE TO MONITOR.
[2020-08-04 20:17] VITALS: BP 144/79
[2020-08-04] MEDS: ASPIRIN 325 MG TABLET PO SCH (20:26)
[2020-08-04] MEDS ORDERED: MELATONIN 3 MG TABLET PO SCH (21:45)
[2020-08-05 04:00] VITALS: BP 154/89
[2020-08-05] MEDS: OXYCODONE/APAP 5-325 MG TABLET PO PRN (05:31)
--- NOTE | 2020-08-05 06:16 | NUR ---
PT SLEPT INTERMITTENTLY. PRESCRIBED MEDICATION GIVEN AND PT TOLERATED IT WELL. IV INTACT. PT GIVEN PERCOCET PRN AT 2300H and 0531h FOR PAIN AND TYLENOL PRN AT 2047H. PT TOLERATED IT WELL. SAFETY AND COMFORT PROVIDED. ALL NEEDS ARE MET. WILL ENDORSE TO INCOMING NURSE FOR CONTINUITY OF CARE.
[2020-08-05 06:57] LABS: *CREATININE,URINE 18.2 mg/dL (30-125); *URINE TOTAL PROTEIN RANDOM 13.6 mg/dL (<150/24HR)
[2020-08-05] MEDS ORDERED: PANTOPRAZOLE SODIUM 40 MG TABLET.DR PO SCH (07:00)
[2020-08-05 07:15] LABS: BASOPHILS # (AUTO) 0.1 K/uL (0.0-8.0); EOSINOPHILS # (AUTO) 0.5 K/uL (0.0-0.7); EOSINOPHILS % (AUTO) 4.2 % (0.0-7.0); LYMPHOCYTES # (AUTO) 1.6 K/uL (20.0-40.0); MEAN CORPUSCULAR HEMOGLOBIN 23.1 uug (23.8-33.4); MEAN CORPUSCULAR HGB CONC 31 g/dL (32.5-36.3); MEAN CORPUSCULAR VOLUME 73.5 fL (73.0-96.2); MONOCYTES % (AUTO) 8.8 % (0.0-11.0); NEUTROPHILS # (AUTO) 7.7 K/uL (1.8-8.9); PLATELET COUNT (AUTO) 434 K/uL (152-348); RED BLOOD CELL COUNT(AUTO) 4.32 MIL/uL (4.06-5.63); WHITE BLOOD COUNT (AUTO) 10.8 K/uL (3.6-10.2)
[2020-08-05 07:22] LABS: BILIRUBIN,TOTAL 0.2 mg/dL (0.2-1.0); CREATININE 1.5 mg/dL (0.6-1.3); MAGNESIUM 1.9 mg/dL (1.8-2.4); PHOSPHOROUS 3.2 mg/dL (2.5-4.9); POTASSIUM 4.1 mmol/L (3.5-5.1); TOTAL PROTEIN, SERUM 6.2 g/dL (6.4-8.2)
[2020-08-05 07:28] LABS: HEMATOCRIT 31.8 % (36.7-47.1)
[2020-08-05] MEDS: ASPIRIN 325 MG TABLET PO SCH (09:00)
[2020-08-05 09:38] LABS: EOSINOPHILS % (MANUAL) 4 % (0-8); LYMPHOCYTES % (MANUAL) 15 % (20-40); MONOCYTES % (MANUAL) 6 % (2-10); NEUTROPHILS % (MANUAL) 75 % (42-75)
--- NOTE | 2020-08-05 11:45 | NUR ---
Late entry due to safety and patient care needs. At 0845, patient found in [facility] yelling for his medication. Says "I need my medication I have a headache. I don't know why I can't have more tylenol right now. I am leaving this hospital and going to [place]. I need my Advil. I will take the bus." Patient offered provider visit, tylenol and calming measures as per request. Patient refused treatment. Request to sign out against medical advice and have intravenous site removed. An intact 20 gauge intravenous catheter tip was discontinued from right arm. Patient identification band removed. Patient advil collected from pharmacy and sent with patient. Walked with ambulatory patient to the front of the facility. Patient has a stable gait. Security team accompanied patient and specification writer. Toby Schwartz RN
--- NOTE | 2020-08-05 11:57 | NUR ---
Tankage Supervisor consultation received this morning. At 11:30am, this SW attempted to meet with the patient, but was informed by charge master coordinator Rohoni that patient left AMA this morning. No further SS interventions needed at this time.
[2020-08-06 09:06] LABS: ALPHA-1-GLOBULIN 0.2 g/dL (0.0-0.4); ALPHA-2-GLOBULIN 0.9 g/dL (0.4-1.0); BETA GLOBULIN 1.1 g/dL (0.7-1.3); GAMMA GLOBULIN 0.8 g/dL (0.4-1.8); GLOBULIN, TOTAL 2.9 g/dL (2.2-3.9); M-SPIKE Not Observed g/dL (Not Observed)
== END 2020-08-05 08:45 | disposition left against medical advice (07) | DRG 812 ==
LOC: ER 23:42 → TELE3 08-04 02:54
PROVIDERS: ADMIT Nurse Practitioner Family; ATTEND Nurse Practitioner Family
DX: T43.621A Poisoning by amphetamines, accidental (unintentional), initial encounter (principal); I21.4 Non-ST elevation (NSTEMI) myocardial infarction; N17.0 Acute kidney failure with tubular necrosis; E44.1 Mild protein-calorie malnutrition; E88.09 Other disorders of plasma-protein metabolism, not elsewhere classified; D50.9 Iron deficiency anemia, unspecified; F17.210 Nicotine dependence, cigarettes, uncomplicated; G89.4 Chronic pain syndrome; I10 Essential (primary) hypertension; Z88.0 Allergy status to penicillin; Z79.1 Long term (current) use of non-steroidal anti-inflammatories (NSAID); Z71.6 Tobacco abuse counseling; Y92.89 Other specified places as the place of occurrence of the external cause; Z20.822 Contact with and (suspected) exposure to COVID-19; J45.909 Unspecified asthma, uncomplicated; Z59.0 Homelessness; F19.10 Other psychoactive substance abuse, uncomplicated
CPT/HCPCS: 36415; 70030-TC; 71045; 83735; 83970; 84100; 84155; 84156; 84165; 84300; 85025; 85730; 93005; 93307; A4663; G0378; J0360; J2916; J3490

== ENCOUNTER 2020-08-12 23:22 | Emergency (ER) | payer SELFPAY ==
--- NOTE | 2020-08-13 | NUR ---
Patient was called to be triaged but stated "I changed my mind. I don't want to be seen anymore." PATIENT WAS NOT SEEN BY ERMD OR TRIAGED.
== END 2020-08-13 00:15 | disposition left against medical advice (07) ==
LOC: ER 23:26
DX: Z53.21 Procedure and treatment not carried out due to patient leaving prior to being seen by health care provider (principal)

== ENCOUNTER 2020-08-22 13:21 | Emergency (ER) | payer MEDICAID ==
[~2020-08-22] VITALS: Ht 180.3 cm; Wt 68.0 kg
[2020-08-22] MEDS ORDERED: CLON0.1T PO (13:59)
[2020-08-22] MEDS ORDERED: SUMA50TA PO (13:59)
[2020-08-22 14:14] VITALS: BP 158/100
== END 2020-08-22 14:15 | disposition home or self-care (01) ==
LOC: ER 13:22
DX: I10 Essential (primary) hypertension (principal); Z76.0 Encounter for issue of repeat prescription; J45.909 Unspecified asthma, uncomplicated; Z59.0 Homelessness; Z88.1 Allergy status to other antibiotic agents; Z88.2 Allergy status to sulfonamides; G43.909 Migraine, unspecified, not intractable, without status migrainosus
CPT/HCPCS: A4663

== ENCOUNTER 2020-09-10 20:47 | Emergency (ER) | payer SELFPAY ==
[~2020-09-10 20:47] MED LIST changes: +CLON0.1T PO; +SUMA50TA PO
--- NOTE | 2020-09-10 21:15 | NUR ---
Patient left without being seen TRIAGED OR SEEN BY ERMD.
== END 2020-09-10 21:15 | disposition left against medical advice (07) ==
LOC: ER 20:50
DX: Z53.21 Procedure and treatment not carried out due to patient leaving prior to being seen by health care provider (principal)

== ENCOUNTER 2020-09-11 23:58 | Emergency (ER) | payer SELFPAY ==
--- NOTE | 2020-09-12 00:10 | NUR ---
PATIENT STATES "I CHANGED MY MIND. I DON'T WANT TO BE SEEN ANYMORE." PATIENT WAS NOT TRAIGED OR SEEN BY ERMD.
== END 2020-09-12 00:15 | disposition left against medical advice (07) ==
LOC: ER 09-12 00:04
DX: Z53.21 Procedure and treatment not carried out due to patient leaving prior to being seen by health care provider (principal)

== ENCOUNTER 2020-10-05 00:53 | Emergency (ER) | payer MEDICAID ==
[~2020-10-05] VITALS: Ht 180.3 cm; Wt 67.1 kg
[2020-10-05] MEDS ORDERED: KETOROLAC TROMETHAMINE 60 MG INJ IM ONE ×2 (01:00→01:09)
--- NOTE | 2020-10-05 01:00 | NUR ---
Pt ambulated to ER with c/o migraine and left wrist pain. A/O x4, no SOB or labored breathing. afebrile. No c/o chest pain/pressure. No edema on extremities. No c/o GI/ distress.
--- NOTE | 2020-10-05 01:02 | NUR ---
Dr. Darnell at bedside MSE in progress.
--- NOTE | 2020-10-05 01:08 | NUR ---
Xray at bedside.
[2020-10-05] MEDS ORDERED: ACET-2154 PO (01:30)
--- NOTE | 2020-10-05 01:35 | NUR ---
Patient discharged to home in stable condition. A/O x4, no SOB or labored breathing, afebrile. no c/o pain/discomfort. Pt states he is not homeless. Written and verbal after care instructions given. Patient verbalizes understanding of instructions. Stressed follow up or return to ER for worsening s/s. Steady gait.
[2020-10-05 01:36] VITALS: BP 148/90
== END 2020-10-05 01:37 | disposition home or self-care (01) ==
LOC: ER 00:54
DX: M25.532 Pain in left wrist (principal); F17.210 Nicotine dependence, cigarettes, uncomplicated; M21.932 Unspecified acquired deformity of left forearm; S52.502S Unspecified fracture of the lower end of left radius, sequela; X58.XXXS Exposure to other specified factors, sequela; F11.10 Opioid abuse, uncomplicated
CPT/HCPCS: 73110; 96372; 99283; 99406; J1885; A4663

== ENCOUNTER 2020-10-22 03:48 | Emergency (ER) | payer SELFPAY ==
[~2020-10-22 03:48] MED LIST changes: +ACET-2154 PO
--- NOTE | 2020-10-22 04:00 | NUR ---
Patient states "I changed my mond. I don't want to be seen anymore." Patient left without being seen by ERMD or triage.
== END 2020-10-22 04:19 | disposition left against medical advice (07) ==
LOC: ER 03:51
DX: Z53.21 Procedure and treatment not carried out due to patient leaving prior to being seen by health care provider (principal)

== ENCOUNTER 2020-11-25 05:04 | Emergency (ER) | payer MEDICAID ==
[~2020-11-25] VITALS: Ht 180.3 cm; Wt 65.8 kg
--- NOTE | 2020-11-25 05:08 | NUR ---
Pt ambulated to ER with steady gait c/o abdominal pain. No SOB or labored breathing, afebrile. Denies CP/pressure. No n/v/d. A/O x3.
--- NOTE | 2020-11-25 05:09 | NUR ---
Dr. Bearden at bedside, MSE in progress.
[2020-11-25] MEDS ORDERED: IBUPROFEN 200 MG TABLET PO ONE (05:15)
[2020-11-25] MEDS ORDERED: GABAPENTIN 300 MG CAPSULE PO ONE (05:15)
[2020-11-25] MEDS ORDERED: FAMOTIDINE 20 MG TABLET PO ONE (05:15)
[2020-11-25] MEDS ORDERED: FAMO40TA71 PO (05:15)
[2020-11-25] MEDS ORDERED: FAMOTIDINE 20 MG TABLET ONE (05:23)
[2020-11-25] MEDS ORDERED: IBUPROFEN 600 MG TABLET ONE (05:23)
[2020-11-25] MEDS ORDERED: GABAPENTIN 300 MG CAPSULE ONE (05:24)
--- NOTE | 2020-11-25 05:30 | NUR ---
Patient discharged to home in stable condition. A/O x3, no SOB or labored breathing. Afebrile. Denies any pain/discomfort. Written and verbal after care instructions given. Patient verbalizes understanding of instructions. Stressed follow up or return to ER for worsening s/s. Pt states he is not homeless. Steady gait.
[2020-11-25 05:37] VITALS: BP 152/98
== END 2020-11-25 05:30 | disposition home or self-care (01) ==
LOC: ER 05:07
DX: K21.9 Gastro-esophageal reflux disease without esophagitis (principal); K29.70 Gastritis, unspecified, without bleeding; F17.210 Nicotine dependence, cigarettes, uncomplicated; Z80.3 Family history of malignant neoplasm of breast; Z88.1 Allergy status to other antibiotic agents; Z88.2 Allergy status to sulfonamides; F11.10 Opioid abuse, uncomplicated; J45.909 Unspecified asthma, uncomplicated; G89.29 Other chronic pain
CPT/HCPCS: A4663

== ENCOUNTER 2020-12-20 21:38 | Emergency (ER) | payer SELFPAY ==
[~2020-12-20 21:38] MED LIST changes: +FAMO40TA71 PO
--- NOTE | 2020-12-20 21:45 | NUR ---
Patient was called to be traiged but was not present in waiting room or outside of ER.
--- NOTE | 2020-12-20 22:00 | NUR ---
Patient was called to be traiged but was not present in waiting room or outside of ER.
--- NOTE | 2020-12-20 22:17 | NUR ---
Patient was not traiged or seen by ERMD.
== END 2020-12-20 22:18 | disposition left against medical advice (07) ==
LOC: ER 21:38
DX: Z53.21 Procedure and treatment not carried out due to patient leaving prior to being seen by health care provider (principal)

== ENCOUNTER 2020-12-28 01:57 | Emergency (ER) | payer MEDICAID ==
[~2020-12-28] VITALS: Ht 180.3 cm; Wt 68.0 kg
--- NOTE | 2020-12-28 02:38 | NUR ---
PT AMBULATED TO ER WITH STEADY GAIT C/O BACK PAIN X1 DAY.
--- NOTE | 2020-12-28 02:45 | NUR ---
DR. QURESHI AT BEDSIDE, MSE IN PROGRESS.
[2020-12-28] MEDS ORDERED: OXYCODONE/APAP 5-325 MG TABLET PO ONE (03:00)
[2020-12-28] MEDS ORDERED: KETOROLAC TROMETHAMINE 30 MG INJ IM ONE (03:00)
[2020-12-28] MEDS ORDERED: KETOROLAC TROMETHAMINE 30 MG INJ ONE (03:03)
[2020-12-28] MEDS ORDERED: OXYCODONE/APAP 5-325 MG TABLET ONE (03:03)
--- NOTE | 2020-12-28 03:57 | NUR ---
PT TAKEN DOWN FOR XRAY.
--- NOTE | 2020-12-28 04:07 | NUR ---
PT RETURNED FROM XRAY, STABLE CONDITION.
[2020-12-28] MEDS ORDERED: HYDR-3980 PO (05:03)
--- NOTE | 2020-12-28 05:26 | NUR ---
Patient given written and verbal discharge instructions. A/O x4, denies any pain/discomfort upon discharge. Patient verbalizes understanding of instructions. Patient is ambulatory with steady gait. Refuses offer of [facility] placement. Patient given list of available shelters in surrounding area.
[2020-12-28 05:27] VITALS: BP 129/81
== END 2020-12-28 05:27 | disposition home or self-care (01) ==
LOC: ER 01:58
DX: M54.6 Pain in thoracic spine (principal); F17.210 Nicotine dependence, cigarettes, uncomplicated; Z59.0 Homelessness; Z80.3 Family history of malignant neoplasm of breast; Z88.1 Allergy status to other antibiotic agents; Z88.2 Allergy status to sulfonamides; Z88.8 Allergy status to other drugs, medicaments and biological substances; J45.909 Unspecified asthma, uncomplicated; G89.29 Other chronic pain; R91.8 Other nonspecific abnormal finding of lung field
CPT/HCPCS: 71046; 96372; 99283; J1885; A4663

== ENCOUNTER 2020-12-31 06:43 | Emergency (ER) | payer MEDICAID ==
[~2020-12-31] VITALS: Ht 172.7 cm; Wt 68.0 kg
[~2020-12-31 06:43] MED LIST changes: +HYDR-3980 PO
--- NOTE | 2020-12-31 07:04 | NUR ---
MD Singh at bedside for assessment
--- NOTE | 2020-12-31 07:05 | NUR ---
Patient states he wished to be swabbed for covid becausse his eyes hurt, patient states he use to wear glasses but has lost them
--- NOTE | 2020-12-31 07:48 | NUR ---
Patient discharged to home in stable condition. Able to ambulate with steady gait. Written and verbal after care instructions given. Patient verbalizes understanding of instructions. Stressed follow up or return to ER for worsening s/s.
[2020-12-31 07:49] VITALS: BP 176/112
== END 2020-12-31 07:53 | disposition home or self-care (01) ==
LOC: ER 06:49
DX: M79.10 Myalgia, unspecified site (principal); Z20.822 Contact with and (suspected) exposure to COVID-19; Z76.5 Malingerer [conscious simulation]; H53.8 Other visual disturbances; Z59.0 Homelessness; Z88.1 Allergy status to other antibiotic agents; Z88.2 Allergy status to sulfonamides; J45.909 Unspecified asthma, uncomplicated; F41.9 Anxiety disorder, unspecified; Z79.899 Other long term (current) drug therapy; Z80.3 Family history of malignant neoplasm of breast; F15.10 Other stimulant abuse, uncomplicated; F11.10 Opioid abuse, uncomplicated
CPT/HCPCS: A4663

== ENCOUNTER 2021-01-05 13:06 | Emergency (ER) | payer MEDICAID ==
[~2021-01-05] VITALS: Ht 172.7 cm; Wt 70.3 kg
[2021-01-05] MEDS ORDERED: METOCLOPRAMIDE HCL 10 MG/2 ML VIAL IM ONE (13:30)
[2021-01-05] MEDS ORDERED: diphenhydrAMINE 50 MG/1 ML VIAL IM ONE (13:30)
[2021-01-05] MEDS ORDERED: METOCLOPRAMIDE HCL 10 MG/2 ML VIAL ONE (13:38)
[2021-01-05] MEDS ORDERED: diphenhydrAMINE 50 MG/1 ML VIAL ONE (13:38)
--- NOTE | 2021-01-05 14:08 | NUR ---
PT WAS EVALUATED BY DR ANDERSON. PT WAS D/C'd TO HOME. D/C INSTRUCTIONS GIVEN TO THE PT BY DR ANDERSON.
[2021-01-05 14:10] VITALS: BP 136/81
== END 2021-01-05 14:12 | disposition home or self-care (01) ==
LOC: ER 13:06
DX: R51.9 Headache, unspecified (principal); J45.909 Unspecified asthma, uncomplicated; G89.29 Other chronic pain; Z88.1 Allergy status to other antibiotic agents; Z88.2 Allergy status to sulfonamides; Z88.8 Allergy status to other drugs, medicaments and biological substances; R03.0 Elevated blood-pressure reading, without diagnosis of hypertension; F41.9 Anxiety disorder, unspecified; Z80.3 Family history of malignant neoplasm of breast
CPT/HCPCS: 96372; 99283; J1200; J2765; A4663

== ENCOUNTER 2021-01-19 06:08 | Emergency (ER) | payer MEDICAID ==
[~2021-01-19] VITALS: Ht 180.3 cm; Wt 68.0 kg
[2021-01-19] MEDS ORDERED: ACETAMINOPHEN 325 MG TABLET PO ONE (07:00)
--- NOTE | 2021-01-19 07:10 | NUR ---
Received patient in shift report
[2021-01-19] MEDS ORDERED: ACETAMINOPHEN ES 500 MG TABLET ONE (07:11)
--- NOTE | 2021-01-19 07:17 | NUR ---
right shoulder placed in sling
--- NOTE | 2021-01-19 07:35 | NUR ---
X-ray of right shoulder taken at this time
--- NOTE | 2021-01-19 08:55 | NUR ---
Patient given written and verbal discharge instructions. Patient verbalizes understanding of instructions. Patient is ambulatory with steady gait. Refuses offer of retirement placement. Patient given list of available shelters in surrounding area. No signs of distress noted. Took all belongings.
[2021-01-19 08:58] VITALS: BP 158/96
== END 2021-01-19 09:00 | disposition home or self-care (01) ==
LOC: ER 06:09
DX: M25.511 Pain in right shoulder (principal); Z59.0 Homelessness; R03.0 Elevated blood-pressure reading, without diagnosis of hypertension; G89.29 Other chronic pain; J45.909 Unspecified asthma, uncomplicated; Z88.1 Allergy status to other antibiotic agents; Z88.2 Allergy status to sulfonamides; F17.200 Nicotine dependence, unspecified, uncomplicated; R93.6 Abnormal findings on diagnostic imaging of limbs; F11.10 Opioid abuse, uncomplicated
CPT/HCPCS: 73000; 73030; A4663; A9150

== ENCOUNTER 2021-02-07 23:59 | Emergency (ER) | payer MEDICAID ==
--- NOTE | 2021-02-08 00:15 | NUR ---
Pt not in waiting room, was seen on camera stealing a blanket from the linen closet and leaving the ER.
== END 2021-02-08 00:25 | disposition left against medical advice (07) ==
LOC: ER 02-08
DX: Z53.21 Procedure and treatment not carried out due to patient leaving prior to being seen by health care provider (principal)

== ENCOUNTER 2021-03-02 22:47 | Emergency (ER) | payer SELFPAY ==
--- NOTE | 2021-03-02 23:34 | NUR ---
Pt not in waiting room.
== END 2021-03-02 23:35 | disposition left against medical advice (07) ==
LOC: ER 22:52
DX: Z53.21 Procedure and treatment not carried out due to patient leaving prior to being seen by health care provider (principal)
CPT/HCPCS: A4663

== ENCOUNTER 2021-04-09 00:25 | Emergency (ER) | payer MEDICAID ==
[~2021-04-09] VITALS: Ht 177.8 cm; Wt 68.0 kg
[2021-04-09] MEDS ORDERED: HYDROCODONE/APAP 10-325 MG TABLET PO ONE (01:00)
[2021-04-09] MEDS ORDERED: DICYCLOMINE HCL LIQ 10 MG/5 ML UDC PO ONE (01:00)
[2021-04-09] MEDS ORDERED: DICYCLOMINE HCL LIQ 10 MG/5 ML UDC ONE ×2 (01:17)
[2021-04-09] MEDS ORDERED: HYDROCODONE/APAP 10-325 MG TABLET ONE (01:17)
[2021-04-09 01:29] LABS: HEMATOCRIT 33.5 % (36.7-47.1); MEAN CORPUSCULAR HEMOGLOBIN 26.7 uug (23.8-33.4); MEAN CORPUSCULAR VOLUME 80.1 fL (73.0-96.2); PLATELET COUNT (AUTO) 351 K/uL (152-348)
[2021-04-09 01:35] LABS: CREATININE 2.1 mg/dL (0.6-1.3); POTASSIUM 4.2 mmol/L (3.5-5.1)
[2021-04-09 01:41] LABS: BILIRUBIN,DIRECT 0.1 mg/dL (0.0-0.2); BILIRUBIN,TOTAL 0.2 mg/dL (0.2-1.0); TOTAL PROTEIN, SERUM 7.2 g/dL (6.4-8.2)
[2021-04-09] MEDS ORDERED: IV NORMAL SALINE 1000 ML BAG IV ONE (01:45)
[2021-04-09] MEDS ORDERED: OXYC-133 PO (01:55)
[2021-04-09] MEDS ORDERED: SWABABLE VALVE TRANSFER SET EA MC ONE (01:56)
[2021-04-09] MEDS ORDERED: IV NORMAL SALINE 250 ML IV ONE (01:56)
[2021-04-09] MEDS ORDERED: IOHEXOL 300MG/ML 100 ML INFUS..BTL ONE (01:56)
--- NOTE | 2021-04-09 02:02 | NUR ---
Patient out of unit for ct scan via gurny with no distress noted.
--- NOTE | 2021-04-09 02:29 | NUR ---
Patient back from ct scan with no distress noted.
--- NOTE | 2021-04-09 03:22 | NUR ---
IV removed. Catheter intact and site benign. Pressure and 4x4 gauze applied to site. No bleeding noted.
[2021-04-09 03:35] VITALS: BP 155/99
== END 2021-04-09 03:41 | disposition home or self-care (01) ==
LOC: ER 00:28
DX: R10.33 Periumbilical pain (principal); G89.29 Other chronic pain; Z59.02 Unsheltered homelessness; E86.0 Dehydration; Z76.5 Malingerer [conscious simulation]; F17.210 Nicotine dependence, cigarettes, uncomplicated; Z80.3 Family history of malignant neoplasm of breast; Z88.1 Allergy status to other antibiotic agents; Z88.2 Allergy status to sulfonamides; J45.998 Other asthma; F41.9 Anxiety disorder, unspecified
CPT/HCPCS: 36415; 74177; 80048; 80076; 82150; 83690; 85025; 96360; 99285; 99406; Q9967; A4663; J7030; J7050

== ENCOUNTER 2021-04-26 21:14 | Emergency (ER) | payer MEDICAID ==
--- NOTE | 2021-04-27 00:22 | NUR ---
Pt not in waiting room.
== END 2021-04-27 00:23 | disposition left against medical advice (07) ==
LOC: ER 21:18
DX: Z53.21 Procedure and treatment not carried out due to patient leaving prior to being seen by health care provider (principal)

== ENCOUNTER 2021-05-11 22:42 | Emergency (ER) | payer MEDICAID ==
[~2021-05-11] VITALS: Ht 180.3 cm; Wt 61.7 kg
[2021-05-12] MEDS ORDERED: ALBUTEROL SULFATE 8 GM HFA.AER.AD IH PRN (01:30)
[2021-05-12] MEDS ORDERED: predniSONE 20 MG TABLET PO ONE (01:30)
[2021-05-12] MEDS ORDERED: ACETAMINOPHEN 325 MG TABLET PO ONE (01:30)
[2021-05-12] MEDS ORDERED: ACETAMINOPHEN 325 MG TABLET ONE (01:45)
[2021-05-12] MEDS ORDERED: predniSONE 20 MG TABLET ONE (01:45)
[2021-05-12] MEDS ORDERED: ALBU6.7H9 INH (03:32)
[2021-05-12] MEDS ORDERED: BENZ-13 PO (03:32)
[2021-05-12] MEDS ORDERED: METH4TAB3 PO (03:32)
[2021-05-12 04:08] VITALS: BP 145/89
== END 2021-05-12 04:09 | disposition home or self-care (01) ==
LOC: ER 22:44
DX: U07.1 COVID-19 (principal); J40 Bronchitis, not specified as acute or chronic; R91.1 Solitary pulmonary nodule; I10 Essential (primary) hypertension; Z80.3 Family history of malignant neoplasm of breast; Z59.02 Unsheltered homelessness; Z88.1 Allergy status to other antibiotic agents; Z88.2 Allergy status to sulfonamides; F17.210 Nicotine dependence, cigarettes, uncomplicated; G89.29 Other chronic pain; F15.10 Other stimulant abuse, uncomplicated; F11.10 Opioid abuse, uncomplicated
CPT/HCPCS: 71045; 87400; 87426; 99284; J7512; J3535

== ENCOUNTER 2021-05-17 01:49 | Emergency (ER) | payer SELFPAY ==
[~2021-05-17 01:49] MED LIST changes: +ALBU6.7H9 INH; +BENZ-13 PO; +METH4TAB3 PO
--- NOTE | 2021-05-17 02:00 | NUR ---
Patient was called to be triaged but patient stated "I don't want to be seen anymore. I'll came back tomorrow." Patient left waiting room without being triaged or seen by ERMD.
== END 2021-05-17 02:00 | disposition left against medical advice (07) ==
LOC: ER 01:51
DX: Z53.21 Procedure and treatment not carried out due to patient leaving prior to being seen by health care provider (principal)

== ENCOUNTER 2021-05-20 21:26 | Emergency (ER) | payer MEDICAID ==
[~2021-05-20] VITALS: Ht 180.3 cm; Wt 68.0 kg
--- NOTE | 2021-05-20 21:50 | NUR ---
DR HAMILTON AT BEDSIDE FOR MSE.
[2021-05-20] MEDS ORDERED: diphenhydrAMINE 50 MG CAPSULE PO ONE (22:00)
[2021-05-20] MEDS ORDERED: OXYCODONE/APAP 5-325 MG TABLET PO ONE (22:00)
[2021-05-20] MEDS ORDERED: LORAZEPAM 0.5 MG TABLET PO ONE (22:00)
[2021-05-20] MEDS ORDERED: DIPH25CA83 PO (22:01)
[2021-05-20] MEDS ORDERED: diphenhydrAMINE 25 MG CAP PO ONE (22:07)
[2021-05-20] MEDS ORDERED: LORAZEPAM 1 MG TABLET ONE (22:08)
[2021-05-20] MEDS ORDERED: OXYCODONE/APAP 5-325 MG TABLET ONE (22:08)
--- NOTE | 2021-05-20 22:10 | NUR ---
PT VERBALIZED FEELING BETTER FROM PAIN. UNABLE TO DO REASSESSMENT FROM EMAR BECAUSE PT IS NOW CLEARED FOR DISCHARGE BY ERMD. SANDWICH PROVIDED. Patient given written and verbal discharge instructions. Patient verbalizes understanding of instructions. Patient is ambulatory with steady gait. Refuses offer of [facility] placement. Patient given list of available shelters in surrounding area. Ambulated out of ED in steady gait.
[2021-05-20 22:12] VITALS: BP 150/70
== END 2021-05-20 22:12 | disposition home or self-care (01) ==
LOC: ER 21:28
DX: G89.29 Other chronic pain (principal); M79.672 Pain in left foot; G43.909 Migraine, unspecified, not intractable, without status migrainosus; J45.909 Unspecified asthma, uncomplicated; Z59.00 Homelessness unspecified; Z88.2 Allergy status to sulfonamides; Z88.8 Allergy status to other drugs, medicaments and biological substances; Z79.899 Other long term (current) drug therapy
CPT/HCPCS: 99284; Q0163; A4663

== ENCOUNTER 2021-05-22 00:05 | Emergency (ER) | payer SELFPAY ==
[~2021-05-22 00:05] MED LIST changes: +DIPH25CA83 PO
--- NOTE | 2021-05-22 00:15 | NUR ---
PATIENT WAS CALLED TO BE TRIAGED BUT WAS NOT PRESENT IN THE WAITING ROOM OR OUTSIDE OF ER.
--- NOTE | 2021-05-22 00:30 | NUR ---
PATIENT WAS CALLED TO BE TRIAGED BUT WAS NOT PRESENT IN THE WAITING ROOM OR OUTSIDE OF ER.
--- NOTE | 2021-05-22 01:00 | NUR ---
PATIENT WAS CALLED TO BE TRAIGED BUT WAS NOT PRESENT IN THE WAITING ROOM. PATIENT WAS NOT TRIAGED OR SEEN BY ERMD.
== END 2021-05-22 01:00 | disposition left against medical advice (07) ==
LOC: ER 00:08
DX: Z53.21 Procedure and treatment not carried out due to patient leaving prior to being seen by health care provider (principal)

== ENCOUNTER 2021-06-14 03:45 | Emergency (ER) | payer MEDICAID ==
[~2021-06-14] VITALS: Ht 180.3 cm; Wt 68.0 kg
--- NOTE | 2021-06-14 03:50 | NUR ---
Pt brought back to room ED2B via amb with steady gait. 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 Walked in asking for ativan or percocet for mod to severe pain 7/10 of left wrist and ankle s/p fx one year ago. Pt claims the fx did not heal properly and needs to be rebroken and reset. Pt is asking for an ortho referral. Pt does not appear to be in any pain and is not exhibiting any s/sx if pain. Left wrist does not seem to be in pain for he has been using it continously since arriving with no out [place] expressions of pain or hurting. Pt seems to be doing alot of house keeping such as charging all electronic devices, cleaning out and organizing his suitcase, he also when into bathroom and shaved and brushed teeth. VSS, PE WNL, pt denies sob, dizziness, cough, n/v or discomfort.
--- NOTE | 2021-06-14 03:52 | NUR ---
EDMD at bedside to eval pt condition. ED is familiar with pt and has treated him before for very similar reasons. Dr. Lyons, straight up told pt what he is and is not at liberty to prescribe. Dr. Lyons stated that he can only prescribe one pill only, to be taken. Pt was, none the less, just as persistant.
[2021-06-14] MEDS ORDERED: diphenhydrAMINE 50 MG CAPSULE PO ONE (04:00)
[2021-06-14] MEDS ORDERED: OXYCODONE/APAP 5-325 MG TABLET PO ONE (04:00)
[2021-06-14] MEDS ORDERED: LORAZEPAM 0.5 MG TABLET PO ONE (04:00)
--- NOTE | 2021-06-14 04:10 | NUR ---
Pt given 2 cups of juice, 1 apple sauce, 2 jeff crackers per request.
--- NOTE | 2021-06-14 04:59 | NUR ---
Pt is on [employer], in pos of comfort, going thru alot of personal mail , looks like he is spring cleaning and organizing his personal documents. or balancing his check book or doing his taxes. VSS, PE WNL. Pt appears to be fine, with no pain or discomfort present.
--- NOTE | 2021-06-14 05:25 | NUR ---
Pt given DC instructions and referral to ortho as requested from EDMD. Pt confirmed understanding of DC instructions and promised to follow thru with a pain managment specialist. VSS, PE WNL, pt denies any sob, dizziness, cough, flu sx, or discomfort. Pt signed out and ambulated out of dept with steady gait. no s/sxof distress present.
[2021-06-14 06:31] VITALS: BP 138/82
== END 2021-06-14 05:25 | disposition home or self-care (01) ==
LOC: ER 03:50
DX: G89.21 Chronic pain due to trauma (principal); M79.672 Pain in left foot; M25.532 Pain in left wrist; F15.20 Other stimulant dependence, uncomplicated; F17.210 Nicotine dependence, cigarettes, uncomplicated; R03.0 Elevated blood-pressure reading, without diagnosis of hypertension; J45.909 Unspecified asthma, uncomplicated; Z88.1 Allergy status to other antibiotic agents; Z88.2 Allergy status to sulfonamides; S52.532S Colles' fracture of left radius, sequela; X58.XXXS Exposure to other specified factors, sequela
CPT/HCPCS: 99284; 99406; Q0163; A4663

== ENCOUNTER 2021-07-12 18:25 | Emergency (ER) | payer MEDICAID ==
[~2021-07-12] VITALS: Ht 177.8 cm; Wt 64.0 kg
--- NOTE | 2021-07-12 19:01 | NUR ---
PT AMBULATED TO ER C/O LT 3rd AND 4th FINGERS INFECTION, A/O X4, NO SOB OR LABORED BREATHING, AFEBRILE. DENIES ANY CP/PRESSURE. DENIES ANY N/V/D. NO GI/ DISTRESS. ABLE TO MOVE ALL EXTREMITIES WITHIN NORMAL LIMITS. CLEAR SPEECH, COMPLETE SENTENCES.
--- NOTE | 2021-07-12 19:26 | NUR ---
DR. HAYWARD AT BEDSIDE, MSE IN PROGRESS.
[2021-07-12] MEDS ORDERED: IBUPROFEN 800 MG TABLET PO ONE (19:45)
--- NOTE | 2021-07-12 20:38 | NUR ---
Patient does not wish to proceed with medical care recommended by Dr. Darnell. Patient given information related to possible complications, up to and including , which could occur as a result of leaving the hospital at this time. Patient verbalizes understanding of risks involved due to leaving against medical advice. Patient has signed AMA form. No changes in LOC. Steady gait. Denies any pain/discomfort upon discharge.
[2021-07-12 20:39] VITALS: BP 130/72
== END 2021-07-12 20:40 | disposition left against medical advice (07) ==
LOC: ER 18:29
DX: L03.012 Cellulitis of left finger (principal); Z53.29 Procedure and treatment not carried out because of patient's decision for other reasons; Z88.1 Allergy status to other antibiotic agents; Z88.2 Allergy status to sulfonamides; J45.909 Unspecified asthma, uncomplicated; G89.29 Other chronic pain; F15.10 Other stimulant abuse, uncomplicated; F41.9 Anxiety disorder, unspecified
CPT/HCPCS: A4663; J3490

== ENCOUNTER 2021-07-18 02:24 | Emergency (ER) | payer MEDICAID ==
[~2021-07-18] VITALS: Ht 180.3 cm; Wt 63.5 kg
--- NOTE | 2021-07-18 02:55 | NUR ---
DR QURESHI AT BEDSIDE, MSE IN PROGRESS.
[2021-07-18] MEDS: CLONIDINE HCL 0.1 MG TABLET PO ONE (03:14)
[2021-07-18] MEDS: AMOXICILLIN-CLAVUL 875-125MG TABLET PO ONE (03:14)
[2021-07-18] MEDS ORDERED: AMOX-430 PO (03:17)
[2021-07-18] MEDS ORDERED: HYDR-3980 PO (03:17)
[2021-07-18] MEDS ORDERED: CLON0.1T PO (03:17)
[2021-07-18] MEDS ORDERED: AMOXICILLIN-CLAVUL 875-125MG TABLET ONE (03:19)
[2021-07-18] MEDS ORDERED: HYDROCODONE/APAP 10-325 MG TABLET ONE (03:20)
[2021-07-18] MEDS ORDERED: CLONIDINE HCL 0.1 MG TABLET ONE (03:20)
[2021-07-18] MEDS: HYDROCODONE/APAP 10-325 MG TABLET PO ONE (03:20)
--- NOTE | 2021-07-18 03:25 | NUR ---
Patient given written and verbal discharge instructions. Patient verbalizes understanding of instructions. Patient is ambulatory with steady gait. Refuses offer of [facility] placement. Patient given list of available shelters in surrounding area. Steady gait, denies any pain/discomfort upon discharge. No SOB or labored breathing.
[2021-07-18 03:26] VITALS: BP 160/98
== END 2021-07-18 03:26 | disposition home or self-care (01) ==
LOC: ER 02:27
DX: L98.491 Non-pressure chronic ulcer of skin of other sites limited to breakdown of skin (principal); L97.821 Non-pressure chronic ulcer of other part of left lower leg limited to breakdown of skin; L98.8 Other specified disorders of the skin and subcutaneous tissue; I10 Essential (primary) hypertension; Z59.00 Homelessness unspecified; F17.210 Nicotine dependence, cigarettes, uncomplicated; F15.10 Other stimulant abuse, uncomplicated; Z88.1 Allergy status to other antibiotic agents; Z88.2 Allergy status to sulfonamides; Z79.899 Other long term (current) drug therapy; G89.29 Other chronic pain
CPT/HCPCS: 87070; 87077; A4663

== ENCOUNTER 2021-08-11 02:32 | Emergency (ER) | payer MEDICAID ==
[~2021-08-11] VITALS: Ht 180.3 cm; Wt 66.7 kg
[~2021-08-11 02:32] MED LIST changes: +AMOX-430 PO
--- NOTE | 2021-08-11 02:50 | NUR ---
Dr. Cuellar at bedside for MSE.
[2021-08-11] MEDS ORDERED: CLONIDINE HCL 0.2 MG TABLET ONE (03:02)
[2021-08-11] MEDS ORDERED: NEOMY/BACITRA/POLYMYXIN B OINT UD PACKET TP ONE (03:02)
[2021-08-11] MEDS ORDERED: CLINDAMYCIN HCL 300 MG CAPSULE ONE (03:02)
[2021-08-11] MEDS ORDERED: CLIN-118 PO (03:05)
[2021-08-11] MEDS ORDERED: CLON0.2T PO (03:07)
[2021-08-11] MEDS: NEOMY/BACITRA/POLYMYXIN B OINT UD PACKET TP ONE (03:07)
[2021-08-11] MEDS: CLINDAMYCIN HCL 150 MG CAPSULE PO ONE (03:07)
[2021-08-11] MEDS: CLONIDINE HCL 0.2 MG TABLET PO ONE (03:07)
[2021-08-11] MEDS ORDERED: METOCLOPRAMIDE HCL 10 MG/2 ML VIAL ONE (03:11)
[2021-08-11] MEDS ORDERED: diphenhydrAMINE 50 MG/1 ML VIAL ONE (03:11)
[2021-08-11] MEDS: METOCLOPRAMIDE HCL 10 MG/2 ML VIAL IM ONE (03:14)
[2021-08-11] MEDS: diphenhydrAMINE 50 MG/1 ML VIAL IM ONE (03:14)
--- NOTE | 2021-08-11 03:21 | NUR ---
Patient given written and verbal discharge instructions. Patient verbalizes understanding of instructions. Patient is ambulatory with steady gait. Refuses offer of [facility] placement. Patient given list of available shelters in surrounding area. Pt provided with food per patient request, refuses all other services at this time, VSS, no acute signs of distress, all belongings taken.
[2021-08-11 03:23] VITALS: BP 160/100
[2021-08-12] MEDS ORDERED: LORA2TAB95 PO (03:32)
[2021-08-12] MEDS ORDERED: OXYC-133 PO (03:32)
== END 2021-08-11 03:24 | disposition home or self-care (01) ==
LOC: ER 02:54
DX: L03.012 Cellulitis of left finger (principal); I10 Essential (primary) hypertension; R51.9 Headache, unspecified; Z88.1 Allergy status to other antibiotic agents; Z88.2 Allergy status to sulfonamides; G89.29 Other chronic pain; Z59.00 Homelessness unspecified; Z80.3 Family history of malignant neoplasm of breast; J45.909 Unspecified asthma, uncomplicated
CPT/HCPCS: 96372; 99284; J1200; J2765; A4663

== ENCOUNTER 2021-08-12 03:06 | Emergency (ER) | payer MEDICAID ==
[~2021-08-12] VITALS: Ht 177.8 cm; Wt 68.0 kg
[~2021-08-12 03:06] MED LIST changes: +CLIN-118 PO; +CLON0.2T PO
[2021-08-12] MEDS ORDERED: OLANZAPINE 5 MG TABLET ONE (03:23)
[2021-08-12] MEDS ORDERED: LABETALOL HCL 100 MG TABLET ONE (03:23)
[2021-08-12] MEDS ORDERED: LORAZEPAM 1 MG TABLET ONE (03:23)
[2021-08-12] MEDS ORDERED: HYDROCODONE/APAP 10-325 MG TABLET ONE (03:24)
[2021-08-12 03:30] VITALS: BP 192/122
[2021-08-12] MEDS ORDERED: LORAZEPAM 0.5 MG TABLET PO ONE (03:30)
[2021-08-12] MEDS ORDERED: LABETALOL HCL 100 MG TABLET PO ONE (03:30)
[2021-08-12] MEDS ORDERED: OXYCODONE/APAP 5-325 MG TABLET PO ONE (03:30)
[2021-08-12] MEDS ORDERED: HYDROCODONE/APAP 10-325 MG TABLET PO ONE (03:30)
[2021-08-12] MEDS ORDERED: OLANZAPINE 5 MG TABLET PO ONE (03:30)
--- NOTE | 2021-08-12 03:30 | NUR ---
cleaned left middle finger and right index finger wound and applied dressing as ordered by DR Lyons.
[2021-08-12] MEDS ORDERED: OXYCODONE/APAP 5-325 MG TABLET ONE (03:31)
[2021-08-12] MEDS ORDERED: OXYC-133 PO (03:32)
[2021-08-12] MEDS ORDERED: LORA2TAB95 PO (03:32)
--- NOTE | 2021-08-12 03:37 | NUR ---
Patient refusing to stay for re eval of BP. Stating my BP is always high. I don't want to wait to have it re checked.
--- NOTE | 2021-08-12 03:40 | NUR ---
Patient given written and verbal discharge instructions. Patient verbalizes understanding of instructions. Patient is ambulatory with steady gait. Refuses offer of retirement placement. Patient given list of available shelters in surrounding area. REFUSED TO HAVE BP RETAKEN.
== END 2021-08-12 03:41 | disposition home or self-care (01) ==
LOC: ER 03:10
DX: S60.413D Abrasion of left middle finger, subsequent encounter (principal); L03.012 Cellulitis of left finger; L08.9 Local infection of the skin and subcutaneous tissue, unspecified; W19.XXXD Unspecified fall, subsequent encounter; F41.9 Anxiety disorder, unspecified; F15.10 Other stimulant abuse, uncomplicated; Z59.02 Unsheltered homelessness; J45.909 Unspecified asthma, uncomplicated; F17.210 Nicotine dependence, cigarettes, uncomplicated; Z88.1 Allergy status to other antibiotic agents; Z88.2 Allergy status to sulfonamides
CPT/HCPCS: A4663

== ENCOUNTER 2021-08-17 22:55 | Emergency (ER) | payer MEDICAID ==
[~2021-08-17] VITALS: Ht 180.3 cm; Wt 66.2 kg
[~2021-08-17 22:55] MED LIST changes: +LORA2TAB95 PO
--- NOTE | 2021-08-17 23:05 | NUR ---
patient in room 3a. waiting for evaluation. c/o finger pain.
--- NOTE | 2021-08-17 23:09 | NUR ---
patient being evaluated at this time.
[2021-08-17] MEDS ORDERED: CLIN300C12 PO (23:13)
[2021-08-17] MEDS ORDERED: LORAZEPAM 0.5 MG TABLET PO ONE (23:15)
[2021-08-17] MEDS ORDERED: CLINDAMYCIN HCL 150 MG CAPSULE PO ONE (23:15)
[2021-08-17] MEDS ORDERED: HYDROCODONE/APAP 10-325 MG TABLET PO ONE (23:15)
[2021-08-17] MEDS ORDERED: AMIT75TA13 PO (23:21)
[2021-08-17] MEDS ORDERED: LORAZEPAM 1 MG TABLET ONE (23:23)
[2021-08-17] MEDS ORDERED: CLINDAMYCIN HCL 300 MG CAPSULE ONE (23:23)
[2021-08-17] MEDS ORDERED: HYDROCODONE/APAP 10-325 MG TABLET ONE (23:24)
== END 2021-08-17 23:38 | disposition home or self-care (01) ==
LOC: ER 22:58
DX: S60.413D Abrasion of left middle finger, subsequent encounter (principal); L08.9 Local infection of the skin and subcutaneous tissue, unspecified; X58.XXXD Exposure to other specified factors, subsequent encounter; G89.29 Other chronic pain; Z59.02 Unsheltered homelessness; Z76.5 Malingerer [conscious simulation]; Z88.1 Allergy status to other antibiotic agents; Z88.2 Allergy status to sulfonamides; F17.210 Nicotine dependence, cigarettes, uncomplicated; F11.10 Opioid abuse, uncomplicated; Z79.899 Other long term (current) drug therapy
CPT/HCPCS: A4663

== ENCOUNTER 2021-08-21 03:27 | Emergency (ER) | payer SELFPAY ==
[~2021-08-21 03:27] MED LIST changes: +AMIT75TA13 PO; +CLIN300C12 PO
--- NOTE | 2021-08-21 04:32 | NUR ---
pt left without being triaged
== END 2021-08-21 07:12 | disposition left against medical advice (07) ==
LOC: ER 07:11
DX: Z53.21 Procedure and treatment not carried out due to patient leaving prior to being seen by health care provider (principal)
CPT/HCPCS: A4663

== ENCOUNTER 2021-09-12 22:11 | Emergency (ER) | payer MEDICAID ==
[~2021-09-12] VITALS: Ht 177.8 cm; Wt 63.5 kg
--- NOTE | 2021-09-12 22:48 | NUR ---
Dr jacobs at bedside, MSE in progress.
[2021-09-12] MEDS ORDERED: HYDR-3974 PO (23:16)
--- NOTE | 2021-09-12 23:30 | NUR ---
Patient discharged to home in stable condition. Written and verbal after care instructions given. Patient verbalizes understanding of instructions. Stressed follow up or return to ER for worsening s/s. Patient given written and verbal discharge instructions. Patient verbalizes understanding of instructions. Patient is ambulatory with steady gait. Refuses offer of halfway placement. Patient given list of available shelters in surrounding area.
[2021-09-12 23:31] VITALS: BP 145/80
== END 2021-09-12 23:31 | disposition home or self-care (01) ==
LOC: ER 22:11
DX: S92.902S Unspecified fracture of left foot, sequela (principal); X58.XXXS Exposure to other specified factors, sequela; G89.29 Other chronic pain; M79.672 Pain in left foot; F17.210 Nicotine dependence, cigarettes, uncomplicated; Z59.00 Homelessness unspecified; Z88.1 Allergy status to other antibiotic agents; Z88.2 Allergy status to sulfonamides; J45.909 Unspecified asthma, uncomplicated; Z80.3 Family history of malignant neoplasm of breast; F11.10 Opioid abuse, uncomplicated; R03.0 Elevated blood-pressure reading, without diagnosis of hypertension
CPT/HCPCS: 73630; A4663

== ENCOUNTER 2021-09-24 00:14 | Emergency (ER) | payer SELFPAY ==
[~2021-09-24 00:14] MED LIST changes: +HYDR-3974 PO
--- NOTE | 2021-09-24 01:00 | NUR ---
Patient was called to be triaged but was not present in the waiting room or outside of ER.
--- NOTE | 2021-09-24 01:20 | NUR ---
Patient was called to be triaged but was not present in the waiting room or outside of ER
--- NOTE | 2021-09-24 01:45 | NUR ---
Patient was called to be triaged but was not present in the waiting room or outside of ER. PATIENT WAS NOT TRIAGED OR SEEN BY ERMD.
== END 2021-09-24 01:45 | disposition left against medical advice (07) ==
LOC: ER 00:17
DX: Z53.21 Procedure and treatment not carried out due to patient leaving prior to being seen by health care provider (principal)

== ENCOUNTER 2021-10-05 21:01 | Emergency (ER) | payer MEDICAID ==
[~2021-10-05] VITALS: Ht 177.8 cm; Wt 63.5 kg
[2021-10-05] MEDS ORDERED: CLONIDINE HCL 0.2 MG TABLET ONE (21:43)
[2021-10-05] MEDS ORDERED: CLONIDINE HCL 0.2 MG TABLET PO ONE (21:45)
[2021-10-05] MEDS ORDERED: CLON0.2T PO (22:29)
[2021-10-05] MEDS ORDERED: OXYC-128 PO (22:29)
[2021-10-05] MEDS ORDERED: CLONIDINE HCL 0.1 MG TABLET ONE (22:33)
--- NOTE | 2021-10-05 22:36 | NUR ---
Patient eloped from facility. ER physician notified.
[2021-10-05 22:37] VITALS: BP 180/106
[2021-10-05] MEDS ORDERED: CLONIDINE HCL 0.1 MG TABLET PO ONE (22:45)
== END 2021-10-05 22:38 | disposition home or self-care (01) ==
LOC: ER 21:08
DX: I10 Essential (primary) hypertension (principal); G89.29 Other chronic pain; F15.10 Other stimulant abuse, uncomplicated; Z59.00 Homelessness unspecified; F17.210 Nicotine dependence, cigarettes, uncomplicated; J45.909 Unspecified asthma, uncomplicated; Z80.3 Family history of malignant neoplasm of breast; F11.10 Opioid abuse, uncomplicated
CPT/HCPCS: A4663

== ENCOUNTER 2021-12-18 03:03 | Emergency (ER) | payer MEDICAID ==
[~2021-12-18] VITALS: Ht 177.8 cm; Wt 61.2 kg
[~2021-12-18 03:03] MED LIST changes: +OXYC-128 PO
[2021-12-18] MEDS ORDERED: LORAZEPAM 0.5 MG TABLET PO ONE (03:30)
[2021-12-18] MEDS ORDERED: OXYCODONE/APAP 5-325 MG TABLET ONE (03:30)
[2021-12-18] MEDS ORDERED: OXYCODONE/APAP 5-325 MG TABLET PO ONE (03:30)
[2021-12-18] MEDS ORDERED: LORAZEPAM 1 MG TABLET ONE (03:31)
[2021-12-18] MEDS ORDERED: LORA2TAB95 PO (03:32)
--- NOTE | 2021-12-18 03:38 | NUR ---
Patient given written and verbal discharge instructions. Patient verbalizes understanding of instructions. Patient is ambulatory with steady gait. Refuses offer of [facility] placement. Patient given list of available shelters in surrounding area.
[2021-12-18 03:39] VITALS: BP 158/79
== END 2021-12-18 03:39 | disposition home or self-care (01) ==
LOC: ER 03:06
DX: F41.9 Anxiety disorder, unspecified (principal); G89.29 Other chronic pain; M25.532 Pain in left wrist; Z59.00 Homelessness unspecified; F17.210 Nicotine dependence, cigarettes, uncomplicated; F11.10 Opioid abuse, uncomplicated; Z88.1 Allergy status to other antibiotic agents; Z88.2 Allergy status to sulfonamides; J45.909 Unspecified asthma, uncomplicated
CPT/HCPCS: A4663

== ENCOUNTER 2022-01-16 20:12 | Emergency (ER) | payer MEDICAID | END 2022-01-16 23:10 | disposition left against medical advice (07) | LOC: ER 20:22 | DX: Z53.21 Procedure and treatment not carried out due to patient leaving prior to being seen by health care provider (principal) ==

== ENCOUNTER 2022-01-17 06:19 | Emergency (ER) | payer SELFPAY ==
--- NOTE | 2022-01-17 07:40 | NUR ---
Pt not in waiting room.
== END 2022-01-17 07:40 | disposition left against medical advice (07) ==
LOC: ER 06:19
DX: Z53.21 Procedure and treatment not carried out due to patient leaving prior to being seen by health care provider (principal)

== ENCOUNTER 2022-02-19 01:56 | Emergency (ER) | payer SELFPAY ==
--- NOTE | 2022-02-19 02:10 | NUR ---
Patient was called to be triaged but stated in the waiting room that " I change my mind, I don't want to be seen anymore. I will just come back."
[2022-02-19] MEDS ORDERED: ASPIRIN 81 MG TAB.CHEW PO ONE (02:15)
== END 2022-02-19 02:10 | disposition left against medical advice (07) ==
LOC: ER 02:02
DX: Z53.21 Procedure and treatment not carried out due to patient leaving prior to being seen by health care provider (principal)

== ENCOUNTER 2022-08-06 00:55 | Emergency (ER) | payer MEDICAID ==
[~2022-08-06] VITALS: Ht 172.7 cm; Wt 81.6 kg
--- NOTE | 2022-08-06 01:15 | NUR ---
ER is saturated, no rooms avaiable at the moment.
--- NOTE | 2022-08-06 03:00 | NUR ---
Patient left without being seen by ER physician.
== END 2022-08-06 06:27 | disposition left against medical advice (07) ==
LOC: ER 01:10
DX: Z53.21 Procedure and treatment not carried out due to patient leaving prior to being seen by health care provider (principal)
CPT/HCPCS: A4663

== ENCOUNTER 2022-08-09 23:19 | Emergency (ER) | payer MEDICAID ==
[~2022-08-09] VITALS: Ht 177.8 cm; Wt 65.8 kg
--- NOTE | 2022-08-10 00:02 | NUR ---
Patient left after wrist splint was placed on by Barak Parmar RN. He did not wait for discharge paperwork or instructions.
== END 2022-08-10 00:05 | disposition home or self-care (01) ==
LOC: ER 23:24
DX: M79.601 Pain in right arm (principal); I10 Essential (primary) hypertension; G43.909 Migraine, unspecified, not intractable, without status migrainosus; J45.909 Unspecified asthma, uncomplicated; F17.210 Nicotine dependence, cigarettes, uncomplicated; Z59.00 Homelessness unspecified; Z88.2 Allergy status to sulfonamides; Z88.8 Allergy status to other drugs, medicaments and biological substances; Z79.2 Long term (current) use of antibiotics; Z79.899 Other long term (current) drug therapy
CPT/HCPCS: 73090; A4663

== ENCOUNTER 2022-09-13 23:41 | Emergency (ER) | payer MEDICAID ==
[~2022-09-13] VITALS: Ht 180.3 cm; Wt 61.2 kg
--- NOTE | 2022-09-14 00:16 | NUR ---
Dr Stewart into eval patient in triaged area.
[2022-09-14] MEDS ORDERED: HYDROCODONE/APAP 5-325MG TABLET ONE (00:27)
[2022-09-14] MEDS ORDERED: HYDROCODONE/APAP 5-325MG TABLET PO ONE (00:30)
--- NOTE | 2022-09-14 01:00 | NUR ---
waiting for x ray read.
[2022-09-14] MEDS ORDERED: NAPR500T6 PO (04:09)
[2022-09-14 05:06] VITALS: BP 124/82
== END 2022-09-14 05:14 | disposition home or self-care (01) ==
LOC: ER 23:43
DX: M25.532 Pain in left wrist (principal); M25.572 Pain in left ankle and joints of left foot; G43.909 Migraine, unspecified, not intractable, without status migrainosus; J45.909 Unspecified asthma, uncomplicated; F17.210 Nicotine dependence, cigarettes, uncomplicated; Z88.2 Allergy status to sulfonamides; Z88.8 Allergy status to other drugs, medicaments and biological substances; Z59.00 Homelessness unspecified; Z79.2 Long term (current) use of antibiotics; Z79.899 Other long term (current) drug therapy
CPT/HCPCS: 73110; 73610; A4663

== ENCOUNTER 2022-11-17 10:39 | Emergency (ER) | payer MEDICAID ==
[~2022-11-17] VITALS: Ht 177.8 cm; Wt 59.0 kg
[~2022-11-17 10:39] MED LIST changes: +AMIT50TA17 PO; +DIPH25TA25 PO; +NAPR500T6 PO
[2022-11-17 11:21] LABS: HEMATOCRIT 32.7 % (36.7-47.1); MEAN CORPUSCULAR HEMOGLOBIN 22.2 uug (23.8-33.4); MEAN CORPUSCULAR VOLUME 72.7 fL (73.0-96.2); PLATELET COUNT (AUTO) 591 K/uL (152-348)
[2022-11-17 11:30] LABS: CARBON DIOXIDE 24 mmol/L (21-32); CHLORIDE 102 mmol/L (98-107); CREATININE 2.4 mg/dL (0.6-1.3); POTASSIUM 4.5 mmol/L (3.5-5.1); UREA NITROGEN, BLOOD 33 mg/dL (7-18)
[2022-11-17 11:36] LABS: ALANINE AMINOTRANSFERASE 12 U/L (16-63); ALKALINE PHOSPHATASE 103 U/L (50-136); ASPARTATE AMINOTRANSFERASE 17 U/L (15-37); BILIRUBIN,DIRECT < 0.1 mg/dL (0.0-0.2); BILIRUBIN,TOTAL 0.5 mg/dL (0.2-1.0); LIPASE 39 U/L (73-393); TOTAL PROTEIN, SERUM 8.1 g/dL (6.4-8.2)
[2022-11-17] MEDS ORDERED: FAMOTIDINE. 20 MG/2 ML VIAL IV ONE ×2 (11:45→12:00)
[2022-11-17] MEDS ORDERED: MAG HYDROX/AL HYDROX/SIMETH 30 ML LIQUID UDC PO ONE (11:45)
[2022-11-17] MEDS ORDERED: LIDOCAINE VISCUS 2% 15 ML UDC MM ONE (11:45)
[2022-11-17] MEDS ORDERED: IV NORMAL SALINE 1000 ML BAG IV ONE (11:45)
[2022-11-17] MEDS ORDERED: MAG HYDROX/AL HYDROX/SIMETH 30 ML LIQUID UDC ONE (12:00)
[2022-11-17] MEDS ORDERED: FAMO-132 PO (13:58)
[2022-11-17] MEDS ORDERED: DOXY100T2 PO (13:58)
[2022-11-17] MEDS ORDERED: ONDA4TAB5 PO (13:58)
[2022-11-17] MEDS ORDERED: POLY17PO4 PO (13:58)
[2022-11-17 14:16] VITALS: BP 135/87; O2SAT 97
== END 2022-11-17 14:17 | disposition home or self-care (01) ==
LOC: ER 10:39
DX: K29.70 Gastritis, unspecified, without bleeding (principal); K59.00 Constipation, unspecified; K62.89 Other specified diseases of anus and rectum; G43.909 Migraine, unspecified, not intractable, without status migrainosus; J45.909 Unspecified asthma, uncomplicated; K21.9 Gastro-esophageal reflux disease without esophagitis; Z88.2 Allergy status to sulfonamides; Z88.8 Allergy status to other drugs, medicaments and biological substances; F17.210 Nicotine dependence, cigarettes, uncomplicated; Z79.899 Other long term (current) drug therapy; Z79.2 Long term (current) use of antibiotics
CPT/HCPCS: 36415; 83605; 83690; 85025; 87040; 93005; A4663; G0480; J3490; J7040

== ENCOUNTER 2023-05-03 02:06 | Emergency (ER) | payer MEDICAID, OTHER ==
[~2023-05-03] VITALS: Ht 177.8 cm; Wt 63.5 kg
[~2023-05-03 02:06] MED LIST changes: +DOXY100T2 PO; +FAMO-132 PO; +ONDA4TAB5 PO; +POLY17PO4 PO
[2023-05-03 02:25] VITALS: O2SAT 98
== END 2023-05-03 04:20 | disposition left against medical advice (07) ==
LOC: ER 02:09
DX: M79.605 Pain in left leg (principal); Z53.21 Procedure and treatment not carried out due to patient leaving prior to being seen by health care provider
CPT/HCPCS: A4606; A4663

== ENCOUNTER 2023-09-21 00:59 | Emergency (ER) | payer MEDICAID, OTHER ==
[~2023-09-21] VITALS: Ht 177.8 cm; Wt 70.3 kg
[2023-09-21 01:12] VITALS: O2SAT 98
[2023-09-21] MEDS ORDERED: TRAMADOL HCL 50 MG TABLET ONE (01:42)
[2023-09-21] MEDS: TRAMADOL HCL 50 MG TABLET PO ONE (01:45)
[2023-09-21] MEDS ORDERED: AMIT25TA24 GT (01:48)
[2023-09-21] MEDS ORDERED: NAPR-1009 PO (01:48)
[2023-09-21] MEDS ORDERED: CYCL10TA9 PO (01:48)
== END 2023-09-21 02:15 | disposition home or self-care (01) ==
LOC: ER 01:30
DX: G89.29 Other chronic pain (principal); M79.672 Pain in left foot; M25.532 Pain in left wrist; G43.909 Migraine, unspecified, not intractable, without status migrainosus; Z76.0 Encounter for issue of repeat prescription; R03.0 Elevated blood-pressure reading, without diagnosis of hypertension; F17.200 Nicotine dependence, unspecified, uncomplicated; J45.909 Unspecified asthma, uncomplicated; F32.A Depression, unspecified; Z98.890 Other specified postprocedural states; Z79.899 Other long term (current) drug therapy; Z88.2 Allergy status to sulfonamides
CPT/HCPCS: A4606; A4663

== ENCOUNTER 2023-10-10 20:31 | Emergency (ER) | payer SELFPAY ==
[~2023-10-10] VITALS: Ht 180.3 cm; Wt 63.5 kg
[~2023-10-10 20:31] MED LIST changes: +AMIT25TA24 GT; +CYCL10TA9 PO; +NAPR-1009 PO
[2023-10-10 22:17] VITALS: BP 128/78; TEMP 98.1; O2SAT 95
== END 2023-10-10 22:18 | disposition home or self-care (01) ==
LOC: ER 20:32
DX: R00.2 Palpitations (principal); G43.909 Migraine, unspecified, not intractable, without status migrainosus; K21.9 Gastro-esophageal reflux disease without esophagitis; J40 Bronchitis, not specified as acute or chronic; F32.A Depression, unspecified; F17.200 Nicotine dependence, unspecified, uncomplicated; Z98.890 Other specified postprocedural states; Z79.899 Other long term (current) drug therapy; Z88.1 Allergy status to other antibiotic agents; Z88.2 Allergy status to sulfonamides
CPT/HCPCS: 71045; A4606; A4663

== ENCOUNTER 2024-01-03 00:07 | Emergency (ER) | payer MEDICAID ==
[~2024-01-03] VITALS: Ht 180.3 cm; Wt 63.5 kg
[2024-01-03 01:59] LABS: ALANINE AMINOTRANSFERASE 18 U/L (16-63); ALBUMIN 2.7 g/dL (3.4-5.0); ALKALINE PHOSPHATASE 88 U/L (50-136); ASPARTATE AMINOTRANSFERASE 14 U/L (15-37); BILIRUBIN,DIRECT 0.2 mg/dL (0.0-0.2); BILIRUBIN,TOTAL 0.2 mg/dL (0.2-1.0); CARBON DIOXIDE 26 mmol/L (21-32); CHLORIDE 105 mmol/L (98-107); CREATININE 1.6 mg/dL (0.6-1.3); GLUCOSE 103 mg/dL (74-106); POTASSIUM 3.6 mmol/L (3.5-5.1); SODIUM SERUM 141 mmol/L (136-145); TOTAL PROTEIN, SERUM 6.8 g/dL (6.4-8.2); UREA NITROGEN, BLOOD 17 mg/dL (7-18)
[2024-01-03 02:04] LABS: CALCIUM 8.5 mg/dL (8.5-10.1)
[2024-01-03 02:13] LABS: BASOPHILS # (AUTO) 0.1 K/UL (0.0-0.2); BASOPHILS % (AUTO) 0.6 % (0.0-2.0); DIFFERENTIAL COMMENT 0; EOSINOPHILS % (AUTO) 0.5 % (0.0-7.0); HEMATOCRIT 28.6 % (36.7-47.1); LYMPHOCYTES % (AUTO) 9.8 % (20.5-51.5); MEAN CORPUSCULAR HEMOGLOBIN 24.8 uug (23.8-33.4); MEAN CORPUSCULAR HGB CONC 32 g/dL (32.5-36.3); MEAN CORPUSCULAR VOLUME 78.6 fL (73.0-96.2); MONOCYTES % (AUTO) 9.8 % (0.0-11.0); NEUTROPHILS # (AUTO) 8.4 K/uL (1.8-8.9); NEUTROPHILS % (AUTO) 79.3 % (38.5-71.5); PLATELET COUNT (AUTO) 345 K/uL (152-348); RED BLOOD CELL COUNT(AUTO) 3.64 MIL/uL (4.06-5.63); RED CELL DISTRIBUTION WIDTH 16.9 % (12.1-16.2); WHITE BLOOD COUNT (AUTO) 10.5 K/uL (3.6-10.2)
[2024-01-03] MEDS ORDERED: CLIN300C12 PO (06:13)
[2024-01-03 06:44] VITALS: BP 143/71; TEMP 97.7; O2SAT 98
== END 2024-01-03 07:03 | disposition home or self-care (01) ==
LOC: ER 00:17
DX: L03.116 Cellulitis of left lower limb (principal); J45.909 Unspecified asthma, uncomplicated; F32.A Depression, unspecified; Z98.890 Other specified postprocedural states; F17.200 Nicotine dependence, unspecified, uncomplicated; Z79.899 Other long term (current) drug therapy; Z79.891 Long term (current) use of opiate analgesic; Z79.1 Long term (current) use of non-steroidal anti-inflammatories (NSAID); Z60.2 Problems related to living alone; Z88.2 Allergy status to sulfonamides; Z88.1 Allergy status to other antibiotic agents
CPT/HCPCS: 36415; 71045; 73551; 73700; 83605; 84484; 85025; 85730; 87040; 93005; A4606; A4663

== ENCOUNTER 2024-01-16 00:12 | Emergency (ER) | payer MEDICAID ==
[~2024-01-16] VITALS: Ht 180.3 cm; Wt 63.5 kg
[2024-01-16] MEDS ORDERED: ACETAMINOPHEN 500 MG TABLET ONE (00:44)
[2024-01-16 00:54] LABS: BASOPHILS # (AUTO) 0.4 K/UL (0.0-0.2); BASOPHILS % (AUTO) 4.3 % (0.0-2.0); DIFFERENTIAL COMMENT 0; EOSINOPHILS # (AUTO) 0.1 K/uL (0.0-0.7); EOSINOPHILS % (AUTO) 1.1 % (0.0-7.0); HEMATOCRIT 31.3 % (36.7-47.1); HEMOGLOBIN 10.1 g/dL (12.5-16.3); LYMPHOCYTES # (AUTO) 1.2 K/uL (0.8-4.8); LYMPHOCYTES % (AUTO) 12.7 % (20.5-51.5); MEAN CORPUSCULAR HEMOGLOBIN 24.6 uug (23.8-33.4); MEAN CORPUSCULAR HGB CONC 32 g/dL (32.5-36.3); MONOCYTES # (AUTO) 0.7 K/uL (0.1-1.30); MONOCYTES % (AUTO) 7.4 % (0.0-11.0); NEUTROPHILS # (AUTO) 7.3 K/uL (1.8-8.9); NEUTROPHILS % (AUTO) 74.5 % (38.5-71.5); PLATELET COUNT (AUTO) 447 K/uL (152-348); RED BLOOD CELL COUNT(AUTO) 4.11 MIL/uL (4.06-5.63); RED CELL DISTRIBUTION WIDTH 16.4 % (12.1-16.2); WHITE BLOOD COUNT (AUTO) 9.8 K/uL (3.6-10.2)
[2024-01-16 01:00] LABS: CALCIUM 9.2 mg/dL (8.5-10.1); CREATININE 1.6 mg/dL (0.6-1.3); POTASSIUM 4.6 mmol/L (3.5-5.1)
[2024-01-16] MEDS: ACETAMINOPHEN 500 MG TABLET PO ONE (01:00)
[2024-01-16 01:01] LABS: C-REACTIVE PROTEIN 0.08 mg/dL (0.00-0.30)
[2024-01-16] MEDS ORDERED: OXYCODONE HCL 5 MG TABLET ONE (01:02)
[2024-01-16 01:05] LABS: ALBUMIN 3.4 g/dL (3.4-5.0); BILIRUBIN,TOTAL 0.2 mg/dL (0.2-1.0); TOTAL PROTEIN, SERUM 7.8 g/dL (6.4-8.2)
[2024-01-16] MEDS: OXYCODONE HCL 5 MG TABLET PO ONE (01:06)
[2024-01-16] MEDS ORDERED: TRAM50TA2 PO (01:21)
[2024-01-16] MEDS ORDERED: AMIT25TA24 PO (01:28)
[2024-01-16 01:40] VITALS: BP 145/87; TEMP 98.7; O2SAT 100
== END 2024-01-16 01:33 | disposition home or self-care (01) ==
LOC: ER 00:13
DX: M79.652 Pain in left thigh (principal); R03.0 Elevated blood-pressure reading, without diagnosis of hypertension; G89.29 Other chronic pain; G43.909 Migraine, unspecified, not intractable, without status migrainosus; J45.909 Unspecified asthma, uncomplicated; F32.A Depression, unspecified; F17.200 Nicotine dependence, unspecified, uncomplicated; Z98.890 Other specified postprocedural states; Z79.891 Long term (current) use of opiate analgesic; Z79.899 Other long term (current) drug therapy; Z59.00 Homelessness unspecified; Z88.2 Allergy status to sulfonamides; Z88.1 Allergy status to other antibiotic agents
CPT/HCPCS: 36415; 85025; 86140; A4606; A4663; A9150

== ENCOUNTER 2024-01-20 14:27 | Emergency (ER) | payer MEDICAID ==
[~2024-01-20] VITALS: Ht 180.3 cm; Wt 63.5 kg
[~2024-01-20 14:27] MED LIST changes: -AMIT25TA24 GT; +AMIT25TA24 PO; +TRAM50TA2 PO
[2024-01-20] MEDS ORDERED: TRAM50TA2 PO (15:53)
[2024-01-20] MEDS ORDERED: AMIT25TA24 PO (15:53)
[2024-01-20 16:00] VITALS: BP 128/78; O2SAT 98
== END 2024-01-20 16:01 | disposition home or self-care (01) ==
LOC: ER 14:27
DX: G89.29 Other chronic pain (principal); F41.9 Anxiety disorder, unspecified; F31.9 Bipolar disorder, unspecified; F90.9 Attention-deficit hyperactivity disorder, unspecified type; J44.89 Other specified chronic obstructive pulmonary disease; F17.210 Nicotine dependence, cigarettes, uncomplicated; F15.10 Other stimulant abuse, uncomplicated; F19.11 Other psychoactive substance abuse, in remission; Z59.00 Homelessness unspecified; Z88.2 Allergy status to sulfonamides; Z88.1 Allergy status to other antibiotic agents; Z80.3 Family history of malignant neoplasm of breast
CPT/HCPCS: A4606; A4663

== ENCOUNTER 2024-02-22 21:43 | Emergency (ER) | payer MEDICAID, OTHER ==
[~2024-02-22] VITALS: Ht 177.8 cm; Wt 63.5 kg
[2024-02-22] MEDS ORDERED: KETOROLAC TROMETHAMINE 30 MG INJ ONE (22:20)
[2024-02-22] MEDS: KETOROLAC TROMETHAMINE 30 MG INJ IM ONE (22:30)
[2024-02-22 22:41] LABS: BASOPHILS # (AUTO) 0.1 K/UL (0.0-0.2); BASOPHILS % (AUTO) 0.7 % (0.0-2.0); EOSINOPHILS # (AUTO) 0.3 K/uL (0.0-0.7); EOSINOPHILS % (AUTO) 3.9 % (0.0-7.0); HEMATOCRIT 30.4 % (36.7-47.1); HEMOGLOBIN 9.8 g/dL (12.5-16.3); LYMPHOCYTES # (AUTO) 1.7 K/uL (0.8-4.8); LYMPHOCYTES % (AUTO) 24.4 % (20.5-51.5); MEAN CORPUSCULAR HEMOGLOBIN 24.6 uug (23.8-33.4); MEAN CORPUSCULAR HGB CONC 32 g/dL (32.5-36.3); MONOCYTES # (AUTO) 0.8 K/uL (0.1-1.30); MONOCYTES % (AUTO) 11.1 % (0.0-11.0); NEUTROPHILS # (AUTO) 4.3 K/uL (1.8-8.9); NEUTROPHILS % (AUTO) 59.9 % (38.5-71.5); PLATELET COUNT (AUTO) 348 K/uL (152-348); WHITE BLOOD COUNT (AUTO) 7.2 K/uL (3.6-10.2)
[2024-02-22 22:58] LABS: ALBUMIN 3.2 g/dL (3.4-5.0); BILIRUBIN,TOTAL 0.1 mg/dL (0.2-1.0); CREATININE 1.6 mg/dL (0.6-1.3); POTASSIUM 4.4 mmol/L (3.5-5.1); TOTAL PROTEIN, SERUM 7.2 g/dL (6.4-8.2)
[2024-02-22 23:13] LABS: C-REACTIVE PROTEIN 0.07 mg/dL (0.00-0.30)
[2024-02-23 04:15] VITALS: BP 130/78; TEMP 98.1; O2SAT 99
[2024-02-27] MEDS ORDERED: IBUP-1955 PO (01:01)
[2024-02-27] MEDS ORDERED: ACET-2605 PO (01:01)
== END 2024-02-23 04:18 | disposition home or self-care (01) ==
LOC: ER 21:43
DX: M79.652 Pain in left thigh (principal); R03.0 Elevated blood-pressure reading, without diagnosis of hypertension; J45.909 Unspecified asthma, uncomplicated; F41.9 Anxiety disorder, unspecified; F33.9 Major depressive disorder, recurrent, unspecified; N18.9 Chronic kidney disease, unspecified; D63.1 Anemia in chronic kidney disease; G89.4 Chronic pain syndrome; F17.210 Nicotine dependence, cigarettes, uncomplicated; E46 Unspecified protein-calorie malnutrition; Z68.20 Body mass index [BMI] 20.0-20.9, adult; Z59.00 Homelessness unspecified; Z88.1 Allergy status to other antibiotic agents; Z88.2 Allergy status to sulfonamides; Z88.7 Allergy status to serum and vaccine
CPT/HCPCS: 99285; 73700; 93971; 80053; 82550; 85025; 85379; 86140; 36415; 96372; J1885; A4606; A4663

== ENCOUNTER 2024-02-26 04:56 | Emergency (ER) | payer OTHER ==
[~2024-02-26] VITALS: Ht 180.3 cm; Wt 68.0 kg
[2024-02-26] MEDS ORDERED: KETOROLAC TROMETHAMINE 30 MG INJ ONE (05:39)
[2024-02-26] MEDS ORDERED: TRAMADOL HCL 50 MG TABLET ONE (05:39)
[2024-02-26] MEDS: TRAMADOL HCL 50 MG TABLET PO ONE (05:52)
[2024-02-26] MEDS: KETOROLAC TROMETHAMINE 30 MG INJ IM ONE (05:52)
[2024-02-26] MEDS ORDERED: TRAM50TA2 PO ×2 (06:28→06:29)
[2024-02-26 07:23] VITALS: BP 138/74; TEMP 97.8; O2SAT 97
[2024-02-27] MEDS ORDERED: IBUP-1955 PO (01:01)
[2024-02-27] MEDS ORDERED: ACET-2605 PO (01:01)
== END 2024-02-26 07:20 | disposition home or self-care (01) ==
LOC: ER 04:59
DX: G89.29 Other chronic pain (principal); M79.652 Pain in left thigh; R03.0 Elevated blood-pressure reading, without diagnosis of hypertension; F15.10 Other stimulant abuse, uncomplicated; F17.210 Nicotine dependence, cigarettes, uncomplicated; F19.11 Other psychoactive substance abuse, in remission; F31.9 Bipolar disorder, unspecified; F41.9 Anxiety disorder, unspecified; F90.9 Attention-deficit hyperactivity disorder, unspecified type; J44.89 Other specified chronic obstructive pulmonary disease; Z79.899 Other long term (current) drug therapy; Z59.00 Homelessness unspecified; Z88.1 Allergy status to other antibiotic agents; Z88.2 Allergy status to sulfonamides; Z88.7 Allergy status to serum and vaccine
CPT/HCPCS: 99283; 96372; J1885; A4606; A4663

== ENCOUNTER 2024-02-27 01:43 | Emergency (ER) | payer OTHER ==
[~2024-02-27] VITALS: Ht 180.3 cm; Wt 68.0 kg
[2024-02-27] MEDS: ACETAMINOPHEN 500 MG TABLET PO ONE (01:20)
[2024-02-27] MEDS: NAPROXEN 500 MG TABLET PO ONE (01:20)
[2024-02-27] MEDS: TRAMADOL HCL 50 MG TABLET PO ONE (01:21)
[~2024-02-27 01:43] MED LIST changes: +ACET-2605 PO; +ACETAMINOPHEN 500 MG TABLET ONE; +IBUP-1955 PO; +NAPROXEN 500 MG TABLET ONE; +TRAMADOL HCL 50 MG TABLET ONE
[2024-02-27 02:28] VITALS: BP 138/64; TEMP 98; O2SAT 98
== END 2024-02-27 02:20 | disposition home or self-care (01) ==
LOC: ER 01:45
DX: M79.605 Pain in left leg (principal); F17.210 Nicotine dependence, cigarettes, uncomplicated; F31.9 Bipolar disorder, unspecified; F41.9 Anxiety disorder, unspecified; G89.29 Other chronic pain; J45.909 Unspecified asthma, uncomplicated; Z59.00 Homelessness unspecified; Z88.1 Allergy status to other antibiotic agents; Z88.2 Allergy status to sulfonamides; Z88.7 Allergy status to serum and vaccine
CPT/HCPCS: A4606; A4663; A9150

== ENCOUNTER 2024-02-28 09:07 | Inpatient (IN) | payer OTHER ==
[~2024-02-28] VITALS: Ht 172.7 cm; Wt 61.2 kg
[~2024-02-28 09:07] MED LIST changes: -ACETAMINOPHEN 500 MG TABLET ONE; -NAPROXEN 500 MG TABLET ONE; -TRAMADOL HCL 50 MG TABLET ONE
[2024-02-28] MEDS ORDERED: OXYCODONE/APAP 5-325 MG TABLET ONE ×2 (18:51→18:54)
[2024-02-28 18:55] LABS: BASOPHILS # (AUTO) 0.1 K/UL (0.0-0.2); BASOPHILS % (AUTO) 0.7 % (0.0-2.0); EOSINOPHILS # (AUTO) 0.1 K/uL (0.0-0.7); EOSINOPHILS % (AUTO) 1.5 % (0.0-7.0); HEMATOCRIT 35.2 % (36.7-47.1); HEMOGLOBIN 11.3 g/dL (12.5-16.3); LYMPHOCYTES # (AUTO) 1.5 K/uL (0.8-4.8); LYMPHOCYTES % (AUTO) 17.1 % (20.5-51.5); MEAN CORPUSCULAR HEMOGLOBIN 24.4 uug (23.8-33.4); MEAN CORPUSCULAR HGB CONC 32 g/dL (32.5-36.3); MEAN CORPUSCULAR VOLUME 75.6 fL (73.0-96.2); MONOCYTES # (AUTO) 1.4 K/uL (0.1-1.30); MONOCYTES % (AUTO) 16.1 % (0.0-11.0); NEUTROPHILS # (AUTO) 5.7 K/uL (1.8-8.9); NEUTROPHILS % (AUTO) 64.6 % (38.5-71.5); PLATELET COUNT (AUTO) 436 K/uL (152-348); RED BLOOD CELL COUNT(AUTO) 4.66 MIL/uL (4.06-5.63); RED CELL DISTRIBUTION WIDTH 18.1 % (12.1-16.2); WHITE BLOOD COUNT (AUTO) 8.9 K/uL (3.6-10.2)
[2024-02-28] MEDS: IV NORMAL SALINE 1000 ML BAG IV ONE (18:55)
[2024-02-28] MEDS: OXYCODONE/APAP 5-325 MG TABLET PO ONE (18:55)
[2024-02-28 18:56] LABS: CALCIUM 9.4 mg/dL (8.5-10.1); CREATININE 2.5 mg/dL (0.6-1.3); DIFFERENTIAL COMMENT 1; POTASSIUM 4.3 mmol/L (3.5-5.1)
[2024-02-28 19:02] LABS: ALBUMIN 3.3 g/dL (3.4-5.0); BILIRUBIN,DIRECT 0.1 mg/dL (0.0-0.2); BILIRUBIN,TOTAL 0.5 mg/dL (0.2-1.0); ETHANOL < 3 MG/DL (0-10); TOTAL PROTEIN, SERUM 7.9 g/dL (6.4-8.2)
[2024-02-28 19:09] LABS: *AMPHETAMINE, URINE POSITIVE (NEGATIVE); *BARBITURATE, URINE NEGATIVE (NEGATIVE); *BENZODIAZEPINE, URINE NEGATIVE (NEGATIVE); *CANNABINOID, URINE NEGATIVE (NEGATIVE); *COCCAINE, URINE NEGATIVE (NEGATIVE); *OPIATE, URINE NEGATIVE (NEGATIVE); *PHENCYCLIDINE SCREEN,URINE NEGATIVE (NEGATIVE); FENTANYL, URINE POSITIVE (NEGATIVE)
[2024-02-28 19:21] LABS: ANISOCYTOSIS 2+; BAND % (MANUAL) 3 % (0-10); EOSINOPHILS % (MANUAL) 1 % (0-8); LYMPHOCYTES % (MANUAL) 20 % (20-40); MONOCYTES % (MANUAL) 12 % (2-10); NEUTROPHILS % (MANUAL) 64 % (42-75); PLATELET ESTIMATE ADEQUATE
[2024-02-28 19:25] LABS: OVALOCYTES 1+; TEAR DROP CELLS 1+
[2024-02-28] MEDS ORDERED: ACETAMINOPHEN 325 MG TABLET-SA PATIENTS-PAIN ONLY PO PRN (20:15)
[2024-02-28] MEDS ORDERED: MIRALAX 17 GM POWD.PACK PO PRN ×2 (20:15→20:30)
[2024-02-28] MEDS ORDERED: ONDANSETRON HCL 4 MG TABLET PO PRN (20:15)
[2024-02-28] MEDS ORDERED: ALBUTEROL SULFATE 2.5 MG/3 ML NEBU NEB PRN (20:45)
[2024-02-28] MEDS: DOCUSATE SODIUM 100 MG CAPSULE PO SCH (21:00)
[2024-02-28] MEDS: HYDROCODONE/APAP 10-325 MG TABLET PO PRN (23:56)
[2024-02-28] MEDS: IV NS 1000 ML 1,000 ML IV PRN (23:57)
[2024-02-29] VITALS: BP 120/86; TEMP 98; O2SAT 95
[2024-02-29] MEDS: AMITRIPTYLINE HCL 50 MG TABLET PO SCH (00:41)
[2024-02-29] MEDS: TEMAZEPAM 15 MG CAPSULE PO PRN (01:39)
[2024-02-29] MEDS: OXYCODONE/APAP 5-325 MG TABLET PO PRN (02:42)
[2024-02-29 05:00] VITALS: BP 110/76; TEMP 98; O2SAT 95
[2024-02-29] MEDS ORDERED: ACETAMINOPHEN 325 MG TABLET PO PRN (05:45)
[2024-02-29 06:38] LABS: BASOPHILS % (AUTO) 0.6 % (0.0-2.0); EOSINOPHILS # (AUTO) 0.2 K/uL (0.0-0.7); EOSINOPHILS % (AUTO) 2.8 % (0.0-7.0); HEMATOCRIT 30.8 % (36.7-47.1); HEMOGLOBIN 10.1 g/dL (12.5-16.3); LYMPHOCYTES # (AUTO) 1.7 K/uL (0.8-4.8); LYMPHOCYTES % (AUTO) 22.2 % (20.5-51.5); MEAN CORPUSCULAR HEMOGLOBIN 24.7 uug (23.8-33.4); MEAN CORPUSCULAR HGB CONC 33 g/dL (32.5-36.3); MEAN CORPUSCULAR VOLUME 75.2 fL (73.0-96.2); MONOCYTES # (AUTO) 1.3 K/uL (0.1-1.30); NEUTROPHILS # (AUTO) 4.5 K/uL (1.8-8.9); NEUTROPHILS % (AUTO) 57.4 % (38.5-71.5); PLATELET COUNT (AUTO) 347 K/uL (152-348); RED CELL DISTRIBUTION WIDTH 17.7 % (12.1-16.2); WHITE BLOOD COUNT (AUTO) 7.9 K/uL (3.6-10.2)
[2024-02-29 06:53] LABS: IRON, SERUM 18 ug/dL (50-175)
[2024-02-29 06:55] LABS: DIFFERENTIAL COMMENT 1
[2024-02-29 06:56] LABS: ALANINE AMINOTRANSFERASE 28 U/L (16-63); ALBUMIN 2.8 g/dL (3.4-5.0); ALKALINE PHOSPHATASE 89 U/L (50-136); ASPARTATE AMINOTRANSFERASE 26 U/L (15-37); BILIRUBIN,TOTAL 0.4 mg/dL (0.2-1.0); CALCIUM 8.5 mg/dL (8.5-10.1); CARBON DIOXIDE 24 mmol/L (21-32); CHLORIDE 109 mmol/L (98-107); CREATINE KINASE, TOTAL 195 U/L (39-308); CREATININE 2.1 mg/dL (0.6-1.3); GLUCOSE 89 mg/dL (74-106); MAGNESIUM 2.5 mg/dL (1.8-2.4); PHOSPHOROUS 2.8 mg/dL (2.5-4.9); POTASSIUM 4.3 mmol/L (3.5-5.1); SODIUM SERUM 142 mmol/L (136-145); TOTAL PROTEIN, SERUM 6.5 g/dL (6.4-8.2); UREA NITROGEN, BLOOD 54 mg/dL (7-18)
[2024-02-29 07:12] LABS: THYROID STIMULATING HORMONE 3.181 mIU/mL (0.358-3.740)
[2024-02-29 08:30] VITALS: BP 132/86; TEMP 98.5; O2SAT 97
[2024-02-29] MEDS: FAMOTIDINE 20 MG TABLET PO SCH (08:58)
[2024-02-29] MEDS ORDERED: BUSP10TA3 PO (11:19)
[2024-02-29 12:30] VITALS: BP 155/86; TEMP 98.1; O2SAT 99
[2024-02-29 16:01] VITALS: BP 133/80; TEMP 98.2; O2SAT 98
[2024-02-29] MEDS: busPIRone 10 MG TABLET PO SCH (17:04)
[2024-02-29] MEDS ORDERED: AMITRIPTYLINE HCL 50 MG TABLET PO SCH (21:00)
[2024-03-01 05:10] VITALS: BP 138/84; TEMP 98; O2SAT 98
[2024-03-01 12:00] VITALS: BP 163/93; TEMP 97.2; O2SAT 98
== END 2024-03-01 14:20 | disposition home or self-care (01) | DRG 469 ==
LOC: ER 09:07 → MEDSURG3 20:12
PROVIDERS: ADMIT Internal Medicine
DX: N17.9 Acute kidney failure, unspecified (principal); J47.0 Bronchiectasis with acute lower respiratory infection; E86.0 Dehydration; F15.10 Other stimulant abuse, uncomplicated; F11.10 Opioid abuse, uncomplicated; D50.9 Iron deficiency anemia, unspecified; M79.605 Pain in left leg; G89.4 Chronic pain syndrome; Z59.02 Unsheltered homelessness; J21.9 Acute bronchiolitis, unspecified; F19.10 Other psychoactive substance abuse, uncomplicated; M50.322 Other cervical disc degeneration at C5-C6 level; M48.02 Spinal stenosis, cervical region; I10 Essential (primary) hypertension; F41.9 Anxiety disorder, unspecified; F31.9 Bipolar disorder, unspecified; Z79.899 Other long term (current) drug therapy; Z80.3 Family history of malignant neoplasm of breast; Z88.1 Allergy status to other antibiotic agents; Z88.2 Allergy status to sulfonamides; Z88.3 Allergy status to other anti-infective agents; F90.9 Attention-deficit hyperactivity disorder, unspecified type; K57.30 Diverticulosis of large intestine without perforation or abscess without bleeding; Z91.81 History of falling
CPT/HCPCS: 36415; 70030-TC; 70450; 71250; 72125; 72170; 73551; 73590; 83550; 83735; 84100; 84443; 84484; 85025; G0378; G0480; J7040

== ENCOUNTER 2024-03-24 17:06 | Emergency (ER) | payer OTHER ==
[~2024-03-24] VITALS: Ht 180.3 cm; Wt 63.5 kg
[~2024-03-24 17:06] MED LIST changes: -ACET-2605 PO; -ALBU6.7H9 INH; -AMIT25TA24 PO; -AMIT50TA17 PO; -AMIT75TA13 PO; -AMOX-430 PO; -BENZ-13 PO; +BUSP10TA3 PO; -CLIN-118 PO; -CLIN300C12 PO; -CLON0.1T PO; -CLON0.2T PO; -CYCL10TA9 PO; -DIPH25CA83 PO; -DIPH25TA25 PO; -DOXY100T2 PO; -FAMO-132 PO; -FAMO40TA71 PO; -HYDR-3974 PO; -HYDR-3980 PO; -IBUP-1955 PO; -LORA2TAB95 PO; -METH4TAB3 PO; -NAPR-1009 PO; -NAPR500T6 PO; -ONDA4TAB5 PO; -OXYC-128 PO; -OXYC-133 PO; -POLY17PO4 PO; -SUMA50TA PO; -TRAM50TA2 PO
[2024-03-24] MEDS ORDERED: TRAMADOL HCL 50 MG TABLET ONE (17:51)
[2024-03-24] MEDS: TRAMADOL HCL 50 MG TABLET PO ONE (17:55)
[2024-03-24] MEDS ORDERED: ALBU6.7H9 INH (17:59)
[2024-03-24] MEDS ORDERED: AMIT25TA24 PO (17:59)
[2024-03-24] MEDS ORDERED: TRAM50TA2 PO (17:59)
[2024-03-24] MEDS ORDERED: CLON0.1T PO (17:59)
[2024-03-24 18:35] VITALS: BP 158/79; TEMP 97.9; O2SAT 96
== END 2024-03-24 18:35 | disposition home or self-care (01) ==
LOC: ER 17:15
DX: M79.652 Pain in left thigh (principal); F17.210 Nicotine dependence, cigarettes, uncomplicated; F31.9 Bipolar disorder, unspecified; F41.9 Anxiety disorder, unspecified; I10 Essential (primary) hypertension; J45.909 Unspecified asthma, uncomplicated; Z59.00 Homelessness unspecified; Z88.1 Allergy status to other antibiotic agents; Z88.2 Allergy status to sulfonamides; Z88.7 Allergy status to serum and vaccine
CPT/HCPCS: A4606; A4663

== ENCOUNTER 2024-04-20 01:16 | Emergency (ER) | payer OTHER ==
[~2024-04-20] VITALS: Ht 177.8 cm; Wt 63.5 kg
[~2024-04-20 01:16] MED LIST changes: +ALBU6.7H9 INH; +AMIT25TA24 PO; +CLON0.1T PO; +OXYC-128 PO; +TRAM50TA2 PO
[2024-04-20] MEDS ORDERED: LORAZEPAM 1 MG TABLET ONE (01:43)
[2024-04-20] MEDS ORDERED: HYDROCODONE/APAP 10-325 MG TABLET ONE (01:44)
[2024-04-20] MEDS: LORAZEPAM 0.5 MG TABLET PO ONE (01:53)
[2024-04-20] MEDS: HYDROCODONE/APAP 10-325 MG TABLET PO ONE (02:08)
[2024-04-20 02:24] VITALS: BP 140/68; TEMP 98.3; O2SAT 98
== END 2024-04-20 02:25 | disposition home or self-care (01) ==
LOC: ER 01:21
DX: G89.29 Other chronic pain (principal); Z76.5 Malingerer [conscious simulation]; F17.210 Nicotine dependence, cigarettes, uncomplicated; F19.10 Other psychoactive substance abuse, uncomplicated; F31.9 Bipolar disorder, unspecified; F41.9 Anxiety disorder, unspecified; J45.909 Unspecified asthma, uncomplicated; M79.652 Pain in left thigh; Z79.899 Other long term (current) drug therapy; Z60.2 Problems related to living alone; Z88.1 Allergy status to other antibiotic agents; Z88.2 Allergy status to sulfonamides; Z88.7 Allergy status to serum and vaccine; W18.39XA Other fall on same level, initial encounter; Y93.89 Activity, other specified; Y92.89 Other specified places as the place of occurrence of the external cause; Y99.8 Other external cause status
CPT/HCPCS: 73551; A4606; A4663

== ENCOUNTER 2024-05-23 19:51 | Emergency (ER) | payer OTHER ==
[~2024-05-23] VITALS: Ht 177.8 cm; Wt 63.5 kg
[2024-05-23 20:13] VITALS: O2SAT 98
[2024-05-24] MEDS ORDERED: HYDR-3980 PO (10:55)
== END 2024-05-23 23:30 | disposition left against medical advice (07) ==
LOC: ER 19:51
DX: M79.605 Pain in left leg (principal); Z53.21 Procedure and treatment not carried out due to patient leaving prior to being seen by health care provider; G43.909 Migraine, unspecified, not intractable, without status migrainosus; F17.210 Nicotine dependence, cigarettes, uncomplicated; F31.9 Bipolar disorder, unspecified; F41.9 Anxiety disorder, unspecified; J45.909 Unspecified asthma, uncomplicated; Z79.899 Other long term (current) drug therapy; Z88.1 Allergy status to other antibiotic agents; Z88.2 Allergy status to sulfonamides; Z88.7 Allergy status to serum and vaccine
CPT/HCPCS: A4606; A4663

== ENCOUNTER 2024-05-24 06:57 | Emergency (ER) | payer OTHER ==
[~2024-05-24] VITALS: Ht 180.3 cm; Wt 63.5 kg
[2024-05-24 08:52] LABS: BASOPHILS # (AUTO) 0.1 K/UL (0.0-0.2); DIFFERENTIAL COMMENT 0; EOSINOPHILS # (AUTO) 0.4 K/uL (0.0-0.7); EOSINOPHILS % (AUTO) 4.6 % (0.0-7.0); HEMATOCRIT 33.8 % (36.7-47.1); LYMPHOCYTES # (AUTO) 1.4 K/uL (0.8-4.8); LYMPHOCYTES % (AUTO) 17.5 % (20.5-51.5); MEAN CORPUSCULAR HGB CONC 32 g/dL (32.5-36.3); MEAN CORPUSCULAR VOLUME 77.1 fL (73.0-96.2); MONOCYTES # (AUTO) 0.7 K/uL (0.1-1.30); MONOCYTES % (AUTO) 8.8 % (0.0-11.0); NEUTROPHILS # (AUTO) 5.6 K/uL (1.8-8.9); NEUTROPHILS % (AUTO) 68.1 % (38.5-71.5); PLATELET COUNT (AUTO) 325 K/uL (152-348); RED BLOOD CELL COUNT(AUTO) 4.38 MIL/uL (4.06-5.63); RED CELL DISTRIBUTION WIDTH 19.3 % (12.1-16.2); WHITE BLOOD COUNT (AUTO) 8.3 K/uL (3.6-10.2)
[2024-05-24] MEDS ORDERED: HYDROCODONE/APAP 5-325MG TABLET ONE (08:53)
[2024-05-24] MEDS: HYDROCODONE/APAP 10-325 MG TABLET PO ONE (08:54)
[2024-05-24 08:56] LABS: CREATININE 1.7 mg/dL (0.6-1.3); MAGNESIUM 2.1 mg/dL (1.8-2.4); POTASSIUM 4.6 mmol/L (3.5-5.1)
[2024-05-24] MEDS ORDERED: KETOROLAC TROMETHAMINE 30 MG INJ ONE (10:36)
[2024-05-24] MEDS: KETOROLAC TROMETHAMINE 30 MG INJ IM ONE (10:50)
[2024-05-24] MEDS ORDERED: HYDR-3980 PO (10:55)
[2024-05-24 11:15] VITALS: BP 129/79; TEMP 98; O2SAT 97
== END 2024-05-24 11:18 | disposition home or self-care (01) ==
LOC: ER 07:15
DX: S76.812A Strain of other specified muscles, fascia and tendons at thigh level, left thigh, initial encounter (principal); F17.210 Nicotine dependence, cigarettes, uncomplicated; J45.909 Unspecified asthma, uncomplicated; F31.9 Bipolar disorder, unspecified; F41.9 Anxiety disorder, unspecified; Z79.899 Other long term (current) drug therapy; Z88.1 Allergy status to other antibiotic agents; Z88.2 Allergy status to sulfonamides; Z88.7 Allergy status to serum and vaccine; X58.XXXA Exposure to other specified factors, initial encounter; Y93.89 Activity, other specified; Y92.89 Other specified places as the place of occurrence of the external cause; Y99.8 Other external cause status
CPT/HCPCS: 36415; 83735; 85025; A4606; A4663; J1885

== ENCOUNTER 2024-05-30 00:35 | Emergency (ER) | payer OTHER ==
[~2024-05-30] VITALS: Ht 177.8 cm; Wt 68.0 kg
[~2024-05-30 00:35] MED LIST changes: +HYDR-3980 PO
[2024-05-30] MEDS ORDERED: KETOROLAC TROMETHAMINE 30 MG INJ ONE (01:41)
[2024-05-30] MEDS: KETOROLAC TROMETHAMINE 30 MG INJ IM ONE (01:43)
[2024-05-30] MEDS ORDERED: TRAM50TA2 PO (01:46)
[2024-05-30] MEDS ORDERED: ALBU18HF2 INH (01:48)
[2024-05-30 01:58] VITALS: BP 155/70; O2SAT 98
== END 2024-05-30 01:59 | disposition home or self-care (01) ==
LOC: ER 00:50
DX: S79.822A Other specified injuries of left thigh, initial encounter (principal); M79.652 Pain in left thigh; F17.210 Nicotine dependence, cigarettes, uncomplicated; F31.9 Bipolar disorder, unspecified; F41.9 Anxiety disorder, unspecified; J45.909 Unspecified asthma, uncomplicated; Z76.0 Encounter for issue of repeat prescription; Z76.5 Malingerer [conscious simulation]; Z79.899 Other long term (current) drug therapy; Z88.1 Allergy status to other antibiotic agents; Z88.2 Allergy status to sulfonamides; Z88.7 Allergy status to serum and vaccine; Z60.2 Problems related to living alone; W34.010A Accidental discharge of airgun, initial encounter; Y93.89 Activity, other specified; Y92.89 Other specified places as the place of occurrence of the external cause; Y99.8 Other external cause status
CPT/HCPCS: 99283; 96372; J1885; A4606; A4663

== ENCOUNTER → 2024-06-19 | Emergency (ER) | payer OTHER ==
[~2024-06-19] MED LIST changes: +ALBU18HF2 INH
== END | disposition left against medical advice (07) ==
LOC: ER 11:06
DX: M79.606 Pain in leg, unspecified (principal); Z53.21 Procedure and treatment not carried out due to patient leaving prior to being seen by health care provider

== ENCOUNTER 2024-07-19 23:09 | Emergency (ER) | payer OTHER ==
[~2024-07-19] VITALS: Ht 177.8 cm; Wt 68.0 kg
[2024-07-19 23:15] VITALS: O2SAT 98
== END 2024-07-20 02:00 | disposition left against medical advice (07) ==
LOC: ER 23:11
DX: M79.605 Pain in left leg (principal); G43.909 Migraine, unspecified, not intractable, without status migrainosus; Z53.21 Procedure and treatment not carried out due to patient leaving prior to being seen by health care provider
CPT/HCPCS: A4606; A4663

== ENCOUNTER 2024-08-03 02:40 | Emergency (ER) | payer OTHER | END 2024-08-03 04:08 | disposition left against medical advice (07) | LOC: ER 02:42 | DX: R68.89 Other general symptoms and signs (principal); Z53.21 Procedure and treatment not carried out due to patient leaving prior to being seen by health care provider ==